=== PATIENT | female | born 1955 | race Caucasian/White ===

== ENCOUNTER 2023-02-13 09:15 | Outpatient (OUT) | payer MEDICARE, MEDICAID, SELFPAY ==
[2023-02-13 09:40] LABS: Basophils Percent Auto 0.5 % (0.2-2.0); Eosinophils Absolute Auto 0.1 10^3/uL (0.0-0.7); Eosinophils Percent Auto 1.3 % (0.9-7.0); Hematocrit 40.1 % (36.0-48.0); Immature Granulocytes Abs Auto 0.03 10^3/uL (0.00-0.03); Immature Granulocytes Pct Auto 0.4 % (0.0-0.5); Lymphocytes Absolute Auto 2.5 10^3/uL (1.2-3.8); Lymphocytes Percent Auto 29.2 % (20.5-60.0); Mean Corpuscular HGB Conc 32.4 g/dL (29.9-35.2); Mean Corpuscular Hemoglobin 31.4 pg (26.7-34.0); Mean Corpuscular Volume 96.9 fL (81.0-99.0); Mean Platelet Volume 9.2 fL (9.5-13.5); Monocytes Absolute Auto 0.6 10^3/uL (0.3-0.8); Monocytes Percent Auto 7.5 % (1.7-12.0); Neutrophils Absolute Auto 5.2 10^3/uL (1.4-6.5); Neutrophils Percent Auto 61.1 % (43.0-75.0); Platelet Count 142 10^3/uL (150-450); Red Blood Count 4.14 10^6/uL (4.20-5.40); Red Cell Distribution Width 15.3 % (11.0-15.0); White Blood Count 8.4 10^3/uL (4.0-11.0)
[2023-02-13 13:14] LABS: Alanine Aminotransferase 28 U/L (14-59); Albumin Globulin Ratio 1.1; Albumin Level 3.4 g/dL (3.4-5.0); Alkaline Phosphatase 72 U/L (46-116); Anion Gap 10.7; Aspartate Amino Transferase 18 U/L (15-37); BUN Creatinine Ratio 23.3; Bilirubin Direct 0.1 mg/dL (0.0-0.2); Bilirubin Total 0.6 mg/dL (0.2-1.0); Carbon Dioxide 29.5 mmol/L (21.0-32.0); Chloride 109 mmol/L (98-107); Cholesterol 152 mg/dL (<=200); Estimated GFR (African America >60 (>=60); Estimated GFR (Non-African Ame >60 (>=60); Globulin 3.2 g/dL; Glucose 73 mg/dL (74-106); HDL Cholesterol 77 mg/dL (40-60); Potassium 4.2 mmol/L (3.5-5.1); Sodium 145 mmol/L (136-145); Thyroid Stimulating Hormone 1.229 uIU/mL (0.358-3.740); Total Protein 6.6 g/dL (6.4-8.2); Triglycerides 61 mg/dL (<=150); VLDL CHOLESTEROL 12.2 mg/dL
== END 2023-02-13 09:16 | disposition home or self-care (01) ==
LOC: LAB 09:18
PROVIDERS: PCP Family Medicine; Visit Provider Family Medicine
DX: Z79.899 Other long term (current) drug therapy (principal); E55.9 Vitamin D deficiency, unspecified; E78.5 Hyperlipidemia, unspecified; E66.01 Morbid (severe) obesity due to excess calories; Z98.84 Bariatric surgery status
CPT/HCPCS: 36415; 80048; 80061; 80076; 82306; 82607; 84443; 85025

== ENCOUNTER 2023-05-21 09:48 | Outpatient (OUT) | payer MEDICARE, MEDICAID, SELFPAY ==
--- NOTE | 2023-05-21 09:57 | XR_ITS ---
The [address] [address] Patient Name: CEFERINO PEREZ MRN: [id number] date: 1955 Sex: F Assigned Patient Location: [facility] Current Patient Location: [facility] Accession/Order Number: [id number] Exam Date: 05/21/2023 10:09 Report Date: 05/21/2023 12:26 At the request of: OLGA HILTON Procedure: XR knee LT 3V EXAM: XR knee LT 3V HISTORY: acute pain of left knee M25.562 Injury one month ago COMPARISON: None TECHNIQUE: 3 views of the left knee were obtained. FINDINGS: No definite acute fracture or dislocation. Minimal medial spurring. Focal area of sclerosis in the lateral femoral condyle compatible with bone island. No evidence of sizable suprapatellar joint effusion. Soft tissues are grossly within normal limits. XR/XR knee LT 3V IMPRESSION: Left knee study fails to demonstrate definite acute fracture or dislocation. Follow-up as needed. Electronically authenticated by: JENNIFER HOLLINS Date: 05/21/2023 12:26
== END 2023-05-21 09:49 | disposition home or self-care (01) ==
LOC: RAD 09:50
PROVIDERS: PCP Family Medicine; Visit Provider Family Medicine
DX: M25.562 Pain in left knee (principal)
CPT/HCPCS: 73562

== ENCOUNTER 2023-06-07 13:59 | Outpatient (OUT) | payer MEDICARE, MEDICAID, SELFPAY ==
--- OUTSIDE RECORDS SUMMARY | 2023-06-07 14:05 | XMS_ITS | CCD ---
Author Name Unknown Address [address] [place] [address] Organization [facility] Care Team Providers Care It Manager Name Role Phone PHYSICIAN, DEFAULT Unavailable Unavailable PHYSICIAN, DEFAULT Unavailable Unavailable NADERESantiago, OLGA Unavailable Unavailable NADERER, OLGA Unavailable Unavailable NADERER, OLGA Unavailable Unavailable NADERER, OLGA Unavailable Unavailable NADERER, OLGA Unavailable Unavailable PHYSICIAN, DEFAULT Unavailable Unavailable PHYSICIAN, DEFAULT Unavailable Unavailable NADERER, OLGA Unavailable Unavailable YOSHI MASON Referring Unavailable NADERER, OLGA SIMMONS Primary Care Unavailabl e OLGA HILTON Primary Care Physician [phone] DAVID, DR LUEVANO Admitting Unavailable AHMED, DR LUEVANO Attending Unavailable NADERER, DR OLGA Snell Primary Care Unavailable ZIEBER, DR BOB Henderson Consulting Unavailable AHMED, DR LUEVANO Consulting Unavailable NADERER, DR OLGA Snell Admitting Unavailable NADERER, DR OLGA Snell Attending Unavailable NADERER, DR OLGA Snell Primary Care Unavailable NADERER, DR OLGA Snell Consulting Unavailable AHMED, DR LUEVANO Admitting Unavailable AHMED, DR LUEVANO Attending Unavailable NADERER, DR OLGA Snell Primary Care Unavailable ZIEBER, DR BOB Henderson Consulting Unavailable AHMED, DR LUEVANO Consulting Unavailable Joseph, Julee A Admitting Unavailable Joseph, Julee A Attending Unavailable Joseph, Julee A Attending Unavailable Joseph, Julee A Attending Unavailable Joseph, Julee A Attending Unavailable Joseph, Julee A Attending Unavailable Haritha PAULINO Referring Unavailable SALAM, Haritha Attending Unavailable ANELAMHaritha Admitting Unavailable Jin Echeverria Referring Jin Brink Attending Jin Brink Admitting OLGA Durham Attending Unavailable DYLAN YOUNGER Attending Unavailable Allergies Allergy Classification Reported Allergen(s) Allergy Type Date of Onset Reaction(s) Facility (3 sources) Penicillins; Translations: [PENICILLINS] Drug allergy (disorder) 01-29-2011 [facility] (20 sources) guaiFENesin; Translations: [guaifenesin] Drug Allergy 08-08-2016 unknown [facility] (10 sources) Penicillin; Translations: [Penicillin -class of antibiotic- (product)] Drug Allergy [facility] (11 sources) Pseudoephedrine; Translations: [pseudoephedrine ] Drug Allergy 08-08-2016 [facility] (10 sources) Nystatin; Translations: [nystatin] Drug Allergy [facility] Medications Current Medications Medication Drug Class(es) Dates Sig (Normalized) Sig (Original) acetaminophen 325 mg / HYDROcodone bitartrate 5 mg oral tablet (12 sources) Opioid Agonist Start: 05-14-2022 acetaminophen-hydr ocodone 325 mg-5 mg oral tablet Refill(s) 0, Pain Start Date: 05/14/22 Status: Ordered Start: 01-16-2017 take 1 tablet by pooja th twice daily [place] 5/325 Tab 1 tab(s), Oral, BID, Refill(s) 0, Pain Start Date: 01/16/17 Status: Ordered Start: 01-16-2017 take 1 tablet by pooja th twice daily [place] 5/325 Tab 1 tab(s), Oral, BID, Refill(s) 0, Pain Start Date: 01/16/17 Status: Ordered Albuterol (9 sources) beta2-Adrenergic Agonist Start: 02-13-2018 take 2 puff(s) by inhalation four times daily as needed for wheezing Proventil HFA = 2 puff(s), Inhalation, QID, PRN Shortness of breath or wheezing, Refills(s) 0, Shortness of breath or wheezing Start Date: 02/13/18 Status: Ordered aspirin 81 mg oral tablet (9 sources) Platelet Aggregation Inhibitor, Nonsteroidal Anti-inflammatory Drug Start: 02-18-2015 take 81 mg by mouth once daily aspirin 81 mg, Oral, Daily, Refills(s) 0, Prophylaxis Start Date: 02/18/15 Status: Ordered atorvastatin (5 sources) HMG-CoA Reductase Inhibitor Start: 05-14-2022 atorvastatin Refills(s) 0, High cholesterol Start Date: 05/14/22 Status: Ordered biotin 5 mg oral tablet (9 sources) Start: 11-19-2017 take 5 mg by mouth once daily biotin 5 mg, Oral, Daily, Refills(s) 0, Prophylaxis Start Date: 11/19/17 Status: Ordered busPIRone hydrochloride 7.5 mg oral tablet (5 sources) Start: 05-14-2022 busPIRone 7.5 mg oral tablet Refills(s) 0, Depression Start Date: 05/14/22 Status: Ordered calcium citrate 1500 mg / cholecalciferol 200 unt oral tablet (9 sources) Vitamin D Start: 11-19-2017 take 1 tablet by mouth twice daily calcium (as citrate)-vitami n D 315 mg-200 intl units oral tablet 1 tab(s), Oral, BID Prophylaxis, Refill(s) 0 Start Date: 11/19/17 Status: Ordered docusate sodium 200 mg oral capsule (9 sources) Start: 07-26-2017 take 200 mg by mouth once daily as needed for constipation Colace 200 mg, Oral, Daily, PRN as needed for constipation, Refills(s) 0, Constipation Start Date: 07/26/17 Status: Ordered Doxapram (9 sources) Respiratory Stimulant Start: 04-26-2020 take 1 mg intravenously once doxapram mg/kg, IV, Once, Refills(s) 0, Shortness of breath or wheezing Start Date: 04/26/20 Status: Ordered famotidine 20 mg oral tablet (11 sources) Histamine-2 Receptor Antagonist Start: 03-25-2023 End: 12-20-2023 take 1 tablet by mouth once daily at bedtime famotidine 20 mg Tab 20 mg = 1 tab(s), Oral, Once a day (at bedtime), X 90 day(s), # 90 tab(s), Refills(s) 2, Pharmacy: [facility] #[id number], 150, cm, 03/25/23 12:36:00 EDT, Height/Length Dosing, 90, kg, 03/25/23 12:36:00 EDT, Weight Dosing Start Date: 03/25/23 Stop Date: 12/20/23 Status: Ordered Start: 11-14-2021 End: 11-26-2022 famotidine 20 mg Tab Refills (s) 0, Control of stomach acid Start Date: 05/14/22 Status: Ordered meclizine hydrochloride 25 mg oral tablet (9 sources) Antiemetic Start: 11-27-2018 take 25 mg by mouth four times daily as needed for dizziness meclizine 25 mg, Oral, QID, PRN Dizziness, Refills(s) 0, Dizziness Start Date: 11/27/18 Status: Ordered midodrine hydrochloride 5 mg oral tablet (9 sources) alpha-Adrenergic Agonist Start: 11-19-2017 take 5 mg by mouth three times daily midodrine 5 mg, Oral, TID, low blood pressure, Refills(s) 0 Start Date: 11/19/17 Status: Ordered montelukast 10 mg oral tablet (9 sources) Leukotriene Receptor Antagonist Start: 11-18-2017 take 10 mg by mouth once daily in the evening Singulair 10 mg, Oral, qPM, Refills(s) 0, Allergy symptoms Start Date: 11/18/17 Status: Ordered omeprazole 40 mg delayed release oral capsule (8 sources) Proton Pump Inhibitor Start: 03-25-2023 End: 12-20-2023 take 1 capsule by mouth once daily omeprazole 40 mg Cap-DR 40 mg = 1 cap(s), Oral, Daily, X 90 day(s), # 90 cap(s), Refills(s) 2, [id number], 150, cm, 03/25/23 12:36:00 EDT, Height/Length Dosing, 90, kg, 03/25/23 12:36:00 EDT, Weight Dosing Start Date: 03/25/23 Stop Date: 12/20/23 Status: Ordered Start: 08-24-2022 End: 02-20-2023 take 1 capsule by mouth once daily omeprazole 40 mg Cap-DR 40 mg = 1 cap(s), Oral, Daily, X 90 day(s), # 90 cap(s), Refills(s) 1, Pharmacy: [facility] #[id number], 150, cm, 08/24/22 13:41:00 EDT, Height/Length Dosing, 93.6, kg, 08/24/22 13:41:00 EDT, Weight Dosing Start Date: 08/24/22 Stop Date: 02/20/23 Status: Ordered Start: 08-14-2021 End: 08-09-2022 take 1 capsule by mouth once daily omeprazole 40 mg Cap-DR 40 mg = 1 cap(s), Oral, Daily, X 90 day(s), # 90 cap(s), Refills(s) 3, Pharmacy: [facility] #[id number], 150, cm, 08/14/21 10:09:00 EDT, Height/Length Dosing, 90.8, kg, 08/14/21 10:09:00 EDT, Weight Dosing Start Date: 08/14/21 Stop Date: 08/09/22 Status: Ordered omeprazole 40 mg Cap-DR (1 source) Start: 08-14-2021 End: 08-09-2022 take 1 capsule by mouth once daily omeprazole 40 mg Cap-DR 40 mg = 1 cap(s), Oral, Daily, X 90 day(s), # 90 cap(s), Refills(s) 3, Pharmacy: [facility] #[id number], 150, cm, 08/14/21 10:09:00 EDT, Height/Length Dosing, 90.8, kg, 08/14/21 10:09:00 EDT, Weight Dosing Start Date: 08/14/21 Stop Date: 08/09/22 Status: Ordered polyethylene glycol 3350 91445 mg powder for oral solution (5 sources) Osmotic Laxative Start: 05-14-2022 End: 08-12-2022 take 17 g by mouth once daily as needed for constipation Miralax 3350 17 gram packet 17 gm, Oral, Daily, PRN constipation, X 90 day(s), # 90 EA, Refills(s) 0, Pharmacy: [facility] #[id number], 150, cm, 05/14/22 13:55:00 EST, Height/Length Dosing, 92, kg, 05/14/22 13:55:00 EST, Weight Dosing Start Date: 05/14/22 Stop Date: 08/12/22 Status: Ordered Start: 11-18-2017 MiraLax 17 gra m, Oral, Daily, Refill(s) 0, Constipation Start Date: 11/18/17 Status: Ordered polyethylene glycol 3350 240297 mg / potassium chloride 1480 mg / sodium bicarbonate 5720 mg / sodium chloride 10837 mg powder for oral solution (1 source) Osmotic Laxative Start: 03-25-2023 NuLYTEBECKY Caridad ry oral powder for reconstitution See Instructions, 1 EA, Refill(s) 0, Prior to colonoscopy., [facility] #[id number], 150, cm, 03/25/23 12:36:00 EDT, Height/Length Dosing, 90, kg, 03/25/23 12:36:00 EDT, Weight Dosing Start Date: 03/25/23 Status: Ordered Promethazine (9 sources) Phenothiazine Start: 11-27-2018 promethazine 2 5 mg, PRN as needed for nausea/vomiting, Refills(s) 0 Start Date: 11/27/18 Status: Ordered psyllium 525 mg oral capsule (2 sources) Start: 03-25-2023 End: 06-23-2023 Metamucil 525 mg oral capsule 1 capsule, Oral, Daily, with at least 8 ounces of water, X 90 day(s), # 90 cap(s), Refills(s) 0, Pharmacy: [facility] #[id number], 150, cm, 03/25/23 12:36:00 EDT, Height/Length Dosing, 90, kg, 03/25/23 12:36:00 EDT, Weight Dosing Start Date: 03/25/23 Stop Date: 06/23/23 Status: Ordered Start: 05-14-2022 End: 08-12-2022 take 1 capsule by mouth once daily Metamucil 525 mg oral capsule 1 capsule, Oral, Daily, X 90 day(s), # 90 cap(s), Refills(s) 0, Pharmacy: [facility] #[id number], 150, cm, 05/14/22 13:55:00 EST, Height/Length Dosing, 92, kg, 05/14/22 13:55:00 EST, Weight Dosing Start Date: 05/14/22 Stop Date: 08/12/22 Status: Ordered vitamin B12 (9 sources) Vitamin B12 Start: 02-13-2018 Vitamin B12 1, 000 microgram, Oral, Daily, Refills(s) 0, Prophylaxis Start Date: 02/13/18 Status: Ordered Vol-Plus (9 sources) Start: 02-28-2018 take 1 tablet by mouth once daily Vol-Plus 1 tab(s), Oral, Daily, Refill(s) 0, Prophylaxis Start Date: 02/28/18 Status: Ordered Zinc (9 sources) Start: 08-14-2021 take 1 mg by mouth once daily Zinc mg, Oral, Daily, Refills(s) 0, Prophylaxis Start Date: 08/14/21 Status: Ordered Completed/Discontinued Medications Medication Drug Class(es) Dates Sig (Normalized) Sig (Original) travoprost (9 sources) Prostaglandin Analog Start: 11-19-2017 Travatan Z 0.004% ophthalmic solution 1 drop(s), Eye-Right, qPM, Refill(s) 0, Dry eyes Start Date: 11/19/17 Status: Ordered Start: 11-19-2017 Travatan Z 0.0 04% ophthalmic solution 1 drop(s), Eye-Right, qPM, Refill(s) 0, Dry eyes Start Date: 11/19/17 Status: Ordered Problems Active Problems Problem Classification Problem Date Documented Da te Episodic/Chronic Abdominal hernia (18 sources) Hernia of abdominal cavity; Translations: [Hiatal hernia] 11-27-2018 Episodic Abdominal pain (4 sources) Right lower quadrant pain; Translations: [Right lower quadrant pain] Onset: 3 Episodic Conditions associated with dizziness or vertigo (11 sources) Vertigo; Translations: [Dizziness and giddiness] Onset: 2 11-26-2018 Episodic Coronary atherosclerosis and other heart disease (2 sources) Atherosclerotic heart disease of [place] coronary artery without angina pectoris; Translations: [Atherosclerotic heart disease of [place] coronary artery without angina pectoris] Onset: 3 Chronic Esophageal disorders (20 sources) Gastroesophageal reflux disease without esophagitis; Translations: [Gastro-esophageal reflux disease without esophagitis] Onset: 2 11-26-2018 Chronic Gastritis and duodenitis (9 sources) Acute gastritis 11-26-2018 Episodic Gastrointestinal hemorrhage (2 sources) Hemorrhage of rectum and anus; Translations: [Hemorrhage of anus and rectum] Onset: 3 Episodic Headache; including migraine (9 sources) Migraine 11-26-2018 Chronic Noninfectious gastroenteritis (9 sources) Colitis 11-26-2018 Episodic Nutritional deficiencies (1 source) Vitamin D deficiency, unspecified; Translations: [VITAMIN D DEFICIENCY UNSPECIFIED] Onset: 2 Chronic Osteoarthritis (9 sources) Arthritis 11-26-2018 Chronic Osteoporosis (4 sources) Age-related osteoporosis without current pathological fracture; Translations: [AGE-REL OSTEOPOR W/O CURR PATH FX] Onset: 2 Chronic Other and unspecified benign neoplasm (5 sources) Polyp of colon; Translations: [Polyp of colon] Onset: 3 Episodic Other and unspecified benign neoplasm (5 sources) History of polyp of colon; Translations: [Personal history of colonic polyps] Onset: 3 Episodic Other gastrointestinal disorders (9 sources) Irritable bowel syndrome 11-26-2018 Chronic Other gastrointestinal disorders (15 sources) Dysphagia; Translations: [Dysphagia, unspecified] Onset: 2 Episodic Other gastrointestinal disorders (11 sources) H/O: gastrointestinal disease; Translations: [Personal history of other diseases of the digestive system] Onset: 2 Episodic Other gastrointestinal disorders (1 source) Bariatric surgery status; Translations: [BARIATRIC SURGERY STATUS] Onset: 2 Episodic Other gastrointestinal disorders (1 source) Abnormal feces; Translations: [Other fecal abnormalities] Onset: 3 Episodic Other gastrointestinal disorders (1 source) Hard stool 03-25-2023 Episodic Other nutritional; endocrine; and metabolic disorders (9 sources) Obesity 11-26-2018 Chronic Other screening for suspected conditions (not mental disorders or infectious disease) (4 sources) Encounter for screening mammogram for malignant neoplasm of breast; Translations: [ENC SCR MAMMO MALIG NEOPLASM BREAST] Onset: 2 Episodic Residual codes; unclassified (6 sources) Family history of malignant neoplasm of digestive organ; Translations: [Family history of malignant neoplasm of digestive organs] Onset: 2 Episodic Residual codes; unclassified (8 sources) Family history of cancer of colon 11-14-2021 Episodic Residual codes; unclassified (1 source) Family history of malignant neoplasm of trachea, bronchus and lung; Translations: [FAM HX MALIG NEOPLSM TRACH BRON LNG] Onset: 2 Episodic Residual codes; unclassified (1 source) Family history of malignant neoplasm of digestive organs; Translations: [FAM HX JORDON NEOPLASM DIGESTIV ORGN] Onset: 2 Episodic Residual codes; unclassified (8 sources) Family history of polyp of colon; Translations: [Family history of colonic polyps] Onset: 3 05-14-2022 Episodic Syncope (4 sources) Syncope and collapse; Translations: [SYNCOPE AND COLLAPSE] Onset: 8 Episodic Unclassified (2 sources) Unknown / UNK(Unknown) Onset: 8 Past or Other Problems Problem Classification Problem Date Documented Da te Episodic/Chronic Other bone disease and musculoskeletal deformities (1 source) Other specified disorders of bone density and structure, unspecified site; Translations: [OTH D/O BONE DEN STRUCT UNS SITE] Onset: 01-26-2022 Episodic Unclassified (9 sources) Heart structure (body structure) 11-27-2018 Results Test Name Value Interpretation Reference Range Facility Office Visiton 05-22-2023 Follow-up visit [id number] Yang Perez cia 1955 F Date Provider Department Center 05/22/2023 [facility]DYLAN YOU[facility]ER [facility] Family History Problem Relation Age of Onset Hypertension Mother Diabetes Father Family Status - Relation Status Age at Mother Father Level of Service:02196 [place] OFFICE/OUTPATIENT ESTABLISHED LOW MDM 20 MIN [facility] Consent for Procedure/Surger yon 03-26-2023 Consent for Procedure/Surgery [id number] [facility] Ambulatory Visit Summaryon 1 Ambulatory Visit Summary CEFERINO PEREZ :1955 Visit Date:03/25/2023 Ambulatory Visit Instructions Your Diagnosis Hard stool BRBPR (bright red blood per rectum) Dysphagia History of esophageal spasm Acid reflux History of colon polyps Family history of colon cancer Family history of colonic polyps Your Care Team Attending Physician - Julee Ruiz CNP A Primary Care Physician - OLGA HILTON MD This Is Your Medications List famotidine (famotidine 20 mg Tab) omeprazole (omeprazole 40 mg Cap-DR) polyethylene glycol 3350 with electrolytes (NuLYTELY Floyd oral powder for reconstitution) psyllium (Metamucil 525 mg oral capsule) Contact prescribing physician if questions or concerns acetaminophen-hydrocodone ([place] 5/325 Tab) albuterol (Proventil HFA) aspirin atorvastatin biotin busPIRone (busPIRone 7.5 mg oral tablet) calcium-vitamin D (calcium (as citrate)-vitamin D 315 mg-200 intl units oral tablet) cyanocobalamin (Vitamin B12) docusate (Colace) doxapram famotidine (famotidine 20 mg Tab) meclizine midodrine montelukast (Singulair) multivitamin with minerals (Vol-Plus) promethazine travoprost ophthalmic (Travatan Z 0.004% ophthalmic solution) zinc sulfate (Zinc) Procedures Performed EGD - Esophagogastroduodenoscopy (02/15/2023), Colonoscopic polypectomy (07/26/2022), EGD - Esophagogastroduodenoscopy (07/26/2022), EGD - Esophagogastroduodenoscopy (12/16/2020), Bariatric surgery service, section, Cholecystectomy, Hernia repair, Hysterectomy. Discharge Vitals Temperature (Temporal Artery) 36.5 ?C Heart Rate (Peripheral) 68 Blood Pressure 120/82 Height 150 cm Height 59 in Weight 90 kg Weight 198 lb BMI 40 What to do next You Need to Schedule the Following Appointments Follow Up with Julee Ruiz CNP When: Within 1 month Where: Medications What How Much When Why Instructions New polyethylene glycol 3350 with electrolytes (NuLYTELY Floyd oral powder for reconstitution) See instructions Prior to colonoscopy. Pickup at [facility] #[id number] New psyllium (Metamucil 525 mg oral capsule) 1 capsule By Mouth Every day Hard stool Duration: 90 Days with at least 8 ounces of water Pickup at [facility] #[id number] Changed famotidine (famotidine 20 mg Tab) 1 Tablets By Mouth Once a day (at bedtime) Acid reflux Duration: 90 Days Pickup at [facility] #[id number] Changed omeprazole (omeprazole 40 mg Cap-DR) 1 Capsules By Mouth Every day Acid reflux Duration: 90 Days Pickup at [facility] #[id number] Unchanged acetaminophen-hydrocodone ([place] 5/ 325 Tab) 1 Tablets By Mouth 2 times a day Contact prescribing physician if questions or concerns Unchanged albuterol (Proventil HFA) 2 Puffs Inhalation 4 times a day as needed for Shortness of breath or wheezing Contact prescribing physician if questions or concerns Unchanged aspirin 81 Milligram By Mouth Every day Contact prescribing physician if questions or concerns Unchanged atorvastatin Contact prescribing physician if questions or concerns Unchanged biotin 5 Milligram By Mouth Every day Contact prescribing physician if questions or concerns Unchanged busPIRone (busPIRone 7.5 mg oral tablet) Contact prescribing physician if questions or concerns Unchanged calcium-vitamin D (calcium (as citrate)-vitamin D 315 mg-200 intl units oral tablet) 1 Tablets By Mouth 2 times a day as needed for Prophylaxis Contact prescribing physician if questions or concerns Unchanged cyanocobalamin (Vitamin B12) 1,000 Microgram By Mouth Every day Contact prescribing physician if questions or concerns Unchanged docusate (Colace) 200 Milligram By Mouth Every day as needed for as needed for constipation Contact prescribing physician if questions or concerns Unchanged doxapram Intravenous Once Contact prescribing physician if questions or concerns Unchanged famotidine (famotidine 20 mg Tab) Contact prescribing physician if questions or concerns Unchanged meclizine 25 Milligram By Mouth 4 times a day as needed for Dizziness Contact prescribing physician if questions or concerns Unchanged midodrine 5 Milligram By Mouth 3 times a day low blood pressure Contact prescribing physician if questions or concerns Unchanged montelukast (Singulair) 10 Milligram By Mouth Once a day (in the evening) Contact prescribing physician if questions or concerns Unchanged multivitamin with minerals (Vol-Plus) 1 Tablets By Mouth Every day Contact prescribing physician if questions or concerns Unchanged promethazine 25 Milligram As needed for as needed for nausea/vomiting Contact prescribing physician if questions or concerns Unchanged travoprost ophthalmic (Travatan Z 0.004% ophthalmic solution) 1 Drops Right eye Once a day (in the evening) Contact prescribing physician if questions or concerns Unchanged zinc sulfate (Zinc) By Mouth Every day Contact prescribing physician if questions or concerns Pharmacy Information [facility] #[id number]: [address] [place] (more content not included)... [facility] Gastroenterology Office/Clin ic Noteon 03-25-2023 Gastroenterology Office/Clinic Note Chief Complaint Hard stools. HPI Staff This is a 67 year old female who presents today for a follow up to EGD. Patient also needs refills on famotidine and omeprazole. History of Present Illness Patient is a 67-year-old female who presents for follow-up from EGD with dilation completed 02/15/[address] Echeverria. Presents with her daughter today. Patient was previously evaluated 01/21/2023 and has history of gastric bypass. Patient reported during visit with me that she was having bulge in right lower abdomen over the last 6 to 7 months that was evaluated by general surgery and reportedly did not have hernia. Patient reported having hemorrhoid that burst 11/2022 with hard consistency bowel movement and had bright red blood per rectum on toilet bowl and on toilet paper with wiping that had resolved. She reported having difficulty swallowing bread and meat over the last 3 months that was occurring when she ate those foods. She reported her acid reflux was well controlled with omeprazole 40 mg daily and Pepcid 20 mg at bedtime. Patient with family history of colon polyps and colon cancer?patient's mother and 2 brothers. Patient had previously reported having difficulty swallowing. Patient had previous x-ray of esophagus in 2018 that revealed mild esophageal spasm and gastroesophageal reflux. Modified barium swallow 03/22/2022 revealed barium transfer to oropharynx, some sinus residue and was ordered speech therapy referral for evaluation/management of dysphagia. Previous labs 05/2022 revealed unremarkable CMP with exception of elevated BUN and BUN/creatinine ratio?patient to follow-up with PCP regarding, normal magnesium, normal B12 level. Patient is taking omeprazole 40 mg daily and Pepcid 20 mg at bedtime. Patient reported during that her difficulty swallowing has resolved since EGD with dilation. Patient reported acid reflux was well controlled with omeprazole and Pepcid. EGD completed 07/26/2022 revealed Botox was injected to distal esophagus and dilation of esophagus was performed, normal gastric mucosa, normal duodenum. Colonoscopy completed 07/26/2022 revealed 25 mm ascending colon polyp removed that was hyperplastic, hemorrhoids?patient is due for repeat colonoscopy 1 year?07/2023. Patient was ordered EGD with dilation and possible Botox injection. Patient with history of esophageal spasm and was educated regarding Altoid mints. Patient is due for repeat colonoscopy 07/2023. Patient had previous labs 05/2022 that revealed slightly elevated BUN, normal creatinine, normal magnesium and B12 levels. Previous CT abdomen/pelvis at outside facility 09/2022 revealed no evidence of acute process. EGD with dilation 02/15/2023 revealed normal esophagus?dilated, Botox injected into LES above GE junction and 1 cm above, evidence of prior sleeve surgery in stomach, normal duodenum. During today's visit, patient reports she is doing well. Reports acid reflux is well-controlled with omeprazole 40mg daily and pepcid 20mg at bedtime. She reports dysphagia has improved since EGD with dilation. Is having 1 BM every other day that are formed. Stool is at times hard in consistency with BRBPR with reported hemorrhoids when pushing/straining to have a BM. Is taking miralax PRN for constipation. Reports rare loose stools. Denies esophageal spasms. Does not drink much water. Denies black/bloody stools, nausea/vomiting, fevers/chills, and denies having any other GI complaints. Review of Systems PHQ Score Initial Depression Screen Score: 0 ROS - Provider Constitutional: no fever, no chills. Skin: no Jaundice. ENMT: Improved dyspahgia. Respiratory: no shortness of breath. Cardiovascular: no chest pain. Gastrointestinal: no nausea, no vomiting, no diarrhea. See HPI for details regarding. Physical Exam Vitals & Measurements T: 36.5 ?C(Temporal Artery) HR: 68(Peripheral) BP: 120/82 HT: 59 in HT: 150 cm WT: 90 kg WT: 198 lb BMI: 40 General: Well developed, well nourished, in no acute distress Head: Normocephalic/atraumatic Lungs: Normal respiratory effort and clear to auscultation Cardio: Regular rate and rhythm, normal S1 and S2, no murmur, no rub Abdomen: Soft, non-distended, non-tender. Normoactive bowel sounds present in all 4 abdominal quadrants, bilaterally. Mental Status: Alert and oriented x3. Normal mood and affect Assessment/Plan 1. Hard stool (R19.5: Other fecal abnormalities) Has occasional hard stools with BRBPR with reported hemorrhoids. Colonoscopy completed 07/26/2022 revealed 25 mm ascending colon polyp removed that was hyperplastic, hemorrhoids?patient is due for repeat colonoscopy 1 year?07/2023. Educated regarding use of fiber supplementation daily- metamucil 1 capsule daily- separate 2 hours from other medications. Continue miralax PRN for hard stools. Educated to drink plenty of water daily. Ordered: psyllium, 1 capsule, Oral, Daily, with at least 8 ounces of water, X 90 day(s), # 90 cap(s), Refills(s) 0, Pharmacy: [facility] #[id number], (more content not included)... [facility] Comment on above: Result Comment: Elec tronically Signed By: Joseph SOTO, Julee Snell\.br\Date and Time Signed: 03/25/23 13:07 EDT Patient Educationon 03-25-20 Patient Education Gastroenterology Food Choices for Gastroesophageal Reflux Disease, Adult When you have gastroesophageal reflux disease (GERD), the foods you eat and your eating habits are very important. Choosing the right foods can help ease the discomfort of GERD. Consider working with a dietitian to help you make healthy food choices. What are tips for following this plan? Reading food labels ? Look for foods that are low in saturated fat. Foods that have less than 5% of daily value (DV) of fat and 0 g of trans fats may help with your symptoms. Cooking ? Cook foods using methods other than frying. This may include baking, steaming, grilling, or broiling. These are all methods that do not need a lot of fat for cooking. ? To add flavor, try to use herbs that are low in spice and acidity. Meal planning ? Choose healthy foods that are low in fat, such as fruits, vegetables, whole grains, low-fat dairy products, lean meats, fish, and poultry. ? Eat frequent, small meals instead of three large meals each day. Eat your meals slowly, in a relaxed setting. Avoid bending over or lying down until 2?3 hours after eating. ? Limit high-fat foods such as fatty meats or fried foods. ? Limit your intake of fatty foods, such as oils, butter, and shortening. ? Avoid the following as told by your health care provider: ? Foods that cause symptoms. These may be different for different people. Keep a food diary to keep track of foods that cause symptoms. ? Alcohol. ? Drinking large amounts of liquid with meals. ? Eating meals during the 2?3 hours before bed. Lifestyle ? Maintain a healthy weight. Ask your health care provider what weight is healthy for you. If you need to lose weight, work with your health care provider to do so safely. ? Exercise for at least 30 minutes on 5 or more days each week, or as told by your health care provider. ? Avoid wearing clothes that fit tightly around your waist and chest. ? Do not use any products that contain nicotine or tobacco. These products include cigarettes, chewing tobacco, and vaping devices, such as e-cigarettes. If you need help quitting, ask your health care provider. ? Sleep with the head of your bed raised. Use a wedge under the mattress or blocks under the bed frame to raise the head of the bed. ? Chew sugar-free gum after mealtimes. What foods should I eat? Eat a healthy, well-balanced diet of fruits, vegetables, whole grains, low-fat dairy products, lean meats, fish, and poultry. Each person is different. Foods that may trigger symptoms in one person may not trigger any symptoms in another person. Work with your health care provider to identify foods that are safe for you. The items listed above may not be a complete list of recommended foods and beverages. Contact a dietitian for more information. What foods should I avoid? Limiting some of these foods may help manage the symptoms of GERD. Everyone is different. Consult a dietitian or your health care provider to help you identify the exact foods to avoid, if any. Fruits Any fruits prepared with added fat. Any fruits that cause symptoms. For some people this may include citrus fruits, such as oranges, grapefruit, pineapple, and arabella. Vegetables Deep-fried vegetables. Jamaican fries. Any vegetables prepared with added fat. Any vegetables that cause symptoms. For some people, this may include tomatoes and tomato products, chili peppers, onions and garlic, and horseradish. Grains Pastries or quick breads with added fat. Meats and other proteins High-fat meats, such as fatty beef or pork, hot dogs, ribs, ham, sausage, salami, and olson. Fried meat or protein, including fried fish and fried chicken. Nuts and nut butters, in large amounts. Dairy Whole milk and chocolate milk. Sour cream. Cream. Ice cream. Cream cheese. Milkshakes. Fats and oils Butter. Margarine. Shortening. Ghee. Beverages Coffee and tea, with or without caffeine. Carbonated beverages. Sodas. Energy drinks. Fruit juice made with acidic fruits, such as orange or grapefruit. Tomato juice. Alcoholic drinks. Sweets and desserts Chocolate and cocoa. Donuts. Seasonings and condiments Pepper. Peppermint and spearmint. Added salt. Any condiments, herbs, or seasonings that cause symptoms. For some people, this may include vasquez, hot sauce, or vinegar-based salad dressings. The items listed above may not be a complete list of foods and beverages to avoid. Contact a dietitian for more information. Questions to ask your health care provider Diet and lifestyle changes are usually the first steps that are taken to manage symptoms of GERD. If diet and lifestyle changes do not improve your symptoms, talk with your health care provider about taking medicines. Where to find more information ? [employer]: aboutgerd.org Summary ? When you have gastroesophageal reflux di (more content not included)... [facility] IntraOperative Documentson 0 02-27-2023 IntraOperative Documents [id number]:127 [facility] Consenton 02-18-2023 Consent [id number]:127 [facility] Discharge Instructionson Discharge Instructions [id number]:127 [facility] Insurance Correspondenceon 0 02-18-2023 Insurance Correspondence [id number]:127 [facility] Main OR Intraoperative Recor don 02-18-2023 Main OR Intraoperative Record IntraOp Document Type FT Summary Primary Physician: Jin Echeverria MD Finalized Date/Time: 02/18/23 10:36:30 Pt. Name: CEFERINO PEREZ/Sex: 1955 Female Med Rec #: [id number] Physician: Jacki CORRALES, Jin Rivera Financial #: [id number] Pt. Type: O Room/Bed: Endo 08/01 Admit/Disch: 02/15/23 09:29:26 - 02/15/23 11:08:00 Institution: Case Times FT Entry 1 Patient Times In Room 02/15/23 10:10:00 Out Room 02/15/23 10:37:00 Procedure Times Start 02/15/23 10:22:00 Stop 02/15/23 10:32:00 Anesthesia Times Start 02/15/23 10:10:00 Stop 02/15/23 10:37:00 Last Modified By: Armen TIMMONS, Xiomara Hogue 02/15/23 10:37:03 General Comments: 02/18/23 Chart opened to review and send charges [facility]FA Case Attendance FT Entry 1 Entry 2 Entry 3 Case Attendee Brittanie Cadet Micala E Sarmini MD, Jin Rivera Role Performed Scrub - Primary Staff - Other Surgeon - Primary Time In 02/15/23 10:10:00 02/15/23 10:10:00 02/15/23 10:10:00 Time Out 02/15/23 10:37:00 02/15/23 10:37:00 02/15/23 10:37:00 Procedure EGD(.) EGD(.) EGD(.) Comments Last Modified By: Armen TIMMONS, Xiomara Ayers RN, Xiomara Ayers RN, Xiomara Hogue 02/15/23 10:37:05 02/15/23 10:37:05 02/15/23 10:37:05 Entry 4 Entry 5 Case Attendee Sotero Gonzalez DO, Armond Ayers RN, Xiomara Hogue Role Performed Anesthesiologist of Police Artist - Primary Record Time In 02/15/23 10:10:00 02/15/23 10:10:00 Time Out 02/15/23 10:37:00 02/15/23 10:37:00 Procedure EGD(.) EGD(.) Comments Last Modified By: Armen TIMMONS, Xiomara Ayers RN, Xiomara Hogue 02/15/23 10:37:05 02/15/23 10:37:05 Perioperative Protocols FT Pre-Care Text: Implements protective measures prior to operative or invasive procedure, confirms identity before the operative or invasive procedure, verifies operative procedure, surgical site, and laterality Entry 1 Procedure(s) EGD(.) Patient Identity Birthday, ID Band Verified (select at Check, Patient least 2): Participation Consents / H and P Anesthesia Consent, Operative Site N/A Verified HandP, Surgery/Procedure Marking Verified Consent Surgical Site Yes Laterality Verified n/a Verified Procedure Verified Yes Correct Patient Yes Position Verified Availability Equipment, Medication Prep Dry n/a Verified (If Applicable) PreOp Antibiotic No Time Out Brittanie Cdaet, Given Participants Deja Liu, Jacki CORRALES, Sotero Lopez Jr, DO, James A, Xiomara Ayers RN Time Out Complete 02/15/23 10:15:00 Outcomes Met? Yes Last Modified By: Xiomara Ayers RN 02/15/23 10:15:46 Post-Care Text: The patient is free from signs and symptoms of injury caused by extraneous objects Allergy Information FT Pre-Care Text: Verifies allergies Entry 1 Allergies Reviewed? Yes Allergies Reviewed Self/Patient With Outcomes Met? Yes Last Modified By: Xiomara Ayers RN 02/15/23 10:15:54 Post-Care Text: The patient received appropriate medication(s) safely administered during the perioperative period Surgical Procedures FT Entry 1 Procedure Description Procedure EGD Modifiers . Surgeon Description EGD with botox injection to the LES and dialate esophagus with a 60 Fr Serra. Primary Procedure Yes Primary Surgeon Jacki CORRALES, Jin Rivera Start 02/15/23 10:22:00 Stop 02/15/23 10:32:00 Anesthesia Type General Surgical Service Gastroenterology Wound Class 2 - Clean-Contaminated Last Modified By: Xiomara Ayers RN 02/15/23 10:32:52 General Case Data FT Pre-Care Text: Classifies surgical wound, implements aseptic technique, initiates traffic control Entry 1 Case Information OR ENDO 1 FT Case Level Level 2 Wound Class 2 - Clean-Contaminated Specialty Gastroenterology ASA Class 3 Preop Diagnosis Dysphagia Postop Same As Preop No Postop Diagnosis Dysphagia Outcomes Met? Yes Last Modified By: Xiomara Ayers RN 02/15/23 10:26:10 Post-Care Text: The patient is free from signs and symptoms of infection Skin Assessment (Pre Procedure) FT Pre-Care Text: Implements protective measures to prevent skin/ tissue injury due to thermal or mechanical sources Evaluates for signs and symptoms of physical injury to skin and tissue Entry 1 Skin Integrity Intact, [place], Warm, and Skin Abnormality No Dry Outcomes Met? Yes Last Modified By: Xiomara Ayers RN 02/15/23 10:17:28 Post-Care Text: The patient is free from signs and symptoms of injury caused by extraneous objects Patient Positioning FT Pre-Care Text: Identifies physical alterations that require additional precautions for procedure-specific positioning, verifies presence of prosthetics or corrective devices, positions the patient, evaluates the patient for signs and symptoms of injury as a result of positioning Entry 1 Procedure EGD(.) Body Position Lateral, right side up Feet Uncrossed? Yes Left Arm Position Resting at Side Righ (more content not included)... [facility] Postoperative Documentson Postoperative Documents [id number]:127 [facility] Progress Note-Physicianon Progress Note-Physician Patient: CEFERINO PEREZ Age: 67 years Sex: Female : 1955 Associated Diagnoses: None Author: Armond Bey Jr, DO Preoperative Information Anesthesia Preop Info: Time patient last ate or drank 02/15/2023 00:00:00. Anesthesia history: Patient history: None. Family history+: None. Informed consent: Signed by patient. Re-evaluation prior to induction: Initial evaluation reviewed: No significant change. Review of Systems Eye: Negative except as documented in history of present illness. Ear/Nose/Mouth/Throat: Negative except as documented in history of present illness. Respiratory: Negative except as documented in history of present illness. Cardiovascular: Negative except as documented in history of present illness. Musculoskeletal: Negative except as documented in history of present illness. Neurologic: Negative except as documented in history of present illness. Health Status Allergies: Allergic Reactions (Selected) Severity Not Documented GuaiFENesin- Unknown. Mucinex- Unknown. Nystatin- Aof. Penicillin- No reactions were documented. Sudafed- Itching. Problem list: All Problems Acute gastritis / SNOMED CT 46015849 / Confirmed Arthritis / SNOMED CT 5532306 / Confirmed Acute colitis / SNOMED CT 169833933 / Confirmed Dysphagia / SNOMED CT 95466835 / Confirmed Family history of colon cancer / SNOMED CT 212448987 / Confirmed Family history of colonic polyps / SNOMED CT 1170534139 / Confirmed Acid reflux / SNOMED CT 687355776 / Confirmed GERD without esophagitis / SNOMED CT 5172504385 / Confirmed History of esophageal spasm / SNOMED CT 324325887 / Confirmed Hiatal hernia / SNOMED CT 028546654 / Confirmed History of colon polyps / SNOMED CT 3654052839 / Confirmed IBS (irritable bowel syndrome) / SNOMED CT 01386856 / Confirmed Migraines / SNOMED CT 46220989 / Confirmed Obesity / SNOMED CT 9996051210 / Confirmed Colon polyp / SNOMED CT 785945054 / Confirmed RLQ abdominal pain / SNOMED CT 579674318 / Confirmed Vertigo / SNOMED CT 2807087569 / Confirmed Resolved: Heart / SNOMED CT 798090160 Resolved: Hernia / SNOMED CT 346585379 Histories Procedure history: Colonoscopic polypectomy (273709849) on 07/26/2022 at 67 Years. EGD - Esophagogastroduodenoscopy (2282455624) on 07/26/2022 at 67 Years. EGD - Esophagogastroduodenoscopy (3033644479) on 12/16/2020 at 65 Years. section (57506052). Hysterectomy (277824080). Cholecystectomy (18323206). Hernia repair (70669465). Bariatric surgery service ([id number]). Social History Social & Psychosocial Habits Alcohol 11/26/2018 Risk Assessment: Denies Alcohol Use Exercise Comment: walking - 11/26/2018 14:22 - Lisandra Saeed CMA Substance Abuse 11/26/2018 Risk Assessment: Denies Substance Abuse Tobacco 01/21/2023 Tobacco Use: Never (less than 100 in l Smokeless tobacco use: Never . Physical Examination Airway: Mallampati classification: II (soft palate, fauces, uvula visible). Respiratory: adequate air exchange. Cardiovascular: Regular rhythm. Plan [place] [employer]hesiologists (ASA) physical status classification: Class III. Anesthetic Preoperative Plan: Anesthesia General. [facility] Comment on above: Result Comment: Elec tronically Signed By: Armond Bey Jr, DO\.br\Date and Time Signed: 02/16/23 09:16 EDT Progress Note-Physician Patient: CEFERINO PEREZ Age: 67 years Sex: Female : 1955 Associated Diagnoses: None Author: Armond Bey Jr, DO Postoperative Information Postoperative disposition: Postoperative disposition: To PACU. Optimetrix number: Optimetrix number [id number]. Anesthetic utilized: General. Health Status Allergies: Allergic Reactions (Selected) Severity Not Documented GuaiFENesin- Unknown. Mucinex- Unknown. Nystatin- Aof. Penicillin- No reactions were documented. Sudafed- Itching. Physical Examination Vital Signs 02/15/2023 11:03 EDT Heart Rate Monitored 79 bpm Respiratory Rate Monitored 19 br/min Systolic Blood Pressure 108 mmHg Diastolic Blood Pressure 81 mmHg Mean Arterial Pressure, Cuff 90 mmHg SpO2 93 % 02/15/2023 10:50 EDT Heart Rate Monitored 80 bpm Respiratory Rate Monitored 18 br/min Systolic Blood Pressure 78 mmHg LOW Diastolic Blood Pressure 54 mmHg LOW Mean Arterial Pressure, Cuff 62 mmHg SpO2 98 % 02/15/2023 10:45 EDT Heart Rate Monitored 81 bpm Respiratory Rate Monitored 16 br/min Systolic Blood Pressure 89 mmHg LOW Diastolic Blood Pressure 43 mmHg LOW Mean Arterial Pressure, Cuff 58 mmHg SpO2 99 % 02/15/2023 10:40 EDT Heart Rate Monitored 77 bpm Respiratory Rate Monitored 16 br/min Systolic Blood Pressure 94 mmHg Diastolic Blood Pressure 49 mmHg LOW Mean Arterial Pressure, Cuff 64 mmHg SpO2 97 % 02/15/2023 10:38 EDT Temperature Temporal Artery 36.2 DegC LOW Heart Rate Monitored 82 bpm Respiratory Rate Monitored 17 br/min Systolic Blood Pressure 91 mmHg Diastolic Blood Pressure 50 mmHg LOW Mean Arterial Pressure, Cuff 64 mmHg SpO2 97 % Pain Assessment: Controlled. General: Awake, Alert, Appropriate. Respiratory: Adequate air exchange. Cardiovascular: Stable, Normal peripheral perfusion. Neurological: Normal sensory function, Normal motor function. Assessment Anesthetic outcome No anesthetic complications noted. Adequate pain relief. able to void without difficulty, able to ambulate with assist, tolerating PO intake, no N/V. Review / Management Condition: Stable. Plan Transfer/Discharge: Transfer/Discharge Discharge when meets criteria ( To home ). [facility] Comment on above: Result Comment: Elec tronically Signed By: Armond Bey Jr, DO\.sorin\Date and Time Signed: 02/16/23 09:16 EDT Consent for Treatmenton 02-01 Consent for Treatment [id number]:127 [facility] Discharge Instructionson Discharge Instructions CEFERINO PEREZ :1955 Visit Date:02/15/2023 Inpatient Discharge Instructions Your Care Team Admitting Physician - Jin Echeverria MD Referring Physician - Jin Echeverria MD Reason for Your Visit DYSPHAGIA Your Diagnosis Dysphagia This Is Your Medications List acetaminophen-hydrocodone ([place] 5/325 Tab) albuterol (Proventil HFA) aspirin atorvastatin biotin busPIRone (busPIRone 7.5 mg oral tablet) calcium-vitamin D (calcium (as citrate)-vitamin D 315 mg-200 intl units oral tablet) cyanocobalamin (Vitamin B12) docusate (Colace) doxapram famotidine (famotidine 20 mg Tab) meclizine midodrine montelukast (Singulair) multivitamin with minerals (Vol-Plus) omeprazole (omeprazole 40 mg Cap-DR) promethazine travoprost ophthalmic (Travatan Z 0.004% ophthalmic solution) zinc sulfate (Zinc) Procedure History EGD - Esophagogastroduodenoscopy (02/15/2023), Colonoscopic polypectomy (07/26/2022), EGD - Esophagogastroduodenoscopy (07/26/2022), EGD - Esophagogastroduodenoscopy (12/16/2020), Bariatric surgery service, section, Cholecystectomy, Hernia repair, Hysterectomy. What to do next Instructions From Your Doctor Event Name Event Result Discharge Activity Resume normal activities in 24 hours Discharge Restrictions No driving for 24 hrs Discharge Diet(s) Regular Call Your Doctor For Persistent or heavy bleeding Pharmacy Information Other: [facility] Discharge Instructions Discharge Instructions New Follow Up Appointments after Discharge Follow Up with Jacki CORRALES, [facility] When: Only if needed Comments: Call for any problems. Where: [facility], [address] [phone] [phone] Medications What How Much When Instructions Next Dose Changed acetaminophen-hydrocodone ([place] 5/ 325 Tab) 1 Tablets By Mouth 2 times a day Unchanged albuterol (Proventil HFA) 2 Puffs Inhalation 4 times a day as needed for Shortness of breath or wheezing Unchanged aspirin 81 Milligram By Mouth Every day Unchanged atorvastatin Unchanged biotin 5 Milligram By Mouth Every day Unchanged busPIRone (busPIRone 7.5 mg oral tablet) Unchanged calcium-vitamin D (calcium (as citrate)-vitamin D 315 mg-200 intl units oral tablet) 1 Tablets By Mouth 2 times a day as needed for Prophylaxis Unchanged cyanocobalamin (Vitamin B12) 1,000 Microgram By Mouth Every day Unchanged docusate (Colace) 200 Milligram By Mouth Every day as needed for as needed for constipation Unchanged doxapram Intravenous Once Unchanged famotidine (famotidine 20 mg Tab) Unchanged meclizine 25 Milligram By Mouth 4 times a day as needed for Dizziness Unchanged midodrine 5 Milligram By Mouth 3 times a day low blood pressure Unchanged montelukast (Singulair) 10 Milligram By Mouth Once a day (in the evening) Unchanged multivitamin with minerals (Vol-Plus) 1 Tablets By Mouth Every day Unchanged omeprazole (omeprazole 40 mg Cap-DR) 1 Capsules By Mouth Every day Duration: 90 Days Unchanged promethazine 25 Milligram As needed for as needed for nausea/vomiting Unchanged travoprost ophthalmic (Travatan Z 0.004% ophthalmic solution) 1 Drops Right eye Once a day (in the evening) Unchanged zinc sulfate (Zinc) By Mouth Every day Test Results No qualifying data available. Allergies Mucinex (unknown) Penicillin Sudafed (ITCHING) guaiFENesin (unknown) nystatin (AOF) Problems Ongoing - Any problem that you are currently receiving treatment for. Acid reflux Acute colitis Acute gastritis Arthritis Colon polyp Dysphagia Family history of colon cancer Family history of colonic polyps GERD without esophagitis Hiatal hernia History of colon polyps History of esophageal spasm IBS (irritable bowel syndrome) Migraines Obesity RLQ abdominal pain Vertigo Historical - Any problem that you are no longer receiving treatment for. Heart Hernia Education Materials Endoscopy Care After Procedure Please read the instructions outlined below and refer to this sheet in the next few weeks. These discharge instructions provide you with general information on caring for yourself after you leave the hospital. Your doctor may also give you specific instructions. While your treatment has been planned according to the most current medical practices available, unavoidable complications occasionally occur. If you have any problems or questions after discharge, please call your doctor. ACTIVITY ? You may resume your regular activity but move at a slower pace for the next 24 hours. ? Take frequent rest periods for the next 24 hours. ? Walking will help expel (get rid of) the air and reduce the bloated feeling in your abdomen. ? No driving for 24 hours (because of the anesthesia (medicine) used during the test). ? You may shower. ? Do not sign any important legal documents or (more content not included)... [facility] Comment on above: Result Comment: Elec tronically Signed By: Saige Peryr I\.br\Date and Time Signed: 02/15/23 10:46 EDT Endoscopic Procedure Report - Otheron 02-15-2023 Endoscopic Procedure Report - Other Patient: CEFERINO PEREZ Age: 67 years Sex: Female : 1955 Associated Diagnoses: None Author: Jin Echeverria MD Pre-Procedure Procedure Date 02/15/2023 10:33:00 . Procedure Type: Esophagogastroduodenoscopy with Dilation with Serra, Botox injection. Procedure provider Performed by Jin Echeverria MD. Current history and physical Documented on chart. Informed Consent After discussing the rationale, risks and benefits, and alternatives to this procedure, the patient provided signed consent for the procedure. Pre-procedure diagnosis: Dysphagia We had long discussion with the patient before procedure about the risk and benefits of recurrence of be Botox injections, she reported that it really helps much more than just dilation and it last for up to 6 months with that therefore she was agreeable for repeating procedure with repeat dilation and Botox injection. Medications Anticoagulant/antiplatelet None. ASA Classification: Class II. . Monitoring: See anesthesia record. . Anticoagulation use: Procedure The procedure was performed in the hospital. See anesthesia record for sedation given during procedure. The patient was positioned starting in the left lateral decubitus position and with safety measures. Endoscope type used was an adult-size, introduced orally, advanced to the 3rd portion of the duodenum. No difficulty was encountered during the procedure. Views were excellent. The patient tolerated the procedure well. Extent reached: Duodenum third portion Findings 1. Normal esophagus, empiric dilation with Serra 60 Fr was done. No dilation exam showed no mucosal disruption or wall defect. Afterwards 4 cc of Botox were injected starting at the LES 1 cm above the GE junction and then 1 cm above each longitudinally. 2. Evidence of previous sleeve surgery in the stomach. 3. Normal duodenum. Images Procedure images: Rec1_hd_video_2022__T09_ [id number].jpg Rec1_hd_video__T09_ 36_11_108.jpg Rec1_hd_video__T09_ 33_56_706.jpg Rec1_hd_video__T09_ 32_41_775.jpg Rec1_hd_video__T09_ 32_37_328.jpg Rec1_hd_video__T09_ 32_24_505.jpg Rec1_hd_video__T09_ 30_14_991.jpg Rec1_hd_video_2022__T09_ 29_24_860.jpg Rec1_hd_video__T09_ 29_06_770.jpg Rec1_hd_video_2022__T09_ 28_37_335.jpg Rec1_hd_video_2022_09_15T09_ 28_13_999.jpg . Post-Procedure Complications: none. Estimated blood loss: none. Specimens: None. Devices/ implants: none left in place. Impression and Plan 1. Normal esophagus, empiric dilation with Serra 60 Fr was done. No dilation exam showed no mucosal disruption or wall defect. Afterwards 4 cc of Botox were injected starting at the LES 1 cm above the GE junction and then 1 cm above each longitudinally. 2. Evidence of previous sleeve surgery in the stomach. 3. Normal duodenum. Recommendations: -Resume previous diet -Resume home medications -Return to clinic as needed [facility] Comment on above: Result Comment: Elec tronically Signed By: Jacki CORRALES, Jin Rivera\.br\Date and Time Signed: 02/15/23 10:36 EDT Other Comment: Yajaira morillo Attachment - attachment storage system not supported [id number] Can be viewed in source system Missing Attachment - attachment storage system not supported [id number] Can be viewed in source system Missing Attachment - attachment storage system not supported [id number] Can be viewed in source system Missing Attachment - attachment storage system not supported [id number] Can be viewed in source system Missing Attachment - attachment storage system not supported [id number] Can be viewed in source system Missing Attachment - attachment storage system not supported [id number] Can be viewed in source system Missing Attachment - attachment storage system not supported [id number] Can be viewed in source system Missing Attachment - attachment storage system not supported [id number] Can be viewed in source system Missing Attachment - attachment storage system not supported [id number] Can be viewed in source system Missing Attachment - attachment storage system not supported [id number] Can be viewed in source system Missing Attachment - attachment storage system not supported [id number] Can be viewed in source system Inpatient Patient Summaryon 02-15-2023 Inpatient Patient Summary [place] [id number] [facility] Clinical Discharge Instructions PERSON INFORMATION Name: CEFERINO PEREZ PHYSICIANS Admitting Physician: Jin Echeverria MD Attending Physician: Jin Echeverria MD PCP: OLGA HILTON MD Discharge Diagnosis: Dysphagia Comment: PATIENT EDUCATION INFORMATION Instructions: Medication Leaflets: Follow up: MEDICATION LIST Medications to Continue Taking That Have Changed Other Medications START: acetaminophen-hydrocodone ([place] 5/325 Tab) 1 Tablets By Mouth 2 times a day. Medications to Continue with No Changes Other Medications albuterol (Proventil HFA) 2 Puffs Inhalation 4 times a day as needed Shortness of breath or wheezing. aspirin 81 Milligram By Mouth every day. atorvastatin biotin 5 Milligram By Mouth every day. busPIRone (busPIRone 7.5 mg oral tablet) calcium-vitamin D (calcium (as citrate)-vitamin D 315 mg-200 intl units oral tablet) 1 Tablets By Mouth 2 times a day as needed Prophylaxis. cyanocobalamin (Vitamin B12) 1,000 Microgram By Mouth every day. docusate (Colace) 200 Milligram By Mouth every day as needed as needed for constipation. doxapram Intravenous Once. famotidine (famotidine 20 mg Tab) meclizine 25 Milligram By Mouth 4 times a day as needed Dizziness. midodrine 5 Milligram By Mouth 3 times a day. low blood pressure. montelukast (Singulair) 10 Milligram By Mouth once a day (in the evening). multivitamin with minerals (Vol-Plus) 1 Tablets By Mouth every day. omeprazole (omeprazole 40 mg Cap-DR) 1 Capsules By Mouth every day for 90 Days. Refills: 1. promethazine 25 Milligram as needed as needed for nausea/vomiting. travoprost ophthalmic (Travatan Z 0.004% ophthalmic solution) 1 Drops Right eye once a day (in the evening). zinc sulfate (Zinc) By Mouth every day. Comment: [facility] Main OR PACU I Recordon 02-01 Main OR PACU I Record PACU Phase I Document Type FT Summary Primary Physician: Jin Echeverria MD Finalized Date/Time: 02/15/23 11:17:20 Pt. Name: CEFERINO PEREZ/Sex: 1955 Female Med Rec #: [id number] Physician: Jin Echeverria MD Financial #: [id number] Pt. Type: O Room/Bed: Endo 08/01 Admit/Disch: 02/15/23 09:29:26 - Institution: Case Times PACU I FT Pre-Care Text: Identifies barriers to communication and implements measures to provide psychological support Develops individualized plan of care, and ensures continuity of care Maintains patient's dignity and privacy, and maintains patient confidentiality Identifies and reports philosophical, cultural, and spiritual beliefs and values Identifies individual values and wishes concerning care Implements aseptic technique, and administers prescribed antibiotic therapy and immunizing agents as ordered Evaluates postoperative tissue perfusion Implements thermoregulation measures, and monitors body temperature Evaluates postoperative respiratory status Evaluates postoperative cardiac status Evaluates postoperative neurological status Assesses pain control, collaborated in initiating patient-controlled analgesia and implements alternative methods of pain control Verifies allergies, administers prescribed medications and solutions, evaluates response to medications Entry 1 In PACU I 02/15/23 10:38:00 Discharge from PACU 02/15/23 11:08:00 I Outcomes Met? Yes Last Modified By: Saige Perry I 02/15/23 11:17:05 Post-Care Text: The patient demonstrates knowledge of the expected response to the operative or invasive procedure The patient's care is consistent with the individualized perioperative plan of care The patient's right to privacy is maintained The patient's value system, lifestyle, ethnicity, and culture are considered, respected, and incorporated into the perioperative plan of care The patient participates in decisions affecting his or her perioperative plan of care The patient is free from signs and symptoms of infection The patient has wound/tissue perfusion consistent with or improved from baseline levels established preoperatively The patient is at or returning to normothermia at the conclusion of the immediate postoperative period The patient's respiratory function is consistent with or improved from baseline levels established preoperatively The patient's cardiovascular status is consistent with or improved from baseline levels established preoperatively The patient's cardiovascular status is consistent with or improved from baseline levels established preoperatively The patient demonstrates and/or reports adequate pain control throughout the perioperative period The patient received appropriate medication(s), safely administered during the perioperative period Acuity Level PACU I FT Entry 1 Start Time 02/15/23 10:38:00 Stop Time 02/15/23 11:08:00 Acuity Level Acuity Level I Last Modified By: Saige Perry I 02/15/23 11:17:16 Finalized By: Saige Perry I Document Signatures Signed By: Saige Perry I 02/15/23 11:17 [facility] Main OR Preoperative Recordo n 02-15-2023 Main OR Preoperative Record Holding Area Document Type FT Summary Primary Physician: Jin Echeverria MD Finalized Date/Time: 02/15/23 09:39:39 Pt. Name: CEFERINO PEREZ Channing De La GarzaB./Sex: 1955 Female Med Rec #: [id number] Physician: Jin Echeverria MD Financial #: [id number] Pt. Type: O Room/Bed: Endo 08/01 Admit/Disch: 02/15/23 09:29:26 - Institution: Case Times Holding FT Pre-Care Text: Verifies consent for planned procedure, identifies individual values and wishes concerning care, includes family members in perioperative teaching Secures patient's records' belongings, and valuables, maintains patient's dignity and privacy, and maintains patient confidentiality Entry 1 In Holding 02/15/23 09:36:00 Outcomes Met? Yes Last Modified By: Marcio Mak RN 02/15/23 09:38:42 Post-Care Text: The patient participates in decisions affecting his or her perioperative plan of care The patient's right to privacy is maintained Surgery Checklist FT Entry 1 Patient Birthday, ID Band Procedure History and Physical, Identification: Check, Patient Verification: Surgical Consent, With Participation Patient NPO after Midnight: Yes Results Reviewed n/a Comments: Personal Items: Cataract Lens Implant, Personal Items glasses, bilateral Glasses Comment: cataract lens implants Limitations: none Complaints of Pain: No Pain Comment: pt denies pain at this Operative Site n/a time Marking: Marked By: n/a Location: n/a Availability Equipment Verified: Does Patient Smoke No Patient states Yes Comment - Adult Joel postop adult Supervision supervision available Case Cancelled in No Holding Area see comments below for reason Last Modified By: Marcio Mak RN 02/15/23 09:39:37 Finalized By: Marcio Mak RN Document Signatures Signed By: Marcio Mak RN 02/15/23 09:39 [facility] Monitor Recordon 02-15-2023 Monitor Record [id number]:127 [facility] Monitor Record [id number]:127 [facility] Outpatient Surgery Discharge Instructionon 02-15-2023 Outpatient Surgery Discharge Instruction [address] [address] Patient Discharge Instructions PERSON INFORMATION Name: CEFERINO PEREZ Date of : 1955 Current Date: 02/15/2023 10:37:46 PHYSICIANS Admitting Physician: Jin Echeverria MD Discharge Diagnosis: Dysphagia CEFERINO PEREZ has been given the following list of follow-up instructions, prescriptions, and patient education materials: PATIENT FOLLOW-UP INFORMATION Diet: Regular Discharge Activity: Resume normal activities in 24 hours Discharge Restrictions: No driving for 24 hrs Call Your Doctor For: Persistent or heavy bleeding IF UNABLE TO CONTACT YOUR PHYSICIAN AND YOU FEEL IT IS AN EMERGENCY, GO TO THE NEAREST EMERGENCY ROOM OR CALL 911 IANA PATRICIA A, have received the attached patient education materials/instructions and have verbalized understanding: May we do a follow up call? Yes No I was present when discharge instructions were given __ Patient Signature Date Clinican/Nurse Signature Date Follow up: Pharmacy Information: Other: [facility] You may receive a [facility] asking you to rate your care experience. Your feedback is important and will help us understand what we do well and how we can improve the quality of care we provide to you, your loved ones and our community. It?s an honor to serve you. Thank you for choosing [facility] HERE ARE THE MEDICATION CHANGES THAT OCCURRED DURING YOUR HOSPITAL STAY Medications to Continue Taking That Have Changed Other Medications START: acetaminophen-hydrocodone ([place] 5/325 Tab) 1 Tablets By Mouth 2 times a day. Medications to Continue with No Changes Other Medications albuterol (Proventil HFA) 2 Puffs Inhalation 4 times a day as needed Shortness of breath or wheezing. aspirin 81 Milligram By Mouth every day. atorvastatin biotin 5 Milligram By Mouth every day. busPIRone (busPIRone 7.5 mg oral tablet) calcium-vitamin D (calcium (as citrate)-vitamin D 315 mg-200 intl units oral tablet) 1 Tablets By Mouth 2 times a day as needed Prophylaxis. cyanocobalamin (Vitamin B12) 1,000 Microgram By Mouth every day. docusate (Colace) 200 Milligram By Mouth every day as needed as needed for constipation. doxapram Intravenous Once. famotidine (famotidine 20 mg Tab) meclizine 25 Milligram By Mouth 4 times a day as needed Dizziness. midodrine 5 Milligram By Mouth 3 times a day. low blood pressure. montelukast (Singulair) 10 Milligram By Mouth once a day (in the evening). multivitamin with minerals (Vol-Plus) 1 Tablets By Mouth every day. omeprazole (omeprazole 40 mg Cap-DR) 1 Capsules By Mouth every day for 90 Days. Refills: 1. promethazine 25 Milligram as needed as needed for nausea/vomiting. travoprost ophthalmic (Travatan Z 0.004% ophthalmic solution) 1 Drops Right eye once a day (in the evening). zinc sulfate (Zinc) By Mouth every day. PATIENT EDUCATION INFORMATION Instructions: Medication Leaflets: [facility] Gastroenterology Office/Clin ic Noteon 01-24-2023 Gastroenterology Office/Clinic Note Chief Complaint Follow-up HPI Staff This is a 67 year old female who presents today for a 6 month follow-up. Patient recently seen Dr Lugo, general surgery and was told that the bulge in abdomen was not a hernia. History of Present Illness Patient is a 67-year-old female who presents for follow-up. Patient was previously evaluated 08/2022 and has history of acid reflux. Patient also with history of gastric bypass. Patient with family history of colon polyps and colon cancer?patient's mother and 2 brothers. Patient had previously reported having difficulty swallowing. Patient had previous x-ray of esophagus in 2018 that revealed mild esophageal spasm and gastroesophageal reflux. Modified barium swallow 03/22/2022 revealed barium transfer to oropharynx, some sinus residue and was ordered speech therapy referral for evaluation/management of dysphagia. Previous labs 05/2022 revealed unremarkable CMP with exception of elevated BUN and BUN/creatinine ratio?patient to follow-up with PCP regarding, normal magnesium, normal B12 level. Patient is taking omeprazole 40 mg daily and Pepcid 20 mg at bedtime. Patient reported during that her difficulty swallowing has resolved since EGD with dilation. Patient reported acid reflux was well controlled with omeprazole and Pepcid. EGD completed 07/26/2022 revealed Botox was injected to distal esophagus and dilation of esophagus was performed, normal gastric mucosa, normal duodenum. Colonoscopy completed 07/26/2022 revealed 25 mm ascending colon polyp removed that was hyperplastic, hemorrhoids?patient is due for repeat colonoscopy 1 year?07/2023. During today's visit, patient reports she has bulge in right lower abdomen for the last 6-7 months. Explains RLQ bulge was evaluated by a general surgeon and was told she did not have a hernia. Reports she had previous CT or MRI with general surgeon in [place], [place]- no record to review during today's encounter. Has RLQ pain over the last 6-7 months that occurs when she has to have a BM at times. Is taking [place] that is prescribed by another provider. Is taking fiber supplementation 1 tablespoon as needed. Is having 1 formed BM daily. She reports having hemorrhoid that burst 11/2022 with hard consistency BM and had BRBPR in toilet and on toilet paper with wiping that has resolved. Has some difficulty swallowing bread and meat over the last 3 months, occurring when she eats these foods. Reports she feels she needs another EGD with dilation regarding difficulty swallowing. Explains EGD with dilation has helped her dysphagia in the past. She reports having occasional esophageal spasms. Reports acid reflux is well-controlled with omeprazole 40mg daily and pepcid 20mg at bedtime. Denies black/bloody stools, nausea/vomiting, fevers/chills, and denies having any other GI complaints. Review of Systems ROS - Provider Constitutional: no fever, no chills. Skin: no Jaundice. ENMT: Denies dysphagia and heartburn. Respiratory: no shortness of breath. Cardiovascular: no chest pain. Gastrointestinal: no nausea, no vomiting, no diarrhea, no GI bleeding. Physical Exam Vitals & Measurements T: 36 ?C(Temporal Artery) HR: 53(Peripheral) BP: 112/74 HT: 59 in HT: 150 cm WT: 90.3 kg WT: 198.66 lb BMI: 40.13 General: Well developed, well nourished, in no acute distress Head: Normocephalic/atraumatic Lungs: Normal respiratory effort and clear to auscultation Cardio: Regular rate and rhythm, normal S1 and S2, no murmur, no rub Abdomen: Soft, non-distended, non-tender. No palpable masses in all 4 abdominal quadrants, bilaterally. Normoactive bowel sounds present in all 4 abdominal quadrants, bilaterally. Mental Status: Alert and oriented x3. Normal mood and affect Assessment/Plan 1. RLQ abdominal pain (R10.31: Right lower quadrant pain) Reportedly has bulge in right lower abdomen for the last 6-7 months. Has RLQ pain over the last 6-7 months that occurs when she has to have a BM at times. Colonoscopy completed 07/26/2022 revealed 25 mm ascending colon polyp removed that was hyperplastic, hemorrhoids?patient is due for repeat colonoscopy 1 year?07/2023. Previous CT or MRI with general surgeon in [place], [place]- no record to review during today's encounter- will request record regarding. 2. Dysphagia (R13.10: Dysphagia, unspecified) Difficulty swallowing meats and breads. Previous x-ray of esophagus in 2018 that revealed mild esophageal spasm and gastroesophageal reflux. Modified barium swallow 03/22/2022 revealed barium transfer to oropharynx, some sinus residue and was ordered speech therapy referral for evaluation/management of dysphagia. Previous labs 05/2022 revealed unremarkable CMP with exception of elevated BUN and BUN/creatinine ratio?patient to follow-up with PCP regarding, normal magnesium, normal B12 level. EGD completed 07/26/2022 revealed Botox was injected to distal esophagus and dilation of esophagus was performed, normal gastric mucosa, normal duodenum. Ordered EGD with (more content not included)... [facility] Comment on above: Result Comment: Elec tronically Signed By: Julee Ruiz CNP\.br\Date and Time Signed: 01/24/23 12:49 EDT RAD - CT Reporton 01-24-2023 RAD - CT Report [id number]#[id number]:127 [facility] Consent for Procedure/Surger yon 01-22-2023 Consent for Procedure/Surgery [id number]#[id number]:127 [facility] Ambulatory Visit Summaryon 0 01-21-2023 Ambulatory Visit Summary ANA CEFERINO A :1955 Visit Date:01/21/2023 Ambulatory Visit Instructions Your Diagnosis RLQ abdominal pain Dysphagia History of esophageal spasm History of colon polyps Acid reflux Family history of colon cancer Family history of colonic polyps Your Care Team Attending Physician - Julee Ruiz CNP Primary Care Physician - OLGA HILTON MD This Is Your Medications List Contact prescribing physician if questions or concerns acetaminophen-hydrocodone ([place] 5/325 Tab) acetaminophen-hydrocodone (acetaminophen-hydrocodone 325 mg-5 mg oral tablet) albuterol (Proventil HFA) aspirin atorvastatin biotin busPIRone (busPIRone 7.5 mg oral tablet) calcium-vitamin D (calcium (as citrate)-vitamin D 315 mg-200 intl units oral tablet) cyanocobalamin (Vitamin B12) docusate (Colace) doxapram famotidine (famotidine 20 mg Tab) meclizine midodrine montelukast (Singulair) multivitamin with minerals (Vol-Plus) omeprazole (omeprazole 40 mg Cap-DR) promethazine travoprost ophthalmic (Travatan Z 0.004% ophthalmic solution) zinc sulfate (Zinc) Procedures Performed Colonoscopic polypectomy (07/26/2022), EGD - Esophagogastroduodenoscopy (07/26/2022), EGD - Esophagogastroduodenoscopy (12/16/2020), Bariatric surgery service, section, Cholecystectomy, Hernia repair, Hysterectomy. Discharge Vitals Temperature (Temporal Artery) 36 ?C Heart Rate (Peripheral) 53 Blood Pressure 112/74 Height 150 cm Height 59 in Weight 90.3 kg Weight 198.66 lb BMI 40.13 What to do next You Need to Schedule the Following Appointments Follow Up with Julee Ruiz CNP When: Within 1 to 2 weeks Comments: Following EGD. Where: Medications What How Much When Instructions Unchanged acetaminophen-hydrocodone (acetaminophen-hydrocodone 325 mg-5 mg oral tablet) Contact prescribing physician if questions or concerns Unchanged acetaminophen-hydrocodone ([place] 5/ 325 Tab) 1 Tablets By Mouth 2 times a day Contact prescribing physician if questions or concerns Unchanged albuterol (Proventil HFA) 2 Puffs Inhalation 4 times a day as needed for Shortness of breath or wheezing Contact prescribing physician if questions or concerns Unchanged aspirin 81 Milligram By Mouth Every day Contact prescribing physician if questions or concerns Unchanged atorvastatin Contact prescribing physician if questions or concerns Unchanged biotin 5 Milligram By Mouth Every day Contact prescribing physician if questions or concerns Unchanged busPIRone (busPIRone 7.5 mg oral tablet) Contact prescribing physician if questions or concerns Unchanged calcium-vitamin D (calcium (as citrate)-vitamin D 315 mg-200 intl units oral tablet) 1 Tablets By Mouth 2 times a day as needed for Prophylaxis Contact prescribing physician if questions or concerns Unchanged cyanocobalamin (Vitamin B12) 1,000 Microgram By Mouth Every day Contact prescribing physician if questions or concerns Unchanged docusate (Colace) 200 Milligram By Mouth Every day as needed for as needed for constipation Contact prescribing physician if questions or concerns Unchanged doxapram Intravenous Once Contact prescribing physician if questions or concerns Unchanged famotidine (famotidine 20 mg Tab) Contact prescribing physician if questions or concerns Unchanged meclizine 25 Milligram By Mouth 4 times a day as needed for Dizziness Contact prescribing physician if questions or concerns Unchanged midodrine 5 Milligram By Mouth 3 times a day low blood pressure Contact prescribing physician if questions or concerns Unchanged montelukast (Singulair) 10 Milligram By Mouth Once a day (in the evening) Contact prescribing physician if questions or concerns Unchanged multivitamin with minerals (Vol-Plus) 1 Tablets By Mouth Every day Contact prescribing physician if questions or concerns Unchanged omeprazole (omeprazole 40 mg Cap-DR) 1 Capsules By Mouth Every day Duration: 90 Days Contact prescribing physician if questions or concerns Unchanged promethazine 25 Milligram As needed for as needed for nausea/vomiting Contact prescribing physician if questions or concerns Unchanged travoprost ophthalmic (Travatan Z 0.004% ophthalmic solution) 1 Drops Right eye Once a day (in the evening) Contact prescribing physician if questions or concerns Unchanged zinc sulfate (Zinc) By Mouth Every day Contact prescribing physician if questions or concerns Allergies Mucinex (unknown) Penicillin Sudafed (ITCHING) guaiFENesin (unknown) nystatin (AOF) Problems Ongoing - Any problem that you are currently receiving treatment for. Acid reflux Acute colitis Acute gastritis Arthritis Colon polyp Dysphagia Family history of colon cancer Family history of colonic polyps GERD without esophagitis Hiatal hernia History of colon polyps History of esophageal spasm IBS (irritable bowel syndrome) Migraines Obesity (more content not included)... [facility] Patient Educationon 01-22-20 Patient Education Gastroenterology Food Choices for Gastroesophageal Reflux Disease, Adult When you have gastroesophageal reflux disease (GERD), the foods you eat and your eating habits are very important. Choosing the right foods can help ease the discomfort of GERD. Consider working with a dietitian to help you make healthy food choices. What are tips for following this plan? Reading food labels ? Look for foods that are low in saturated fat. Foods that have less than 5% of daily value (DV) of fat and 0 g of trans fats may help with your symptoms. Cooking ? Cook foods using methods other than frying. This may include baking, steaming, grilling, or broiling. These are all methods that do not need a lot of fat for cooking. ? To add flavor, try to use herbs that are low in spice and acidity. Meal planning ? Choose healthy foods that are low in fat, such as fruits, vegetables, whole grains, low-fat dairy products, lean meats, fish, and poultry. ? Eat frequent, small meals instead of three large meals each day. Eat your meals slowly, in a relaxed setting. Avoid bending over or lying down until 2?3 hours after eating. ? Limit high-fat foods such as fatty meats or fried foods. ? Limit your intake of fatty foods, such as oils, butter, and shortening. ? Avoid the following as told by your health care provider: ? Foods that cause symptoms. These may be different for different people. Keep a food diary to keep track of foods that cause symptoms. ? Alcohol. ? Drinking large amounts of liquid with meals. ? Eating meals during the 2?3 hours before bed. Lifestyle ? Maintain a healthy weight. Ask your health care provider what weight is healthy for you. If you need to lose weight, work with your health care provider to do so safely. ? Exercise for at least 30 minutes on 5 or more days each week, or as told by your health care provider. ? Avoid wearing clothes that fit tightly around your waist and chest. ? Do not use any products that contain nicotine or tobacco. These products include cigarettes, chewing tobacco, and vaping devices, such as e-cigarettes. If you need help quitting, ask your health care provider. ? Sleep with the head of your bed raised. Use a wedge under the mattress or blocks under the bed frame to raise the head of the bed. ? Chew sugar-free gum after mealtimes. What foods should I eat? Eat a healthy, well-balanced diet of fruits, vegetables, whole grains, low-fat dairy products, lean meats, fish, and poultry. Each person is different. Foods that may trigger symptoms in one person may not trigger any symptoms in another person. Work with your health care provider to identify foods that are safe for you. The items listed above may not be a complete list of recommended foods and beverages. Contact a dietitian for more information. What foods should I avoid? Limiting some of these foods may help manage the symptoms of GERD. Everyone is different. Consult a dietitian or your health care provider to help you identify the exact foods to avoid, if any. Fruits Any fruits prepared with added fat. Any fruits that cause symptoms. For some people this may include citrus fruits, such as oranges, grapefruit, pineapple, and arabella. Vegetables Deep-fried vegetables. Jamaican fries. Any vegetables prepared with added fat. Any vegetables that cause symptoms. For some people, this may include tomatoes and tomato products, chili peppers, onions and garlic, and horseradish. Grains Pastries or quick breads with added fat. Meats and other proteins High-fat meats, such as fatty beef or pork, hot dogs, ribs, ham, sausage, salami, and olson. Fried meat or protein, including fried fish and fried chicken. Nuts and nut butters, in large amounts. Dairy Whole milk and chocolate milk. Sour cream. Cream. Ice cream. Cream cheese. Milkshakes. Fats and oils Butter. Margarine. Shortening. Ghee. Beverages Coffee and tea, with or without caffeine. Carbonated beverages. Sodas. Energy drinks. Fruit juice made with acidic fruits, such as orange or grapefruit. Tomato juice. Alcoholic drinks. Sweets and desserts Chocolate and cocoa. Donuts. Seasonings and condiments Pepper. Peppermint and spearmint. Added salt. Any condiments, herbs, or seasonings that cause symptoms. For some people, this may include vasquez, hot sauce, or vinegar-based salad dressings. The items listed above may not be a complete list of foods and beverages to avoid. Contact a dietitian for more information. Questions to ask your health care provider Diet and lifestyle changes are usually the first steps that are taken to manage symptoms of GERD. If diet and lifestyle changes do not improve your symptoms, talk with your health care provider about taking medicines. Where to find more information ? [employer]: aboutgerd.org Summary ? When you have gastroesophageal reflux di (more content not included)... [facility] Reminderson 08-27-2022 Reminders - From: Julee Ruiz CNP To: Iesha Naqvi; Sent: 08/24/2022 13:56:00 EDT Show up: 08/24/2022 13:56:00 EDT Subject: Ambulatory Reminder Reminder/Recall Repeat colonoscopy 07/2023. 07/2023 dr paulino From: Iesha Naqvi To: RAMYA - Reminders/Recalls; Sent: 08/27/2022 12:40:12 EDT ! Show up: 06/03/2023 12:40:00 EST Due Date/Time: 2023 12:40:00 EST [facility] Gastroenterology Office/Clin ic Noteon 08-24-2022 Gastroenterology Office/Clinic Note Chief Complaint EGD and colonoscopy results. HPI Staff Patient is a 67 year old female here today to review results from EGD and colonoscopy. History of Present Illness Patient is a 67-year-old female who presents for follow-up from EGD/colonoscopy completed 07/26/2022. Presents with today. Patient was previously evaluated 05/2022 and has history of gastric bypass. Patient with family history of colon polyps and colon cancer?patient's mother and 2 brothers. Patient reported during visit with me that she was having difficulty swallowing solids, liquids, and pills over the last 2 months that was occurring daily. She also reported food getting stuck in her esophagus at times that was worse with meat and bread. Patient also with history of IBS and reported occasional hard stools and takes MiraLAX as needed. Previous x-ray of esophagus from 2018 showed mild esophageal spasm and gastroesophageal reflux. Modified barium swallow 03/22/2022 that revealed barium transfer to oropharynx, some sinus residue and was ordered speech therapy referral for further evaluation/management of dysphagia. Patient had previous labs 05/2022 that revealed unremarkable CMP with exception of elevated BUN and BUN/Creatinine ratio- to follow-up with PCP regarding, normal magnesium, normal B12 levels. Patient is currently taking omeprazole 40 mg daily and pepcid 20mg at bedtime. Patient was ordered EGD/colonoscopy. EGD completed 07/26/2022 revealed Botox was injected to distal esophagus and dilation of esophagus was performed, normal gastric mucosa, normal duodenum. Colonoscopy completed 07/26/2022 revealed 25 mm ascending colon polyp removed that was hyperplastic, hemorrhoids?patient is due for repeat colonoscopy 1 year?07/2023. During today's visit, patient reports her difficulty swallowing has resolved since EGD with dilation. She reports acid reflux is well-controlled with omeprazole 40mg daily and pepcid 20mg at bedtime. Is having improved stools, explaining she is having 1 formed BM daily that are soft in consistency. Is taking Cipro. and prednisone currently that is prescribed by her PCP for sinus infection- following with PCP regarding. Denies black/bloody stools, nausea/vomiting, and denies having any other GI complaints. Review of Systems PHQ Score Initial Depression Screen Score: 0 ROS - Provider Constitutional: no fever, no chills. Skin: no Jaundice. ENMT: Denies dysphagia and heartburn. Respiratory: no shortness of breath. Cardiovascular: no chest pain. Gastrointestinal: no nausea, no vomiting, no diarrhea, no GI bleeding. Physical Exam Vitals & Measurements T: 36.3 ?C(Temporal Artery) HR: 66(Peripheral) BP: 110/76 HT: 59 in HT: 150 cm WT: 93.6 kg WT: 205.92 lb BMI: 41.6 General: Well developed, well nourished, in no acute distress Head: Normocephalic/atraumatic Lungs: Normal respiratory effort and clear to auscultation Cardio: Regular rate and rhythm, normal S1 and S2, no murmur, no rub Abdomen: Soft, non-distended, non-tender. Normoactive bowel sounds present in all 4 abdominal quadrants, bilaterally. Mental Status: Alert and oriented x3. Normal mood and affect Assessment/Plan 1. Colon polyp (K63.5: Polyp of colon) Colonoscopy completed 07/26/2022 revealed 25 mm ascending colon polyp removed that was hyperplastic, hemorrhoids?patient is due for repeat colonoscopy 1 year?07/2023. Educated regarding fiber supplementation daily- instructed regarding use. 2. Family history of colon cancer (Z80.0: Family history of malignant neoplasm of digestive organs) Patient with family history of colon polyps and colon cancer?patient's mother and 2 brothers. Colonoscopy completed 07/26/2022 revealed 25 mm ascending colon polyp removed that was hyperplastic, hemorrhoids?patient is due for repeat colonoscopy 1 year?07/2023. Educated regarding fiber supplementation daily- instructed regarding use. 3. Family history of colonic polyps (Z83.71: Family history of colonic polyps) Patient with family history of colon polyps and colon cancer?patient's mother and 2 brothers. Colonoscopy completed 07/26/2022 revealed 25 mm ascending colon polyp removed that was hyperplastic, hemorrhoids?patient is due for repeat colonoscopy 1 year?07/2023. Educated regarding fiber supplementation daily- instructed regarding use. 4. Acid reflux (K21.9: Gastro-esophageal reflux disease without esophagitis) Controlled with omeprazole 40mg daily and pepcid 20mg at bedtime. Labs 05/2022 that revealed unremarkable CMP with exception of elevated BUN and BUN/Creatinine ratio- to follow-up with PCP regarding, normal magnesium, normal B12 levels. EGD completed 07/26/2022 revealed Botox was injected to distal esophagus and dilation of esophagus was performed, normal gastric mucosa, normal duodenum. Continue omeprazole 40mg daily and pepcid 20mg at bedtime. Denies further dysphagia following EGD with dilation. Ordered: famotidine, 20 mg = 1 tab(s), Oral, Once a day (at (more content not included)... [facility] Comment on above: Result Comment: Elec tronically Signed By: Joseph SOTO, Julee Snell\.br\Date and Time Signed: 08/24/22 14:09 EDT Patient Educationon 08-25-19 Patient Education Oncology Colon Polyps Polyps are tissue growths inside the body. Polyps can grow in many places, including the large intestine (colon). A polyp may be a round bump or a mushroom-shaped growth. You could have one polyp or several. Most colon polyps are noncancerous (benign). However, some colon polyps can become cancerous over time. Finding and removing the polyps early can help prevent this. What are the causes? The exact cause of colon polyps is not known. What increases the risk? You are more likely to develop this condition if you: ? Have a family history of colon cancer or colon polyps. ? Are older than 50 or older than 45 if you are . ? Have inflammatory bowel disease, such as ulcerative colitis or Crohn's disease. ? Have certain hereditary conditions, such as: ? Familial adenomatous polyposis. ? Juárez syndrome. ? Turcot syndrome. ? Peutz?Jeghers syndrome. ? Are overweight. ? Smoke cigarettes. ? Do not get enough exercise. ? Drink too much alcohol. ? Eat a diet that is high in fat and red meat and low in fiber. ? Had childhood cancer that was treated with abdominal radiation. What are the signs or symptoms? Most polyps do not cause symptoms. If you have symptoms, they may include: ? Blood coming from your rectum when having a bowel movement. ? Blood in your stool. The stool may look dark red or black. ? Abdominal pain. ? A change in bowel habits, such as constipation or diarrhea. How is this diagnosed? This condition is diagnosed with a colonoscopy. This is a procedure in which a lighted, flexible scope is inserted into the anus and then passed into the colon to examine the area. Polyps are sometimes found when a colonoscopy is done as part of routine cancer screening tests. How is this treated? Treatment for this condition involves removing any polyps that are found. Most polyps can be removed during a colonoscopy. Those polyps will then be tested for cancer. Additional treatment may be needed depending on the results of testing. Follow these instructions at home: Lifestyle ? Maintain a healthy weight, or lose weight if recommended by your health care provider. ? Exercise every day or as told by your health care provider. ? Do not use any products that contain nicotine or tobacco, such as cigarettes and e-cigarettes. If you need help quitting, ask your health care provider. ? If you drink alcohol, limit how much you have: ? 0?1 drink a day for women. ? 0?2 drinks a day for men. ? Be aware of how much alcohol is in your drink. In the [place] one drink equals one 12 oz bottle of beer (355 mL), one 5 oz glass of wine (148 mL), or one 1? oz shot of hard liquor (44 mL). Eating and drinking ? Eat foods that are high in fiber, such as fruits, vegetables, and whole grains. ? Eat foods that are high in calcium and vitamin D, such as milk, cheese, yogurt, eggs, liver, fish, and broccoli. ? Limit foods that are high in fat, such as fried foods and desserts. ? Limit the amount of red meat and processed meat you eat, such as hot dogs, sausage, olson, and lunch meats. General instructions ? Keep all follow-up visits as told by your health care provider. This is important. ? This includes having regularly scheduled colonoscopies. ? Talk to your health care provider about when you need a colonoscopy. Contact a health care provider if: ? You have new or worsening bleeding during a bowel movement. ? You have new or increased blood in your stool. ? You have a change in bowel habits. ? You lose weight for no known reason. Summary ? Polyps are tissue growths inside the body. Polyps can grow in many places, including the colon. ? Most colon polyps are noncancerous (benign), but some can become cancerous over time. ? This condition is diagnosed with a colonoscopy. ? Treatment for this condition involves removing any polyps that are found. Most polyps can be removed during a colonoscopy. This information is not intended to replace advice given to you by your health care provider. Make sure you discuss any questions you have with your health care provider. Document Released: 02/13/2005 Document Revised: 09/04/2018 Document Reviewed: 09/04/2018 [employer] Patient Education ? 2019 [employer]. [facility] Postoperative Documentson Postoperative Documents [id number]:127 [facility] Coding Summary.on 07-31-2022 Coding Summary. [id number] Gh0bWw+P GhlYWQ+VO1LNHHqW00xoKEomP6XO 4fOLW7MONLWIQRLWW0AZG5rdJP0P VmrO8SlvgWl XcrzaADfMP85JEz4QSK0yJqtWKcv aC0buLNaY9j5LiIuKJ99wX43BKqj MPDlJmZ0HvCzwkafvGBe U2bbQdUnsMSsAeu+PHRhYmxlIHdp UADdQMpcVJAkVxOkeDaiPT5jZg9k ZGVyLWNvbGxhcHNlOiBj d4hoOAGdULqiMW8rkYrcH2GyrGD8 DCHpw2y1Ge89mAX+SCFsJNM5tMqm GEjem303FvRtw0izGPO2 xOBgOZjcCMR8I71xb4V0JPAaDYMh CQV4qXI2oM1niVnqvdmqW3HjiPLe HdW7IBS9lKTzaH0coYjz llpowA6aIul+A45FHM9WDEWJXG9V Jst0V4PaNdzyxLV+QJ70CJNaNL38 jLTeoJIfk3zvlWx3VeJt LEKdQNR2lDgcKLbhq5CbSEDjW78b qXBgd3I6JRBvoCdzlPGbDtHhfZX4 hF9pUZkqtfpog3qctqtc Tjmxq5wqnx92wV43U04oWDujVDPr HMC0WKDcLRHxoWnouf2nlK3qFm6+ ELfan9hjp7dsmSx7JeLn PYZffxDphAkcNOP9b8CrJf82P2Ru kPoam3AoBss9gx34sMVjq1C1nPB5 HOkfTCFuyT0gINrhGzO0 WAQaCbDzbF98kMXrQZrzXx9ieYbg rIbdHN7yQYZqynsbGYFdhL6bWRHx oRHpaGhfBU7mUFNlaabk m685FvHdONS3NUYlhEWeL7WgdD2y FvFpBOGkSGUlH9VpsKSfVWmxS896 LLayLnX1HUPbftYpH9Gh UVVcaKwxBmA7x0A6Bc3Sb0Hbecfo MXC8CKbaNWLvLaJ3JrNrVmD7V5Cy Efm6ZIOkfGrmUR2bV5Ri VUCitrvlesisoJM7RRBrYRRppF57 gSCoCCsfTg4ju3L3d792RWWxOKHb iV76Ic0haBjzYKVflRIT rL4gzzaby2stcjsoXdVtNYPzWUv0 LRx0LCTqcByhZtDjCVE0SrS6FDV2 nXFndP5cqQaikwkclL7u Oyc+T29rjY6mUVN6QJX1pkfsZOFp exUsUO51QM21Y0GmCzqozFZrdUW+ VCFtxiXbfDimTY9hOtIo o7jhf0SpMUvoE1JeEERvUQapNhw7 QSCsQRU3iTV6lI9oXXAwBTfxk3D2 lKC0T1PndbPvto5jv8ev LQEuVAqyX72skWHro7O3DPMrvPG8 SVYxvGtrXjAlbX28Iih+PGNvbGdy l1HpKvycp1orv1lwjUh0 GpXqNOAeugIkeEzkAHT4p0GkLw36 D75iQUziUUJeCQScSTPzPEBzlGgg tw0liD7dCp6+PGNvbCB3 lFK3yA0tSGOdNjH9LDdqV674MzSh dIQoKqdgc3mty1dtuLd2YxNaQKNa noXjoQsaSXA8t2MgYw15 O10bIBolEGLiGLCnLTTvZCJgzLju gm1npK7rQt2+JP9cr9rqod24vY50 dHI+EEHyKAD9gAxfBJep TCLohE0jWYmaFbR9KYDmPtEeqN77 cBCbJHzvTw2sqHmwqGmaMH9bGVMg nznqu772RaFyz3ubIIEg pFQwZPetNVJ7C95ng0Z0QWGtVMRh DOR3aIX1bS1cfMzanfnklPVopMxn mpHgrHmzZUdrZVbxM215 IHRvcDsnPlBhdGllbnQgTmFtZTo8 W4MySat9KGJuzDkbHI3icDXvNJvk Kq5grMdlnMvxPP6jDFKs yzxza061GuKlw3zmKPNuiOUtXVwx DWI5H96bb5W8VIUkMVUqQJX2pPA5 gB5duLmkvnongSXeiHsm nxMwyGzwENqkPNxoG779HWDpfRvc FfEwdtMwMPXqbWZ9YQ48GM90kUUl c4Q5jGT7V6YlLWYpgasy vcgwxEY7NGRhCCUseE14Md5gxNmw Vt9tMCGbCLL3EYCahZGtO3IqhE8p KmWmZIBrIBVjJ4JswDKu ZEvrN991JIeyCbY7BFTovfExN8Ta TJMxgDflZqX2e8T1Ir3AY8H8BU45 OT11cBIhu7Q9qOL3T2Ct OLKildnuggkwhRL6JUApQERwhW82 Qy3zoBtlQp2sRTQxJOE3LRUhqNHn A0WnwW2eXlXlSXYsTXAu M3PphREgUGtwF384TTybXzY9UNCw deVoE2AgOWOxiQwrVqW8f6Q8Lb2K XJv6HZ43RF80sJEfx5U9 iOV3G8XjSJFrtrpowqfesSM3XELo PGUopG72Ju4hkVybFl6dWPVoOGI6 NTBgmYExM4NciD8cQeHu ATLmPPNcR0ZrdULhGHkoY064CJqw XrT8WUDcmoHfN5ZrEMNpjRbnXaD5 d5P1Rd0FEVBjIH44JJU4 jBB8ZR35ZR70J8ZzNrpraCJlnXY+ PHRhYmxlIHdpZHRoPScxMDAlJyBz fCisSO9rTe9jYUSyFHSg zWoroFAwUyRlm0vuRBVeNNnxHK8c cLaiO9IexVB3XBPtz7r5Fe19E29t Y4UbnEQ+APXxvLH8nMJ5 aI0kDsWyLyB9DQieO430WwVwhIVw Frgmr3hfs5qdrSe2GxC1WYAxnpLy cHbbRUM9u6LmSx12U46f SJrwOEPyMWMpRHKbIKLfyLifgg6n hB6uQv3+AWFopFQ2cTP9hF4wGxKn WmJ7VNguC619RnByrBHn Xetox3egi9zprDx7HbOrFGMgljOb tFngDPL4k0PtWn49H8WijPxli4Lf Qoa9sd31nHNof4S6xNB2 N3LpHRPgymhyiFQgfNkiRZ2aQGTm iwyzLJGwkB0uCBPeC2a7OvWfImH1 CKadL9EjcmO1ZOGfnDJv XCvbBQD0E65wz3H9EOHuUHSdLEI8 oRT3mQ0cfIyzgjsvdYYcyUhjipGu lBojLFegFDvgZ660ITSv qUldDEVdnM4iKLAjrCRcuQwyLD8t XMMynyvwKo2ID7GNEYQHSJWDDQRH NORJQV76GQ89fHOeb0Z5 tSL7O8AhCHPbtxilaalhhEO5YMZp DMZolF47sJZqTKirWb6en2R2u452 IHZpCWEbhW47Mk2laUrs DNButRBOuR4siupqy8fkgonhRkDo JRJuZJs2LCt8KJGdxAcbPlTgJRT0 OsL9IBI7wWVfmZ9eaXsl uxtnqH0hNzf+NCPzSBKaITm8ANzs dGQ+CRMbKJC0pHtbZDjlYWJkvO1l OISzT0g4ChNhYvT2OXdh W9YoPZQhkyeyCx80kQ8iOoOlCcV5 CWebH4PjruY4OREcpUExJRanOJG6 M16bk8C9OTXhNGMzWJZ4 lVC3nH5onRfgwntrzBXvgXjmecHy xMnqYTqoZPhoQ248OFTzxPjnVxJ5 VEyuEHZsXP93JB68sKJy f9W1lIK3U1OfDDSeqraoujvgbYS6 SZVbDMRbgU15xVUjDCbwTw9uy9D8 h854NRZgTSQcuG38Zt7b sIqgQNJlzGYAqX8gbhzzl3ufmwth BtFsECEmICi4TKu2TNPsxTueDpWt UYO9RgB9HEE5yNZpaM7k eQlqhiqizD6bLii+YtDsUDfwYW00 EJ10oGGaf9B4mXO9I2EzWFPkcbgx eebzvJD7OPKiXCGchD68 gZCfOUfrRa5ak6W0p259BNDfJSDm jR51Sb4nfNsyZQOyeOEExC1kuidl l6pdttgsVxYeMUZcZOc5 LTb0GQUggIncMmKcXWF2ZpJ3ZFE3 zSJdeH0ijGcbqfmaqV3xFom+T3V0 zBE1hKHhqBfqgNQ+PC90 ps84B9UbJqdmQpz4OFUbBSM5sEY9 zO6iJJVnHZdwj9Y5tBH8T1YlvuWu ou5uz0syXRVtWSkcH02e wAGoj8J7ZNRsoZO0IIUbhYirLqUd tD96Khp+KBOqsHiwl9IsHhngs8yf v8gbiGv9RgYoCLOzjtGf kMfvOFF2j7EhVe12J10iLQvjZCMc RFAkYPLsFIFnnRsdqu9ssD2sWt7+ DWOcdEM2eHD9hR0gFcLn ZoI3GTffK227NjHjxSBhQeiwy7br g2wkfEu5SwNjOSLcqsTdaMwtUAV0 c9JbOt27N5MloKyrt7Tk Lec5fi32bXOko5L9hIC4S7BsOTHd qvvtlGSavMurYH7jMXVedbvzBVFp fD6cUEJsH6s3YtLqMfL5 LXuzZ4GdsjH4DCDepOQyUULcfEUG mM0eoabjn2bxkdubLyTtMFIhIJz2 CAq9YKZlpOvqVsEaDEN9 HeB6SKT6cRZvcH2cvTpdlegxiK0n Oyc+ZMy7v3fnbSDtRL7rmSX5PO24 ES57uPNbw7C9tRR7U8Mv VKZgbzmjhjnwaVT5AXZuYMRxnD26 Al1puVgpNh1bUACwPRJ7ZISqoGRz W2UvwW3nMkNqWDZpXQXc L0WeyNCxWAydV398RMczVoY0LLBj fsCdL5RhQKHwwAomZgT7g5D9Sx9E KH73VC40UQ35lSWnd8E7 lCL5Q2GzRAZseywogiuceDR6AWLa LCRsmV92Gt0umJkrIt7lDSZpQOG3 GMQujCPgV2YlbG8wUeCc MSIeLJUoV7AaoSQsAEkqY256QWbf ZfA4OWAuqtTrU2DpUQLcxEvkQhQ6 s7I2Qj1AXl94JM99XB55 bJQdh9V8rQG1M2LoKAOdhopqcojf fDQ2RMUcNNIyyT67Nz1knGfeMe6p CRWkAOG0HJGfvDVqL8Bt qG8nXvXdNABlHRQvZ8FecELlZPhf V945TQrnHiD9QTZtqqKiE0MbIBTa qSflVjU9o0H3Mi9XIWmx cqt5Q9TyTvhjlLX+LW33CVPuWL13 tRIibXNwu8fqgBi8UsOqBNKtDZP3 hGoiTGalq2JbCHGcP62w bGFw (more content not included)... [facility] IntraOperative Documentson 0 07-30-2022 IntraOperative Documents [id number]:127 [facility] 07-27-2022 Consent [id number]#[id number]:127 [facility] Discharge Instructionson Discharge Instructions [id number]#[id number]:127 [facility] Main OR Intraoperative Recor don 07-27-2022 Main OR Intraoperative Record IntraOp Document Type FT Summary Primary Physician: Haritha PAULINO MD Finalized Date/Time: 07/27/22 07:57:35 Pt. Name: CEFERINO PEREZ Channing Villalobos/Sex: 1955 Female Med Rec #: [id number] Physician: Haritha PAULINO MD Financial #: [id number] Pt. Type: O Room/Bed: / Admit/Disch: 07/26/22 07:38:02 - 07/26/22 23:59:59 Institution: Case Times FT Entry 1 Patient Times In Room 07/26/22 09:49:00 Out Room 07/26/22 10:17:00 Procedure Times Start 07/26/22 09:54:00 Stop 07/26/22 10:16:00 Anesthesia Times Start 07/26/22 09:49:00 Stop 07/26/22 10:17:00 Time at [facility] 07/26/22 10:04:00 Last Modified By: Marcio Mak RN 07/26/22 10:22:09 General Comments: 0956 EGD completed MSRN 0959 Colonoscopy started MSRN 07/26/22 Chart opened to review and send charges [facility] Case Attendance FT Entry 1 Entry 2 Entry 3 Case Attendee Lacy XIE, Joshua Mak RN, Marcio Rico ART OBJECTS SALESPERSON, Shaina Singer Role Performed MARKETING PLANNING MANAGER Police Artist - Primary Staff - Other Time In 07/26/22 09:49:00 07/26/22 09:49:00 07/26/22 09:54:00 Time Out 07/26/22 10:17:00 07/26/22 10:17:00 07/26/22 10:17:00 Procedure EGD AND COLONOSCOPY(.) EGD AND COLONOSCOPY(.) EGD AND COLONOSCOPY(.) Comments Dr. Ingram supervising case Last Modified By: Obdulio RN, Marcio Mak RN, Marcio Mak RN, Marcio Hobson 07/26/22 10:21:55 07/26/22 10:21:55 07/26/22 10:21:55 Entry 4 Entry 5 Case Attendee Deja Liu MD, Hartiha Role Performed Scrub - Primary Surgeon - Primary Time In 07/26/22 09:49:00 07/26/22 09:49:00 Time Out 07/26/22 10:17:00 07/26/22 10:17:00 Procedure EGD AND COLONOSCOPY(.) EGD AND COLONOSCOPY(.) Comments Last Modified By: Marcio Mak RN, RN, Morgan E 07/26/22 10:21:55 07/26/22 10:21:55 Perioperative Protocols FT Pre-Care Text: Implements protective measures prior to operative or invasive procedure, confirms identity before the operative or invasive procedure, verifies operative procedure, surgical site, and laterality Entry 1 Procedure(s) EGD AND COLONOSCOPY(.) Patient Identity Birthday, ID Band Verified (select at Check, Patient least 2): Participation Consents / H and P Anesthesia Consent, Operative Site N/A Verified HandP, Surgery/Procedure Marking Verified Consent Surgical Site No Laterality Verified n/a Verified Procedure Verified Yes Correct Patient Yes Position Verified Availability Equipment, Medication Prep Dry n/a Verified (If Applicable) PreOp Antibiotic No Time Out Joshua House CRNA, Given Participants Marcio Mak RN, Sparks, Micala E, Haritha PAULINO MD Time Out Complete 07/26/22 09:52:00 Outcomes Met? Yes Last Modified By: Marcio Mak RN 07/26/22 09:55:50 Post-Care Text: The patient is free from signs and symptoms of injury caused by extraneous objects Allergy Information FT Pre-Care Text: Verifies allergies Entry 1 Allergies Reviewed? Yes Allergies Reviewed Self/Patient With Outcomes Met? Yes Last Modified By: Marcio Mak RN 07/26/22 09:55:56 Post-Care Text: The patient received appropriate medication(s) safely administered during the perioperative period Surgical Procedures FT Entry 1 Procedure Description Procedure EGD AND COLONOSCOPY Modifiers . Surgeon Description EGD with 100units of botox injected into the distal esophagus, dilation of esophagus using 60F serra dilator. Colonoscopy with ascending colon polypectomy using lifting (everlift) and hot snare removal with hemoclip x1 applied to polypectomy site Primary Procedure Yes Primary Surgeon Haritha PAULINO MD Start 07/26/22 09:54:00 Stop 07/26/22 10:16:00 Anesthesia Type General Surgical Service Gastroenterology Wound Class 2 - Clean-Contaminated Last Modified By: Marcio Mak RN 07/26/22 10:18:29 General Case Data FT Pre-Care Text: Classifies surgical wound, implements aseptic technique, initiates traffic control Entry 1 Case Information OR ENDO 1 FT Case Level Level 2 Wound Class 2 - Clean-Contaminated Specialty Gastroenterology ASA Class 3 Preop Diagnosis Dysphagia, Family Postop Same As Preop No history of colon cancer, Family history of colon polyps Postop Diagnosis Normal EGD. Outcomes Met? Yes Colonoscopy- Ascending colon polyp, Internal hemorrhoids Last Modified By: Marcio Mak RN 07/26/22 10:21:48 Post-Care Text: The patient is free from signs and symptoms of infection Skin Assessment (Pre Procedure) FT Pre-Care Text: Implements protective measures to prevent skin/ tissue injury due to thermal or mechanical sources Evaluates for signs and symptoms of physical injury to skin and tissue Entry 1 Skin Integrity Dry, Warm Skin Abnormality No Outcomes Met? Yes Last Modified By: Marcio Mak RN 07/26/22 10:01:38 Post-Care Text: The patient is free from signs and symptoms of injury caused by extraneous objects Patient Positioning FT Pre-Care (more content not included)... [facility] PACU Recordon 07-27-2022 PACU Record [id number]#[id number]:127 [facility] Consent for Treatmenton 07-05 Consent for Treatment [id number]#[id number]:127 [facility] Endoscopic Procedure Report - Otheron 07-26-2022 Endoscopic Procedure Report - Other Patient: CEFERINO PEREZ Age: 67 years Sex: Female : 1955 Associated Diagnoses: None Author: Haritha PAULINO MD Pre-Procedure Procedure Date 07/26/2022 10:16:00 . Procedure Type: Colonoscopy with removal of tumor(s), polyp(s), or other lesion(s) by cold snare technique. Procedure provider Performed by Haritha Paulino MD. Current history and physical Documented on chart. Colorectal neoplasm risk assessment Average risk. Informed Consent After discussing the rationale, risks and benefits, and alternatives to this procedure, the patient provided signed consent for the procedure. Pre-procedure diagnosis: Family history of colon cancer. Medications Anticoagulant/antiplatelet None. ASA Classification: Class III. . Procedure The procedure was performed in the hospital. Rectal exam was performed and was normal with no masses palpated. The patient was positioned in the left lateral decubitus position and a digital rectal exam was performed.. Endoscope type used was an adult-size. The endoscope was lubricated then introduced through the anus. The scope was advanced to the cecum verified by photographing the appendiceal orifice, verified by photographing the ileocecal valve, verified by transillumination, The time to the cecum was 5 minutes, The withdrawal time was 11 minutes. No difficulties encountered during the procedure. The bowel preparation quality was adequate (see polyps greater than or equal to 6 millimeters). The patient tolerated the procedure well. Findings 1. Flat polyp, 25 mm, in proximal ascending colon, removed completely with hot snare after submucosal lifting, 1 clip placed at the polypectomy site 2. Moderate nonbleeding internal hemorrhoids Images Procedure images: [email or web address]_video_[id number]__T10_ [id number].jpg [id number]_hd_video_2022__T10_ [id number].jpg [id number]_hd_video_2022__T10_ [id number].jpg Rec1_hd_video_2022__T10_ [id number].jpg . Post-Procedure Complications: none. Estimated blood loss: none. Specimens: sent to pathology. Devices/ implants: none left in place. Impression and Plan 1. Flat polyp, 25 mm, in proximal ascending colon, removed completely with hot snare after submucosal lifting, 1 clip placed at the polypectomy site 2. Moderate nonbleeding internal hemorrhoids Recommendations: Repeat colonoscopy:: In 2 years, Pending pathology results. Follow-up:: Clinic follow-up in 1-2 weeks. Diet:: Resume previous diet. Medication resumption:: Continue current medications. Return to activities:: After 24 hours. [facility] Comment on above: Result Comment: Elec tronically Signed By: GONZÁLEZ CORRALES, Haritha\.br\Date and Time Signed: 07/26/22 10:17 EST Other Comment: Yajaira morillo Attachment - attachment storage system not supported [id number] Can be viewed in source systemMissing Attachment - attachment storage system not supported [id number] Can be viewed in source systemMissing Attachment - attachment storage system not supported [id number] Can be viewed in source systemMissing Attachment - attachment storage system not supported [id number] Can be viewed in source system Endoscopic Procedure Report - Other Patient: CEFERINO PEREZ Age: 67 years Sex: Female : 1955 Associated Diagnoses: None Author: Haritha PAULINO MD Pre-Procedure Procedure Date 07/26/2022 09:57:00 . Procedure Type: Esophagogastroduodenoscopy. Procedure provider Performed by Haritha Paulino MD. Current history and physical Documented on chart. Informed Consent After discussing the rationale, risks and benefits, and alternatives to this procedure, the patient provided signed consent for the procedure. Pre-procedure diagnosis: Dysphagia/ odynophagia. Medications Anticoagulant/antiplatelet None. Antibiotic prophylaxis None. ASA Classification: Class II. . Monitoring: See anesthesia record. . Procedure The procedure was performed in the hospital. See anesthesia record for sedation given during procedure. The patient was positioned starting in the left lateral decubitus position and with safety measures. Endoscope type used was an adult-size, introduced orally, advanced to the 2nd portion of the duodenum. No difficulty was encountered during the procedure. Views were excellent. The patient tolerated the procedure well. Findings 1. Normal distal esophageal mucosa, Botox 25 units injected in each corner of the distal esophagus, then dilated using 60 [place] Serra dilator 2. Normal gastric mucosa 3. Normal duodenal mucosa Post-Procedure Complications: none. Estimated blood loss: none. Specimens: None. Devices/ implants: none left in place. Impression and Plan Normal distal esophageal mucosa, Botox 25 units injected in each corner of the distal esophagus, then dilated using 60 [place] Serra dilator Recommendations: Follow-up in GI clinic in 2 weeks [facility] Comment on above: Result Comment: Elec tronically Signed By: Haritha PAULINO MD\.br\Date and Time Signed: 07/26/22 09:57 EST Main OR PACU I Recordon 07-05 Main OR PACU I Record PACU Phase I Document Type FT Summary Primary Physician: Haritha PAULINO MD Finalized Date/Time: 07/26/22 11:43:54 Pt. Name: CEFERINO PEREZ Channing Nam./Sex: 1955 Female Med Rec #: [id number] Physician: Haritha PAULINO MD Financial #: [id number] Pt. Type: O Room/Bed: / Admit/Disch: 07/26/22 07:38:02 - Institution: Case Times PACU I FT Pre-Care Text: Identifies barriers to communication and implements measures to provide psychological support Develops individualized plan of care, and ensures continuity of care Maintains patient's dignity and privacy, and maintains patient confidentiality Identifies and reports philosophical, cultural, and spiritual beliefs and values Identifies individual values and wishes concerning care Implements aseptic technique, and administers prescribed antibiotic therapy and immunizing agents as ordered Evaluates postoperative tissue perfusion Implements thermoregulation measures, and monitors body temperature Evaluates postoperative respiratory status Evaluates postoperative cardiac status Evaluates postoperative neurological status Assesses pain control, collaborated in initiating patient-controlled analgesia and implements alternative methods of pain control Verifies allergies, administers prescribed medications and solutions, evaluates response to medications Entry 1 In PACU I 07/26/22 10:19:00 Discharge from PACU 07/26/22 10:49:00 I Outcomes Met? Yes Last Modified By: Ludy La RN 07/26/22 11:43:29 Post-Care Text: The patient demonstrates knowledge of the expected response to the operative or invasive procedure The patient's care is consistent with the individualized perioperative plan of care The patient's right to privacy is maintained The patient's value system, lifestyle, ethnicity, and culture are considered, respected, and incorporated into the perioperative plan of care The patient participates in decisions affecting his or her perioperative plan of care The patient is free from signs and symptoms of infection The patient has wound/tissue perfusion consistent with or improved from baseline levels established preoperatively The patient is at or returning to normothermia at the conclusion of the immediate postoperative period The patient's respiratory function is consistent with or improved from baseline levels established preoperatively The patient's cardiovascular status is consistent with or improved from baseline levels established preoperatively The patient's cardiovascular status is consistent with or improved from baseline levels established preoperatively The patient demonstrates and/or reports adequate pain control throughout the perioperative period The patient received appropriate medication(s), safely administered during the perioperative period Acuity Level PACU I FT Entry 1 Start Time 07/26/22 10:19:00 Stop Time 07/26/22 10:49:00 Acuity Level Acuity Level I Last Modified By: Ludy La RN 07/26/22 11:43:46 Finalized By: Ludy La RN Document Signatures Signed By: Ludy La RN 07/26/22 11:43 [facility] Main OR Preoperative Recordo n 07-26-2022 Main OR Preoperative Record Holding Area Document Type FT Summary Primary Physician: Haritha PAULINO MD Finalized Date/Time: 07/26/22 08:19:58 Pt. Name: ANACEFERINO./Sex: 1955 Female Med Rec #: [id number] Physician: Haritha PAULINO MD Financial #: [id number] Pt. Type: O Room/Bed: / Admit/Disch: 07/26/22 07:38:02 - Institution: Case Times Holding FT Pre-Care Text: Verifies consent for planned procedure, identifies individual values and wishes concerning care, includes family members in perioperative teaching Secures patient's records' belongings, and valuables, maintains patient's dignity and privacy, and maintains patient confidentiality Entry 1 In Holding 07/26/22 07:51:00 Outcomes Met? Yes Last Modified By: Yoana Cassidy RN 07/26/22 07:53:04 Post-Care Text: The patient participates in decisions affecting his or her perioperative plan of care The patient's right to privacy is maintained Surgery Checklist FT Entry 1 Patient Birthday, ID Band Procedure History and Physical, Identification: Check, Patient Verification: Surgical Consent, With Participation Patient NPO after Midnight: Yes Date/Time: 07/26/22 05:00:00 Personal Items: Cataract Lens Implant, Personal Items glasses, clothes, Glasses Comment: shoes, bilateral cataract lens implant Limitations: n/a Complaints of Pain: Yes Pain Comment: right side 3/10 pain Operative Site n/a Marking: Marked By: n/a Availability Equipment Verified: Does Patient Smoke No Patient states Yes Comment - Adult Joel- spouse postop adult Supervision supervision available Case Cancelled in No Holding Area see comments below for reason Last Modified By: Yoana Cassidy RN 07/26/22 07:54:38 General Comments: Patient finished colon prep at 0500, states stool is yellow liquid with some light gonzalez flakes of sediment/,RN Finalized By: Yoana Cassidy RN Document Signatures Signed By: Yoana Cassidy RN 07/26/22 08:04 Yoana Cassidy RN 07/26/22 08:19 [facility] Monitor Recordon 07-26-2022 Monitor Record [id number]#1.00CD:127 [facility] Monitor Record [id number]#1.00CD:127 [facility] Monitor Record [id number]#1.00CD:127 [facility] Monitor Record [id number]#1.00CD:127 [facility] Monitor Record [id number]#1.00CD:127 [facility] Progress Note-Physicianon Progress Note-Physician Patient: CEFERINO PEREZ Age: 67 years Sex: Female : 1955 Associated Diagnoses: None Author: Juan Jose CORRALES, Blayne Bolton Postoperative Information Postoperative disposition: Postoperative disposition: To PACU. Optimetrix number: Optimetrix number [id number]. Anesthetic utilized: General. Physical Examination Vital Signs 07/26/2022 10:25 EST Heart Rate Monitored 63 bpm Respiratory Rate Monitored 10 br/min Systolic Blood Pressure 121 mmHg Diastolic Blood Pressure 71 mmHg Mean Arterial Pressure, Cuff 88 mmHg SpO2 100 % 07/26/2022 10:20 EST Heart Rate Monitored 58 bpm LOW Respiratory Rate Monitored 24 br/min Systolic Blood Pressure 116 mmHg Diastolic Blood Pressure 71 mmHg Mean Arterial Pressure, Cuff 86 mmHg SpO2 100 % 07/26/2022 10:19 EST Temperature Temporal Artery 37.2 DegC Heart Rate Monitored 58 bpm LOW Respiratory Rate Monitored 24 br/min Systolic Blood Pressure 116 mmHg Diastolic Blood Pressure 71 mmHg Blood Pressure Location Left arm Mean Arterial Pressure, Cuff 86 mmHg SpO2 100 % Pain Assessment: Patient stated 0 to 10 scale 0. General: Awake, Alert, Appropriate. Respiratory: Adequate air exchange, Equal bilateral chest wall expansion. Cardiovascular: Stable. Neurological: At Baseline. Assessment Anesthetic outcome No anesthetic complications noted. Review / Management Condition: Stable. Plan Transfer/Discharge: Transfer/Discharge Discharge when meets criteria ( To home ). [facility] Comment on above: Result Comment: Elec tronically Signed By: Juan Jose CORRALES, Blayne Bolton\.br\Date and Time Signed: 07/26/22 10:39 EST Progress Note-Physician Patient: CEFERINO PEREZ Age: 67 years Sex: Female : 1955 Associated Diagnoses: None Author: Blayne Ingram MD Preoperative Information Anesthesia history: Patient history: No side effects with Anesthesia. Review of Systems Eye: Negative. Ear/Nose/Mouth/Throat: Negative. Respiratory: Negative. Cardiovascular: Negative. Gastrointestinal: Negative. Genitourinary: Negative. Hematology/Lymphatics: Negative. Endocrine: Negative. Musculoskeletal: Negative. Neurologic: Negative. Health Status Allergies: Allergies (5) Active Reaction guaiFENesin unknown Mucinex unknown nystatin AOF Penicillin None Documented Sudafed ITCHING Current medications: Home Medications (23) Active acetaminophen-hydrocodone 325 mg-5 mg oral tablet aspirin 81 mg, Oral, Daily atorvastatin biotin 5 mg, Oral, Daily busPIRone 7.5 mg oral tablet calcium (as citrate)-vitamin D 315 mg-200 intl units oral tablet 1 tab(s), PRN, Oral, BID Colace 200 mg, PRN, Oral, Daily doxapram , IV, Once famotidine 20 mg Tab famotidine 20 mg Tab 20 mg = 1 tab(s), Oral, Once a day (at bedtime) meclizine 25 mg, PRN, Oral, QID Metamucil 525 mg oral capsule 1 capsule, Oral, Daily midodrine 5 mg, Oral, TID Miralax 3350 17 gram packet 17 gm, PRN, Oral, Daily [place] 5/325 Tab 1 tab(s), Oral, BID omeprazole 40 mg Cap-DR 40 mg = 1 cap(s), Oral, Daily promethazine 25 mg, PRN Proventil HFA 2 puff(s), PRN, Inhalation, QID Singulair 10 mg, Oral, qPM Travatan Z 0.004% ophthalmic solution 1 drop(s), Eye-Right, qPM Vitamin B12 1,000 microgram, Oral, Daily Vol-Plus 1 tab(s), Oral, Daily Zinc , Oral, Daily , Medications (1) Active Scheduled: (0) Continuous: (1) Sodium Chloride 0.9% 1,000 mL 1,000 mL, IV, 20 mL/hr PRN: (0) Problem list: All Problems Acid reflux / SNOMED CT 025274447 / Confirmed Acute colitis / SNOMED CT 536379554 / Confirmed Acute gastritis / SNOMED CT 40491527 / Confirmed Arthritis / SNOMED CT 5861805 / Confirmed Dysphagia / SNOMED CT 46575003 / Confirmed Family history of colon cancer / SNOMED CT 723564282 / Confirmed Family history of colonic polyps / SNOMED CT 1957068149 / Confirmed GERD without esophagitis / SNOMED CT 9734427280 / Confirmed Hiatal hernia / SNOMED CT 545786323 / Confirmed History of esophageal spasm / SNOMED CT 517486808 / Confirmed IBS (irritable bowel syndrome) / SNOMED CT 20154804 / Confirmed Migraines / SNOMED CT 44138574 / Confirmed Obesity / SNOMED CT 7591156056 / Confirmed Vertigo / SNOMED CT 1290762347 / Confirmed, Active Problems (14) Acid reflux Acute colitis Acute gastritis Arthritis Dysphagia Family history of colon cancer Family history of colonic polyps GERD without esophagitis Hiatal hernia History of esophageal spasm IBS (irritable bowel syndrome) Migraines Obesity Vertigo Histories Social History Social & Psychosocial Habits Alcohol 11/26/2018 Risk Assessment: Denies Alcohol Use Exercise Comment: walking - 11/26/2018 14:22 - Lisandra Saeed CMA Substance Abuse 11/26/2018 Risk Assessment: Denies Substance Abuse Tobacco 05/14/2022 Tobacco Use: Never (less than 100 in l Smokeless tobacco use: Never . Physical Examination Measurements from flowsheet : Measurements 07/26/2022 7:54 EST Height/Length Measured 150 cm Height/Length Dosing 150.0 cm Weight Dosing 92.0 kg BSA Measured 1.96 m2 Body Mass Index Measured 40.89 kg/m2 Weight Measured 92 kg Airway: Mallampati classification: II (soft palate, fauces, uvula visible). Distance: Thyromental, Adequate, No upper teeth, some missing lower.. Respiratory: Lungs are clear to auscultation, Symmetrical chest wall expansion. Cardiovascular: Regular rhythm, Good pulses equal in all extremities. Gastrointestinal: Soft, Non-tender. Plan [place] [employer] (ASA) physical status classification: Class II. Anesthetic Preoperative Plan: Anesthesia General. [facility] Comment on above: Result Comment: Elec tronically Signed By: Juan Jose CORRALES, Blayne Jacobs.br\Date and Time Signed: 07/26/22 08:08 EST Pre-Certification Formon Pre-Certification Form [id number]#[id number]:127 [facility] Consent for Immunizationon 1 07-22-2021 Consent for Immunization [id number]#1.00CD:127 [facility] Coding Summary.on 05-17-2022 Coding Summary. CD:[id number] Gh0bWw+P GhlYWQ+DS9DJWSmO94gtLSkbJ2LL 8cPSC5VHKDWZAOKYT0VSK3tuHM5C LjzS9YbixYd TkhtnEGnEN99MJy0VMA4fPanYWwj pR1blFMfV6n5AhPlMM55wS28XPxp DEWiHxN4QjFkwmcdoPFo I1awElUbePSeKjo+PHRhYmxlIHdp BMFdWKhnVKUuHbYjeIelTG4xZg9m ZGVyLWNvbGxhcHNlOiBj w1shEGKkXIjiXH0cqEcdP5XyvDF8 MQHqu2k2Bw81yTV+JDUfNTQ8vMul XGfaj208OvJix3veMYG4 qRBaQCssAOS2E35kd8T1WOEzZCXx MIC8uCX2qL3cjPhaysxvN3UofPPg ErR4IBI3uKZgoG0guBov xzewaS0cJsb+E41TMF1LNCMBYV8T Qpx3R9LoUftxfWE+YB23YOMkOS50 lQJxhCUuz8asxQs3CdEm UKTgEZY7hXqhLAfyy3DxGEFcJ30z nFXgk7V6VABtnWtffRUtOnZxgRW2 bW1sKFvlupmkn5wukwnb Dkeod4brgd80xH26M23lDUsxKLIl USS0JNHnANRkjWwzsm4kbB0qSq5+ HTzfb3pmn2cgsJn8NuSj FVUgfiTaeYppLCA0n4NvVt41X3Qw oBinq7IpQkc6om68kCDds0I7jSB7 MPmiEVCaaA8pCOooMeX9 VVJnLsOgcC11zYYkNVviKa8zhKbz hGopMZ5vTJHiaukkIZEvuA0sYZHu wBOkjHizZB1nDVDgrgbd g552EqGiUTV4BDPzhRHsC2XwnI8w WzWsAQWfPYRfA1KnmJWpVLebI601 TKecMgX8LOIriaRnS5Wy UAWtkMzxGeZ7h4R4Rf8Ki4Rywmjo QPE7ULzvMLFjDvK2AqDuCzL7N9Lt Zgt5WTOkaSzuWH1oW3Mo AZZoziufhnfmfQA4TWHqKFVyqD91 wUQjBDmcFf8yd4L2y761ZIKbCTTb oL07Yi9bhBwvHRPkqNYB aB2pdrfly9vnpsjdUeMeJLYlYUw4 QJo3SHSyjTycIhIrSKJ6StJ9KVD1 wKWfdJ0enNragtntoN5w Oyc+G99mbP5jGSW1ZTQ9ypkrZNNi yrEwFJ12RL12L5CbJltxbBYvbXC+ NIJglvTheHejIK2nQgCt p7pyi5CwMZleS5AgKHWmTNwnLlp3 PCJeKLT6pJS4qL4aSKXdMXycg9P1 kKF6S6KxndMoxr2be0fd JMNnDKhuJ29vbGCgy3Q0NUZayLD6 CFCpeUfrKrGzrM61Jfl+PGNvbGdy b4EbZpxlm0goz1jxiFd3 GgWaBDSowlGsuQujNBW2m6XzZx74 G57oOXogXCVjMDSvPFZvSHIhsLzs zm6orC4tXd9+PGNvbCB3 fAX8sX4oYNGqBvI4AJezT139WxGf rVLaXtcrx3ykw6rnnLt2QzVtHCDo lsLzsRjkTLW2w6ZwKw97 S55mURnmHIMtWBZiPDTbMMXumWaa ql0mqT8eCe9+FO8gq2ldsg94rR18 dHI+NNWnOUL1nYrrISmr ESMbtO6xYPozFoU3KUXdBwGreR07 zJHxHCrsQn5gjCbjlPrmMQ4eKYBu sjrlx060OqBbe5otYXXc tATzHTfhELG9E82nx3V5RHQuLPVe QVT8wJW7eU5vvPkfqyyzxBIndWxu fjRneVcxMSzaNVfeB398 IHRvcDsnPlBhdGllbnQgTmFtZTo8 N4CqOtq3JLLuhFugID4ubJSwSUna Qf5dpEwknAswOC9mFAWp sergh534VhIgd7fcJSWsqHQlPEzu GVL7R04tt2O7VVYwTSUtRDP1rRP7 zI0qeZabuukppIDakGsm xlRpgYckNXnqFBsbF884ASWapIgg JmBvmnYaMFBkvMD9VI70BQ59wKOd a9K3yIU3Z5VuOFYlrxmk lejdoQS9GCCoQTMyrL88Br4djSng Nk6kMDLcUMS8WNQjiXXtJ5XrpG9n CdFuJFPzMIWrH3OetCWa RXxoW555VOeaZaB4NMVstlBhP8Rb LKSswIxuTsY0h3A1Aq9OV9Q0IQ85 MZ50vPYhi8P0hLW2G5Ib OCCperxkchmsqWY2EEHkKLWlxF64 Ji7tnXrgDc1yENOwRIJ6KRCjaBAm R7JvdJ7fNfRgMFRmFYVa V3IwcTKkVQlxX414ZVhvKzD3SCOb voRpV7RwUDThmGzcZmQ1b5K5Dx4V LLh5EZ20LK11bJXyo4Z7 dDN3S5ReXBVlzfzjcfhvlGV3PCJw BKEakV17Cn4kfHkvXi1uQTAoKIH0 KWXoeYAnZ6UccB2hKpCx MLAoJGYoX6HddSEyRGdbC970CBto CoZ7TTBwhwJtW1CgJDPbhYrmFiR4 n9K4Xm2TSKYyDM33LKJ0 mER0PM70GP97T6YwOzdvpHPxzXM+ PHRhYmxlIHdpZHRoPScxMDAlJyBz eZdtMD9zNh9bEJSmMXAx jPgqoUVmPqUes4bwDYUgJKezCY0g eExgI1ZcwJJ8ETCam0d4Ka54X48k I6BvlKS+MUNbbFN1uAY5 mI3xZoAnDmI9RUspA174QcVktZNf Xcyqc5pwa0pelDp4IjX3LNDbieEa zVlvKGR4l2WfYt01Q57t XSljHEBzRMEcKHDvXJJloVbaeb4j zZ1mDy4+WOZqoSJ9nIW8rS9iRgAn KaW2RTrbE516LmDewOAx Wbwuf4htk8gbzQk9QsVlKCJtwdXl pTekQUQ1e1WhLd68W8YabXiva2Dp Nlf5hn10fPDza2A1qMZ2 R5CqPQOhvailxYLkeZcuOZ1qOLAb mfinHRLhbM8gFOJcC6p8TxKuCtX6 WVlgX4TghaS8JSRbwXRn XBqzPKU9B48gt4W4EEMzNATbDQT0 gLQ8gI6ybWdwrxmtuHKdzYjdqxTe jAtbTLcjRUitZ358TJMm kMffYGKkzZ9pLHMolLYuqNkbGS8k QUHvhjtjKo6BI7NBZNKJDPCGRXNX CJGPHB46GW60nSRyy8O0 sGR3X7IxVGDhtderlgudcFP7GWMg GGBegU60xDKyAMocQa7ux1M0f729 OTCnWHAvyD16Wb0swUoq IBOhfYWYrB4hlxlts7wfitqzZbHl UFQaXGw2LEl2RPCgmCpmKtRuMVD7 XdV5DIT8rLDieP0axNog cmdjoB7xWih+QVLjTFZsMXs0KXff dGQ+FMWdFHQ1bOawSEtoFHHjuM1p WMCwS5s4ReVhJeI6HBui G2NdQLLlqfuoTz17sE6nYtZjEoL1 WAzdC8FlqhH4IJJhnTMeMNudNQG3 R34sr2I4PXRcNHUmROA4 mLL2hL6bbFotgarbmZGouWqfamKi kFkkXVuaIRjcJ382FNFzaHhbEbE5 XKbmCSAjTZ80DG69eVYl y9H2pPH4H2BdAHLswnctpscykPR0 FLFkQLEbvH91qGLxWSsxBs9ze7P1 f299VJGwLNPhmL40Wo1d dFdqIOQmoUKTsY9tatyip5orhnnj XfEuOCRtUBz3WEs6MXAunOuoBkKa ZDM9DnW1TWS3gFCiiP9q aVooczmtvS8tKmh+IqVcZZekBP11 QX25dHNjh0M2pNM5E3OpKSHwpzux plymdTW1UKDrBULjaT33 mDEtRYwhEj7qx2B5b320KWLuNLUf eF43Er9lfPcnSOXzbXAZmZ4eioel x2aiqokiCwRsWUAkFAj1 FPo3ZTKcaZizJyZoSSA3LoG0COY1 kDJxpD5lhFhvbmevvJ5zDhd+T3V0 nIW0aDJemErfwTT+PC90 cw47G8OaYslzVra1CFPdFYK0xBG4 zC3nVRVwHMjky8M5aOR4J6KbtbTj ed2ai4nqKXDkJSweF60m hXBhu2E5AUJajEB9DARdhArmBxIu hC00Fbv+GQHjbCrfg5DsPzhbg2bz s5oppMd4KnWuFFTxoiQg uIbdAAX4r2GdTl43N58sDPszJCJu ZTEmDTLfXSMssRrkdl6bzZ0uQt6+ RCFroNN8sRY9eT6eHzYv UiU6UGgnL765HkRylICbKdgot7al v9yrePs9CeTiWFIzobTrwAnjQIL3 m4MwJu02W2OstLqxs7Kc Tny5br38xQCbg3R6jEG7N4YzHIJp zozuwRSuaHomMQ7hQDIikkreJAHd tD3rCXBlQ1p6XtUxZbL9 JMtmF2IxrhL5YEFlaUVmASIspPZV bZ4phslcd3pvwlucAcYpXTHwNHm2 WKs8GFNbiUjzBfVcSIU7 HlT6VSW2vHSvsE5ywLdgwdzlsW1e Oyc+OTt6d8uayZBrRR4ibHH0HX07 HJ58pRCwa8L4yNH8L5Wo LJNrfrypjtohxAH8ALXoCJGxnA67 Oy3wxZnoJk6kIKGrTMF4LFLwvCBu K1FsfS1yEpVeAGQzGNBs Y4EfwXVjFPdsD193WBsdHbG2BLOt aiEqQ9BpHWFqeQdfDrL2m4N8Pn4E CH05AH70IO26tBBbm8G6 bGQ0H9DgJXJkjxkspqojgXP3EHYz HBLieM33Eg3dfTlkPh5wVIJqDCR4 JPMgpZTmE7QlgB0hEzRe JIYzBGEkV1OkvFKhKGsyW538UEww VuW7OJFfagKkR4CfCKFxvIssEiW2 k8W4Qu8GWk91MD34TL53 hNRjz5E1cWM8W9XyBIJkaatysome uRP8LRNxFKTsiD72Ks1dxTmkYa7l GGZlGQV0RDDxyIVrN8Ui uX1nPsVyFCCcJRRxM3PkvZKhDGhm O690SZlgNtE7XWTqirZpI6RhXLVk cTixLeA7g3D6Cp8WRDme bcd2P5CtGesjnKH+SI23KXXfYR87 oYCwrEUuz4czbGf6BlIlRQRoWBR8 kUfzUUdai0HoUAImV78j bGFw (more content not included)... [facility] BMPon 05-14-2022 Anion gap [Moles/Vol] 12 mmol/L Normal -16 [facility] Comment on above: Performed By: #### 1 [id number] ####[facility] [address] [place] [address] Calcium [Mass/Vol] 9.3 mg/dL Normal 8.9-11.1 [facility] Comment on above: Performed By: #### 1 [id number] ####[facility] [address] [place] [address] Chloride [Moles/Vol] 102 mmol/L Normal 101-111 [facility] Comment on above: Performed By: #### 1 [id number], [id number], [id number] ####[facility] [address] [place] [address] CO2 [Moles/Vol] 29 mmol/L Normal 21-31 [facility] Comment on above: Performed By: #### 1 [id number], [id number], [id number], [id number] ####[facility] [address] [place] [address] Creatinine [Mass/Vol] 0.5 mg/dL Normal 0.5-1.3 [facility] Comment on above: Performed By: #### 1 [id number], [id number], [id number], [id number] ####[facility] [address] [place] [address] Glucose [Mass/Vol] 96 mg/dL Normal 55-199 [facility] Comment on above: Result Comment: If t his glucose result represents a fasting glucose, interpretation should refer to the following reference range: 55-99 mg/dL Performed By: #### 1 [id number], [id number], [id number], [id number] ####[id number] [place] [address] Potassium [Moles/Vol] 3.8 mmol/L Normal 3.5-5.3 [facility] Comment on above: Performed By: #### 1 [id number], [id number], [id number], [id number] ####[facility] [address] [place] [address] Sodium [Moles/Vol] 139 mmol/L Normal 135-145 [facility] Comment on above: Performed By: #### 1 [id number], [id number], [id number], [id number] ####[facility] [address] [place] [address] Urea nitrogen [Mass/Vol] 23 mg/dL High 5-21 [facility] Comment on above: Performed By: #### 1 [id number], [id number], [id number], [id number] ####[facility] [address] [place] [address] Urea nitrogen/Creatinin e [Mass ratio] 46 No Units High 03-22 [facility] Comment on above: Performed By: #### 1 [id number], [id number], [id number], [id number] ####[facility] [address] [place] [address] Consent for Treatmenton 05-03 Consent for Treatment [id number]:[id number] [facility] Gastroenterology Office/Clin ic Noteon 05-14-2022 Gastroenterology Office/Clinic Note Chief Complaint Followup visit from 02/13/22. HPI Staff Patient is a 66 year old female here today to followup from 02/13/22 office visit and testing. History of Present Illness Patient is a 66-year-old female who presents for follow-up. Patient was previously evaluated 02/13/2022 and had previous EGD 10/18/2021 that revealed normal esophagus?injected with Botox in LES in each quadrant, normal gastric and duodenal mucosa. Patient with history of gastric bypass 7 years ago. Patient also with history of dysphagia that she reported over the last 5 years with solids, liquids, and pills. Patient reported improved acid reflux with omeprazole 40 mg daily. Patient with family history of colon cancer?patient's 2 brothers and maternal grandfather. Previous colonoscopy in 07/2017 revealed hemorrhoids and was recommended to have repeat in 07/2022. Previous x-ray of esophagus from 2018 showed mild esophageal spasm and gastroesophageal reflux. Patient previously reported improved dysphagia with solids and liquids following EGD with Botox 10/2021. Patient also previously reported improved esophageal spasms following EGD with Botox. Patient had previous modified barium swallow 03/22/2022 that revealed barium transfer to oropharynx, some sinus residue and was ordered speech therapy referral for further evaluation/management of dysphagia. Patient had previously reported acid reflux was controlled with omeprazole 40 mg daily and Pepcid 20 mg at bedtime. Family history of colon polyps: Patient's mother, 2 brothers. Personal history of colon cancer: Denies. Personal history of colon polyps: Denies. Takes aspirin daily. During today's visit, patient reports difficulty swallowing solids, liquids, and pills over the last 2 months, occurring daily. Food getting stuck in esophagus at times, worse with meat and bread. She reports previous EGD with dilation in the past helped her difficulty swallowing. Patient reports hx. bowel obstruction and 2 abdominal hernia repairs in 2014. Patient with hx. IBS and reports occasional hard stools that she takes miralax PRN. She also reports hx. hemorrhoids, denies rectal bleeding. She reports acid reflux is well-controlled with omeprazole 40mg daily and pepcid 20mg at bedtime. Denies black/bloody stools, denies having any other GI complaints. Review of Systems PHQ Score Initial Depression Screen Score: 0 ROS - Provider Constitutional: no fever, no chills. Skin: no Jaundice. ENMT: yes dysphagia- see HPI for details regarding. Respiratory: no shortness of breath. Cardiovascular: no chest pain. Gastrointestinal: no nausea, no vomiting, no diarrhea, no GI bleeding. Physical Exam Vitals & Measurements T: 36.7 ?C(Temporal Artery) HR: 65(Peripheral) BP: 112/68 HT: 59 in HT: 150 cm WT: 92 kg WT: 202.4 lb BMI: 40.89 General: Well developed, well nourished, in no acute distress Head: Normocephalic/atraumatic Lungs: Normal respiratory effort and clear to auscultation Cardio: Regular rate and rhythm, normal S1 and S2, no murmur, no rub Abdomen: Soft, non-distended, non-tender. Normoactive bowel sounds present in all 4 abdominal quadrants, bilaterally. Mental Status: Alert and oriented x3. Normal mood and affect Assessment/Plan 1. Family history of colon cancer (Z80.0: Family history of malignant neoplasm of digestive organs) Family history of colon cancer?patient's 2 brothers and maternal grandfather. Previous colonoscopy in 07/2017 revealed hemorrhoids and was recommended to have repeat in 07/2022. Ordered Colonoscopy. Takes aspirin daily. Ordered: Colonoscopy (Hospital Procedure) 2. Family history of colonic polyps (Z83.71: Family history of colonic polyps) Family history of colon polyps: Patient's mother, 2 brothers. Previous colonoscopy in 07/2017 revealed hemorrhoids and was recommended to have repeat in 07/2022. Ordered Colonoscopy. Takes aspirin daily. Ordered: Colonoscopy (Hospital Procedure) 3. Dysphagia (R13.10: Dysphagia, unspecified) Difficulty swallowing solids, liquids, and pills over the last 2 months, occurring daily. Food getting stuck in esophagus at times. Patient also with hx. esophageal spasm s/p botox injection-EGD 10/18/2021 that revealed normal esophagus?injected with Botox in LES in each quadrant, normal gastric and duodenal mucosa. Previous x-ray of esophagus from 2018 showed mild esophageal spasm and gastroesophageal reflux. Modified barium swallow 03/22/2022 that revealed barium transfer to oropharynx, some sinus residue and was ordered speech therapy referral for further evaluation/management of dysphagia. Ordered EGD with possible dilation. Educated to ensure she is chewing food thoroughly. Ordered: EGD Endoscopy (Hospital Procedure) 4. Acid reflux (K21.9: Gastro-esophageal reflux disease without esophagitis) Controlled with omeprazole 40 mg daily and Pepcid 20 mg at bedtime. EGD 10/18/2021 that revealed normal esophagus?injected with Botox in LES in each quadran (more content not included)... [facility] Comment on above: Result Comment: Elec tronically Signed By: Joseph SOTO, Julee Snell\.br\Date and Time Signed: 05/14/22 14:20 EST Magnesiumon 05-14-2022 Magnesium [Mass/Vol] 1.9 mg/dL Normal 1.3-2.4 [facility] Comment on above: Performed By: #### 1 [id number] ####[facility] [address] [place] [address] Patient Educationon 05-14-20 22 Patient Education Radiology Colonoscopy, Adult A colonoscopy is an exam to look at the entire large intestine. During the exam, a lubricated, flexible tube that has a camera on the end of it is inserted into the anus and then passed into the rectum, colon, and other parts of the large intestine. You may have a colonoscopy as a part of normal colorectal screening or if you have certain symptoms, such as: ? Lack of red blood cells (anemia). ? Diarrhea that does not go away. ? Abdominal pain. ? Blood in your stool (feces). A colonoscopy can help screen for and diagnose medical problems, including: ? Tumors. ? Polyps. ? Inflammation. ? Areas of bleeding. Tell a health care provider about: ? Any allergies you have. ? All medicines you are taking, including vitamins, herbs, eye drops, creams, and dqkg-sbm-dhmzkop medicines. ? Any problems you or family members have had with anesthetic medicines. ? Any blood disorders you have. ? Any surgeries you have had. ? Any medical conditions you have. ? Any problems you have had passing stool. What are the risks? Generally, this is a safe procedure. However, problems may occur, including: ? Bleeding. ? A tear in the intestine. ? A reaction to medicines given during the exam. ? Infection (rare). What happens before the procedure? Eating and drinking restrictions Follow instructions from your health care provider about eating and drinking, which may include: ? A few days before the procedure ? follow a low-fiber diet. Avoid nuts, seeds, dried fruit, raw fruits, and vegetables. ? 1?3 days before the procedure ? follow a clear liquid diet. Drink only clear liquids, such as clear broth or bouillon, black coffee or tea, clear juice, clear soft drinks or sports drinks, gelatin dessert, and popsicles. Avoid any liquids that contain red or purple dye. ? On the day of the procedure ? do not eat or drink anything starting 2 hours before the procedure, or within the time period that your health care provider recommends. Up to 2 hours before the procedure, you may continue to drink clear liquids, such as water or clear fruit juice. Bowel prep If you were prescribed an oral bowel prep to clean out your colon: ? Take it as told by your health care provider. Starting the day before your procedure, you will need to drink a large amount of medicated liquid. The liquid will cause you to have multiple loose stools until your stool is almost clear or light green. ? If your skin or anus gets irritated from diarrhea, you may use these to relieve the irritation: ? Medicated wipes, such as adult wet wipes with aloe and vitamin E. ? A skin-soothing product like petroleum jelly. ? If you vomit while drinking the bowel prep, take a break for up to 60 minutes and then begin the bowel prep again. If vomiting continues and you cannot take the bowel prep without vomiting, call your health care provider. ? To clean out your colon, you may also be given: ? Laxative medicines. ? Instructions about how to use an enema. General instructions ? Ask your health care provider about: ? Changing or stopping your regular medicines or supplements. This is especially important if you are taking iron supplements, diabetes medicines, or blood thinners. ? Taking medicines such as aspirin and ibuprofen. These medicines can thin your blood. Do not take these medicines before the procedure if your health care provider tells you not to. ? Plan to have someone take you home from the hospital or clinic. What happens during the procedure? ? An IV may be inserted into one of your veins. ? You will be given medicine to help you relax (sedative). ? To reduce your risk of infection: ? Your health care team will wash or sanitize their hands. ? Your anal area will be washed with soap. ? You will be asked to lie on your side with your knees bent. ? Your health care provider will lubricate a long, thin, flexible tube. The tube will have a camera and a light on the end. ? The tube will be inserted into your anus. ? The tube will be gently eased through your rectum and colon. ? Air will be delivered into your colon to keep it open. You may feel some pressure or cramping. ? The camera will be used to take images during the procedure. ? A small tissue sample may be removed to be examined under a microscope (biopsy). ? If small polyps are found, your health care provider may remove them and have them checked for cancer cells. ? When the exam is done, the tube will be removed. The procedure may vary among health care providers and hospitals. What happens after the procedure? ? Your blood pressure, heart rate, breathing rate, and blood oxygen level will be monitored until the medicines you were given have worn off. ? Do not drive for 24 hours after the exam. ? You may have a small amount of blood in your stool. ? You may pass gas and have mild abdominal cramping or bloating due to the air t (more content not included)... [facility] Vit B12on 05-14-2022 Cobalamin (Vitamin B12) [Mass/Vol] 904 pg/mL Normal 50-1500 [facility] Comment on above: Performed By: #### 1 [id number] ####[facility] [address] [place] [address] eGFRon 05-14-2022 GFR/1.73 sq M.predicted among blacks MDRD (S/P/Bld) [Vol rate/Area] mL/min/{1.73_m2} Normal >=59 [facility] Comment on above: Order Comment: Order added by Discern Expert. Result Comment: eGFR is race adjusted. AA=. Performed By: #### 1 [id number] ####[facility] [address] [place] [address] GFR/1.73 sq M.predicted among non-blacks MDRD (S/P/Bld) [Vol rate/Area] mL/min/{1.73_m2} Normal >=59 [facility] Comment on above: Order Comment: Order added by Discern Expert. Result Comment: [employer] naveed kidney disease could be indicated at eGFR's of less than 60 mL/min/1.73m2. Kidney failure is indicated at less than 15 mL/min/1.73m2. Performed By: #### 1 [id number] ####[facility] [address] [place] [address] MG MAMM SCREEN 3D YOLA CADon 04-27-2022 MG MAMM SCREEN 3D YOLA CAD Patient: CEFERINO PEREZ Exam Date: 04/27/2022 : 1955 Gender:F Ordering : DR BASSEM HERNANDEZ Admission #: [id number] Family : Order #: [id number] CLICK HERE TO VIEW EXAM RADIOLOGY REPORT PROCEDURE: MAMMOGRAM SCREENING 3D BILATERAL CAD COMPARISON: MG MAMM SCREEN 3D YOLA CAD, 04/17/2021. MG MAMM SCREEN YOLA W CAD, 04/12/2020. INDICATIONS: Screening mammography Calculator Name NCI Breast Cancer Risk Assessment Tool 5 Year Breast Cancer Risk 2.20% Lifetime Breast Cancer Risk 8.90% Personal Breast Cancer No Personal Ovarian Cancer No Treatments None Family Cancers Mother with lung cancer at age 76; Grandfather-maternal with stomach cancer at age 87. LOCATION: [facility] BREAST COMPOSITION: Scattered areas fibroglandular density. FINDINGS: DIAGNOSTIC CATEGORY 2--BENIGN FINDING: RIGHT BREAST: No significant suspicious finding. Scattered benign-appearing calcifications are present. No significant change has occurred. LEFT BREAST: No significant suspicious finding. No significant change has occurred. RECOMMENDATIONS: ROUTINE MAMMOGRAM AND CLINICAL EVALUATION IN 12 MONTHS. PLEASE NOTE: A NORMAL MAMMOGRAM DOES NOT EXCLUDE THE POSSIBILITY OF BREAST CANCER. A CLINICALLY SUSPICIOUS PALPABLE LUMP SHOULD BE BIOPSIED. Dictated by: Bob Cross M.D. on 05/01/2022 at 12:04 Approved by: Bob Cross M.D. on 05/01/2022 at 12:06 Normal [facility] Coding Summary.on 03-28-2022 Coding Summary. CD:[id number] Gh0bWw+P GhlYWQ+UA9AGGSvO06edVRqnD9PD 3hGBD0IJYWZAUONKC5WVJ8ibYD0Q CptH0LpdpLq IkufpPJzEX50UNg3VOR4lShrMFgz sL0grYCtP4l3XoOwRD75hR80WWur OBJpOvE1ZxGitgooyYFc A5jrZuThrGKvGbr+PHRhYmxlIHdp XHRkHExiZUOoHyDyiBlbYL4cRr8z ZGVyLWNvbGxhcHNlOiBj b0hgQKUlDBxfWY8piYfgB6HcdFD5 IFEzi1i7Tk87wMQ+MWMsZEF3cRmt DSqix887EjOwo1keHZV0 qJVjWOpzIKQ9C74ha5H1RDFlTVGe GKZ4zRH2tY4idFfriuqwP6QemJDx JcO4MKW1aWBguH9zhVxg spfstK3xQsk+C87JYD6YGXEXGO9I Yxa6E7ReIfnnyIL+DS92KJNaLU29 xFAcbQNii0uupZv0OoPn EDTpBIM3wBtfEIfth9JzDMRyF11w oIZqm3X3NABsmQenuSMkZzLzuAS5 lH5nMCxekaepb6fzhzcu Fkmge2dnqk61iN19E91uKMmcYMEp PRU0MABgVWJlfBiczs7llK3qEi3+ LZvuz6bbb3doyEn6ZpTh KJFbewXuwVvoDYG3d2AuHl67W3Zo lMlwq8BqWfc7qm16mIPpt7M2aQF4 KBaxMETwzY9jBDzsUzL4 IZMcXzIdqL49gLMtMMmxNl1axYep lGmbKU9ePCCzsgdjDQTitK7oRBTb eVDhqNbfCE8cXRFuznvs w708PgScKVS8JUJmsYDjC1JckN1d UuYoSHIoFBEgA6SutJAwAKowO008 ABkdEcW2MQDpyxMqE4Hx XFIcgEacZqF4k7X0As3Cl7Dzngoi PPE0KEdaWIHrDyN1SgDjQnQ8I2Uk Rab6PUFgpRibZF1wB0Vv CIGxnkvqzwvdsCU2TRFyWRFjsF77 jZYiJPwfFn2cr1D0y897DWRrCLJl jB99Ts2ujWrpGKFmfVUA uR7fawmpv9wixmxhGmGqAKFwOFd2 ULk1RHDapSlkRjJiEDD8NeA8PRT5 dCVyxF6afKvgxypsjF0n Oyc+P21nuP5eLEF9KMC5lkpuCFAu ieSfVN79QW41V8LnNfyabJEiyIU+ RTSzbfPhxQvlOV3dSgHy f7cty8IyGFlnP5JoNLYcACtiKhj4 HDTaASD1lCE4dL9kNAAoPOsnx8A5 jPM9H3HxtfDlfq0wy9tp XYBqMUmjU34loAVfn2K4CYHbmCE9 XBPzyDtfAeJgkO23Nqe+PGNvbGdy n5QwSjxjg5jcl9ozwXm9 BvGgVXFumfPawYgrFLJ4b2LgBn25 X00fQDkyFPWmRJEdTASrXPIfoRjx wz3eoO7yMw5+PGNvbCB3 bYB5tP8hBJOwYaQ2ZAtjQ163EoXi hCFyFggnv0kys8cabFd0AdQgINYk dxJzoBezWAH2i5XcFk39 F40nGTmtYFMwANCpXESeYESsiVre aw0wgG9kBi4+VP6fo3ggoa60zG89 dHI+AOAlQUJ2dZhjHIpp VTUydK3qDBdwGxA3RRUlUmEtwG78 pTGcAIzmUe7veEqavIjaCJ3sIDNi aabzi129PfCsg9orWHYi rFAgUIwbQZQ4H65wh2Y8TTSoHXCw KRB3kKU9sX4efHhxiqkugNIbaWee keTngBlyTFiuVEnwK585 IHRvcDsnPlBhdGllbnQgTmFtZTo8 L5JhTcj8CHErqUtoGV0fnZBxJFlg Wf7jjBmmlJscCM3fMKOv cwdsj813XgFdc8bqSLUhaZTmSVra XMB4O31wy3N0LWUuYLSyGPH8zFI2 qS2urLyydzbyiZNtsGll rxMerCnyEQxgWKycC593BSMrlTiy WqUkafWzXZOzsIJ8JP17DV81vAVb a1X4rDX5G5ZmUDKqkvwd sywpoAU8QSEtNHGxsI67Mb0auLyl Ja0aRCYcEAY8TFJdtWOoM7GqyV5r TaPgFKDzNJTcQ5EceRYw DSgtK920DCniHhM9PUAiqeKaD2Vi DJSkpDzeAmJ0k5T3Ag3KJ4P7AK87 QF92xLVey5L9qWC4S1Wf OUOaijzlabrkhSQ4HCMvSDQygY68 Wm8wsFzlUq3pYRLkSWV8EORtvSIj S8HgxN1wMlUoAXTnMJQb H3JiiCZoULypP449FPflPyY7KKEy yjPdI8HbODRysGmxTsS1e8G0Bz4T JRc5EZ94WB46nGEni3Q0 nON7M9DzWRVulllmujdsqCL2BOSw MFYtnN46Wv6cqNmrZs1wKHHeOVH1 JWDrbVZdY8YauR4qNpHq NRCtLRJhK9RbgYByXTbtH890HVtp TaW6WRRsvaHzF4RkZCAccNbqEhD6 z1L2Ry9PVEGdZH24NRX1 vVM3PX21QV64B5TbAgwsuQBjuGN+ PHRhYmxlIHdpZHRoPScxMDAlJyBz zHccLN8oPh2lPERpFJJe sFyqtFBtPgArk4avNKMcFBvsMW8g rDtcK4GntBZ8ENCnv4g3Tc35R46n L7IwjAS+QLSvkKX8lSI8 qI4iVbLyNrE9WIpyD192OmWptZZd Pevdq5bce7vjcKt5OgB7PHMmclNg bJiyGRY9s7HlUc02X28j GBfeQFWvRNYwIMCtHURsvZxxrr7h mM3fCp7+AIQisZV7gYD4dA0aPgMy HhA1UBcdH981RjRcvBBi Txzde0yzm4svaJv3TpAfTSMeagGn oXodRAM4f7YoHx07D9NlyCywa4Wa Jjb2mz99bNWsf0D5eQE8 B6CyWAUwfqklcCAaoGlmLD9sQFSu lmzdMRQneL5hREYpS7x3FjUrXqS8 TMyfN1DpmgH5YWBhrGMi FLlcFVS6M72cd7T7ACZsAMIwTNM4 oWN0gJ7vvOoiggmoyLMdeAwcgnWi wVqwOGfiHWsvT438UMZl hQfjQERnbR1sOHSgbIVklLwmBQ1g IDWfjxzjUj0CU8EHZEPEDVRCOOOR DIAEDA61EI60mKTzm1A2 eGQ1U8GuRAGadsmjlivquUG2PENi ELJjyW93zLVqGWadIm9pm2O6w305 XMIiWETlbL01Nw9hdQsm AQNmuQQRaR6leexvx1drvwuxKkGc EZQjVWo5PPh4SNPbdQfwVhCwECF3 DqF0CVD7ySGcvS8bdMgs fyawiS5eDop+NNKmBWPfAAn5YEjw dGQ+TVMrYUC7tPjaRKhgINTszJ0l WOCfI9a6IfUkOvT2WOtw S7CvBVAtnehyJa93kO4aLmUzYhD1 USguE7NmkrY9AOIdfYRiKGrnCIN3 K00sc2Z2CFGhJYYgFDO2 aZN4pX4srAskgcvykGQntMvqotPh uUctWGeoWSlxP293BTYhwWogToZ5 DTkwIWHrUH67GH61oQMr f1X6bUU1L9FkXVUnitkixwzbmQW6 TRFcAXMytD12rLUjXWcjYt6ij4L1 q033WQNiQSCosJ85Le2v nDgcATFopJHGlG5esfjht4axfzdy BpXhASBrXYi7FMr1KZIvlIgxFmMs DSC0GxJ7XZG1eOEsbD7t nOaoqdgyxK8pGlt+HhAxYNceJX16 MM06sZGql7T8gBH7D4WrGZDpcypf iwwhxRM6LUCuKBEyuR27 jBZtOYglOb0uq2I6m841EYEuEGOh nN92Rl4hmDpjEIHwrHFKeT8plfla m1qkgvleTqVgKJLwNIl3 RCj7CRBjuYtwSjUjCSG6XzV6BMZ4 nYPzrO0qlCpsyyeneY1oDhq+T3V0 sYA4sIVnwSdcoIR+PC90 wn92I7VtPipgJso7EEQuVUG0gXS2 oC2jJPFqEBvwh6X0wFV3O4EwriBq cu2xe2emNMBmONqhV90a dLEhy3E6BNNpvGL8IDSdkAhbSoWz kP28Ttd+LWMymCwtq1OmFmigl2tl o0hphAo6JgNeEQJdjaRp xPimOLU8y7YqAz60Z63vUOapCQRb INOwMDAgSNEajYzxyi2rjT9lBm4+ JNRzuCO2aEO8iP6gFgKz UoS5NWeeH235PkKmxNApGyamv5ug i5szqOu0LaDgMSEmkmCmqYnjUMW4 m8BsBm88K8DonPqnd8Hq Cms7zl45vFDll4X0rVP0P8RzPFLe upriqJKgrArwRH6bOLXmqfarWDVz sG3lOPRrL7b6MaHtUwW7 QOizS9FqgsR1YCIdzLOzHQZnePNE vE8fpovbz2boembkSgNhTOFxZJv8 BNi5TYDitXbfHmJvWCX5 LlY0JSH5rAOxhY4mgDjjfjcnzC3w Oyc+WKd2d1zwcQQwUJ3kmWM7DS77 DP20gUHef4E3ePB3R9Bq EYYigqlnbieabBQ0AISvFCAisK70 Du1ryUypTs6aCZSaDIQ8EQJvaLAr C7VmnG1fJwJqXCPtBYVq S7ExoAVhUNrvG189IMwdGrJ5HANb oaVkW5QmSZRcuVhpOmJ6d4D8Js8B UR01RR66PC85vKNqx7Q3 bOG5C8NuHRGnpiedvukhdWH9UIGg JDEutH62Jm9phCnpEv9kLMKgWNI1 RCQyfFDkL3NwcF9pMgSd BZSsSLUlH0MguCYkMUohM535BNya IrP6FGZjwdYfU2UfKQWsuFelYcM0 n5L9Kl7TEb70XD79GS90 tVCzt4N2nPE5O0CyRLUprxfqhiut fEW6PRDpQGAgdI17Kb7haEbuZy1r UTJmXPU1HLVxxPFnX8Hl iU5gTqMcWXMoZGBeY7ApaSLtGRhg A460AXqrHqV1DGGnznMwG7FyVOXp sCrfOmG5u9I1Bc8LCTjk rbk8A9TzLccklZA+YT38KYItJP16 nUTmzDWry8hwwNr7CdViHWChTKY2 lBoaPEhpd2GpWOCtR05w bGFw (more content not included)... [facility] CBC AUTO DIFFon 02-19-2022 BASO # 0.0 103/ul Normal 0.0-0.1 [facility] Comment on above: Performed By: #### L IVER, TSH, BMP, LIPID #### [facility] [address] [place] [address] Dr. Lisa Marcano Basophils/100 WBC (Bld) 0.5 % Normal 0.2-2.0 [facility] Comment on above: Performed By: #### L IVER, TSH, BMP, LIPID #### [facility] [address] [address] [address] Lisa Marcano EO # 0.1 103/ul Normal 0.0-0.7 [facility] Comment on above: Performed By: #### L IVER, TSH, BMP, LIPID #### [facility] [address] [address] [address] Lisa Marcano Eosinophils/100 WBC (Bld) 1.5 % Normal 0.9-7.0 [facility] Comment on above: Performed By: #### L IVER, TSH, BMP, LIPID #### [facility] [address] [address] [address] Lisa Marcano Erythrocyte distribution width (RBC) [Ratio] 13.3 % Normal 11.0-15.0 [facility] Comment on above: Performed By: #### L IVER, TSH, BMP, LIPID #### [facility] [address] [address] [address] Lisa Marcano Hematocrit (Bld) [Volume fraction] 40.2 % Normal 36.0-48.0 [facility] Comment on above: Performed By: #### L IVER, TSH, BMP, LIPID #### [facility] [address] [address] [address] Lisa Marcano Hemoglobin (Bld) [Mass/Vol] 12.8 g/dL Normal 12.0-16.0 [facility] Comment on above: Performed By: #### L IVER, TSH, BMP, LIPID #### [facility] [address] [address] [address] Lisa Marcano IG # 0.03 10e3/ul Normal 0.00-0.03 [facility] Comment on above: Performed By: #### L IVER, TSH, BMP, LIPID #### [facility] [address] [address] [address] Lisa Marcano IG % 0.4 % Normal 0.0-0.5 [facility] Comment on above: Performed By: #### L IVER, TSH, BMP, LIPID #### [facility] [address] [address] [address] Lisa Marcano LYMPH # 3.9 103/ul Critically high 1.2-3.8 [facility] Comment on above: Performed By: #### L IVER, TSH, BMP, LIPID #### [facility] [address] [address] [address] Lisa Marcano Lymphocytes/100 WBC (Bld) 48.9 % Normal 20.5-60.0 [facility] Comment on above: Performed By: #### L IVER, TSH, BMP, LIPID #### [facility] [address] [address] [address] Lisa Marcano MANUAL DIFF REQ NO Normal [facility] Comment on above: Performed By: #### L IVER, TSH, BMP, LIPID #### [facility] [address] [place] [address] Dr. Lisa Marcano MCH (RBC) [Entitic mass] 31.2 pg Normal 26.7-34.0 [facility] Comment on above: Performed By: #### L IVER, TSH, BMP, LIPID #### [facility] [address] [place] [address] Dr. Lisa Marcano MCHC (RBC) [Mass/Vol] 31.8 g/dL Normal 29.9-35.2 [facility] Comment on above: Performed By: #### L IVER, TSH, BMP, LIPID #### [facility] [address] [place] [address] Dr. Lisa Marcano MCV (RBC) [Entitic vol] 98.0 fL Normal 81.0-99.0 [facility] Comment on above: Performed By: #### L IVER, TSH, BMP, LIPID #### [facility] [address] [place] [address] Dr. Lisa Marcano MONO # 0.7 103/ul Normal 0.3-0.8 [facility] Comment on above: Performed By: #### L IVER, TSH, BMP, LIPID #### [facility] [address] [place] [address] Dr. Lisa Marcano Monocytes/100 WBC (Bld) 8.6 % Normal 1.7-12.0 [facility] Comment on above: Performed By: #### L IVER, TSH, BMP, LIPID #### [facility] [address] [place] [address] Dr. Lisa Marcano NEUT # 3.2 103/ul Normal 1.4-6.5 [facility] Comment on above: Performed By: #### L IVER, TSH, BMP, LIPID #### [facility] [address] [place] [address] Dr. Lisa Marcano Neutrophils/100 WBC (Bld) 40.1 % Critically low 43.0-75.0 [facility] Comment on above: Performed By: #### L IVER, TSH, BMP, LIPID #### [facility] [address] [place] [address] Dr. Lisa Marcano Platelet mean volume (Bld) [Entitic vol] 9.5 fL Normal 9.5-13.5 [facility] Comment on above: Performed By: #### L IVER, TSH, BMP, LIPID #### [facility] [address] [address] [address] Lisa Marcano PLT 194 103/ul Normal 150-450 [facility] Comment on above: Performed By: #### L IVER, TSH, BMP, LIPID #### [facility] [address] [place] [address] Dr. Lisa Marcano RBC 4.10 106/ul Critically low 4.20-5.40 [facility] Comment on above: Performed By: #### L IVER, TSH, BMP, LIPID #### [facility] [address] [place] [address] Dr. Lisa Marcano WBC 7.9 103/ul Normal 4.0-11.0 [facility] Comment on above: Performed By: #### L IVER, TSH, BMP, LIPID #### [facility] [address] [place] [address] Dr. Lisa Marcano FERRITINon 02-19-2022 Ferritin [Mass/Vol] 74.0 ng/mL Normal 8.0-252.0 [facility] Comment on above: Performed By: #### F ERR, IRON, VITB12, VITAD #### [facility] [address] [place] [address] Dr. Lisa Marcano GLYCOHEMOGLOBIN A1Con 2021 ADA RECOMMENDATION SEE BELOW Normal [facility] Comment on above: Result Comment: ADA RECOMMENDED LIMIT 4.0 - 6.0 ADA THERAPEUTIC TARGET < 7.0 ACTION SUGGESTED > 7.0 Performed By: #### L IVER, TSH, BMP, LIPID #### [facility] [address] [place] [address] Dr. Lisa Marcano Glucose [Mass/Vol] 111 mg/dL Normal [facility] Comment on above: Performed By: #### L IVER, TSH, BMP, LIPID #### [facility] [address] [address] [address] Lisa Marcano HbA1c (Bld) [Mass fraction] 5.5 % Normal 4.5-6.2 [facility] Comment on above: Performed By: #### L IVER, TSH, BMP, LIPID #### [facility] [address] [address] [address] iLsa Marcano IRONon 02-19-2022 Iron [Mass/Vol] 91.0 ug/dL Normal 50.0-170.0 [facility] Comment on above: Performed By: #### F ERR, IRON, VITB12, VITAD #### [facility] [address] [address] [address] Lisa Marcano LIPID PROFILEon 02-19-2022 CHOL-HDL RATIO NORM SEE BELOW Normal [facility] Comment on above: Result Comment: 3.3 - 4.4 LOW RISK 4.4 - 7.1 AVERAGE RISK 7.1 - 11.0 MODERATE RISK >11.0 HIGH RISK Performed By: #### L IVER, TSH, BMP, LIPID #### [facility] [address] [address] [address] Lisa Marcano Cholesterol [Mass/Vol] 140 mg/dL Normal <=200 [facility] Comment on above: Performed By: #### L IVER, TSH, BMP, LIPID #### [facility] [address] [address] [address] Lisa Marcano Cholesterol in HDL [Mass/Vol] 74 mg/dL Critically high 40-60 [facility] Comment on above: Performed By: #### L IVER, TSH, BMP, LIPID #### [facility] [address] [address] [address] Lisa Marcano Cholesterol in LDL [Mass/Vol] 45.8 mg/dL Normal [facility] Comment on above: Performed By: #### L IVER, TSH, BMP, LIPID #### [facility] [address] [address] [address] Lisa Marcano Cholesterol.total/ Cholesterol in HDL [Mass ratio] 1.9 {ratio} Normal [facility] Comment on above: Performed By: #### L IVER, TSH, BMP, LIPID #### [facility] [address] [address] [address] Lisa Marcano HDL NORMAL > or = 60 mg/dl - LO W CARDIOVASCULAR RISK <40 mg/dl - HIGH CARDIOVASCULAR RISK Normal [facility] Comment on above: Performed By: #### L IVER, TSH, BMP, LIPID #### [facility] [address] [address] [address] Lisa Marcano LDL CALC NORMAL SEE BELOW Normal [facility] Comment on above: Result Comment: <100 mg/dl OPTIMAL 100 - 129 mg/dl NEAR OR ABOVE OPTIMAL 130 - 159 mg/dl BORDERLINE HIGH 160 - 189 mg/dl HIGH >190 mg/dl VERY HIGH Performed By: #### L IVER, TSH, BMP, LIPID #### [facility] [address] [address] [address] Lisa Marcano Triglyceride [Mass/Vol] 101 mg/dL Normal <=150 [facility] Comment on above: Performed By: #### L IVER, TSH, BMP, LIPID #### [facility] [address] [address] [address] Lisa Marcano VLDL CALC 20.2 mg/dL Normal [facility] Comment on above: Performed By: #### L IVER, TSH, BMP, LIPID #### [facility] [address] [address] [address] Lisa Marcano LIVER PROFILEon 02-19-2022 Albumin [Mass/Vol] 3.7 g/dL Normal 3.4-5.0 [facility] Comment on above: Performed By: #### L IVER, TSH, BMP, LIPID #### [facility] [address] [place] [address] Dr. Lisa Marcano Albumin/Globulin [Mass ratio] 1.2 {ratio} Normal [facility] Comment on above: Performed By: #### L IVER, TSH, BMP, LIPID #### [facility] [address] [address] [address] Lisa Marcano ALP [Catalytic activity/Vol] 75 U/L Normal 46-116 [facility] Comment on above: Performed By: #### L IVER, TSH, BMP, LIPID #### [facility] [address] [address] [address] Lisa Marcano ALT [Catalytic activity/Vol] 24 U/L Normal 14-59 [facility] Comment on above: Performed By: #### L IVER, TSH, BMP, LIPID #### [facility] [address] [address] [address] Lisa Marcano AST [Catalytic activity/Vol] 17 U/L Normal 15-37 [facility] Comment on above: Performed By: #### L IVER, TSH, BMP, LIPID #### [facility] [address] [place] [address] Dr. Lisa Marcano BILI, CONJUGATED 0.1 mg/dL Normal 0.0-0.2 [facility] Comment on above: Performed By: #### L IVER, TSH, BMP, LIPID #### [facility] [address] [place] [address] Dr. Lisa Marcano Bilirubin [Mass/Vol] 0.5 mg/dL Normal 0.2-1.0 [facility] Comment on above: Performed By: #### L IVER, TSH, BMP, LIPID #### [facility] [address] [place] [address] Dr. Lisa Marcano Globulin (S) [Mass/Vol] 3.1 g/dL Normal [facility] Comment on above: Performed By: #### L IVER, TSH, BMP, LIPID #### [facility] [address] [place] [address] Dr. Lisa Marcano Protein [Mass/Vol] 6.8 g/dL Normal 6.4-8.2 [facility] Comment on above: Performed By: #### L IVER, TSH, BMP, LIPID #### [facility] [address] [place] [address] Dr. Lisa Marcano PROF CHEM 8 (BAS METB)on Anion gap [Moles/Vol] 9.0 mmol/L Normal [facility] Comment on above: Performed By: #### L IVER, TSH, BMP, LIPID #### [facility] [address] [address] [address] Lisa Marcano Calcium [Mass/Vol] 8.9 mg/dL Normal 8.5-10.1 [facility] Comment on above: Performed By: #### L IVER, TSH, BMP, LIPID #### [facility] [address] [place] [address] Dr. Lisa Marcano Chloride [Moles/Vol] 109 mmol/L Critically high 98-107 [facility] Comment on above: Performed By: #### L IVER, TSH, BMP, LIPID #### [facility] [address] [place] [address] Dr. Lisa Marcano CO2 [Moles/Vol] 29.1 mmol/L Normal 21.0-32.0 [facility] Comment on above: Performed By: #### L IVER, TSH, BMP, LIPID #### [facility] [address] [place] [address] Dr. Lisa Marcano Creatinine [Mass/Vol] 0.70 mg/dL Normal 0.55-1.02 [facility] Comment on above: Performed By: #### L IVER, TSH, BMP, LIPID #### [facility] [address] [place] [address] Dr. Lisa Marcano EGFR-AF WALLISIAN >60 Normal >=60 [facility] Comment on above: Performed By: #### L IVER, TSH, BMP, LIPID #### [facility] [address] [place] [address] Dr. Lisa Marcano EGFR-NON AF WALLISIAN >60 Normal >=60 [facility] Comment on above: Performed By: #### L IVER, TSH, BMP, LIPID #### [facility] [address] [place] [address] Dr. Lisa Marcano Glucose [Mass/Vol] 114 mg/dL Critically high 74-106 [facility] Comment on above: Performed By: #### L IVER, TSH, BMP, LIPID #### [facility] [address] [place] [address] Dr. Lisa Marcano Potassium [Moles/Vol] 4.1 mmol/L Normal 3.5-5.1 [facility] Comment on above: Performed By: #### L IVER, TSH, BMP, LIPID #### [facility] [address] [place] [address] Dr. Lisa Marcano Sodium [Moles/Vol] 143 mmol/L Normal 136-145 [facility] Comment on above: Performed By: #### L IVER, TSH, BMP, LIPID #### [facility] [address] [place] [address] Dr. Lisa Marcano Urea nitrogen [Mass/Vol] 24.0 mg/dL Critically high 7.0-18.0 [facility] Comment on above: Performed By: #### L IVER, TSH, BMP, LIPID #### [facility] [address] [place] [address] Dr. Lisa Marcano Urea nitrogen/Creatinin e [Mass ratio] 34.3 mg/mg Normal [facility] Comment on above: Performed By: #### L IVER, TSH, BMP, LIPID #### [facility] [address] [place] [address] Dr. Lisa Marcano TSHon 02-19-2022 TSH 1.706 uIU/mL Normal 0.358-3.740 [facility] Comment on above: Performed By: #### L IVER, TSH, BMP, LIPID #### [facility] [address] [place] [address] Dr. Lisa Marcano VITAMIN B12on 02-19-2022 Cobalamin (Vitamin B12) [Mass/Vol] 1064.0 pg/mL Critically high 193.0-986.0 [facility] Comment on above: Performed By: #### F ERR, IRON, VITB12, VITAD #### [facility] [address] [place] [address] Dr. Lisa Marcano VITAMIN D 25 OHon 02-19-2022 VIT D 25-OH 43.9 ng/mL Normal [facility] Comment on above: Performed By: #### F ERR, IRON, VITB12, VITAD #### [facility] [address] [address] [address] Lisa Marcano VIT D RANGES SEE BELOW Normal [facility] Comment on above: Result Comment: <20 ng/mL Vit D deficient 20 - <30 ng/mL Vit D insufficient 30 - 100 ng/mL Vit D sufficient >100 ng/mL Potential Toxicity Performed By: #### F ERR, IRON, VITB12, VITAD #### [facility] [address] [place] [address] Dr. Lisa Marcano XR DEXA BONE DENSITYon 01-25 XR DEXA BONE DENSITY EXAMINATION: XR DEXA BONE DENSITY, 01/25/2022 9:43 AM EDT HISTORY: Senile osteoporosis COMPARISON: DEXA bone densitometry 02/20/2019 TECHNIQUE: Dual-energy X-ray absorptiometry (DEXA) bone density study performed for the axial skeleton. FINDINGS: SPINE ANALYSIS: Average bone mineral density is 1.255 g/cm2. T-score (standard deviation relative to young adult mean): 0.6 . +4.0% change since prior study. HIP ANALYSIS: Lowest bone mineral density is within the right femoral neck, 0.764 g/cm2. T-score (standard deviation relative to young adult mean): -2.0 . +4.9% change since prior study. IMPRESSION: [employer] Classification: Osteopenia - Moderate Fracture Risk Electronically authenticated by: BOB CROSS Date: 2022-01-25 16:[address] [facility] Telephone ([facility]) CEFERINO PEREZ ([id number]) 1955 F Date Time Provider Department 04/04/21 CIRILO TEJADAPHOTOGRAPHER'S ASSISTANT) [facility] During your visit today, we recorded the following information about you: Cirilo Tejada LPN 04/04/2021 3:40 PM Signed ----- Message from Olya Wang [facility] sent at 04/03/2021 11:41 AM EDT ----- Regarding: Pt requesting a nurse call Contact: Vitamin questions. Allergies As of Date: 04/04/2021 Noted Allergy Reaction MUCINEX (GUAIFENESIN) 08/08/2016 9 - Itching PENICILLINS 02/12/2014 4 - Hives SEASONAL ALLERGIES 02/12/2014 14 - Other: See Comments Comments: Itchy eyes, watery nose SUDAFED (PSEUDOEPHEDRINE) 08/08/2016 9 - Itching Date Reviewed: 01/22/2020 Reviewed by: Cherie Cruz) Aki - Fully Assessed Reason for Visit: Returning Patient's Call [[id number]] Prescriptions as of 04/04/2021 - VITAMIN PLUS LOW IRON 27 mg iron- 1 mg TAKE 1 TABLET BY MOUTH DAILY - busPIRone (BUSPAR) 7.5 mg tablet Take 7.5 mg by mouth twice daily. - biotin 5,000 mcg ODT q 24 HR. - albuterol HFA (VENTOLIN HFA) 90 mcg/actuation inhaler Ventolin HFA 90 mcg/actuation aerosol inhaler - mupirocin (BACTROBAN) 2 % ointment mupirocin 2 % topical ointment - cyclobenzaprine (FLEXERIL) 10 mg tablet cyclobenzaprine 10 mg tablet Take 1 tablet as needed by oral route for 20 days. - meclizine (ANTIVERT) 25 mg tab TAKE 1 TABLET FOUR TIMES DAILY NEEDED - travoprost (TRAVATAN Z) 0.004 % ophthalmic drops Instill 1 (ONE) DROP IN BOTH EYES DAILY IN THE EVENING - metFORMIN ER (GLUCOPHAGE XR) 500 mg 24 hr tablet Take 1 tablet by mouth daily with dinner. - Food Supplement, Lactose-Free (HIGH-PROTEIN NUTRITIONAL SHAKE) liqd Ensure high protein one shake per day as a meal or snack substitute - cyanocobalamin (VITAMIN B-12) 1,000 mcg tab Please dispense sublingual - cholecalciferol (VITAMIN D3) 2,000 unit tablet Take 1 tablet by mouth once daily. - omeprazole (PRILOSEC) 20 mg capsule Take 1 capsule by mouth once daily. - 0.9 % SODIUM CHLORIDE (NACL) 0.9% solution Please run 2L bolus over 2 hours - acetaminophen (TYLENOL) 650 mg/20.3 mL soln Take 20.3 mL by mouth every 4 hours as needed. - oxyCODONE-acetaminophen 5 mg-325 mg/5 mL (ROXICET) 5-325 mg/5 mL solution Take 10 mL by mouth every 4 hours as needed for Pain. TAKE 5 - 10 ML BY MOUTH EVERY 4 HOURS NEEDED FOR PAIN. - aspirin, enteric coated (ECOTRIN LOW STRENGTH) 81 mg EC tablet Take 81 mg by mouth once daily. - loratadine (CLARITIN) 10 mg tablet Take 10 mg by mouth once daily. - LORazepam (ATIVAN) 0.5 mg tab Take by mouth three times daily as needed. Indications: ANXIETY - LOPERAMIDE HCL/SIMETHICONE (IMODIUM ADVANCED ORAL) Take 1 tablet by mouth once daily as needed. - venlafaxine XR (EFFEXOR XR) 150 mg 24 hr capsule Take 75 mg by mouth twice daily. - fluticasone (FLONASE) 50 mcg/actuation nasal spray Use 1 Tolar in each nostril once daily. - promethazine (PHENERGAN) 25 mg tablet Take 25 mg by mouth every 6 hours as needed. Indications: nausea/vomiting - pramipexole (MIRAPEX) 1 mg tablet Take 1 mg by mouth at bedtime as needed. - montelukast (SINGULAIR) 10 mg tablet Take 10 mg by mouth daily at bedtime. - tiotropium (SPIRIVA) 18 mcg cap Inhale 18 mcg as instructed once daily. - fluticasone-salmeterol (ADVAIR DISKUS) 500-50 mcg/dose dsdv Inhale 1 Puff as instructed twice daily. - hyoscyamine sulfate 0.125 mg TbDL Take 0.125 mg by mouth twice daily as needed. - temazepam (RESTORIL) 15 mg cap Take by mouth at bedtime as needed. Problem List As Of Date 04/04/2021 Noted Resolved COPD (chronic obstructive pulmonary disease) (H*03/09/2014 Lymphedema [I89.0] 03/09/2014 Asthma [J45.909] 03/09/2014 JOSE on CPAP [G47.33, Z99.89] 03/09/2014 GERD (gastroesophageal reflux disease) [K21.9] 03/09/2014 Hyperlipidemia [E78.5] 03/09/2014 Anxiety [F41.9] 03/09/2014 Back pain [M54.9] 03/09/2014 Hip pain [M25.559] 03/09/2014 Obesity [E66.9] 02/17/2015 Postoperative malabsorption [K91.2] 01/10/2017 S/P bariatric surgery [Z98.84] 01/10/2017 S/P laparoscopic sleeve gastrectomy [Z98.84] 01/10/2017 Encounter Status:Closed by CIRILO TEJADA LPN on 04/04/21 Normal [facility] Vital Signs Date Time Vital Sign Value Performing Clinician Facility 03-25-2023 12:32-0400 Blood Pressure Location Julee Maysz [facility] 03-25-2023 12:32-0400 Body temperature 97.7 [degF] Julee Liaometz [facility] 03-25-2023 12:32-0400 Diastolic blood pressure 82 mm[Hg] Julee Maysz [facility] 03-25-2023 12:32-0400 Heart rate 68 /min Julee Maysz [facility] 03-25-2023 12:32-0400 Systolic blood pressure 120 mm[Hg] Julee Joseph [facility] 02-15-2023 11:03-0400 Diastolic blood pressure 81 mm[Hg] Abdi Sarmini [facility] 02-15-2023 11:03-0400 Heart rate 79 /min Abdi Sarmini [facility] 02-15-2023 11:03-0400 Mean blood pressure 90 mm[Hg] Abdi Sarmini [facility] 02-15-2023 11:03-0400 Respiratory rate 19 /min Abdi Sarmini [facility] 02-15-2023 11:03-0400 SaO2% (BldA) [Mass fraction] 93 % Abdi Sarmini [facility] 02-15-2023 11:03-0400 Systolic blood pressure 108 mm[Hg] Abdi Sarmini [facility] 02-15-2023 10:50-0400 Diastolic blood pressure 54 mm[Hg] Abdi Sarmini [facility] 02-15-2023 10:50-0400 Heart rate 80 /min Abdi Sarmini [facility] 02-15-2023 10:50-0400 Mean blood pressure 62 mm[Hg] Abdi Sarmini [facility] 02-15-2023 10:50-0400 Respiratory rate 18 /min Abdi Sarmini [facility] 02-15-2023 10:50-0400 SaO2% (BldA) [Mass fraction] 98 % Abdi Sarmini [facility] 02-15-2023 10:50-0400 Systolic blood pressure 78 mm[Hg] Abdi Sarmini [facility] 02-15-2023 10:45-0400 Diastolic blood pressure 43 mm[Hg] Abdi Sarmini [facility] 02-15-2023 10:45-0400 Heart rate 81 /min Abdi Sarmini [facility] 02-15-2023 10:45-0400 Mean blood pressure 58 mm[Hg] Abdi Sarmini [facility] 02-15-2023 10:45-0400 Respiratory rate 16 /min Abdi Sarmini [facility] 02-15-2023 10:45-0400 SaO2% (BldA) [Mass fraction] 99 % Abdi Sarmini [facility] 02-15-2023 10:45-0400 Systolic blood pressure 89 mm[Hg] Abdi Sarmini [facility] 02-15-2023 10:38-0400 Body temperature 97.16 [degF] Abdi Sarmini [facility] 02-15-2023 10:30-0400 Respiratory rate 20 /min Abdi Sarmini [facility] 02-15-2023 10:25-0400 Respiratory rate 20 /min Abdi Sarmini [facility] 02-15-2023 10:15-0400 Respiratory rate 20 /min Abdi Sarmini [facility] 02-15-2023 09:42-0400 Blood Pressure Location Abdi Sarmini [facility] 02-15-2023 09:42-0400 Body temperature 96.8 [degF] Abdi Sarmini [facility] 01-21-2023 09:43-0400 Blood Pressure Location Julee Joseph [facility] 01-21-2023 09:43-0400 Body temperature 96.8 [degF] Julee Ruiz [facility] 01-21-2023 09:43-0400 Diastolic blood pressure 74 mm[Hg] Julee Joseph [facility] 01-21-2023 09:43-0400 Heart rate 53 /min Julee Joseph [facility] 01-21-2023 09:43-0400 Systolic blood pressure 112 mm[Hg] Julee Joseph [facility] 08-24-2022 13:36-0400 Blood Pressure Location Julee Joseph [facility] 08-24-2022 13:36-0400 Body temperature 97.34 [degF] Juleemaribel LiaoJoseph [facility] 08-24-2022 13:36-0400 Diastolic blood pressure 76 mm[Hg] Juleemaribel LiaoJoseph [facility] 08-24-2022 13:36-0400 Heart rate 66 /min Juleemaribel LiaoJoseph [facility] 08-24-2022 13:36-0400 Systolic blood pressure 110 mm[Hg] Julee Joseph [facility] 07-26-2022 10:40-0500 Diastolic blood pressure 75 mm[Hg] Mg SALAM [facility] 07-26-2022 10:40-0500 Heart rate 62 /min Mg SALAM [facility] 07-26-2022 10:40-0500 Mean blood pressure 82 mm[Hg] Mg SALAM [facility] 07-26-2022 10:40-0500 Respiratory rate 12 /min Mg SALAM [facility] 07-26-2022 10:40-0500 SaO2% (BldA) [Mass fraction] 97 % Mg SALAM [facility] 07-26-2022 10:40-0500 Systolic blood pressure 95 mm[Hg] Mg SALAM [facility] 07-26-2022 10:30-0500 Diastolic blood pressure 56 mm[Hg] Mg SALAM [facility] 07-26-2022 10:30-0500 Heart rate 76 /min Mg SALAM [facility] 07-26-2022 10:30-0500 Respiratory rate 10 /min Mg SALAM [facility] 07-26-2022 10:30-0500 SaO2% (BldA) [Mass fraction] 100 % Mg SALAM [facility] 07-26-2022 10:30-0500 Systolic blood pressure 97 mm[Hg] Mg SALAM [facility] 07-26-2022 10:25-0500 Diastolic blood pressure 71 mm[Hg] Mg SALAM [facility] 07-26-2022 10:25-0500 Heart rate 63 /min Mg SALAM [facility] 07-26-2022 10:25-0500 Mean blood pressure 88 mm[Hg] Mg SALAM [facility] 07-26-2022 10:25-0500 Respiratory rate 10 /min Mg SALAM [facility] 07-26-2022 10:25-0500 SaO2% (BldA) [Mass fraction] 100 % Mg SALAM [facility] 02-23-2023 10:25-0500 Systolic blood pressure 121 mm[Hg] Mg SALAM [facility] 07-26-2022 10:20-0500 Mean blood pressure 86 mm[Hg] Mg SALAM [facility] 07-26-2022 10:19-0500 Blood Pressure Location Mg SALAM [facility] 07-26-2022 10:19-0500 Body temperature 98.96 [degF] Mg SALAM [facility] 07-26-2022 08:18-0500 Blood Pressure Location Mg SALAM [facility] 07-26-2022 08:18-0500 Body temperature 98.6 [degF] Mg SALAM [facility] 02-13-2022 12:31-0400 Blood Pressure Location Juleemaribel LiaoJoseph [facility] 02-13-2022 12:31-0400 Body temperature 97.16 [degF] Julee Joseph [facility] 02-13-2022 12:31-0400 Diastolic blood pressure 73 mm[Hg] Julee Joseph [facility] 02-13-2022 12:31-0400 Heart rate 48 /min Julee Joseph [facility] 02-13-2022 12:31-0400 Systolic blood pressure 108 mm[Hg] Julee Joseph [facility] 11-14-2021 13:48-0400 Diastolic blood pressure 78 mm[Hg] Julee Joseph [facility] 11-14-2021 13:48-0400 Mean blood pressure 93 mm[Hg] Julee Ruiz [facility] 11-14-2021 13:48-0400 Systolic blood pressure 124 mm[Hg] Julee Ruiz [facility] 11-14-2021 13:44-0400 Blood Pressure Location Juleemaribel Ruiz [facility] 11-14-2021 13:44-0400 Body temperature 97.16 [degF] Julee Ruiz [facility] 11-14-2021 13:44-0400 Diastolic blood pressure 90 mm[Hg] Julee Ruiz [facility] 11-14-2021 13:44-0400 Heart rate 61 /min Julee Ruiz [facility] 11-14-2021 13:44-0400 SaO2% (BldA) [Mass fraction] 100 % Julee Ruiz [facility] 11-14-2021 13:44-0400 Systolic blood pressure 130 mm[Hg] Juleemaribel LiaoJoseph [facility] 10-18-2021 15:08-0400 Diastolic blood pressure 73 mm[Hg] Mg SALAM [facility] 10-18-2021 15:08-0400 Heart rate 60 /min Mg SALAM [facility] 10-18-2021 15:08-0400 Respiratory rate 22 /min Mg SALAM [facility] 10-18-2021 15:08-0400 SaO2% (BldA) [Mass fraction] 100 % Mg SALAM [facility] 10-18-2021 15:08-0400 Systolic blood pressure 103 mm[Hg] Mg SALAM [facility] 10-18-2021 14:55-0400 Diastolic blood pressure 62 mm[Hg] Mg SALAM [facility] 10-18-2021 14:55-0400 Heart rate 60 /min Mg SALAM [facility] 10-18-2021 14:55-0400 Respiratory rate 19 /min Mg SALAM [facility] 10-18-2021 14:55-0400 SaO2% (BldA) [Mass fraction] 100 % Mg SALAM [facility] 10-18-2021 14:55-0400 Systolic blood pressure 103 mm[Hg] Mg SALAM [facility] 10-18-2021 14:50-0400 Diastolic blood pressure 62 mm[Hg] Mg SALAM [facility] 10-18-2021 14:50-0400 Heart rate 74 /min Mg SALAM [facility] 10-18-2021 14:50-0400 Respiratory rate 17 /min Mg SALAM [facility] 10-18-2021 14:50-0400 SaO2% (BldA) [Mass fraction] 100 % Mg SALAM [facility] 10-18-2021 14:50-0400 Systolic blood pressure 103 mm[Hg] Mg SALAM [facility] 10-18-2021 14:43-0400 Body temperature 98.24 [degF] Mg SALAM [facility] 10-18-2021 14:40-0400 Respiratory rate 17 /min Mg SALAM [facility] 10-18-2021 14:35-0400 Respiratory rate 19 /min Mg SALAM [facility] 10-18-2021 14:30-0400 Respiratory rate 1 /min Mg SALAM [facility] 10-18-2021 13:53-0400 Blood Pressure Location Mg SALAM [facility] 10-18-2021 13:53-0400 Body temperature 97.34 [degF] Mg SALAM [facility] Encounters Encounter Date Encounter Type Care Provider Facility Start: 05-22-2023 End: 05-22-2023 ambulatory [facility] Start: 05-15-2023 End: 05-15-2023 ambulatory OLGA HILTON Not Available Start: 03-25-2023 End: 03-26-2023 ambulatory Julee Ruiz Facility:[facility] Start: 03-25-2023 End: 03-25-2023 Patient encounter procedure Julee Ruiz [facility] Start: 02-15-2023 End: 02-15-2023 ambulatory Abdi Talal Sarmini Facility:[facility] Start: 02-15-2023 End: 02-15-2023 Patient encounter procedure Abdi Talal Sarmini [facility] Start: 01-21-2023 End: 01-22-2023 ambulatory Julee Ruiz [facility] Start: 01-21-2023 End: 01-21-2023 Patient encounter procedure Julee Ruiz [facility] Start: 08-24-2022 End: 08-25-2022 ambulatory Julee Ruiz [facility] Start: 08-24-2022 End: 08-24-2022 Patient encounter procedure Julee Ruiz [facility] Start: 07-26-2022 End: 07-27-2022 ambulatory [facility] Facility:[facility] Start: 07-26-2022 End: 07-26-2022 Patient encounter procedure [facility] Start: 05-14-2022 End: 05-15-2022 ambulatory Julee Ruiz Facility:[facility] Start: 05-14-2022 End: 05-15-2022 ambulatory Julee Ruiz [facility] Start: 04-27-2022 End: 04-28-[address] BASSEM HERNANDEZ Facility:[facility] Start: 03-22-2022 End: 03-22-2022 Patient encounter procedure Julee Ruiz [facility] Start: 02-21-2022 Encounter for genera l adult medical examination without abnormal findings DR OLGA HILTON [facility] Start: 02-19-2022 End: 02-20-[address] OLGA HILTON Facility:[facility] Start: 02-19-2022 End: 02-20-2022 Encounter for general adult medical examination without abnormal findings DR OLGA HILTON Facility:[facility] Start: 02-13-2022 End: 02-13-2022 Patient encounter procedure Julee Channing Ruiz [facility] Start: 01-25-2022 End: 01-26-[address] BASSEM HERNANDEZ Facility: Start: 11-14-2021 End: 11-14-2021 Patient encounter procedure Julee Ruiz [facility] Start: 10-18-2021 End: 10-18-2021 [facility] Start: 12-29-2018 End: 01-01-2019 Patient encounter procedure YOSHI SHUKLAS [facility] Start: 11-21-2017 End: 11-22-2017 Ambulatory DEFAULT PHYSICIAN Facility:[facility] Start: 10-08-2017 End: 10-09-2017 Ambulatory OLGA HILTON Facility:[facility] Start: 03-13-2017 End: 03-14-2017 Ambulatory DEFAULT PHYSICIAN Facility:[facility] Procedures Date Procedure Procedure Detail Performing Clinician Start: 02-15-2023 Esophagogastroduodenoscopy Jin chaidez Start: 07-26-2022 Colonoscopic polypectomy Mg SALAM Start: 07-26-2022 Esophagogastroduodenoscopy Mg SALAM Start: 12-16-2020 Esophagogastroduodenoscopy Mg SALAM Start: 12-29-2018 Dup-scan xtr veins complete bilateral study YOSHI ISABELLA Bariatric surgery se rvice (qualifier value) Mg SALAM section Mg SALAM Hernia repair Mg SALAM Hysterectomy Mg SALAM Immunizations Immunization Date Immunization Notes Care Provider Fa cility 10-11-2023 influenza virus vaccine, unspecified formulation Julee Ruiz [facility] 03-10-2022 influenza virus vaccine, unspecified formulation Mg SALAM [facility] 03-10-2022 SARS-CoV-2 (COVID-19 ) [id number] Mg SALAM [facility] 03-30-2021 SARS-CoV-2 (COVID-19 ) Ad26 vaccine, recombinant Mg SALAM [facility] Comment on above: Result Comment: 2021: [id number] 02-15-2021 influenza virus vaccine, unspecified formulation Mg SALAM [facility] 02-01-2021 influenza virus vaccine, unspecified formulation Mg SALAM [facility] 08-10-2020 SARS-CoV-2 (COVID-19 ) Ad26 vaccine, recombinant Mg SALAM [facility] Comment on above: Result Comment: 2021: [id number] 02-11-2018 influenza virus vaccine, unspecified formulation Mg SALAM [facility] 02-19-2015 influenza virus vaccine, unspecified formulation Mg SALAM [facility] NEGATED: Highlighted row has not occurred!02-13-2022 influenza virus vaccine, unspecified formulation Julee Ruiz [facility] Payers Date Payer Category Payer Private Health Insurance [id number] 1957 Unknown [id number] 1955 Unknown [id number] 2.16.8 [id number] 1955 Unknown [id number] 2.16.84 [id number] 1957 Unknown [id number] 2.16.84 [id number] 1957 Unknown [id number] 2.16.84 [id number] 1957 Unknown [id number] 2.16.8 [id number] 1957 Unknown [id number] 2.16.8 [id number] 1957 Unknown [id number] 2.16.8 [id number] 1957 Unknown [id number] 2.16.8 [id number] 1957 Unknown [id number] 2.16.8 [id number] 1957 Unknown [id number] 2.16.8 [id number] 1957 Unknown [id number] 2.16.8 [id number] 1957 Unknown [id number] Unknown Social History Date Type Detail Facility Start: 08-14-2021 End: 03-25-2023 Tobacco smoking status Never smoked tobacco (finding) [facility] Tobacco smoking status Never [facility] Sex Assigned At Female [facility] Medical Equipment Procedure Code Equipment Code Equipment Origin al Text Equipment Identifier Dates Unknown Unknown 07/26/22 Non Biological Unknown FDA Start: 07-26-2022 FDA Start: 07-26-2022 Unknown Unknown 07/26/22 Non Biological Unknown FDA Start: 07-26-2022 FDA Start: 07-26-2022 Unknown Unknown 07/26/22 Non Biological Unknown FDA Start: 07-26-2022 FDA Start: 07-26-2022 Unknown Unknown 07/26/22 Non Biological Unknown FDA Start: 07-26-2022 FDA Start: 07-26-2022 Unknown Unknown 07/26/22 Non Biological Unknown FDA Start: 07-26-2022 FDA Start: 07-26-2022 Functional Status Date Assessment Result Facility 03-25-2023 Functional Status N/A [facility] 02-15-2023 Functional Status N/A [facility] 01-21-2023 Functional Status N/A [facility] 08-24-2022 Functional Status N/A [facility] 07-26-2022 Functional Status N/A [facility] 02-13-2022 N/A [facility] 11-14-2021 Functional Status N/A [facility] Clinical Notes 05-23-2021 to 05-22-2023 Note Date & Type Note Facility 05-22-2023 Note [facility] Subjective Ceferino Perez is a 67 y.o. year old female patient being seen for 1 year follow up diastolic heart failure and hyperlipidemia. She had routine labs in Feb 2023. Was diagnosed with vertigo about 2 weeks ago while in the ED at [facility]. Says she does get intermittent chest squeezing , lasting sometimes minutes at a time. Patient Active Problem List Diagnosis Chest pain Allergic rhinitis Anxiety Asthma Bilateral impacted cerumen BPPV (benign paroxysmal positional vertigo) COPD (chronic obstructive pulmonary disease) (CMS/HCC) Coronary atherosclerosis Diaphragmatic hernia Diastolic heart failure (CMS/HCC) Difficulty urinating Disc displacement, thoracic Disorder of sacrum Dizziness External hemorrhoids GERD (gastroesophageal reflux disease) Hematuria, gross Hemorrhage of rectum and anus Hyperlipidemia Irritable bowel syndrome Renal cyst Lumbar spondylosis Lumbosacral spondylosis without myelopathy Obesity JOSE on CPAP Other chronic sinusitis Postoperative malabsorption S/P bariatric surgery S/P laparoscopic sleeve gastrectomy Thoracic spondylosis without myelopathy Tinnitus of both ears Trochanteric bursitis of both hips Urethra or bladder neck atresia or stenosis Lymphedema Acute colitis Acute gastritis Acute pain of left knee Arthritis BRBPR (bright red blood per rectum) Chronic hypotension Chronic venous insufficiency Colon polyp Constipation Dyslipidemia Dysphagia Family history of colon cancer Family history of colonic polyps BR[place]N (generalized anxiety disorder) Hard stool History of colon polyps Lumbar spondylolysis Migraines Personal history of urinary calculi Primary insomnia PVD (peripheral vascular disease) (CMS/HCC) RLQ abdominal pain RLS (restless legs syndrome) Vitamin D deficiency Family History Problem Relation Name Age of Onset Hypertension Mother Diabetes Father Social History Tobacco Use Smoking status: Never Smokeless tobacco: Never HPI Ceferino is seen in for follow up on mild CAD, orthostatic hypotension and autonomic dysfunction CAD and diastolic heart failure. She has obesity and is now post bariatric surgery. She has been doing well after the bariatric surgery except she had bowel obstruction surgery in October of 2015. She has lost 100 pounds. She no longer needs to use the CPAP machine. She also has COPD. This has been stable. Cardiac catheterization showed mild CAD in 2010 and her stress test was negative for ischemia in end of 2011. Her stress test 04/20/2014 showed no evidence of ischemia. Her LVEF is 62%. Stress test 03/13/2017 normal (done to investigate the chest symptoms below). She has low blood pressure and takes midodrine. She has an element of orthostatic hypotension and autonomic dysfunction. Current medications include aspirin 81 mg daily, atorvastatin 40 mg daily, midodrine 10 mg twice daily. She has been doing well. She has no chest significant chest pain and no shortness of breath. No lower extremity edema. She has been trying to keep active. Recently she has been complaining of intermittent dizziness. She was evaluated on 05/07/2023 in the emergency room because of that as well as other symptoms such as sweating and chest discomfort. She was discharged from the emergency room. Review of Systems Cardiovascular: Positive for chest pain (intermittent squeezing ), leg swelling and palpitations. Respiratory: Positive for wheezing. Neurological: Positive for light-headedness and vertigo. All other systems reviewed and are negative. Objective Visit Vitals BP 118/76 (BP Location: Left arm, Patient Position: Sitting) Pulse 77 Ht 1.499 m (4' 11 ) Wt 90.3 kg (199 lb) SpO2 98% BMI 40.19 kg/m??? Smoking Status Never BSA 1.94 m??? Physical Exam Constitutional: Appearance: She is well-developed. She is obese. She is not ill-appearing. HENT: Head: Normocephalic and atraumatic. Nose: Nose normal. Eyes: General: No scleral icterus. Pupils: Pupils are equal, round, and reactive to light. Neck: Thyroid: No thyromegaly. Vascular: No JVD. Cardiovascular: Rate and Rhythm: Normal rate and regular rhythm. Pulses: Radial pulses are 2+ on the right side and 2+ on the left side. Heart sounds: Normal heart sounds. No murmur heard. No friction rub. No gallop. Pulmonary: Effort: Pulmonary effort is normal. No respiratory distress. Breath sounds: Normal breath sounds. No wheezing or rales. Chest: Chest wall: No tenderness. Abdominal: General: Bowel sounds are normal. There is no distension. Palpations: Abdomen is soft. Tenderness: There is no abdominal tenderness. Musculoskeletal: General: No swelling. Cervical back: Neck supple. Skin: General: Skin is warm and dry. Neurological: General: No focal deficit present. Mental Status: She is alert and oriented to pe (more content not included)... [facility] 03-25-2023 Hospital Discharge instructions Patient Education 03/25/2023 12:26:01 Food Choices for Gastroesophageal Reflux Disease, Adult Food Choices for Gastroesophageal Reflux Disease, Adult When you have gastroesophageal reflux disease (GERD), the foods you eat and your eating habits are very important. Choosing the right foods can help ease the discomfort of GERD. Consider working with a dietitian to help you make healthy food choices. What are tips for following this plan? Reading food labels Look for foods that are low in saturated fat. Foods that have less than 5% of daily value (DV) of fat and 0 g of trans fats may help with your symptoms. Cooking Cook foods using methods other than frying. This may include baking, steaming, grilling, or broiling. These are all methods that do not need a lot of fat for cooking. To add flavor, try to use herbs that are low in spice and acidity. Meal planning Choose healthy foods that are low in fat, such as fruits, vegetables, whole grains, low-fat dairy products, lean meats, fish, and poultry. Eat frequent, small meals instead of three large meals each day. Eat your meals slowly, in a relaxed setting. Avoid bending over or lying down until 2 3 hours after eating. Limit high-fat foods such as fatty meats or fried foods. Limit your intake of fatty foods, such as oils, butter, and shortening. Avoid the following as told by your health care provider: ?Foods that cause symptoms. These may be different for different people. Keep a food diary to keep track of foods that cause symptoms. ?Alcohol. ?Drinking large amounts of liquid with meals. ?Eating meals during the 2 3 hours before bed. Lifestyle Maintain a healthy weight. Ask your health care provider what weight is healthy for you. If you need to lose weight, work with your health care provider to do so safely. Exercise for at least 30 minutes on 5 or more days each week, or as told by your health care provider. Avoid wearing clothes that fit tightly around your waist and chest. Do not use any products that contain nicotine or tobacco. These products include cigarettes, chewing tobacco, and vaping devices, such as e-cigarettes. If you need help quitting, ask your health care provider. Sleep with the head of your bed raised. Use a wedge under the mattress or blocks under the bed frame to raise the head of the bed. Chew sugar-free gum after mealtimes. What foods should I eat? Eat a healthy, well-balanced diet of fruits, vegetables, whole grains, low-fat dairy products, lean meats, fish, and poultry. Each person is different. Foods that may trigger symptoms in one person may not trigger any symptoms in another person. Work with your health care provider to identify foods that are safe for you. The items listed above may not be a complete list of recommended foods and beverages. Contact a dietitian for more information. What foods should I avoid? Limiting some of these foods may help manage the symptoms of GERD. Everyone is different. Consult a dietitian or your health care provider to help you identify the exact foods to avoid, if any. Fruits Any fruits prepared with added fat. Any fruits that cause symptoms. For some people this may include citrus fruits, such as oranges, grapefruit, pineapple, and arabella. Vegetables Deep-fried vegetables. Jamaican fries. Any vegetables prepared with added fat. Any vegetables that cause symptoms. For some people, this may include tomatoes and tomato products, chili peppers, onions and garlic, and horseradish. Grains Pastries or quick breads with added fat. Meats and other proteins High-fat meats, such as fatty beef or pork, hot dogs, ribs, ham, sausage, salami, and olson. Fried meat or protein, including fried fish and fried chicken. Nuts and nut butters, in large amounts. Dairy Whole milk and chocolate milk. Sour cream. Cream. Ice cream. Cream cheese. Milkshakes. Fats and oils Butter. Margarine. Shortening. Ghee. Beverages Coffee and tea, with or without caffeine. Carbonated beverages. Sodas. Energy drinks. Fruit juice made with acidic fruits, such as orange or grapefruit. Tomato juice. Alcoholic drinks. Sweets and desserts Chocolate and cocoa. Donuts. Seasonings and condiments Pepper. Peppermint and spearmint. Added salt. Any condiments, herbs, or seasonings that cause symptoms. For some people, this may include vasquez, hot sauce, or vinegar-based salad dressings. The items listed above may not be a complete list of foods and beverages to avoid. Contact a dietitian for more information. Questions to ask your health care provider Diet and lifestyle changes are usually the first steps that are taken to manage symptoms of GERD. If diet and lifestyle changes do not improve your symptoms, talk with your health care provider about taking medicines. Where to find more information [employer]: aboutgerd.org Summary When you have gastroesophageal reflux disease (GERD), food and lifestyle choices may be very helpful in easing the discomfort of GERD. Eat frequent, small meals instead of three large meals each day. Eat your meals slowly, in a relaxed setting. Avoid bending over or lying down until 2 3 hours after eating. Limit high-fat foods such as fatty meats or fried foods. This information is not intended to replace advice given to you by your health care provider. Make sure you discuss any questions you have with your health care provider. Document Revised: 11/28/2020 Document Reviewed: 11/28/2020 [employer] Patient Education 2022 [employer]. Follow Up Care 02/25/2023 14:16:08 With:Julee Ruiz CNP Address: When:1 month [facility] 02-18-2023 Note [id number] [facility] 02-15-2023 Note Endoscopy Care After Procedure Please read the instructions outlined below and refer to this sheet in the next few weeks. These discharge instructions provide you with general information on caring for yourself after you leave the hospital. Your doctor may also give you specific instructions. While your treatment has been planned according to the most current medical practices available, unavoidable complications occasionally occur. If you have any problems or questions after discharge, please call your doctor. ACTIVITY ? You may resume your regular activity but move at a slower pace for the next 24 hours. ? Take frequent rest periods for the next 24 hours. ? Walking will help expel (get rid of) the air and reduce the bloated feeling in your abdomen. ? No driving for 24 hours (because of the anesthesia (medicine) used during the test). ? You may shower. ? Do not sign any important legal documents or operate any machinery for 24 hours (because of the anesthesia used during the test). NUTRITION ? Drink plenty of fluids. ? You may resume your normal diet. ? Begin with a light meal and progress to your normal diet. ? Avoid alcoholic beverages for 24 hours or as instructed by your caregiver. MEDICATIONS ? You may resume your normal medications unless your caregiver tells you otherwise. WHAT YOU CAN EXPECT TODAY ? You may experience abdominal discomfort such as a feeling of fullness or ?gas? pains. FOLLOW-UP ? Your doctor will discuss the results of your test with you. seek immediate medical attention if any of the following occur: ? Excessive nausea (feeling sick to your stomach) and/or vomiting. ? Severe abdominal pain and distention (swelling). ? Trouble swallowing. ? Temperature over 100 F (37.8? C). ? Rectal bleeding or vomiting of blood. Document Released: 01/01/2005 Document Re-Released: 11/11/2006 ExitCare? Patient Information ?2009 [employer]. Gastroenterology Esophageal Dilatation Esophageal dilatation, also called esophageal dilation, is a procedure to widen or open a blocked or narrowed part of the esophagus. The esophagus is the part of the body that moves food and liquid from the mouth to the stomach. You may need this procedure if: ? You have a buildup of scar tissue in your esophagus that makes it difficult, painful, or impossible to swallow. This can be caused by gastroesophageal reflux disease (GERD). ? You have cancer of the esophagus. ? There is a problem with how food moves through your esophagus. In some cases, you may need this procedure repeated at a later time to dilate the esophagus gradually. Tell a health care provider about: ? Any allergies you have. ? All medicines you are taking, including vitamins, herbs, eye drops, creams, and mune-gur-rhjzucw medicines. ? Any problems you or family members have had with anesthetic medicines. ? Any blood disorders you have. ? Any surgeries you have had. ? Any medical conditions you have. ? Any antibiotic medicines you are required to take before dental procedures. ? Whether you are or may be . What are the risks? Generally, this is a safe procedure. However, problems may occur, including: ? Bleeding due to a tear in the lining of the esophagus. ? A hole, or perforation, in the esophagus. What happens before the procedure? ? Ask your health care provider about: ? Changing or stopping your regular medicines. This is especially important if you are taking diabetes medicines or blood thinners. ? Taking medicines such as aspirin and ibuprofen. These medicines can thin your blood. Do not take these medicines unless your health care provider tells you to take them. ? Taking blob-acx-lcyvyfr medicines, vitamins, herbs, and supplements. ? Follow instructions from your health care provider about eating or drinking restrictions. ? Plan to have a responsible adult take you home from the hospital or clinic. ? Plan to have a responsible adult care for you for the time you are told after you leave the hospital or clinic. This is important. What happens during the procedure? ? You may be given a medicine to help you relax (sedative). ? A numbing medicine may be sprayed into the back of your throat, or you may gargle the medicine. ? Your health care provider may perform the dilatation using various surgical instruments, such as: ? Simple dilators. This instrument is carefully placed in the esophagus to stretch it. ? Guided wire bougies. This involves using an endoscope to insert a wire into the esophagus. A dilator is passed over this wire to enlarge the esophagus. Then the wire is removed. ? Balloon dilators. An endoscope with a small balloon is inserted into the esophagus. The balloon is inflated to stretch the esophagus and open it up. The procedure may vary among health care providers and hospitals. What can I expect after the procedure? ? Your blood pressure, heart rate, b (more content not included)... [facility] 02-15-2023 Hospital Discharge instructions Patient Education 02/15/2023 10:45:43 Endoscopy, Care After Procedure [facility] Endoscopy Care After Procedure Please read the instructions outlined below and refer to this sheet in the next few weeks. These discharge instructions provide you with general information on caring for yourself after you leave the hospital. Your doctor may also give you specific instructions. While your treatment has been planned according to the most current medical practices available, unavoidable complications occasionally occur. If you have any problems or questions after discharge, please call your doctor. ACTIVITY You may resume your regular activity but move at a slower pace for the next 24 hours. Take frequent rest periods for the next 24 hours. Walking will help expel (get rid of) the air and reduce the bloated feeling in your abdomen. No driving for 24 hours (because of the anesthesia (medicine) used during the test). You may shower. Do not sign any important legal documents or operate any machinery for 24 hours (because of the anesthesia used during the test). NUTRITION Drink plenty of fluids. You may resume your normal diet. Begin with a light meal and progress to your normal diet. Avoid alcoholic beverages for 24 hours or as instructed by your caregiver. MEDICATIONS You may resume your normal medications unless your caregiver tells you otherwise. WHAT YOU CAN EXPECT TODAY You may experience abdominal discomfort such as a feeling of fullness or gas pains. FOLLOW-UP Your doctor will discuss the results of your test with you. SEEK IMMEDIATE MEDICAL ATTENTION IF ANY OF THE FOLLOWING OCCUR: Excessive nausea (feeling sick to your stomach) and/or vomiting. Severe abdominal pain and distention (swelling). Trouble swallowing. Temperature over 100 F (37.8 C). Rectal bleeding or vomiting of blood. Document Released: 01/01/2005 Document Re-Released: 11/11/2006 ExitCare Patient Information 2010 [employer]. 02/15/2023 10:45:42 Esophageal Dilatation Esophageal Dilatation Esophageal dilatation, also called esophageal dilation, is a procedure to widen or open a blocked or narrowed part of the esophagus. The esophagus is the part of the body that moves food and liquid from the mouth to the stomach. You may need this procedure if: You have a buildup of scar tissue in your esophagus that makes it difficult, painful, or impossible to swallow. This can be caused by gastroesophageal reflux disease (GERD). You have cancer of the esophagus. There is a problem with how food moves through your esophagus. In some cases, you may need this procedure repeated at a later time to dilate the esophagus gradually. Tell a health care provider about: Any allergies you have. All medicines you are taking, including vitamins, herbs, eye drops, creams, and xbkh-xgr-cmnmfgu medicines. Any problems you or family members have had with anesthetic medicines. Any blood disorders you have. Any surgeries you have had. Any medical conditions you have. Any antibiotic medicines you are required to take before dental procedures. Whether you are or may be . What are the risks? Generally, this is a safe procedure. However, problems may occur, including: Bleeding due to a tear in the lining of the esophagus. A hole, or perforation, in the esophagus. What happens before the procedure? Ask your health care provider about: ?Changing or stopping your regular medicines. This is especially important if you are taking diabetes medicines or blood thinners. ?Taking medicines such as aspirin and ibuprofen. These medicines can thin your blood. Do not take these medicines unless your health care provider tells you to take them. ?Taking axmm-jjl-mpekplv medicines, vitamins, herbs, and supplements. Follow instructions from your health care provider about eating or drinking restrictions. Plan to have a responsible adult take you home from the hospital or clinic. Plan to have a responsible adult care for you for the time you are told after you leave the hospital or clinic. This is important. What happens during the procedure? You may be given a medicine to help you relax (sedative). A numbing medicine may be sprayed into the back of your throat, or you may gargle the medicine. Your health care provider may perform the dilatation using various surgical instruments, such as: ?Simple dilators. This instrument is carefully placed in the esophagus to stretch it. ?Guided wire bougies. This involves using an endoscope to insert a wire into the esophagus. A dilator is passed over this wire to enlarge the esophagus. Then the wire is removed. ?Balloon dilators. An endoscope with a small balloon is inserted into the esophagus. The balloon is inflated to stretch the esophagus and open it up. The procedure may vary among health care providers and hospitals. What can I expect after the procedure? Your blood pressure, heart rate, breathing rate, and blood oxygen level will be monitored until you leave the hospital or clinic. Your throat may feel slightly sore and numb. This will get better over time. You will not be allowed to eat or drink until your throat is no longer numb. When you are able to drink, urinate, and sit on the edge of the bed without nausea or dizziness, you may be able to return home. Follow these instructions at home: Take kqku-fgx-cwcytkl and prescription medicines only as told by your health care provider. If you were given a sedative during the procedure, it can affect you for several hours. Do not drive or operate machinery until your health care provider says that it is safe. Plan to have a responsible adult care for you for the time you are told. This is important. Follow instructions from your health care provider about any eating or drinking restrictions. Do not use any products that contain nicotine or tobacco, such as cigarettes, e-cigarettes, and chewing tobacco. If you need help quitting, ask your health care provider. Keep all follow-up visits. This is important. Contact a health care provider if: You have a fever. You have pain that is not relieved by medicine. Get help right away if: You have chest pain. You have trouble breathing. You have trouble swallowing. You vomit blood. You have black, tarry, or bloody stools. These symptoms may represent a serious problem that is an emergency. Do not wait to see if the symptoms will go away. Get medical help right away. Call your local emergency services (911 in the [place] Do not drive yourself to the hospital. Summary Esophageal dilatation, also called esophageal dilation, is a procedure to widen or open a blocked or narrowed part of the esophagus. Plan to have a responsible adult take you home from the hospital or clinic. For this procedure, a numbing medicine may be sprayed into the back of your throat, or you may gargle the medicine. Do not drive or operate machinery until your health care provider says that it is safe. This information is not intended to replace advice given to you by your health care provider. Make sure you discuss any questions you have with your health care provider. Document Revised: 10/05/2020 Document Reviewed: 10/05/2020 [employer] Patient Education 2022 [employer]. Follow Up Care 01/21/2023 10:23:37 With:Jacki CORRALES, CONCEPCION Lopez, [facility] Address: [address], [address] [facility] [address] [place] [address]- [phone] When: only if needed Comments:Call for any problems. [facility] 01-21-2023 Hospital Discharge instructions Patient Education 01/21/2023 09:12:10 Food Choices for Gastroesophageal Reflux Disease, Adult Food Choices for Gastroesophageal Reflux Disease, Adult When you have gastroesophageal reflux disease (GERD), the foods you eat and your eating habits are very important. Choosing the right foods can help ease the discomfort of GERD. Consider working with a dietitian to help you make healthy food choices. What are tips for following this plan? Reading food labels Look for foods that are low in saturated fat. Foods that have less than 5% of daily value (DV) of fat and 0 g of trans fats may help with your symptoms. Cooking Cook foods using methods other than frying. This may include baking, steaming, grilling, or broiling. These are all methods that do not need a lot of fat for cooking. To add flavor, try to use herbs that are low in spice and acidity. Meal planning Choose healthy foods that are low in fat, such as fruits, vegetables, whole grains, low-fat dairy products, lean meats, fish, and poultry. Eat frequent, small meals instead of three large meals each day. Eat your meals slowly, in a relaxed setting. Avoid bending over or lying down until 2 3 hours after eating. Limit high-fat foods such as fatty meats or fried foods. Limit your intake of fatty foods, such as oils, butter, and shortening. Avoid the following as told by your health care provider: ?Foods that cause symptoms. These may be different for different people. Keep a food diary to keep track of foods that cause symptoms. ?Alcohol. ?Drinking large amounts of liquid with meals. ?Eating meals during the 2 3 hours before bed. Lifestyle Maintain a healthy weight. Ask your health care provider what weight is healthy for you. If you need to lose weight, work with your health care provider to do so safely. Exercise for at least 30 minutes on 5 or more days each week, or as told by your health care provider. Avoid wearing clothes that fit tightly around your waist and chest. Do not use any products that contain nicotine or tobacco. These products include cigarettes, chewing tobacco, and vaping devices, such as e-cigarettes. If you need help quitting, ask your health care provider. Sleep with the head of your bed raised. Use a wedge under the mattress or blocks under the bed frame to raise the head of the bed. Chew sugar-free gum after mealtimes. What foods should I eat? Eat a healthy, well-balanced diet of fruits, vegetables, whole grains, low-fat dairy products, lean meats, fish, and poultry. Each person is different. Foods that may trigger symptoms in one person may not trigger any symptoms in another person. Work with your health care provider to identify foods that are safe for you. The items listed above may not be a complete list of recommended foods and beverages. Contact a dietitian for more information. What foods should I avoid? Limiting some of these foods may help manage the symptoms of GERD. Everyone is different. Consult a dietitian or your health care provider to help you identify the exact foods to avoid, if any. Fruits Any fruits prepared with added fat. Any fruits that cause symptoms. For some people this may include citrus fruits, such as oranges, grapefruit, pineapple, and arabella. Vegetables Deep-fried vegetables. Jamaican fries. Any vegetables prepared with added fat. Any vegetables that cause symptoms. For some people, this may include tomatoes and tomato products, chili peppers, onions and garlic, and horseradish. Grains Pastries or quick breads with added fat. Meats and other proteins High-fat meats, such as fatty beef or pork, hot dogs, ribs, ham, sausage, salami, and olson. Fried meat or protein, including fried fish and fried chicken. Nuts and nut butters, in large amounts. Dairy Whole milk and chocolate milk. Sour cream. Cream. Ice cream. Cream cheese. Milkshakes. Fats and oils Butter. Margarine. Shortening. Ghee. Beverages Coffee and tea, with or without caffeine. Carbonated beverages. Sodas. Energy drinks. Fruit juice made with acidic fruits, such as orange or grapefruit. Tomato juice. Alcoholic drinks. Sweets and desserts Chocolate and cocoa. Donuts. Seasonings and condiments Pepper. Peppermint and spearmint. Added salt. Any condiments, herbs, or seasonings that cause symptoms. For some people, this may include vasquez, hot sauce, or vinegar-based salad dressings. The items listed above may not be a complete list of foods and beverages to avoid. Contact a dietitian for more information. Questions to ask your health care provider Diet and lifestyle changes are usually the first steps that are taken to manage symptoms of GERD. If diet and lifestyle changes do not improve your symptoms, talk with your health care provider about taking medicines. Where to find more information [employer]: aboutgerd.org Summary When you have gastroesophageal reflux disease (GERD), food and lifestyle choices may be very helpful in easing the discomfort of GERD. Eat frequent, small meals instead of three large meals each day. Eat your meals slowly, in a relaxed setting. Avoid bending over or lying down until 2 3 hours after eating. Limit high-fat foods such as fatty meats or fried foods. This information is not intended to replace advice given to you by your health care provider. Make sure you discuss any questions you have with your health care provider. Document Revised: 11/28/2020 Document Reviewed: 11/28/2020 [employer] Patient Education 2022 [employer]. Follow Up Care 08/24/2022 14:16:34 With:Julee Ruiz CNP Address: When:1 to 2 weeks Comments:Following EGD. [facility] 08-24-2022 Hospital Discharge instructions Patient Education 08/24/2022 14:09:01 Colon Polyps Colon Polyps Polyps are tissue growths inside the body. Polyps can grow in many places, including the large intestine (colon). A polyp may be a round bump or a mushroom-shaped growth. You could have one polyp or several. Most colon polyps are noncancerous (benign). However, some colon polyps can become cancerous over time. Finding and removing the polyps early can help prevent this. What are the causes? The exact cause of colon polyps is not known. What increases the risk? You are more likely to develop this condition if you: Have a family history of colon cancer or colon polyps. Are older than 50 or older than 45 if you are . Have inflammatory bowel disease, such as ulcerative colitis or Crohn's disease. Have certain hereditary conditions, such as: ?Familial adenomatous polyposis. ?Juárez syndrome. ?Turcot syndrome. ?Peutz Jeghers syndrome. Are overweight. Smoke cigarettes. Do not get enough exercise. Drink too much alcohol. Eat a diet that is high in fat and red meat and low in fiber. Had childhood cancer that was treated with abdominal radiation. What are the signs or symptoms? Most polyps do not cause symptoms. If you have symptoms, they may include: Blood coming from your rectum when having a bowel movement. Blood in your stool. The stool may look dark red or black. Abdominal pain. A change in bowel habits, such as constipation or diarrhea. How is this diagnosed? This condition is diagnosed with a colonoscopy. This is a procedure in which a lighted, flexible scope is inserted into the anus and then passed into the colon to examine the area. Polyps are sometimes found when a colonoscopy is done as part of routine cancer screening tests. How is this treated? Treatment for this condition involves removing any polyps that are found. Most polyps can be removed during a colonoscopy. Those polyps will then be tested for cancer. Additional treatment may be needed depending on the results of testing. Follow these instructions at home: Lifestyle Maintain a healthy weight, or lose weight if recommended by your health care provider. Exercise every day or as told by your health care provider. Do not use any products that contain nicotine or tobacco, such as cigarettes and e-cigarettes. If you need help quitting, ask your health care provider. If you drink alcohol, limit how much you have: ?0 1 drink a day for women. ? 0 2 drinks a day for men. Be aware of how much alcohol is in your drink. In the [place] one drink equals one 12 oz bottle of beer (355 mL), one 5 oz glass of wine (148 mL), or one 1 oz shot of hard liquor (44 mL). Eating and drinking Eat foods that are high in fiber, such as fruits, vegetables, and whole grains. Eat foods that are high in calcium and vitamin D, such as milk, cheese, yogurt, eggs, liver, fish, and broccoli. Limit foods that are high in fat, such as fried foods and desserts. Limit the amount of red meat and processed meat you eat, such as hot dogs, sausage, olson, and lunch meats. General instructions Keep all follow-up visits as told by your health care provider. This is important. ?This includes having regularly scheduled colonoscopies. ?Talk to your health care provider about when you need a colonoscopy. Contact a health care provider if: You have new or worsening bleeding during a bowel movement. You have new or increased blood in your stool. You have a change in bowel habits. You lose weight for no known reason. Summary Polyps are tissue growths inside the body. Polyps can grow in many places, including the colon. Most colon polyps are noncancerous (benign), but some can become cancerous over time. This condition is diagnosed with a colonoscopy. Treatment for this condition involves removing any polyps that are found. Most polyps can be removed during a colonoscopy. This information is not intended to replace advice given to you by your health care provider. Make sure you discuss any questions you have with your health care provider. Document Released: 02/13/2005 Document Revised: 09/04/2018 Document Reviewed: 09/04/2018 [employer] Patient Education [employer] Follow Up Care 08/02/2022 15:09:59 With:Julee Ruiz CNP Address: When:6 months [facility] 07-27-2022 Note [id number]:[id number] [facility] 07-26-2022 Evaluation + Plan note Extrac dora from: Title:CSB post op Author:Blayne Ingram MD Date:07/26/22 Plan Transfer/Discharge: Transfer/Discharge Discharge when meets criteria ( To home ). Extracted from: Title:CSB GA Author:Blayne Ingram MD Date:07/26/[address] [place] [employer]esthesi[employer] (ASA) physical status classification: Class II. Anesthetic Preoperative Plan: Anesthesia General. [facility]02-23-2023 Hospital Discharge instructions Patient Education 07/26/2022 10:33:46 Colonoscopy, Care After Surgery Salam (CUSTOM) Colonoscopy Care After Surgery Please read the instructions outlined below and refer to this sheet in the next few weeks. These discharge instructions provide you with general information on caring for yourself after you leave [facility]. Your doctor may also give you specific instructions. While your treatment has been planned according to the most current medical practices available, unavoidable complications occasionally occur. If you have any problems or questions after discharge, please call your doctor. ACTIVITY You may resume your regular activity, but move at a slower pace for the next 24 hours. Take frequent rest periods for the next 24 hours. Walking will help get rid of the air and reduce the bloated feeling in your abdomen (belly). No driving for 24 hours (because of the anesthesia (medicine) used during the test). You may shower. Do not sign any important legal documents or operate any machinery for 24 hours (because of the anesthesia used during the test). NUTRITION Drink plenty of fluids. You may resume your normal diet as instructed by your doctor. Begin with a light meal and progress to your normal diet. Heavy or fried foods are harder to digestand may make you feel nauseated (sick to your stomach). Avoid alcoholic beverages for 24 hours or as instructed. MEDICATIONS You may resume your normal medications unless your doctor tells you otherwise. WHAT YOU CAN EXPECT TODAY Some feelings of bloating in the abdomen. Passage of more gas than usual. Spotting of blood in your stool or on the toilet paper. FOLLOW-UP Your doctor will discuss the results of your test with you. SEEK IMMEDIATE MEDICAL ATTENTION IF: There is more than a spotting of blood in your stool. There is abdominal distention (your abdomen is swollen). There is vomiting. You have a temperature over 101.5 F. There is abdominal pain or discomfort that is severe or gets worse throughout the day. Follow Up Care 05/14/2022 14:45:14 With:Haritha PAULINO Address: [address] [place] [address] Business (1) When: Unknown Comments:Office will call date and time of follow-up appt. [facility]09-13-2022 Hospital Discharge instructions Patient Education 02/13/2022 12:44:57 Gastroesophageal Reflux Disease, Adult Gastroesophageal Reflux Disease, Adult Gastroesophageal reflux (FATMATA) happens when acid from the stomach flows up into the tube that connects the mouth and the stomach (esophagus). Normally, food travels down the esophagus and stays in thestomach to be digested. However, when a person has FATMATA, food and stomach acid sometimes move back up into the esophagus. If this becomes a more serious problem, the person may be diagnosed with a disease called gastroesophageal reflux disease (GERD). GERD occurs when the reflux: Happens often. Causes frequent or severe symptoms. Causes problems such as damage to the esophagus. When stomach acid comes in contact with the esophagus, the acid may cause soreness (inflammation) in the esophagus. Over time, GERD may create small holes (ulcers) in the lining of the esophagus. What are the causes? This condition is caused by a problem with the muscle between the esophagus and the stomach (lower esophageal sphincter, or LES). Normally, the LES muscle closes after food passes through the esophagus to the stomach. When the LES is weakened or abnormal, it does not close properly, and that allowsfood and stomach acid to go back up into the esophagus. The LES can be weakened by certain dietary substances, medicines, and medical conditions, including: Tobacco use. . Having a hiatal hernia. Alcohol use. Certain foods and beverages, such as coffee, chocolate, onions, and peppermint. What increases the risk? You are more likely to develop this condition if you: Have an increased body weight. Have a connective tissue disorder. Use NSAID medicines. What are the signs or symptoms? Symptoms of this condition include: Heartburn. Difficult or painful swallowing. The feeling of having a lump in the throat. A bitter taste in the mouth. Bad breath. Having a large amount of saliva. Having an upset or bloated stomach. Belching. Chest pain. Different conditions can cause chest pain. Make sure you see your health care provider if you experience chest pain. Shortness of breath or wheezing. Ongoing (chronic) cough or a night-time cough. Wearing away of tooth enamel. Weight loss. How is this diagnosed? Your health care provider will take a medical history and perform a physical exam. To determine if you have mild or severe GERD, your health care provider may also monitor how you respond to treatment. You may also have tests, including: A test to examine your stomach and esophagus with a small camera (endoscopy). A test that measures the acidity level in your esophagus. A test that measures how much pressure is on your esophagus. A barium swallow or modified barium swallow test to show the shape, size, and functioning of your esophagus. How is this treated? The goal of treatment is to help relieve your symptoms and to prevent complications. Treatment for this condition may vary depending on how severe your symptoms are. Your health care provider may recommend: Changes to your diet. Medicine. Surgery. Follow these instructions at home: Eating and drinking Follow a diet as recommended by your health care provider. This may involve avoiding foods and drinks such as: ?Coffee and tea (with or without caffeine). ?Drinks that contain alcohol. ?Energy drinks and sports drinks. ?Carbonated drinks or sodas. ?Chocolate and cocoa. ?Peppermint and mint flavorings. ?Garlic and onions. ?Horseradish. ?Spicy and acidic foods, including peppers, chili powder, vasquez powder, vinegar, hot sauces, and barbecue sauce. ?[place] fruit juices and citrus fruits, such as oranges, arabella, and limes. ?Tomato-based foods, such as red sauce, chili, salsa, and pizza with red sauce. ?Fried and fatty foods, such as donuts, congolese fries, potato chips, and high-fat dressings. ?High-fat meats, such as hot dogs and fatty cuts of red and white meats, such as rib eye steak, sausage, ham, and olson. ?High-fat dairy items, such as whole milk, butter, and cream cheese. Eat small, frequent meals instead of large meals. Avoid drinking large amounts of liquid with your meals. Avoid eating meals during the 2 3 hours before bedtime. Avoid lying down right after you eat. Do not exercise right after you eat. Lifestyle Do not use any products that contain nicotine or tobacco, such as cigarettes, e- cigarettes, and chewing tobacco. If you need help quitting, ask your health care provider. Try to reduce your stress by using methods such as yoga or meditation. If you need help reducing stress, ask your health care provider. If you are overweight, reduce your weight to an amount that is healthy for you. Ask your health care provider for guidance about a safe weight loss goal. General instructions Pay attention to any changes in your symptoms. Take vvjn-knq-ajkhxtw and prescription medicines only as told by your health care provider. Do not take aspirin, ibuprofen, or other NSAIDs unless your health care provider told you to do so. Wear loose-fitting clothing. Do not wear anything tight around your waist that causes pressure on your abdomen. Raise (elevate) the head of your bed about 6 inches (15 cm). Avoid bending over if this makes your symptoms worse. Keep all follow-up visits as told by your health care provider. This is important. Contact a health care provider if: You have: ?New symptoms. ?Unexplained weight loss. ?Difficulty swallowing or it hurts to swallow. ?Wheezing or a persistent cough. ?A hoarse voice. Your symptoms do not improve with treatment. Get help right away if you: Have pain in your arms, neck, jaw, teeth, or back. Feel sweaty, dizzy, or light-headed. Have chest pain or shortness of breath. Vomit and your vomit looks like blood or coffee grounds. Faint. Have stool that is bloody or black. Cannot swallow, drink, or eat. Summary Gastroesophageal reflux happens when acid from the stomach flows up into the esophagus. GERD is a disease in which the reflux happens often, causes frequent or severe symptoms, or causes problems such as damage to the esophagus. Treatment for this condition may vary depending on how severe your symptoms are. Your health care provider may recommend diet and lifestyle changes, medicine, or surgery. Contact a health care provider if you have new or worsening symptoms. Take tsxu-wzn-jangavf and prescription medicines only as told by your health care provider. Do not take aspirin, ibuprofen, or other NSAIDs unless your health care provider told you to do so. Keep all follow-up visits as told by your health care provider. This is important. This information is not intended to replace advice given to you by your health care provider. Make sure you discuss any questions you have with your health care provider. Document Released: 02/27/2006 Document Revised: 11/26/2018 Document Reviewed: 11/26/2018 [employer] Patient Education 2019 [employer]. Follow Up Care 11/14/2021 14:21:01 With:Julee Ruiz CNP Address: When:3 months [facility] 06-14-2022 Hospital Discharge instructions Patient Education 11/14/2021 13:58:15 Dysphagia Dysphagia Dysphagia is trouble swallowing. This condition occurs when solids and liquids stick in a person's throat on the way down to the stomach, or when food takes longer to get to the stomach than usual. You may have problems swallowing food, liquids, or both. You may also have pain while trying to swallow. It may take you more time and effort to swallow something. What are the causes? This condition may be caused by: Muscle problems. They may make it difficult for you to move food and liquids through the esophagus,which is the tube that connects your mouth to your stomach. Blockages. You may have ulcers, scar tissue, or inflammation that blocks the normal passage of foodand liquids. Causes of these problems include: ?Acid reflux from your stomach into your esophagus (gastroesophageal reflux). ?Infections. ?Radiation treatment for cancer. ?Medicines taken without enough fluids to wash them down into your stomach. Stroke. This can affect the nerves and make it difficult to swallow. Nerve problems. These prevent signals from being sent to the muscles of your esophagus to squeeze (contract) and move what you swallow down to your stomach. Globus pharyngeus. This is a common problem that involves a feeling like something is stuck in yourthroat or a sense of trouble with swallowing, even though nothing is wrong with the swallowing passages. Certain conditions, such as cerebral palsy or Parkinson's disease. What are the signs or symptoms? Common symptoms of this condition include: A feeling that solids or liquids are stuck in your throat on the way down to the stomach. Pain while swallowing. Coughing or gagging while trying to swallow. Other symptoms include: Food moving back from your stomach to your mouth (regurgitation). Noises coming from your throat. Chest discomfort with swallowing. A feeling of fullness when swallowing. Drooling, especially when the throat is blocked. Heartburn. How is this diagnosed? This condition may be diagnosed by: Barium X-ray. In this test, you will swallow a white liquid that sticks to the inside of your esophagus. X-ray images are then taken. Endoscopy. In this test, a flexible telescope is inserted down your throat to look at your esophagus and your stomach. CT scans and an MRI. How is this treated? Treatment for dysphagia depends on the cause of this condition, such as: If the dysphagia is caused by acid reflux or infection, medicines may be used. They may include antibiotics and heartburn medicines. If the dysphagia is caused by problems with the muscles, swallowing therapy may be used to help youstrengthen your swallowing muscles. You may have to do specific exercises to strengthen the musclesor stretch them. If the dysphagia is caused by a blockage or mass, procedures to remove the blockage may be done. You may need surgery and a feeding tube. You may need to make diet changes. Ask your health care provider for specific instructions. Follow these instructions at home: Medicines Take [id number]-wgdhvui and prescription medicines only as told by your health care provider. If you were prescribed an antibiotic medicine, take it as told by your health care provider. Do notstop taking the antibiotic even if you start to feel better. Eating and drinking Follow any diet changes as told by your health care provider. Work with a diet and deaf/hard of hearing specialist (dietitian) to create an eating plan that will help you get the nutrients you need in order to stay healthy. Eat soft foods that are easier to swallow. Cut your food into small pieces and eat slowly. Take small bites. Eat and drink only when you are sitting upright. Do not drink alcohol or caffeine. If you need help quitting, ask your health care provider. General instructions Check your weight every day to make sure you are not losing weight. Do not use any products that contain nicotine or tobacco, such as cigarettes, e- cigarettes, and chewing tobacco. If you need help quitting, ask your health care provider. Keep all follow-up visits as told by your health care provider. This is important. Contact a health care provider if you: Lose weight because you cannot swallow. Cough when you drink liquids. Cough up partially digested food. Get help right away if you: Cannot swallow your saliva. Have shortness of breath, a fever, or both. Have a hoarse voice and also have trouble swallowing. Summary Dysphagia is trouble swallowing. This condition occurs when solids and liquids stick in a person's throat on the way down to the stomach. You may cough or gag while trying to swallow. Dysphagia has many possible causes. Treatment for dysphagia depends on the cause of the condition. Keep all follow-up visits as told by your health care provider. This is important. This information is not intended to replace advice given to you by your health care provider. Make sure you discuss any questions you have with your health care provider. Document Released: 05/17/2001 Document Revised: 10/14/2019 Document Reviewed: 10/14/2019 [employer] Patient Education 2019 [employer]. Follow Up Care 10/25/2021 13:30:14 With:Julee Ruiz CNP Address: When:3 months [facility] [id number] Hospital Discharge instructions Patient Education 10/18/2021 14:47:43 Endoscopy, Care After Procedure [facility] (CUSTOM) Endoscopy Care After Procedure Please read the instructions outlined below and refer to this sheet in the next few weeks. These discharge instructions provide you with general information on caring for yourself after you leave thespital. Your doctor may also give you specific instructions. While your treatment has been planned according to the most current medical practices available, unavoidable complications occasionally occur. If you have any problems or questions after discharge, please call your doctor. ACTIVITY You may resume your regular activity but move at a slower pace for the next 24 hours. Take frequent rest periods for the next 24 hours. Walking will help expel (get rid of) the air and reduce the bloated feeling in your abdomen. No driving for 24 hours (because of the anesthesia (medicine) used during the test). You may shower. Do not sign any important legal documents or operate any machinery for 24 hours (because of the anesthesia used during the test). NUTRITION Drink plenty of fluids. You may resume your normal diet. Begin with a light meal and progress to your normal diet. Avoid alcoholic beverages for 24 hours or as instructed by your caregiver. MEDICATIONS You may resume your normal medications unless your caregiver tells you otherwise. WHAT YOU CAN EXPECT TODAY You may experience abdominal discomfort such as a feeling of fullness or gas pains. FOLLOW-UP Your doctor will discuss the results of your test with you. SEEK IMMEDIATE MEDICAL ATTENTION IF ANY OF THE FOLLOWING OCCUR: Excessive nausea (feeling sick to your stomach) and/or vomiting. Severe abdominal pain and distention (swelling). Trouble swallowing. Temperature over 100 F (37.8 C). Rectal bleeding or vomiting of blood. Document Released: 01/01/2005 Document Re-Released: 11/11/2006 [employer] Patient Information 2009 [employer]. Follow Up Care 08/14/2021 11:01:25 With:Haritha PAULINO Address: [address] [place] [address] Business (1) When:1 to 2 weeks Comments:Call for any problems. [facility]05-18-2022 Evaluation + Plan noteExtracted from: Title:ANES POSTOP MAC/GEN NOTE Author:Wes Cullen JR Date:10/18/21 Plan Transfer/ Discharge: Patient can be discharged from PACU when criteria met. Condition good. Extracted from: Title:ANES PREOP ENDO NOTE Author:Mykel Remy JR, DO Date:10/18/[address] [place] [employer]esthesi[employer] (ASA) physical status classification: Class III. Anesthetic Preoperative Plan Anesthesia: Monitored anesthesia care and general anesthesia if required.. Anesthetic plan, risks, benefits, and alternatives discussed with the patient and/or family. Pt. and/or family present and agree to proceed as planned.. Discussed the importance of abstaining from tobacco products, and offered counseling if desired.. [facility]12-21-2021 NoteHISTORY: Lower abdominal pain, possible hernia PROCEDURE: [employer]. Without intravenous or oral contrast administration, axial helical images through the abdomen and pelvis were performed, 5 mm slice thickness. FINDINGS: Thickening of the umbilical incisional site. No significant fluid collection, rectus sheath hematoma or bowel herniation. Several millimeter fascial defect is suggested at the supraumbilical region without significant adipose tissue or bowel herniation. No underlying bowel inflammation. Moderate to large volume of colon stool. No significant diverticular formation, inflammation or obstruction. RIGHT KIDNEY AND COLLECTING SYSTEM: Normal cortical volume. Grade 3/4 hydroureteronephrosis secondary to a 3 mm pelvic brim stone. Normal distal ureter. Inferior pole 3.0 cm benign cyst. LEFT KIDNEY AND COLLECTING SYSTEM: Normal cortical volume. Peripheral subcentimeter cortical calcification, lower pole (nonaggressive appearance). Moderate cystic changes of the renal pelvis with no underlying calcification. Findings likely represent peripelvic cyst formation and/or nonobstructing UPJ stenosis. Anterior mid pole exophytic 1.5 cm simple cyst. Normal ureter. No inflammation or obstruction. No bladder stone, air collection or focal wall thickening. No pelvic lymphadenopathy. Hysterectomy. LUNG BASES: Subtle peripheral interstitial markings. No parenchymal consolidation, pleural or pericardial effusion. Gastric wall surgical material, limited distention. No neighboring inflammation. Unremarkable liver, spleen, adrenal glands and pancreas. IMPRESSION: 1. 3 mm right ureteral pelvic brim stone, Grade 3/4 hydroureteronephrosis. 2. Large volume of colon stool, no inflammation or obstruction. 3. Thickening of the abdominal wall incision, no significant bowel herniation or underlying bowel inflammation. 4. Basilar findings, morphology and location of which is suggestive of post inflammatory sequela (status post COVID). Report reported and signed by Kolton Downing on 05/23/2021 [id number] SpecialistEvaluation + Plan note Future Appointments Appointment Date:02/13/2022 12:20:00 PM Scheduled Provider:Julee Ruiz CNP Location:[facility] Appointment Type:[facility] Follow Up [facility] Evaluation + Plan note Future Appointments Appointment Date:05/14/2022 01:40:00 PM Scheduled Provider:Julee Ruiz CNP Location:[facility] Appointment Type:[facility] Follow Up Future Scheduled Tests Radiology* XR Adult Swallowing Function w/ Video: Evaluate Pt, Develop a Plan of Care & Implement Plan 02/13/22 [facility] Evaluation + Plan note Future Appointments Appointment Date:05/14/2022 01:40:00 PM Scheduled Provider:Julee Ruiz CNP Location:[facility] App[facility]ment Type:[facility] Future Appointments Appointment Date:01/21/2023 09:20:00 AM Scheduled Provider:Julee Ruiz CNP Location:[facility] Appointment Type:[facility] Follow Up [facility] Evaluation + Plan note Future Appointments Appointment Date:02/15/2023 10:55:00 AM Scheduled Provider: Location:[facility] Appointment Type:Surgery [facility] Evaluation + Plan note Future Appointments Appointment Date:06/21/2023 10:30:00 AM Scheduled Provider: Location:[facility] Appointment Type:Surgery [facility] Hospital course Narrative No data available for this section [facility] No data available for this section [facility] No data available for this section [facility] Summary Purpose Family History No Family History Records FoundNo Family History Records FoundNo Family History Records FoundNo Family History Records FoundNo Family History Records Found No data available for this section No Family History Records FoundNo Family History Records FoundNo Family History Records Found Advance Directives No Advanced Directives Records FoundNo Advanced Directives Records FoundNo Advanced Directives Records FoundNo Advanced Directives Records FoundNo Advanced Directives Records FoundNo Advanced Directives Records FoundNo Advanced Directives Records FoundNo Advanced Directives Records Found Additional Source Comments INFORMATION SOURCE (unrecogn ized section and content) DATE CREATED AUTHOR 11/22/2017 [facility] DATE CREATED AUTHOR AUTHOR'S ORGANIZ ATION 01/01/2019 [facility] DATE CREATED AUTHOR AUTHOR'S ORGANIZ ATION 05/24/2021 [facility] dical Specialist DATE CREATED AUTHOR AUTHOR'S ORGANIZ ATION 07/19/2021 [facility] DATE CREATED AUTHOR AUTHOR'S ORGANIZ ATION 05/03/2022 [facility] DATE CREATED AUTHOR AUTHOR'S ORGANIZ ATION 03/27/2023 [facility] DATE CREATED AUTHOR AUTHOR'S ORGANIZ ATION 05/17/2023 [facility] dical Specialists EPIC DATE CREATED AUTHOR AUTHOR'S ORGANIZ ATION 05/23/2023 [facility] Care Team (unrecognized sect ion and content) Personnel Name: OLGA HILTON MD Address: [address] Personnel Name: OLGA HILTON MD Address: [address] Personnel Name: OLGA HILTON MD Address: Address: [address] [place] [address] Personnel Name: OLGA HILTON MD Address: Address: [address] [place] [address] Personnel Name: OLGA HILTON MD Address: Address: [address] [place] [address] Personnel Name: OLGA HILTON MD Address: Address: [facility] [address] Personnel Name: OLGA HILTON MD Address: Address: [facility] [address] Personnel Name: OLGA HILTON MD Address: Address: [address] [place], [place] [address]HERSON Brady [address] FOR RECORDS PERTAINING TO PATIENTS WHO ARE OR HAVE BEEN ENROLLED IN A CHEMICAL DEPENDENCY/SUBSTANCEABUSE PROGRAM, SOME INFORMATION MAY BE OMITTED. This clinical summary was aggregated from multiple sources. Caution should be exercised in using it in the provision of clinical care. This summary normalizes information from multiple sources, and as a consequence, information in this document may materially change the coding, format and clinical context of patient data. In addition, data may be omitted in some cases. CLINICAL DECISIONS SHOULD BE BASED ON THE PRIMARY CLINICAL RECORDS. [facility] provides no warranty or guarantee of the accuracy or completeness of information in this document.
--- NOTE | 2023-06-07 14:36 | CA_ITS ---
Patient Name: CEFERINO PEREZ MR#: [id number] : 1955 Exam Date: 06/07/2023 Ordering Doctor: DR DYLAN YOUNGER M.D. ECHOCARDIOGRAM REPORT PROCEDURE: CA ECHO DOPPLER COMPLETE INDICATIONS: Coronary artery disease, dizziness COMPARISON: None. DESCRIPTION: COMPLETE ECHOCARDIOGRAM Real-time transthoracic echocardiography with 2D, M-mode, spectral and color flow Doppler performed. QUALITY: Technical quality was good. 59 , 195#, BSA 1.82 m2 LEFT VENTRICLE: Normal chamber size. Normal left ventricular wall thickness. LV EF: Global left ventricular systolic function is hyperdynamic; visually estimated ejection fraction is 65 to 70%. No obvious wall motion abnormalities. DIASTOLIC: Normal diastolic function. ATRIAL SEPTUM: Visually appears intact. LEFT ATRIUM: Normal chamber size. RIGHT ATRIUM: Normal chamber size. RIGHT VENTRICLE: Normal chamber size. Normal right ventricular systolic function. TRICUSPID VALVE: Normal mobility and thickness. No stenosis with trivial regurgitation. No evidence of pulmonary hypertension. RVSP 26 mmHg MITRAL VALVE: Normal mobility and thickness. No evidence of mitral valve stenosis. There is no mitral annular calcification. Mild mitral regurgitation. AORTIC VALVE: Normal trileaflet appearance. No visible sclerosis. Normal leaflet mobility. No evidence of aortic valve stenosis. No aortic regurgitation. AORTIC ROOT: Normal diameter and appearance. PULMONIC VALVE: Normal thickness and mobility. No stenosis. Trivial regurgitation. PERICARDIUM: No evidence of pericardial effusion. IVC: Collapses with inspirations. IVC is normal in size. CONCLUSION: 1. Global left ventricular systolic function is hyperdynamic; visually estimated ejection fraction is 65 to 70% 2. The right ventricle is normal in size and systolic function 3. The left atrium is normal in size 4. Mild mitral regurgitation Adult Echocardiography Procedure Report Left Ventricle LVEDD (3.7 - 5.6 cm): 4.39 cm LVESD (2.2 - 4.0 cm): 2.45 cm LVIVS thickness (0.6 - 1.2 cm): 1.04 cm LVPW thickness (0.5 - 1.0 cm): 0.72 cm e': 0.15 m/s E - e': 4.75 LVOT Max Gradient: 1.99 mm[Hg] LVOT Area (cm2): 0.71 m/s Peak Velocity (LVOT): 0.71 m/s Mean Velocity (LVOT): 0.47 m/s LVOT Diameter 1.89 cm Left Atrium LA Volume Index (2D A2C): 36.44 ml/m2 Left Atrium Systolic Dimension: 3.69 cm Mitral Valve MV E to A Ratio: 1.68, 1.65 Mitral Valve A-Wave Peak Velocity: 0.43 m/s Mitral Valve E-Wave Peak Velocity: 0.71 m/s Right Ventricle Aorta AO Root Diam: 3.24 cm Ascending Ao Diam: 2.90 cm Aortic Valve AoV Area (Peak Lukasz): 2.40 cm2, 2.40 cm2 AoV Area (VTI): 2.47 cm2, 2.47 cm2 Peak Velocity(Antegrade Flow): 0.82 m/s Peak Gradient(Antegrade Flow): 2.71 mm[Hg] Mean Velocity(Antegrade Flow): 0.56 m/s Mean Gradient(Antegrade Flow): 1.40 mm[Hg] Velocity Time Integral: 19.14 cm Tricuspid Valve Peak Velocity (Regurgitant Flow): 2.40 m/s Pulmonic Valve Peak Velocity: 0.74 m/s Peak Gradient: 2.23 mm[Hg], 2.12 mm[Hg] Right Atrium Right Atrium Systolic Pressure: 41.47 ml, 41.47 ml Dictated by: Félix Guillaume M.D. on 06/11/2023 at 11:29 Approved by: Félix Guillaume M.D. on 06/11/2023 at 11:31
--- NOTE | 2023-06-07 14:39 | US_ITS ---
[place] [id number] Patient Name: CEFERINO PEREZ MRN: [id number] date: 1955 Sex: F Assigned Patient Location: CARD Current Patient Location: CARD Accession/Order Number: [id number] Exam Date: 06/07/2023 14:55 Report Date: 06/10/2023 06:03 At the request of: DYLAN YOUNGER Procedure: US carotid duplex BI EXAMINATION: US carotid duplex BI HISTORY: Dizziness R42 COMPARISON: No relevant comparison available. TECHNIQUE: Duplex Doppler ultrasound analysis of carotid and vertebral arteries. . Bilateral carotid arterial duplex examination was performed using B-mode, color flow and spectral analysis. Carotid stenosis is reported according to validated velocity parameters, similar to NASCET criteria. FINDINGS: RIGHT CAROTID ARTERY: Mild plaque without significant stenosis. RIGHT VERTEBRAL: Antegrade flow. Subclavian: PSV: 227.5 cm/s EDV: 0.0 cm/s CCA: Prox: PSV: 116.0 cm/s EDV: 26.8 cm/s Mid: PSV: 85.3 cm/s EDV: 26.8 cm/s Distal: PSV: 75.3 cm/s EDV: 26.8 cm/s BULB: PSV: 85.0 cm/s EDV: 23.6 cm/s ICA: Prox: PSV: 80.1 cm/s EDV: 34.9 cm/s Mid: PSV: 84.9 cm/s EDV: 38.1 cm/s Distal: PSV: 70.4 cm/s EDV: 26.8 cm/s ECA: PSV: 80.5 cm/s EDV: 12.8 cm/s VERTEBRAL: PSV: 70.9 cm/s EDV: 20.8 cm/s ICA/CCA ratio: PSV: 0.7 EDV: 0.9 LEFT CAROTID ARTERY: Mild plaque without significant stenosis. LEFT VERTEBRAL: Antegrade flow. Subclavian: PSV: 141.5 cm/s EDV: 0.0 cm/s CCA: Prox: PSV: 109.0 cm/s EDV: 23.0 cm/s Mid: PSV: 92.7 cm/s EDV: 27.6 cm/s Distal: PSV: 84.6 cm/s EDV: 27.4 cm/s BULB: PSV: 60.3 cm/s EDV: 20.8 cm/s ICA: Prox: PSV: 60.3 cm/s EDV: 23.0 cm/s Mid: PSV: 75.8 cm/s EDV: 25.7 cm/s Distal: PSV: 67.7 cm/s EDV: 30.5 cm/s ECA: PSV: 83.8 cm/s EDV: 12.8 cm/s VERTEBRAL: PSV: 47.2 cm/s EDV: 15.3 cm/s ICA/CCA ratio: PSV: 0.7 EDV: 1.1 US/US carotid duplex BI IMPRESSION: 1. 0-49% flow stenosis within the right left carotid arteries. Minimal atherosclerotic disease. 2. Prominent right internal jugular vein (2.1 cm in diameter) compared to left internal jugular vein (1.5 cm); likely incidental. Electronically authenticated by: BOB CAMERON Date: 06/10/2023 06:03
== END 2023-06-07 14:00 | disposition home or self-care (01) ==
LOC: CARD 13:59
PROVIDERS: PCP Family Medicine; Visit Provider Internal Medicine Interventional Cardiology
DX: I25.10 Atherosclerotic heart disease of native coronary artery without angina pectoris (principal); R42 Dizziness and giddiness
CPT/HCPCS: 93306; 93880

== ENCOUNTER 2023-09-17 08:23 | Outpatient (OUT) | payer MEDICARE, MEDICAID, SELFPAY ==
--- NOTE | 2023-09-17 | PCN_ITS ---
CARDIAC STRESS TEST Requesting Physician: Gaetano Freitas M.D. Procedure Date: 09/17/2023 REASON FOR EVALUATION: Patient underwent a Lexiscan study for evaluation of chest pain. At baseline, the patient was noted to have an ectopic atrial rhythm with foci suggestive of a left sided origin, but the P-wave was negative in lead 1 and possibly in AVF. The P-wave was negative in 1 and AVF, suggestive of left sided origin and positive in AVR. Otherwise, the QRS was narrow with no baseline evidence of ischemia. At baseline, the heart rate was 63 with a blood pressure of 138/70 mm/Hg. With infusion of the adenosine, the heart rate achieved a maximum heart rate of 87 with a blood pressure noted of 154/86 mm/Hg. With infusion of the drug, no evidence of AV block was noted. No evidence of ischemia seen on EKG. IMPRESSION: 1. No EKG evidence of AV block or ischemia seen with adenosine infusion. 2. At baseline, patient noted to have ectopic atrial foci originating from likely the left atrial appendage. 3. No symptoms noted during the study. 4. No arrhythmias noted during the study. 5. Nuclear portion of the study to be dictated by Radiology. [facility]
--- NOTE | 2023-09-17 08:05 | NM_ITS ---
Patient Name: CEFERINO PEREZ MR#: [id number] : 1955 Exam Date: 09/17/2023 Ordering Doctor: DR DYLAN YOUNGER M.D. RADIOLOGY REPORT PROCEDURE: NM NIDIA PERF SPECT REST STR COMPARISON: None. INDICATIONS: CHEST PAIN TECHNIQUE: Exam Description: Stress/Rest one day protocol gated SPECT Rest Imagin.2 mCi Tc-99m Cardiolite IV on 09/17/2023 Stress Imaging 30.1 mCi Tc-99m Cardiolite IV on 09/17/2023 Exercise Protocol: 0.4 mg Lexiscan given IV Heart Rate (bpm): Rest: 63 Max: 87 PMHR: 56 Blood Pressure: Rest: 138/78 Max: 154/86 Symptoms: Rest and peak stress ECG findings were normal and the exercise portion of the study was normal per attending physician Dr. Olmos . For more details please see separate cardiac stress test report. FINDINGS: QUALITY OF STUDY: Excellent. PERFUSION DEFECT: None. LOCATION: N/A SIZE: N/A. SEVERITY: N/A. TYPE: N/A. WALL MOTION: LV SIZE: Normal. 66 mL. TID / TCD: None; 0.8 LVEF: Normal. Calculated EF 74%. SUMMARY: Myocardial perfusion imaging study is NORMAL. CONCLUSION: 1. Normal myocardial perfusion scan 2. Normal exercise test Dictated by: Lázaro Bolanos MD on 09/18/2023 at 12:09 Approved by: Lázaro Bolanos MD on 09/18/2023 at 12:14
--- OUTSIDE RECORDS SUMMARY | 2023-09-17 08:41 | XMS_ITS | CCD ---
Author Organization [facility] Care Team Providers Care Food And Beverage Lead Name Role Phone PHYSICIAN, DEFAULT Unavailable Unavailable PHYSICIAN, DEFAULT Unavailable Unavailable NADERESantiago, SERGE Unavailable Unavailable NADERER, SERGE Unavailable Unavailable NADERER, SERGE Unavailable Unavailable NADERER, SERGE Unavailable Unavailable NADERER, SERGE Unavailable Unavailable PHYSICIAN, DEFAULT Unavailable Unavailable PHYSICIAN, DEFAULT Unavailable Unavailable NADERESantiago, SERGE Unavailable Unavailable YOSHI MASON Referring Unavailable NADERER, SERGE SIMMONS Primary Care Unavailabl e SERGE HILTON Primary Care Physician DAVID, DR LUEVANO Admitting Unavailable AHMED, DR LUEVANO Attending Unavailable NADERER, DR SERGE Snell Primary Care Unavailable ZIEBER, DR BOB Henderson Consulting Unavailable AHMED, DR LUEVANO Consulting Unavailable NADERER, DR SERGE Snell Admitting Unavailable NADERER, DR SERGE Snell Attending Unavailable NADERESantiago, DR SERGE Snell Primary Care Unavailable NADERESantiago, DR SERGE Snell Consulting Unavailable AHMED, DR LUEVANO Admitting Unavailable AHMED, DR LUEVANO Attending Unavailable NADERER, DR SERGE Snell Primary Care Unavailable ZIEBER, DR BOB Henderson Consulting Unavailable AHMED, DR LUEVANO Consulting Unavailable Julee Ruiz Attending Unavailable Joseph, Julee Snell Attending Unavailable Julee Ruiz Attending Unavailable Jin Echeverria Attending Unavaila ble Sarmini, Jin Rivera Referring Unavaila quirino Sartip, Jin Rivera Admitting Unavaila quirino SALAMHaritha Admitting Unavailable SALAM, Haritha Attending Unavailable Haritha PAULINO Referring Unavailable Serge Hilton MD Primary Care Provider LIDA, SERGE Attending Unavailable NADERER, SERGE Attending Unavailable NADERER, SERGE Attending Unavailable MOUKARBEL, DYLAN Attending Unavailable MOUKARBEL, DYLAN Attending Unavailable KEENEVIC Attending Unavailable JASBIR, VIC Hobson Referring Unavailable NADERESantiago, SERGE Primary Care Unavailable VIC KEENE Admitting Unavailable JASBIR, VIC Hobson Attending Unavailable NADERER, SERGE Referring Unavailable NADERER, SERGE Primary Care Unavailable NADERER, SERGE Primary Care Unavailable NEVERAUSKALb, RACHEL Butler Attending Unavailab le JOSE FRAZIER Attending Unavailable NADERER, SERGE Primary Care Unavailable NEVERAUSKAS, RACHEL Butler Attending Unavailab le NEVERAUSKAS, RACHEL Butler Referring Unavailab le NADERER, SERGE Primary Care Unavailable NEVERAUSKAS, RACHEL Butler Attending Unavailab le NEVERAUSKAS, RACHEL Butler Referring Unavailab le NADERER, SERGE Primary Care Unavailable RUTH PALMA Referring Unavailable NADERER, SERGE Primary Care Unavailable RUTH PALMA Attending Unavailable NADERESantiago, SERGE Referring Unavailable NADERER, SERGE Primary Care Unavailable NADERER, SERGE Referring Unavailable NADERER, SERGE Primary Care Unavailable RUTH PALMA Attending Unavailable NADERER, SERGE Referring Unavailable NADERER, SERGE Primary Care Unavailable NIRUTH STOKES Referring Unavailable NADERER, SERGE Primary Care Unavailable Allergies Allergy Classification Reported Allergen(s) Allergy Type Date of Onset Reaction(s) Facility (4 sources) Penicillins; Translations: [PENICILLINS] Drug allergy (disorder) 1 [facility] Repository (20 sources) guaiFENesin; Translations: [guaifenesin] Drug Allergy 7 [facility] (18 sources) Penicillin; Translations: [Penicillin -class of antibiotic- (product)] Drug Allergy 1 [facility] (19 sources) Pseudoephedrine; Translations: [pseudoephedrine ] Drug Allergy 7 [facility] (11 sources) Nystatin; Translations: [nystatin] Drug Allergy [facility] (7 sources) Latex; Translations: [LATEX] Propensity to adverse reactions to drug 3 Rash [facility] (6 sources) Penicillins Propensity to adverse reactions to drug 6 Hives [facility] Medications Current Medications Medication Drug Class(es) Dates Sig (Normalized) Sig (Original) acetaminophen 325 mg oral tablet (6 sources) take 2 tablets by mouth every six hours as needed for pain acetaminophen (TYLENOL) 325 mg tablet Take 2 tablets (650 mg total) by mouth every 6 (six) hours as needed for pain. 0 Active acetaminophen 325 mg / HYDROcodone bitartrate 5 mg oral tablet (20 sources) Opioid Agonist Start: 08-16-2023 take 0.5-1 tablets by mouth three times daily as needed for pain HYDROcodone-acetami nophen (NORCO) 5-325 mg per tablet Indications: Lumbosacral spondylosis without myelopathy Take 1/2 to 1 tablet by mouth three times per day as needed for pain. 70 tablet 0 08/16/2023 Active Start: 06-17-2023 End: 08-08-2023 take 0.5-1 tablets by mouth three times daily as needed for pain HYDROcodone-acetaminophen (NORCO) 5-325 mg per tablet Indications: Lumbosacral spondylosis without myelopathy Take 1/2 to 1 tablet by mouth three times per day as needed for pain. 70 tablet 0 07/17/2023 08/08/2023 Discontinued (Reorder) Start: 06-17-2023 take 0.5-1 tablets b y mouth three times daily as needed for pain HYDROcodone-acetaminophen (NORCO) 5-325 mg per tablet Indications: Lumbosacral spondylosis without myelopathy Take 1/2 to 1 tablet by mouth three times per day as needed for pain. 70 tablet 0 06/17/2023 Active Start: 05-18-2023 End: 06-11-2023 take 0.5-1 tablets by mouth three times daily as needed for pain HYDROcodone-acetaminophen (NORCO) 5-325 mg per tablet Indications: Lumbosacral spondylosis without myelopathy Take 1/2 to 1 tablet by mouth three times per day as needed for pain. Fill date 05/18/23 70 tablet 0 05/18/2023 06/11/2023 Discontinued (Reorder) Start: 05-14-2022 acetaminophen- hydrocodone 325 mg-5 mg oral tablet Refill(s) 0, Pain Start Date: 05/14/22 Status: Ordered Start: 01-16-2017 take 1 tablet by pooja th twice daily [place] 5/325 Tab 1 tab(s), Oral, BID, Refill(s) 0, Pain Start Date: 01/16/17 Status: Ordered Start: 01-16-2017 take 1 tablet by pooja th twice daily [place] 5/325 Tab 1 tab(s), Oral, BID, Refill(s) 0, Pain Start Date: 01/16/17 Status: Ordered Albuterol (16 sources) beta2-Adrenergic Agonist Start: 02-13-2018 take 2 puff(s) by inhalation four times daily as needed for wheezing Proventil HFA = 2 puff(s), Inhalation, QID, PRN Shortness of breath or wheezing, Refills(s) 0, Shortness of breath or wheezing Start Date: 02/13/18 Status: Ordered take 2 puff(s) by in halation every six hours as needed for wheezing albuterol (PROVENTIL HFA;VENTOLIN HFA) 9 0 mcg/actuation inhaler Inhale 2 puffs every 6 (six) hours as needed for wheezing. 0 Active apixaban 5 mg oral tablet (1 source) Factor Xa Inhibitor Start: 08-02-2023 End: 09-01-2023 take 1 tablet by mouth in the morning, then take 1 tablet by mouth at bedtime apixaban (ELIQUIS) 5 mg tablet Take 1 tablet (5 mg total) by mouth in the morning and 1 tablet (5 mg total) before bedtime. Do all this for 30 days. 60 tablet 0 08/02/2023 09/01/2023 Active aspirin 81 mg oral tablet (16 sources) Platelet Aggregation Inhibitor, Nonsteroidal Anti-inflammatory Drug Start: 02-18-2015 take 81 mg by mouth once daily aspirin 81 mg, Oral, Daily, Refills(s) 0, Prophylaxis Start Date: 02/18/15 Status: Ordered take 1 tablet by mouth in the mo rning aspirin 81 mg tablet Take 1 tablet (81 mg total) by mouth in the morning. 0 Active atorvastatin (12 sources) HMG-CoA Reductase Inhibitor Start: 05-14-2022 atorvastatin Refills (s) 0, High cholesterol Start Date: 05/14/22 Status: Ordered Start: 07-25-2020 take 1 tablet by pooja th once daily atorvastatin (LIPITOR) 40 mg tablet Take 1 tablet (40 mg total) by mouth nightly. 0 07/25/2020 Active biotin 5 mg oral tablet (16 sources) Start: 11-19-2017 take 5 mg by mouth once daily biotin 5 mg, Oral, Daily, Refills(s) 0, Prophylaxis Start Date: 11/19/17 Status: Ordered biotin 5,000 mcg tablet,disintegrating Dissolve 1 tablet on tongue daily. 0 Active busPIRone hydrochloride 7.5 mg oral tablet (12 sources) Start: 05-14-2022 busPIRone 7.5 mg oral tablet Refills(s) 0, Depression Start Date: 05/14/22 Status: Ordered Start: 07-19-2016 take 1 tablet by pooja th in the morning, then take 1 tablet by mouth at bedtime busPIRone (BUSPAR) 15 mg tablet Take 1 tablet (15 mg total) by mouth in the morning and 1 tablet (15 mg total) before bedtime. 3 07/19/2016 Active calcium carbonate 1250 mg / cholecalciferol 200 unt oral tablet (6 sources) Vitamin D take 1 tablet by mouth once in the morning calcium carbonate-vitamin D3 (OSCAL 500 + D) 500 mg(1,250mg) -200 units per tablet Take 1 tablet by mouth in the morning and 1 tablet in the evening. Take with meals. 0 Active calcium citrate 1500 mg / cholecalciferol 200 unt oral tablet (10 sources) Vitamin D Start: take 1 tablet by mouth twice daily calcium (as citrate)-vitamin D 315 mg-200 intl units oral tablet 1 tab(s), Oral, BID Prophylaxis, Refill(s) 0 Start Date: 11/19/17 Status: Ordered cholecalciferol 0.05 mg oral tablet (6 sources) Vitamin D Start: 019 take 1 tablet by mouth in the morning VITAMIN D3 2,000 unit tablet Take 1 tablet (2,000 Units total) by mouth in the morning. 5 03/14/2019 Active cyclobenzaprine hydrochloride 10 mg oral tablet (1 source) Muscle Relaxant Start: 024 take 1 tablet by mouth three times daily as needed for muscle spasms cyclobenzaprine (FLEXERIL) 10 mg tablet Take 1 tablet (10 mg total) by mouth 3 (three) times a day as needed for muscle spasms. 0 2023 Active docusate sodium 200 mg oral capsule (16 sources) Start: 018 take 200 mg by mouth once daily as needed for constipation Colace 200 mg, Oral, Daily, PRN as needed for constipation, Refills(s) 0, Constipation Start Date: 07/26/17 Status: Ordered Start: 08-07-2016 take 1 capsule by [facility] in the morning, then take 1 capsule by mouth at bedtime DOC-Q-LACE 100 mg capsule Take 1 capsule (100 mg total) by mouth in the morning and 1 capsule (100 mg total) before bedtime. 5 08/07/2016 Active Doxapram (10 sources) Respiratory Stimulant Start: 04-26-2020 take 1 mg intravenously once doxapram mg/kg, IV, Once, Refills(s) 0, Shortness of breath or wheezing Start Date: 04/26/20 Status: Ordered famotidine 20 mg oral tablet (19 sources) Histamine-2 Receptor Antagonist Start: 11-14-2021 End: 12-20-2023 take 1 tablet by mouth once daily at bedtime famotidine 20 mg Tab 20 mg = 1 tab(s), Oral, Once a day (at bedtime), X 90 day(s), # 90 tab(s), Refills(s) 2, Pharmacy: [facility][id number], 150, cm, 03/25/23 12:36:00 EDT, Height/Length Dosing, 90, kg, 03/25/23 12:36:00 EDT, Weight Dosing Start Date: 03/25/23 Stop Date: 12/20/23 Status: Ordered fluticasone propionate 0.05 mg/actuat metered dose nasal spray (6 sources) Corticosteroid take 1 spray(s) nasal route in the morning fluticasone (FLONASE) 50 mcg/actuation nasal spray Administer 1 spray into each nostril in the morning. 0 Active latanoprost 0.05 mg/ml ophthalmic solution (6 sources) Prostaglandin Analog Start: 11-13-2021 take 1 drop(s) into the eye(s) once daily in the evening latanoprost (XALATAN) 0.005 % ophthalmic solution instill 1 (ONE) DROP IN BOTH EYES EVERY EVENING 0 11/13/2021 Active loratadine 10 mg oral tablet (6 sources) Start: 12-04-2017 take 1 tablet by mouth in the morning loratadine (CLARITIN) 10 mg tablet Take 1 tablet (10 mg total) by mouth in the morning. 5 12/04/2017 Active meclizine hydrochloride 25 mg oral tablet (16 sources) Antiemetic Start: 07-07-2018 take 25 mg by mouth four times daily as needed for dizziness meclizine 25 mg, Oral, QID, PRN Dizziness, Refills(s) 0, Dizziness Start Date: 11/27/18 Status: Ordered 24 hr metoprolol succinate 25 mg extended release oral tablet (1 source) beta-Adrenergic Anushka Start: 08-02-2023 End: 09-01-2023 take 2 tablets by mouth every twenty-four hours in the morning metoprolol succinate XL (TOPROL XL) 25 mg 24 hr tablet Take 2 tablets (50 mg total) by mouth in the morning for 30 days. 60 tablet 0 08/02/2023 09/01/2023 Active midodrine hydrochloride 10 mg oral tablet (16 sources) alpha-Adrenergic Agonist Start: 12-06-2017 take 1 tablet by mouth three times daily midodrine (PROAMATINE) 10 mg tablet Take 1 tablet (10 mg total) by mouth 3 (three) times a day. 3 12/06/2017 Active Start: 11-19-2017 take 5 mg by mouth t hree times daily midodrine 5 mg, Oral, TID, low blood pressure, Refills(s) 0 Start Date: 11/19/17 Status: Ordered montelukast 10 mg oral tablet (16 sources) Leukotriene Receptor Antagonist Start: 11-18-2017 take 10 mg by mouth once daily in the evening Singulair 10 mg, Oral, qPM, Refills(s) 0, Allergy symptoms Start Date: 11/18/17 Status: Ordered omeprazole 40 mg delayed release oral capsule (15 sources) Proton Pump Inhibitor Start: 12-04-2017 End: 12-20-2023 take 1 capsule by mouth once daily omeprazole 40 mg Cap-DR 40 mg = 1 cap(s), Oral, Daily, X 90 day(s), # 90 cap(s), Refills(s) 2, Pharmacy: [facility] #[id number], 150, cm, 03/25/23 12:36:00 EDT, Height/Length Dosing, 90, kg, 03/25/23 12:36:00 EDT, Weight Dosing Start Date: 03/25/23 Stop Date: 12/20/23 Status: Ordered omeprazole 40 mg Cap-DR (1 source) Start: 08-14-2021 End: 08-09-2022 take 1 capsule by mouth once daily omeprazole 40 mg Cap-DR 40 mg = 1 cap(s), Oral, Daily, X 90 day(s), # 90 cap(s), Refills(s) 3, Pharmacy: [facility] #[id number], 150, cm, 08/14/21 10:09:00 EDT, Height/Length Dosing, 90.8, kg, 08/14/21 10:09:00 EDT, Weight Dosing Start Date: 08/14/21 Stop Date: 08/09/22 Status: Ordered polyethylene glycol 3350 09756 mg powder for oral solution (11 sources) Osmotic Laxative Start: 05-14-2022 End: 08-12-2022 take 17 g by mouth once daily as needed for constipation Miralax 3350 17 gram packet 17 gm, Oral, Daily, PRN constipation, X 90 day(s), # 90 EA, Refills(s) 0, Pharmacy: [facility] #[id number], 150, cm, 05/14/22 13:55:00 EST, Height/Length Dosing, 92, kg, 05/14/22 13:55:00 EST, Weight Dosing Start Date: 05/14/22 Stop Date: 08/12/22 Status: Ordered Start: 11-18-2017 MiraLax 17 gra m, Oral, Daily, Refill(s) 0, Constipation Start Date: 11/18/17 Status: Ordered polyethylene glycol 3350 [id number] mg / potassium chloride 1480 mg / sodium bicarbonate 5720 mg / sodium chloride 20758 mg powder for oral solution (2 sources) Osmotic Laxative Start: 03-25-2023 NuLYTELY Floyd oral powder for reconstitution See Instructions, 1 EA, Refill(s) 0, Prior to colonoscopy., [facility] #[id number], 150, cm, 03/25/23 12:36:00 EDT, Height/Length Dosing, 90, kg, 03/25/23 12:36:00 EDT, Weight Dosing Start Date: 03/25/23 Status: Ordered pramipexole dihydrochloride 0.125 mg oral tablet (6 sources) Nonergot Dopamine Agonist take 1 tablet by mouth in the morning pramipexole (MIRAPEX) 0.125 mg tablet Take 1 tablet (0.125 mg total) by mouth in the morning. 0 Active VITAMIN 27 mg iron- 0.8 mg tablet (5 sources) Start: 11-21-2021 take 1 tablet by mouth in the morning VITAMIN 27 mg iron- 0.8 mg tablet Take 1 tablet by mouth in the morning. 0 11/21/2021 Active VITAMIN PLUS LOW IRON 27 mg iron- 1 mg tablet (6 sources) Start: 01-28-2021 take 1 tablet by mouth in the morning VITAMIN PLUS LOW IRON 27 mg iron- 1 mg tablet Take 1 tablet by mouth in the morning. 0 01/28/2021 Active Promethazine (16 sources) Phenothiazine Start: 11-27-2018 promethazine 25 mg, PRN as needed for nausea/vomiting, Refills(s) 0 Start Date: 11/27/18 Status: Ordered take 1 tablet by pooja th every six hours as needed for nausea and vomiting promethazine (PHENERGAN) 25 mg tablet Ta ke 1 tablet (25 mg total) by mouth every 6 (six) hours as needed for nausea or vomiting. 0 Active psyllium 525 mg oral capsule (2 sources) Start: 03-25-2023 End: 06-23-2023 Metamucil 525 mg oral capsul e 1 capsule, Oral, Daily, with at least 8 ounces of water, X 90 day(s), # 90 cap(s), Refills(s) 0, Pharmacy: [facility] #[id number], 150, cm, 03/25/23 12:36:00 EDT, Height/Length Dosing, 90, kg, 03/25/23 12:36:00 EDT, Weight Dosing Start Date: 03/25/23 Stop Date: 06/23/23 Status: Ordered Start: 05-14-2022 End: 08-12-2022 take 1 capsule by mouth once daily Metamucil 525 mg oral capsule 1 capsule, Oral, Daily, X 90 day(s), # 90 cap(s), Refills(s) 0, Pharmacy: [facility] #[id number], 150, cm, 05/14/22 13:55:00 EST, Height/Length Dosing, 92, kg, 05/14/22 13:55:00 EST, Weight Dosing Start Date: 05/14/22 Stop Date: 08/12/22 Status: Ordered travoprost 0.04 mg/ml ophthalmic solution (16 sources) Prostaglandin Analog Start: 01-08-2018 TRAVATAN Z 0.004 % drops Start: 11-19-2017 Travatan Z 0.0 04% ophthalmic solution 1 drop(s), Eye-Right, qPM, Refill(s) 0, Dry eyes Start Date: 11/19/17 Status: Ordered Start: 11-19-2017 Travatan Z 0.0 04% ophthalmic solution 1 drop(s), Eye-Right, qPM, Refill(s) 0, Dry eyes Start Date: 11/19/17 Status: Ordered venlafaxine 37.5 mg oral tablet (6 sources) Serotonin and Norepinephrine Reuptake Inhibitor Start: 03-19-2023 take 1 tablet by mouth in the morning, then take 1 tablet by mouth at mealtime venlafaxine (EFFEXOR) 37.5 mg tablet Take 1 tablet (37.5 mg total) by mouth in the morning and 1 tablet (37.5 mg total) in the evening. Take with meals. 0 03/19/2023 Active vitamin B12 (16 sources) Vitamin B12 Start: 02-13-2018 Vitamin B12 1,000 microgram, Oral, Daily, Refills(s) 0, Prophylaxis Start Date: 02/13/18 Status: Ordered Start: 09-15-2016 take 1 tablet under the tongue once daily cyanocobalamin (VITAMIN B12) 1,000 mcg tablet, sublingual DISSOLVE one tablet UNDER THE TONGUE EVERY DAY 11 09/15/2016 Active Vol-Plus (10 sources) Start: 02-28-2018 take 1 tablet by mouth once daily Vol-Plus 1 tab(s), Oral, Daily, Refill(s) 0, Prophylaxis Start Date: 02/28/18 Status: Ordered VOL-PLUS 27-1 mg tablet (5 sources) Start: 09-27-2016 VOL-PLUS 27-1 mg tablet Zinc (10 sources) Start: 08-14-2021 take 1 mg by mouth once daily Zinc mg, Oral, Daily, Refills(s) 0, Prophylaxis Start Date: 08/14/21 Status: Ordered zinc gluconate 50 mg oral tablet (6 sources) take 1 tablet by mouth in the morning zinc gluconate 50 mg tablet Take 1 tablet (50 mg total) by mouth in the morning. 0 Active Problems Active Problems Problem Classification Problem Date Documented Da te Episodic/Chronic Abdominal hernia (20 sources) Hernia of abdominal cavity; Translations: [Hiatal hernia] 11-27-2018 Episodic Abdominal pain (5 sources) Right lower quadrant pain; Translations: [Right lower quadrant pain] Onset: 3 Episodic Cardiac dysrhythmias (3 sources) Paroxysmal atrial fibrillation; Translations: [Unspecified atrial fibrillation] Onset: 4 Chronic Cardiac dysrhythmias (2 sources) Palpitations; Translations: [Palpitations] Onset: 4 Episodic Conditions associated with dizziness or vertigo (20 sources) Vertigo; Translations: [Benign paroxysmal positional vertigo] Onset: 8 11-26-2018 Episodic Coronary atherosclerosis and other heart disease (2 sources) Atherosclerotic heart disease of [place] coronary artery without angina pectoris; Translations: [Atherosclerotic heart disease of sam[place] coronary artery without angina pectoris] Onset: 4 Chronic Esophageal disorders (20 sources) Gastroesophageal reflux disease without esophagitis; Translations: [Gastro-esophageal reflux disease without esophagitis] Onset: 2 11-26-2018 Chronic Gastritis and duodenitis (10 sources) Acute gastritis 11-26-2018 Episodic Gastrointestinal hemorrhage (3 sources) Hemorrhage of rectum and anus; Translations: [Hemorrhage of anus and rectum] Onset: 3 Episodic Genitourinary congenital anomalies (6 sources) 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; 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] Onset: 6 07-09-2018 Chronic Headache; including migraine (10 sources) Migraine 11-26-2018 Chronic Heart valve disorders (1 source) Irregular heart beat Onset: 4 Episodic Noninfectious gastroenteritis (10 sources) Colitis 11-26-2018 Episodic Nonspecific chest pain (2 sources) Other chest pain; Translations: [Other chest pain] Onset: 2 Episodic Nutritional deficiencies (1 source) Vitamin D deficiency, unspecified; Translations: [VITAMIN D DEFICIENCY UNSPECIFIED] Onset: 2 Chronic Osteoarthritis (10 sources) Arthritis 11-26-2018 Chronic Osteoporosis (4 sources) Age-related osteoporosis without current pathological fracture; Translations: [AGE-REL OSTEOPOR W/O CURR PATH FX] Onset: 2 Chronic Other aftercare (1 source) [facility] consultant (current) use of opiate analgesic; Translations: [group home (current) use of opiate analgesic] Onset: 4 Episodic Other and unspecified benign neoplasm (6 sources) Polyp of colon; Translations: [Polyp of colon] Onset: 3 Episodic Other and unspecified benign neoplasm (6 sources) History of polyp of colon; Translations: [Personal history of colonic polyps] Onset: 3 Episodic Other gastrointestinal disorders (10 sources) Irritable bowel syndrome 11-26-2018 Chronic Other gastrointestinal disorders (16 sources) Dysphagia; Translations: [Dysphagia, unspecified] Onset: 2 Episodic Other gastrointestinal disorders (12 sources) H/O: gastrointestinal disease; Translations: [Personal history of other diseases of the digestive system] Onset: 2 Episodic Other gastrointestinal disorders (1 source) Bariatric surgery status; Translations: [BARIATRIC SURGERY STATUS] Onset: 2 Episodic Other gastrointestinal disorders (1 source) Abnormal feces; Translations: [Other fecal abnormalities] Onset: 3 Episodic Other gastrointestinal disorders (2 sources) Hard stool 03-25-2023 Episodic Other nervous system disorders (1 source) Other chronic pain; Translations: [Other chronic pain] Onset: 4 Chronic Other non-traumatic joint disorders (2 sources) Pain in left shoulder; Translations: [Pain in joint, shoulder region] Onset: 4 07-16-2023 Episodic Other non-traumatic joint disorders (1 source) Shoulder pain Onset: 4 Episodic Other nutritional; endocrine; and metabolic disorders (10 sources) Obesity 11-26-2018 Chronic Other nutritional; endocrine; and metabolic disorders (6 sources) Morbid obesity; Translations: [Morbid (severe) obesity due to excess calories] Onset: 3 09-03-2022 Chronic Other screening for suspected conditions (not mental disorders or infectious disease) (4 sources) Encounter for screening mammogram for malignant neoplasm of breast; Translations: [ENC SCR MAMMO MALIG NEOPLASM BREAST] Onset: 2 Episodic Other upper respiratory infections (6 sources) Chronic sinusitis; Translations: [Other chronic sinusitis] Onset: 8 03-26-2018 Chronic Residual codes; unclassified (6 sources) Family history of malignant neoplasm of digestive organ; Translations: [Family history of malignant neoplasm of digestive organs] Onset: 2 Episodic Residual codes; unclassified (9 sources) Family history of cancer of colon 11-14-2021 Episodic Residual codes; unclassified (1 source) Family history of malignant neoplasm of trachea, bronchus and lung; Translations: [FAM HX MALIG NEOPLSM TRACH BRON LNG] Onset: 2 Episodic Residual codes; unclassified (1 source) Family history of malignant neoplasm of digestive organs; Translations: [FAM HX MALIG NEOPLASM DIGESTIV ORGN] Onset: 2 Episodic Residual codes; unclassified (9 sources) Family history of polyp of colon; Translations: [Family history of colonic polyps] Onset: 3 05-14-2022 Episodic Spondylosis; intervertebral disc disorders; other back problems (20 sources) Lumbosacral spondylosis without myelopathy; Translations: [Spondylosis without myelopathy or radiculopathy, lumbosacral region] Onset: 7 06-11-2023 Chronic Spondylosis; intervertebral disc disorders; other back problems (10 sources) Disorder of sacrum; Translations: [Sacrococcygeal disorders, not elsewhere classified] Onset: 7 04-11-2023 Episodic Syncope (4 sources) Syncope and collapse; Translations: [SYNCOPE AND COLLAPSE] Onset: 8 Episodic Unclassified (2 sources) Unknown / UNK(Unknown) Onset: 8 Past or Other Problems Problem Classification Problem Date Documented Da te Episodic/Chronic Calculus of urinary tract (6 sources) Kidney stone; Translations: [Calculus of kidney] Onset: 09-05-2015 02-15-2020 Episodic Genitourinary symptoms and ill-defined conditions (12 sources) Black hematuria; Translations: [Gross hematuria] Onset: 05-12-2016 08-20-2022 Episodic Other bone disease and musculoskeletal deformities (1 source) Other specified disorders of bone density and structure, unspecified site; Translations: [OTH D/O BONE DEN STRUCT UNS SITE] Onset: 01-26-2022 Episodic Other connective tissue disease (6 sources) Bilateral trochanteric bursitis; Translations: [Trochanteric bursitis, right hip] Onset: 12-13-2016 12-13-2016 Episodic Other diseases of kidney and ureters (6 sources) Cyst of kidney; Translations: [Cyst of kidney, acquired] Onset: 05-12-2016 02-15-2020 Episodic Other ear and sense organ disorders (6 sources) Bilateral tinnitus; Translations: [Tinnitus, bilateral] Onset: 07-24-2017 07-24-2017 Episodic Other ear and sense organ disorders (6 sources) Impacted cerumen of bilateral ears; Translations: [Impacted cerumen, bilateral] Onset: 07-24-2017 07-24-2017 Episodic Other non-traumatic joint disorders (6 sources) Pain in right hip joint; Translations: [Pain in right hip] Onset: 09-20-2016 09-20-2016 Episodic Other non-traumatic joint disorders (12 sources) Hip pain; Translations: [Pain in left hip] Onset: 09-20-2016 09-20-2016 Episodic Unclassified (10 sources) Heart structure (body structure) 11-27-2018 Results Test Name Value Interpretation Reference Range Facility 36on 08-28-2023 36 Regarding serious re port on event monitor: MD Desitni Kovacs MA She is having episodes of atrial fibrillation with rapid ventricular response. Please have her increase metoprolol succinate to 75 mg once daily. [facility] is her next stop. Patient informed. I see she called yesterday and spoke with Radha. She told Radha her HR was around 50. I told Thais to continue to monitor her HR and let us know if it drops below 50. She verbalized understanding and new RX was sent into [facility] Telephoneon 08-27-2023 Telephone [id number] Yang Perez cia 1955 F Date Provider Department Center 08/27/2023 Adebayo-RADHA LI CARD [facility] Family History Problem Relation Age of Onset Hypertension Mother Diabetes Father Family Status - Relation Status Age at Mother Father Normal [facility] Office Visiton 08-19-2023 Follow-up visit [id number] Yang Perez cia 1955 F Date Provider Department Center 08/19/2023 DYLAN PEREZ OXA[facility] Family History Problem Relation Age of Onset Hypertension Mother Diabetes Father Family Status - Relation Status Age at Mother Father Level of Service:08480 ND OFFICE/OUTPATIENT ESTABLISHED MOD MDM 30 MIN Normal [facility] CBC AND AUTO DIFFon 08-02-19 24 ABSOLUTE BASOPHIL 0.0 X10E9/L Normal 0.0-0.2 [facility] Comment on above: Performed By: #### C BCA, 02642-8, PINR, 62564-8, 58864-3, 07135-0, 70342-7, CMP, 72042-1, THYR #### [facility] ([id number]) [address] [place] [address] 11784 ABSOLUTE NEUTROPHIL 4.6 X10E9/L Normal 1.5-6.6 [facility] Comment on above: Performed By: #### C BCA, 20536-1, PINR, 24642-4, 91586-2, 02349-6, 59997-0, CMP, 86499-3, THYR #### [facility] ([id number]) [address] [place] [address] 60460 Basophils/100 WBC (Bld) 0.4 % Normal [facility] Comment on above: Performed By: #### C BCA, 67854-2, PINR, 86071-4, 88250-8, 09806-8, 66753-1, CMP, 62104-1, THYR #### [facility] ([id number]) [address] [place] [address] 85887 Eosinophils (Bld) [#/Vol] 0.2 10*3/uL Normal 0.0-0.4 [facility] Comment on above: Performed By: #### C BCA, 33399-6, PINR, 29473-0, 34820-1, 92181-5, 25554-4, CMP, 89088-9, THYR #### [facility] ([id number]) [address] [place] [address] 58728 Eosinophils/100 WBC (Bld) 2.0 % Normal [facility] Comment on above: Performed By: #### C BCA, 70395-7, PINR, 84614-5, 33870-9, 50941-2, 00705-7, CMP, 94011-9, THYR #### [facility] ([id number]) [address] [place] [address] 70037 Erythrocyte distribution width (RBC) [Ratio] 14.2 % Normal 11.5-15.0 [facility] Comment on above: Performed By: #### C BCA, 50865-3, PINR, 91477-8, 84380-9, 47874-0, 23884-7, CMP, 39406-9, THYR #### [facility] ([id number]) [address] [place] [address] 32638 Hematocrit (Bld) [Volume fraction] 39.2 % Normal 35-47 [facility] Comment on above: Performed By: #### C BCA, 33050-9, PINR, 12084-9, 53862-3, 20255-1, 62778-8, CMP, 91162-5, THYR #### [facility] ([id number]) [address] [place] [address] 88178 Hemoglobin (Bld) [Mass/Vol] 13.2 g/dL Normal 11.7-15.5 [facility] Comment on above: Performed By: #### C BCA, 04852-7, PINR, 75438-3, 27811-5, 58234-3, 40116-8, CMP, 06601-5, THYR #### [facility] ([id number]) [address] [place] [address] Lymphocytes (Bld) [#/Vol] 2.7 10*3/uL Normal 1.0-3.5 [facility] Comment on above: Performed By: #### C BCA, 99684-2, PINR, 98163-8, 21255-8, 29182-1, 95218-2, CMP, 43646-7, THYR #### [facility] ([id number]) [address] [place] [address] 17506 Lymphocytes/100 WBC (Bld) 32.8 % Normal [facility] Comment on above: Performed By: #### C BCA, 15015-1, PINR, 20859-9, 27167-4, 17932-0, 87323-1, CMP, 69865-4, THYR #### [facility] ([id number]) [address] [place] [address] 39405 MCH (RBC) [Entitic mass] 31.6 pg Normal 27-34 [facility] Comment on above: Performed By: #### C BCA, 11074-1, PINR, 48656-6, 09077-3, 75536-9, 51046-8, CMP, 60671-1, THYR #### [facility] ([id number]) [address] [place] [address] 07485 MCHC (RBC) [Mass/Vol] 33.5 g/dL Normal 32-36 [facility] Comment on above: Performed By: #### C BCA, 91084-3, PINR, 70716-1, 15584-7, 26960-8, 57560-7, CMP, 19635-1, THYR #### [facility] ([id number]) [address] [place] [address] 82437 MCV (RBC) [Entitic vol] 94 fL Normal 80-100 [facility] Comment on above: Performed By: #### C BCA, 09766-8, PINR, 31843-6, 09750-3, 08218-9, 84600-1, CMP, 12841-1, THYR #### [facility] ([id number]) [address] [place] [address] 64401 Monocytes (Bld) [#/Vol] 0.7 10*3/uL Normal 0-0.9 [facility] Comment on above: Performed By: #### C BCA, 67438-6, PINR, 70736-3, 59898-7, 02791-9, 99477-4, CMP, 42769-1, THYR #### [facility] ([id number]) [address] [place] [address] 15717 Monocytes/100 WBC (Bld) 9.0 % Normal [facility] Comment on above: Performed By: #### C BCA, 12106-6, PINR, 77189-0, 40840-9, 74484-4, 41366-4, CMP, 33213-7, THYR #### [facility] ([id number]) [address] [place] [address] 62381 Neutrophils/100 WBC (Bld) 55.8 % Normal [facility] Comment on above: Performed By: #### C BCA, 41633-2, PINR, 21155-5, 20458-1, 45013-4, 89187-4, CMP, 23958-1, THYR #### [facility] ([id number]) [address] [place] [address] 33877 Platelet mean volume (Bld) [Entitic vol] 7.1 fL Normal 7-12 [facility] Comment on above: Performed By: #### C BCA, 80151-7, PINR, 15402-0, 38773-8, 24074-0, 89946-8, CMP, 06810-5, THYR #### [facility] ([id number]) [address] [place] [address] 72215 Platelets (Bld) [#/Vol] 188 10*3/uL Normal 150-450 [facility] Comment on above: Performed By: #### C BCA, 60828-8, PINR, 94929-5, 81547-0, 66944-9, 46733-3, CMP, 50625-8, THYR #### [facility] ([id number]) [address] [place] [address] 33732 RBC COUNT 4.16 X10E12/L Normal 3.80-5.20 [facility] Comment on above: Performed By: #### C BCA, 35589-1, PINR, 38011-9, 86089-7, 43828-9, 29786-7, CMP, 19457-4, THYR #### [facility] ([id number]) [address] [place] [address] 33225 WBC (Bld) [#/Vol] 8.2 10*3/uL Normal 4.0-11.0 [facility] Comment on above: Performed By: #### C BCA, 03316-7, PINR, 23157-8, 52957-1, 21061-8, 15867-3, CMP, 04956-9, THYR #### [facility] ([id number]) [address] [place] [address] 81254 COMPREHENSIVE METABOLIC PANE Blair 08-02-2023 Albumin [Mass/Vol] 3.7 g/dL Normal 3.2-5.3 [facility] Comment on above: Performed By: #### C BCA, 20800-7, PINR, 75468-5, 01001-5, 05797-1, 66934-6, CMP, 29559-7, THYR #### [facility] ([id number]) [address] [place] [address] 66323 ALP [Catalytic activity/Vol] 81 U/L Normal 39-130 [facility] Comment on above: Performed By: #### C BCA, 59650-5, PINR, 52502-4, 14288-7, 05128-6, 42696-9, CMP, 28165-4, THYR #### [facility] ([id number]) [address] [place] [address] 97406 ALT [Catalytic activity/Vol] 16 U/L Normal 0-31 [facility] Comment on above: Performed By: #### C BCA, 58400-8, PINR, 06184-6, 78896-8, 83120-2, 73191-0, CMP, 39597-5, THYR #### [facility] ([id number]) [address] [place] [address] 27908 Anion gap [Moles/Vol] 2 mmol/L Low 5-15 [facility] Comment on above: Performed By: #### C BCA, 05060-6, PINR, 33995-1, 16743-9, 29119-2, 16928-1, CMP, 21986-8, THYR #### [facility] ([id number]) [address] [place] [address] 25742 AST [Catalytic activity/Vol] 20 U/L Normal 0-41 [facility] Comment on above: Performed By: #### C BCA, 70113-2, PINR, 51344-2, 95782-7, 86943-9, 91138-6, CMP, 12314-6, THYR #### [facility] ([id number]) [address] [place] [address] 20036 Bilirubin [Mass/Vol] 0.9 mg/dL Normal 0.3-1.2 [facility] Comment on above: Performed By: #### C BCA, 77644-3, PINR, 76380-1, 81610-7, 99811-4, 45490-9, CMP, 56001-7, THYR #### [facility] ([id number]) [address] [place] [address] 52744 Calcium [Mass/Vol] 8.3 mg/dL Low 8.5-10.5 [facility] Comment on above: Performed By: #### C BCA, 29709-7, PINR, 90489-4, 31286-1, 89653-7, 66907-3, CMP, 63970-2, THYR #### [facility] ([id number]) [address] [place] [address] 24917 Chloride [Moles/Vol] 105 mmol/L Normal 98-109 [facility] Comment on above: Performed By: #### C BCA, 66441-8, PINR, 43432-7, 34099-3, 46398-5, 51262-2, CMP, 22063-8, THYR #### [facility] ([id number]) [address] [place] [address] 56891 CO2 [Moles/Vol] 28 mmol/L Normal 22-32 [facility] Comment on above: Performed By: #### C BCA, 37639-0, PINR, 70155-7, 95206-3, 44638-2, 17458-6, CMP, 62582-1, THYR #### [facility] ([id number]) [address] [place] [address] [place] [address] Creatinine [Mass/Vol] 0.72 mg/dL Normal 0.40-1.00 [facility] Comment on above: Result Comment: METH OD TRACEABLE TO IDMS STANDARD Performed By: #### C BCA, 50569-6, PINR, 06812-2, 43960-5, 13146-9, 35963-7, CMP, 96306-1, THYR #### [facility] ([id number]) [address] [place] [address] 90678 eGFR (CKD-EPI) NON-RACE DEPENDENT >90 Normal >59 [facility] Comment on above: Result Comment: Reported eGFR is based on the CKD-EPI 2020 equation that does not use a race coefficient. Performed By: #### C BCA, 74353-4, PINR, 12146-4, 21682-5, 01214-1, 78256-0, CMP, 49419-6, THYR #### [facility] ([id number]) [address] [place] [address] 63540 Glucose [Mass/Vol] 93 mg/dL Normal 65-99 [facility] Comment on above: Performed By: #### C BCA, 18865-5, PINR, 95537-9, 65315-9, 55273-0, 11572-2, CMP, 32078-1, THYR #### [facility] ([id number]) [address] [place] [address] 94305 Potassium [Moles/Vol] 4.1 mmol/L Normal 3.5-5.0 [facility] Comment on above: Performed By: #### C BCA, 85927-5, PINR, 52494-6, 18960-4, 14370-0, 86105-9, CMP, 35756-2, THYR #### [facility] ([id number]) [address] [place] [address] 30965 Protein [Mass/Vol] 6.6 g/dL Normal 6.0-8.0 [facility] Comment on above: Performed By: #### C BCA, 66243-0, PINR, 45583-8, 66891-5, 38583-9, 11670-6, CMP, 05872-9, THYR #### [facility] ([id number]) [address] [place] [address] [place] [address] Sodium [Moles/Vol] 135 mmol/L Normal 134-146 [facility] Comment on above: Performed By: #### C BCA, 35835-8, PINR, 01495-5, 91616-2, 18885-4, 20509-7, CMP, 14089-2, THYR #### [facility] ([id number]) [address] [place] [address] [place] [address] Urea nitrogen [Mass/Vol] 20 mg/dL Normal 5-27 [facility] Comment on above: Performed By: #### C BCA, 96261-2, PINR, 68976-3, 63794-8, 53211-8, 18125-1, CMP, 10052-7, THYR #### [facility] ([id number]) [address] [place] [address], [place] [address] CT CTA CHESTon 08-02-[address] CTA CHEST CTA CHEST COMPARISON: None. HISTORY: Tachycardia, arrhythmia. TECHNIQUE: 100 mL of Omnipaque 350 nonionic contrast injected intravenously without reported complication. Thin section axial images of the thorax obtained with multiplanar reformatted 3-D MIP images of the thorax generated under concurrent physician supervision and reviewed. Automatic exposure control (AEC) was utilized. FINDINGS: There is no evidence for a thoracic aortic dissection. There is no thoracic aortic aneurysm. There are no filling defects identified to suggest acute pulmonary emboli. There is no evidence for focal consolidation. There is no pleural or pericardial effusion. There is no pneumothorax. IMPRESSION: Negative CTA of the chest. All CT scans at this facility use dose modulation, iterative reconstruction, and/or weight based dosing when appropriate to reduce radiation dose to as low as reasonably achievable. Finalized by Gracie Gates DO on 08/02/2023 11:58 AM Normal [facility] Fibrin D-dimer DDU (PPP) [Ma ss/Vol]on 08-02-2023 D DIMER 1098 ng/mL DDU High <255 [facility] Comment on above: Result Comment: Results >=255ng/mL DDU: Results may be indicative of the presence of VTE. The use of the Wells score and further diagnostic tests should be considered. Elevated D-Dimer levels can also be associated with DIC, neoplasm, , trauma and liver disease. Elevated levels of rheumatoid factor may lead to an overestimation of the D-Dimer level. Performed By: #### C BCA, 89460-6, PINR, 06888-4, 40294-8, 20490-3, 20581-4, CMP, 49906-1, THYR #### [facility] ([id number]) [address] [place] [address] 45565 Lactate (P quique) [Moles/Vol]o n 08-02-2023 LACTATE W/REFLEX 1.1 mmol/L Normal 0.4-2.0 [facility] Comment on above: Result Comment: Result did not trigger repeat Lactate, re-order if needed. Performed By: #### C BCA, 54864-9, PINR, 29693-3, 73899-2, 18554-9, 14646-0, CMP, 35800-9, THYR #### [facility] ([id number]) [address] [place] [address] 33665 MAGNESIUMon 08-02-2023 Magnesium [Mass/Vol] 2.1 mg/dL Normal 1.8-2.6 [facility] Comment on above: Performed By: #### C BCA, 90180-8, PINR, 44525-2, 37919-6, 70710-5, 58926-0, CMP, , THYR #### [facility] ([id number]) [address] [place] [address] 78313 Natriuretic peptide B [Mass/ Vol]on 08-02-2023 Natriuretic peptide B (Bld) [Mass/Vol] 252 pg/mL High <100.0 [facility] Comment on above: Performed By: #### C BCA, 06646-4, PINR, 20801-0, 89842-8, 60368-1, 27782-0, CMP, 97834-1, THYR #### [facility] ([id number]) [address] [place] [address] 32090 PROTIME AND INRon 08-02-2023 INR Coag (PPP) [Relative time] 1.0 {INR} Normal 0.8-1.1 [facility] Comment on above: Performed By: #### C BCA, 39842-5, PINR, 23029-7, 59132-3, 84168-3, 24948-3, CMP, 64990-3, THYR #### [facility] ([id number]) [address] [facility], [place] [address] PT Coag (PPP) [Time] 11.3 s Normal 9.8-13.2 [facility] Comment on above: Result Comment: NEW REFERENCE RANGE Performed By: #### C BCA, 46326-9, PINR, 49691-3, 33388-6, 23296-4, 54942-9, CMP, 74299-1, THYR #### [facility] ([id number]) [address] [facility], [place] [address] SARS/FLU A+B/RSV by NAAT/Mol ecularon 08-02-2023 SARS/FLU A+B/RSV by NAAT/Molecular FLU A PCR Negative (qualifier value) FLU B PCR Negative (qualifier value) RSV by PCR Negative (qualifier value) SARS CoV 2 Not detected (qualifier value) NOTE The Xpert Xpress SARS-CoV-2/Flu/RSV Plus test is a rapid, multiplexed real-time RT-PCR test intended for the simultaneous qualitative detection and differentiation of SARS-CoV-2, influenza A, influenza B and respiratory syncytial virus (RSV) viral RNA from individuals suspected of respiratory viral infection consistent with COVID-19 by their healthcare provider. This test has not been validated in asymptomatic patients. The Xpert Xpress SARS-CoV-2 test is intended for use by qualified and trained operators who are performing tests using either [employer] DX or [employer] systems and is limited to laboratories that meet the CLIA requirements to perform high and moderate complexity tests. The Xpert Xpress SARS-CoV-2/Flu/RSV Plus is only for use under the Food and Drug Administration's Emergency Use Authorization. Results are for the simultaneous detection and differentiation of SARS-CoV-2, influenza A, influenza B and RSV nucleic acids in clinical specimens. SARS-CoV-2, influenza A, influenza B and RSV RNA identified by this test are generally detectable in upper respiratory samples during the acute phase of infection. Positive results are indicative of the presence of the identified virus, but do not rule out bacterial infection or co-infection with other pathogens not detected by this test. Clinical correlation with patient history and other diagnostic information is necessary to determine patient infection status. The agent detected may not be the definite cause of disease. Negative results do not preclude SARS-CoV-2, influenza A, influenza B and RSV infection and should not be used as the sole basis for treatment or other patient management decisions. Negative results must be combined with clinical observations, patient history and epidemiological information. An Invalid result may occur with specimen-associated inhibition unable to be resolved with specimen repeat. Fact Sheet for Healthcare Providers: https://www.fda.gov/media/2161/download Fact Sheet for Patients: https://www.fda.gov/media/2165/download Normal [facility] Comment on above: Performed By: #### C BCA, 54797-0, PINR, 68112-7, 37287-4, 32848-6, 81352-7, CMP, 95344-7, THYR #### [facility] ([id number]) [address] [place] [address] 75332 THYROID PROFILEon 08-02-2023 Free T4 [Mass/Vol] 1.01 ng/dL Normal 0.61-1.60 [facility] Comment on above: Performed By: #### C BCA, 09592-1, PINR, 91815-2, 82760-7, 87352-1, 05372-3, CMP, 29945-4, THYR #### [facility] ([id number]) [address] [place] [address] 75704 TSH 2.24 uIU/mL Normal 0.49-4.67 [facility] Comment on above: Performed By: #### C BCA, 78858-6, PINR, 50271-2, 56406-3, 86508-2, 58497-1, CMP, 07010-3, THYR #### [facility] ([id number]) [address] [place] [address] 68679 TROPONIN Ion 08-02-2023 Troponin I.cardiac [Mass/Vol] 0.02 ng/mL Normal 0.00-0.04 [facility] Comment on above: Performed By: #### C BCA, 68517-6, PINR, 64740-1, 55589-1, 74084-4, 97815-8, CMP, 78940-8, THYR #### [facility] ([id number]) [address] [place] [address] [place] [address] URN MACROSCOPIC NURon 2023 BILIRUBIN CRYSTAL Negative Normal NEG [facility] Comment on above: Performed By: #### C BCA, 03919-4, PINR, 34225-8, 18868-0, 20398-4, 83501-1, CMP, 90824-1, THYR #### [facility] ([id number]) [address] [place] [address] [place] [address] BLOOD/HGB CRYSTAL Small Abnormal NEG [facility] Comment on above: Performed By: #### C BCA, 05454-6, PINR, 70328-1, 94613-3, 05602-6, 98906-4, CMP, 71776-7, THYR #### [facility] ([id number]) [address] [place] [address], [place] [address] GLUCOSE CRYSTAL Negative Normal [facility] Comment on above: Performed By: #### C BCA, 54536-1, PINR, 30441-2, 97637-5, 76616-9, 78627-1, CMP, 98732-9, THYR #### [facility] ([id number]) [address] [place] [address], [place] [address] KETONES CRYSTAL Negative Normal NEG [facility] Comment on above: Performed By: #### C BCA, 31563-5, PINR, 55938-5, 89111-0, 10789-4, 81074-9, CMP, 02065-5, THYR #### [facility] ([id number]) [address] [place] [address], [place] [address] LEUKOCYTE ESTERASE CRYSTAL Trace Abnormal NEG [facility] Comment on above: Performed By: #### C BCA, 60127-0, PINR, 71134-2, 80966-1, 42563-4, 39593-5, CMP, 50900-7, THYR #### [facility] ([id number]) [address] [place] [address] 55156 NITRITE CRYSTAL Negative Normal NEG [facility] Comment on above: Performed By: #### C BCA, 68326-2, PINR, 16608-3, 40195-8, 81987-8, 95505-5, CMP, 56596-9, THYR #### [facility] ([id number]) [address] [place] [address] 75185 PH CRYSTAL 7.5 Normal 5.0-8.5 [facility] Comment on above: Performed By: #### C BCA, 84691-3, PINR, 76266-3, 84015-1, 22069-3, 30943-8, CMP, 41600-8, THYR #### [facility] ([id number]) [address] [place] [address] [place] [address] PROTEIN CRYSTAL Negative Normal NEG [facility] Comment on above: Performed By: #### C BCA, 47473-6, PINR, 56814-6, 05661-0, 19927-5, 58161-2, CMP, 79403-0, THYR #### [facility] ([id number]) [address] [place] [address] 81887 SPECIFIC GRAVITY CRYSTAL 1.015 Normal 1.003-1.035 [facility] Comment on above: Performed By: #### C BCA, 07767-6, PINR, 16787-3, 02561-8, 30885-8, 63817-1, CMP, 03883-4, THYR #### [facility] ([id number]) [address] [place] [address] 08433 UROBILINOGEN CRYSTAL 0.2 eu/dL Normal <1.1 [facility] Comment on above: Performed By: #### C BCA, 96444-4, PINR, 74498-3, 90011-9, 51731-1, 73062-7, CMP, 07220-6, THYR #### [facility] ([id number]) [address] [place] [address] XR CHEST 2 VWSon 08-02-2023 XR CHEST 2 VWS XR CHEST 2 VWS HISTORY AND/OR TECH NOTES a fib Palpitations Irregular heartbeat PROCEDURE Two-view chest COMPARISON 2016 FINDINGS Mild leftward rotation Confluent density medial right base similar to before, possibly related to body configuration, epicardial fat, or other developmental variant Mild tortuosity of the descending aorta probably exaggerated by positioning The heart size grossly normal for technique Mediastinum does not look impressive. No significant edema No focal consolidation seen No significant effusion No visible pneumothorax If patient has continued chest symptoms and/or more detailed chest imaging workup needed, consider CT IMPRESSION: No acute pneumonia or CHF Normal heart size Finalized by Car Ocasio MD on 08/02/2023 10:38 AM Normal [facility] aPTT Coag (PPP) [Time]on aPTT Coag (Bld) [Time] 30 s Normal 26-37 [facility] Comment on above: Result Comment: NEW REFERENCE RANGE Performed By: #### C MARTINA, 34573-1, PINR, 62882-9, 14956-7, 95848-3, 16684-6, CMP, 50940-1, THYR #### [facility] ([id number]) [address] [place] [id number] XR SHOULDER LT MIN 2 VWSon 0 07-05-2023 XR SHOULDER LT MIN 2 VWS XR SHOULDER LT MIN 2 VWS History: Pain Exam/Technique: AP Grashey and scapular Y views of the left shoulder were obtained. Comparison: None Findings: There is no evidence for an acute osseous abnormalities. No significant degenerative changes are seen. No dislocation is demonstrated. IMPRESSION: Normal left shoulder. Finalized by Lázaro Joseph MD on 07/05/2023 10:46 AM Normal [facility] Reminderson 06-07-2023 Reminders - From: Julee Ruiz CNP To: Iesha Naqvi; Sent: 08/24/2022 13:56:00 EDT Show up: 08/24/2022 13:56:00 EDT Subject: Ambulatory Reminder Reminder/Recall Repeat colonoscopy 07/2023. 07/2023 dr paulino From: Iesha Naqvi To: [facility] - Reminders/Recalls; Sent: 08/27/2022 12:40:12 EDT ! Show up: 06/03/2023 12:40:00 EST Due Date/Time: 2023 12:40:00 EST Patient is scheduled for Saturday Normal [facility] Office Visiton 05-22-2023 Follow-up visit [id number] Yang Perez cia 1955 F Date Provider Department Center 05/22/2023 DYLAN PEREZ [facility] Family History Problem Relation Age of Onset Hypertension Mother Diabetes Father Family Status - Relation Status Age at Mother Father Level of Service:[address] [place] OFFICE/OUTPATIENT ESTABLISHED LOW MDM 20 MIN Normal [facility] Consent for Procedure/Surger yon 03-26-2023 Consent for Procedure/Surgery [id number]#[id number] Normal [facility] Ambulatory Visit Summaryon 1 Ambulatory Visit Summary CEFERINO PEREZ :1955 Visit Date:03/25/2023 Ambulatory Visit Instructions Your Diagnosis Hard stool BRBPR (bright red blood per rectum) Dysphagia History of esophageal spasm Acid reflux History of colon polyps Family history of colon cancer Family history of colonic polyps Your Care Team Attending Physician - Julee Ruiz CNP Primary Care Physician - SERGE HILTON MD This Is Your Medications List famotidine (famotidine 20 mg Tab) omeprazole (omeprazole 40 mg Cap-DR) polyethylene glycol 3350 with electrolytes (NuLYTELY Floyd oral powder for reconstitution) psyllium (Metamucil 525 mg oral capsule) Contact prescribing physician if questions or concerns acetaminophen-hydrocodone ([place] 5/325 Tab) albuterol (Proventil HFA) aspirin atorvastatin [...] See instructions Prior to colonoscopy. Pickup at [facility] #[id number] New psyllium (Metamucil 525 mg oral capsule) 1 capsule By Mouth Every day Hard stool Duration: 90 Days with at least 8 ounces of water Pickup at [facility] #[id number] Changed famotidine (famotidine 20 mg Tab) 1 Tablets By Mouth Once a day (at bedtime) Acid reflux Duration: 90 Days Pickup at [facility] #[id number] Changed omeprazole (omeprazole 40 mg Cap-DR) 1 Capsules By Mouth Every day Acid reflux Duration: 90 Days Pickup at [facility] #[id number] Unchanged acetaminophen-hydrocodone ([place] 5/ 325 Tab) 1 Tablets By Mouth [...] physician if questions or concerns Pharmacy Information [facility] #[id number]: [address] [place] (more content not included)... Normal [facility] Gastroenterology Office/Clin ic Noteon 03-25-2023 Gastroenterology Office/Clinic [...] day(s), # 90 cap(s), Refills(s) 0, Pharmacy: [facility] #[id number], (more content not included)... Normal [facility] Comment on above: Result Comment: Elec [...] grapefruit, pineapple, and arabella. Vegetables Deep-fried vegetables. Austrian fries. Any vegetables prepared with added fat. [...] gastroesophageal reflux di (more content not included)... [facility] IntraOperative Documentson 0 02-27-2023 IntraOperative Documents [id number]#1.00CD:127 [facility] 02-18-2023 Consent [id number]#1.00CD:127 [facility] Discharge Instructionson Discharge Instructions [id number]#1.00CD:127 [facility] Insurance Correspondenceon 0 02-18-2023 Insurance Correspondence [id number]#1.00CD:127 [facility] Main OR Intraoperative Recor don 02-18-2023 Main OR Intraoperative Record IntraOp Document Type FT Summary Primary Physician: Jin Echeverria MD Finalized Date/Time: 02/18/23 10:36:30 Pt. Name: CEFERINO PEREZ /Sex: 1955 Female Med Rec #: [id number] Physician: Jacki CORRALES, Jin Rivera Financial #: [id number] Pt. Type: O Room/Bed: Endo 08/01 Admit/Disch: 02/15/23 09:29:26 - 02/15/23 11:08:00 Institution: Case Times FT Entry 1 Patient Times In Room 02/15/23 10:10:00 Out Room 02/15/23 10:37:00 Procedure Times Start 02/15/23 10:22:00 Stop 02/15/23 10:32:00 Anesthesia Times Start 02/15/23 10:10:00 Stop 02/15/23 10:37:00 Last Modified By: Xiomara Ayers RN 02/15/23 10:37:03 General Comments: 02/18/23 Chart opened [...] RN, Xiomara Hogue Role Performed Anesthesiologist of Interior [employer]semblies Installer - Primary Record Time In 02/15/23 10:10:00 02/15/23 10:10:00 Time Out 02/15/23 10:37:00 02/15/23 10:37:00 Procedure EGD(.) EGD(.) Comments Last Modified By: Xiomara Ayers RN, RN, Kristin N 02/15/23 10:37:05 02/15/23 10:37:05 Perioperative Protocols FT [...] Applicable) PreOp Antibiotic No Time Out Brittanie Cadet, Given Participants Deja Liu, Jacki CORRALES, Sotero [...] Fr Serra. Primary Procedure Yes Primary Surgeon Jin Echeverria MD Start 02/15/23 10:22:00 Stop 02/15/23 10:32:00 Anesthesia [...] and tissue Entry 1 Skin Integrity Intact, [place], Warm, and Skin Abnormality No Dry Outcomes [...] Side Righ (more content not included)... Normal [facility] Postoperative Documentson Postoperative Documents [id number]#1.00CD:127 Normal [facility] Progress Note-Physicianon Progress Note-Physician Patient: CEFERINO [...] All Problems Acute gastritis / SNOMED CT 89825147 / Confirmed Arthritis / SNOMED CT 6505879 / Confirmed Acute colitis / SNOMED CT 896347836 / Confirmed Dysphagia / SNOMED CT 32560924 / Confirmed Family history of colon cancer / SNOMED CT 150658079 / Confirmed Family history of colonic polyps / SNOMED CT 1212162889 / Confirmed Acid reflux / SNOMED CT 309133939 / Confirmed GERD without esophagitis / SNOMED CT 1277358152 / Confirmed History of esophageal spasm / SNOMED CT 980123776 / Confirmed Hiatal hernia / SNOMED CT 674729413 / Confirmed History of colon polyps / SNOMED CT 6797150110 / Confirmed IBS (irritable bowel syndrome) / SNOMED CT 14527355 / Confirmed Migraines / SNOMED CT 35872190 / Confirmed Obesity / SNOMED CT 8076222545 / Confirmed Colon polyp / SNOMED CT 046970185 / Confirmed RLQ abdominal pain / SNOMED CT 934973492 / Confirmed Vertigo / SNOMED CT 2190920608 / Confirmed Resolved: Heart / SNOMED CT 466037764 Resolved: Hernia / SNOMED CT 389774255 Histories Procedure history: Colonoscopic polypectomy (310318571) on 07/26/2022 at 67 Years. EGD - Esophagogastroduodenoscopy (9240243669) on 07/26/2022 at 67 Years. EGD - Esophagogastroduodenoscopy (5408348815) on 12/16/2020 at 65 Years. section (30085529). Hysterectomy (819942342). Cholecystectomy (64417658). Hernia repair (57580475). Bariatric surgery service ([id number]). Social History Social & Psychosocial Habits Alcohol [...] adequate air exchange. Cardiovascular: Regular rhythm. Plan [place] [employer]hesi[employer] (ASA) physical status classification: Class III. Anesthetic Preoperative Plan: Anesthesia General. Normal [facility] Comment on above: Result Comment: Elec tronically Signed By: Armond Bey Jr, DO\.br\Date and Time Signed: 02/16/23 09:16 EDT Progress Note-Physician Patient: CEFERINO PEREZ Age: 67 years Sex: Female : 1955 Associated Diagnoses: None Author: Armond Bey Jr, DO Postoperative Information Postoperative disposition: Postoperative disposition: To PACU. Optimetrix number: Optimetrix number [phone]. Anesthetic utilized: General. Health Status Allergies: Allergic [...] when meets criteria ( To home ). [facility] Comment on above: Result Comment: Elec tronically Signed By: Armond Bey Jr, DO\Date and Time Signed: 02/16/23 09:16 EDT Consent for Treatmenton 02-01 Consent for Treatment [id number]#1.00CD:127 [facility] Discharge Instructionson Discharge Instructions CEFERINO PEREZ :1955 Visit Date:02/15/2023 Inpatient Discharge Instructions Your Care Team Admitting Physician - Jin Echeverria MD Referring Physician - Jin Echeverria MD Reason for Your Visit DYSPHAGIA Your Diagnosis Dysphagia This Is Your Medications List acetaminophen-hydrocodone ([place] 5/325 Tab) albuterol (Proventil HFA) aspirin atorvastatin biotin busPIRone (busPIRone 7.5 mg oral tablet) calcium-vitamin D (calcium (as citrate)-vitamin D 315 mg-200 intl units oral tablet) cyanocobalamin (Vitamin B12) docusate (Colace) doxapram famotidine (famotidine 20 mg Tab) meclizine midodrine montelukast (Singulair) multivitamin with minerals (Vol-Plus) omeprazole (omeprazole 40 mg Leonid-) promethazine travoprost ophthalmic (Travatan Z 0.004% ophthalmic [...] Follow Up with Jacki CORRALES, CONCEPCION Lopez [facility] When: Only if needed Comments: Call for any problems. Where: [address] [place] [address], [address] [address] [phone] Medications What How Much When Instructions Next Dose Changed acetaminophen-hydrocodone ([place] 5/ 325 Tab) 1 Tablets By Mouth [...] documents or (more content not included)... Normal [facility] Comment on above: Result Comment: Elec tronically Signed By: Saige Perry I\.br\Date and Time Signed: 02/15/23 10:46 EDT Endoscopic Procedure Report - Otheron 02-15-2023 Endoscopic Procedure Report - Other Patient: CEFERINO PERZE Age: 67 years Sex: Female : 1955 [...] stomach. 3. Normal duodenum. Images Procedure images: Rec1_hd_video_2022__15T09_ 37_24_014.jpg Rec1_hd_video_T09_ 36_11_108.jpg Rec1_hd_video__T09_ 33_56_706.jpg Rec1_hd_video__T09_ 32_41_775.jpg Rec1_hd_video__T09_ 32_37_328.jpg Rec1_hd_video__15T09_ 32_24_505.jpg Rec1_hd_video__T09_ 30_14_991.jpg Rec1_hd_video__T09_ 29_24_860.jpg Rec1_hd_video_2022__15T09_ 29_06_770.jpg Rec1_hd_video_2022__T09_ 28_37_335.jpg Rec1_hd_video_2022__T09_ 28_13_999.jpg . Post-Procedure Complications: none. Estimated blood [...] medications -Return to clinic as needed Normal [facility] Comment on above: Result Comment: Elec tronically Signed By: Jacki CORRALES, Jin Rivera\.br\Date and Time Signed: 02/15/23 10:36 EDT Other Comment: Yajaira morillo Attachment - attachment storage system not supported [id number] Can be [facility] Attachment - attachment storage system not supported [id number] Can be viewed in [facility] Attachment - attachment storage system not supported [id number] Can be viewed in source systemMissPureEnergy Solutions Attachment - attachment storage system not supported [id number] Can be viewed in source systemMiss[employer]ureEnergy Solutions Attachment - attachment storage system not supported [id number] Can be viewed in source systemMissPureEnergy Solutions Attachment - attachment storage system not supported [id number] Can be viewed in source systemMissPureEnergy Solutions Attachment - attachment storage system not supported [id number] Can be viewed in source systemMissing Attachment - attachment storage system not supported 1143678 Can be viewed in [facility] Attachment - attachment storage system not supported 8488202 Can be viewed in [facility] Attachment - attachment storage system not supported [id number] Can be viewed in source systemMissing Attachment - attachment storage system not supported 2512108 Can be viewed in source system Inpatient Patient Summaryon 02-15-2023 Inpatient Patient Summary [address] [address] [facility] Clinical Discharge Instructions PERSON INFORMATION Name: CEFERINO PEREZ [facility]#:[id number] PHYSICIANS Admitting Physician: Jin Echeverria MD Attending Physician: Jin Echeverria MD PCP: SERGE HILTON MD Diagnosis: Dysphagia Comment: PATIENT EDUCATION INFORMATION Instructions: Medication Leaflets: Follow up: MEDICATION LIST Medications to Continue Taking That Have Changed Other Medications START: acetaminophen-hydrocodone ([place] 5/325 Tab) 1 Tablets By Mouth 2 [...] (Zinc) By Mouth every day. Comment: Laura [facility] Main OR PACU I Recordon 02-01 Main OR PACU I Record PACU Phase I Document Type FT Summary Primary Physician: Jin Echeverria MD Finalized Date/Time: 02/15/23 11:17:20 Pt. Name: CEFERINO PEREZ Channing Villalobos/Sex: 1955 Female Med Rec #: [id number] Physician: Jin Echeverria MD Financial #: [id number] Pt. Type: O Room/Bed: Endo 08/01 Admit/Disch: [...] By: Saige Perry I 02/15/23 11:17 Normal [facility] Main OR Preoperative Recordo n 02-15-2023 Main OR Preoperative Record Holding Area Document Type FT Summary Primary Physician: Jin Echeverria MD Finalized Date/Time: 02/15/23 09:39:39 Pt. Name: ANACEFERINO D.O.B./Sex: 1955 Female Med Rec #: [id number] Physician: Jin Echeverria MD Financial #: [id number] Pt. Type: O Room/Bed: [facility] 08/01 Admit/Disch: 02/15/23 09:29:26 - Institution: Case [...] By: Marcio Mak RN 02/15/23 09:39 Normal [facility] Monitor Recordon 02-15-2023 Monitor Record [id number]#1.00CD:127 Normal [facility] Monitor Record [id number]#1.00CD:127 Normal [facility] Outpatient Surgery Discharge Instructionon 02-15-2023 Outpatient Surgery Discharge Instruction [place] [id number] Patient Discharge Instructions PERSON INFORMATION Name: CEFERINO [...] THE NEAREST EMERGENCY ROOM OR CALL 911 I CEFERINO PEREZ Channing, have received the attached patient education materials/instructions and have verbalized understanding: May we do a follow up call? Yes No I was present when discharge instructions were given __ Patient Signature Date Clinican/Nurse Signature Date Follow up: Pharmacy Information: Other: [facility] You may receive a survey from [employer] asking you to rate your care experience. Your feedback is important and will help us understand what we do well and how we can improve the quality of care we provide to you, your loved ones and our community. It?s an honor to serve you. Thank you for choosing [facility] HERE ARE THE MEDICATION CHANGES THAT OCCURRED DURING YOUR HOSPITAL STAY Medications to Continue Taking That Have Changed Other Medications START: acetaminophen-hydrocodone ([place] 5/325 Tab) 1 Tablets By Mouth 2 [...] PATIENT EDUCATION INFORMATION Instructions: Medication Leaflets: Laura [facility] Gastroenterology Office/Clin ic Noteon 01-24-2023 Gastroenterology Office/Clinic [...] CT or MRI with general surgeon in [place], [place]- no record to review during today's encounter. Has RLQ pain over the last 6-7 months that occurs when she has to have a BM at times. Is taking [place] that is prescribed by another provider. Is [...] CT or MRI with general surgeon in [place], [place]- no record to review during today's [...] EGD with (more content not included)... Normal [facility] Comment on above: Result Comment: Elec tronically Signed By: Julee Ruiz CNP\.br\Date and Time Signed: 01/24/23 12:49 EDT RAD - CT Reporton 01-24-2023 RAD - CT Report [id number]#1.00CD:127 Normal [facility] Consent for Procedure/Surger yon 01-22-2023 Consent for Procedure/Surgery [id number]#1.00CD:127 Normal [facility] Ambulatory Visit Summaryon 0 01-21-2023 Ambulatory Visit Summary CEFERINO PEREZ :1955 Visit Date:01/21/2023 Ambulatory Visit Instructions Your Diagnosis RLQ abdominal pain Dysphagia History of esophageal spasm History of colon polyps Acid reflux Family history of colon cancer Family history of colonic polyps Your Care Team Attending Physician - Julee Ruiz CNP Primary Care Physician - SERGE HILTON MD This Is Your Medications List Contact prescribing physician if questions or concerns acetaminophen-hydrocodone ([place] 5/325 Tab) acetaminophen-hydrocodone (acetaminophen-hydrocodone 325 mg-5 mg [...] physician if questions or concerns Unchanged acetaminophen-hydrocodone ([place] 5/ 325 Tab) 1 Tablets By Mouth [...] Migraines Obesity (more content not included)... Normal [facility] Patient Educationon 01-22-20 Patient Education Gastroenterology [...] grapefruit, pineapple, and arabella. Vegetables Deep-fried vegetables. Austrian fries. Any vegetables prepared with added fat. [...] reflux di (more content not included)... Normal [facility] Gastroenterology Office/Clin ic Noteon 08-24-2022 Gastroenterology Office/Clinic [...] day (at (more content not included)... Normal [facility] Comment on above: Result Comment: Elec tronically Signed By: Julee Ruiz CNP\.sorin\Date and Time Signed: 08/24/22 14:09 EDT Patient [...] 02/13/2005 Document Revised: 09/04/2018 Document Reviewed: 09/04/2018 Elsevier Patient Education ? 2019 [email or web address] [facility] Postoperative Documentson Postoperative Documents [id number]#[id number]:127 [facility] Coding Summary.on 07-31-2022 Coding Summary. CD:[id number]:[id number] Gh0bWw+P GhlYWQ+FN6LDGExC63deANjnM3ID 8gEBN8KKOQDFAXXNM7QKG7klOG1R ImgU8VehpWd LptzaTOjSD05VOx7PCW7oBoeBYui vM8asVKoT8e1PsOmWD99oY30BMyc EANoSuX5VxBgnjkxrICh I5plOlSjxFJxYea+PHRhYmxlIHdp BAGiANmwTQDbCqMdbJtcPL6qSv6q ZGVyLWNvbGxhcHNlOiBj x7exTTQrZGjfLR6exQsvA6FtyPY2 KMNob3m2Yr66jDV+BFTfHHZ8uMnj JUwjp415YeMbi6toCSD1 sCIdNXujBHC1I79zv9N0QQOfSLSy ODU9xCB7aQ5quKvxaozyV5OcfCCe WhH5KHV7pRMebO2heGvk prouiE6kYuc+U62JMP7QETYYNJ9E Nuu1Z2BcPkfokRA+LA27KNRrDT61 sPEbiDJys5uuzLm8NkBr ZEPaVSN9kNjrHKcqd9KjFIVyC90i mOYcs5V2MIRatVqliXIgYyUijUS1 pG0zKAsauqqwy4mhmcca Cwrzg5bodd65iQ99M97wOQfaDZKt JHZ6HSQcESPjlMhsrs6bmU6kHz0+ RFjbd3ops2fxeHv5DrCj SAZxydEocJnxAYF3e4DwKj56H3Sf nGazh4IaCli5cu09tIVjd1R2hUT7 XDezEMVivL1fRJnaEtL6 SMVgEzKyqE11zMBoQPdiFz5yoXix tXpyDJ4rGEFwwhiwDSMgyD9bWMJr vWXdeYweQN5aTMLtjomh w552YrLpUSO1FHAzoPNnK3AvpB6h SuLvCSVoJOKaH4AqoCTsNOjlO426 IRvqTgV2INHtysCbJ3Ma KTAmyFwmUcN7p2E8At6Ym9Wujjmv OQK1CJbeERYaLmK0NuWxOoX8Z6Nw Cnb6BKYefAyfUK3wS7Ah QFTtnlrpqsjepXS2GUYuCBXtgI93 sMRtWZfaUy4zv0G6k032CARvKSGq hU95Az4ibAesUJSaoHXS lH6vvxjgk6refxipCoIyHUWoMPm1 DHt3GZLfmTboRcNwLQB0PxS0MIE6 vJWacG1fyDppebresR0l Oyc+V26tnL5pQIH5XKP6ivgrTKRi acDiSU29GD81U7NmUrdkgHEozOD+ YGTjigJwlBagJY9mVwWf g3rzo7BfFYiyG7GzJAFjXEyaMxz8 AKHbKBK6kUP6uB3yEQYvGUmas7E2 aTP0Y9TzjjXxyh2wm4jo FOGsJWhvT26xvWYty6J3AEYjyZH2 XAGwtCbsVhRxnW97Cow+PGNvbGdy l1WjTttta0sgt2ramGu8 CoGgKRRugwSysYdbHGU8c4CuTk74 Y42wJVimMCJrRVKmHLGyOQZbpLwa ua7ldJ3vAl1+PGNvbCB3 mMD1qZ5gPYIgSjA1DNzrN767GgNj aKHqYwexv2gsu2aakDu3ExImGFDl nxGrtXmhUQO3q0YhQt46 I06tCQdxTZLiNAFwMFGlMQQszLau sm2oeZ3qFa9+JB2sn9lpzi75wF37 dHI+NWZlPMW7eKvoHXwz RHDmoT3uGCirTzH6VJCgNjXqgB14 tDQzSUcnWr1owGbisYbjZB5lIKNn aqrtk168KwCdi3urYDJk hSMkPUzmFIB5P23tm2S2XFAgQICp UIB4kPD5oV3vqWnrbhufiVWbuFbv ipAncPahVZaoYYxrZ739 IHRvcDsnPlBhdGllbnQgTmFtZTo8 D8ReTtt3SRJjsCucWB1diBXvHAah Wv9tuQsumMkeIP1kZTQj rbozr562SzRgg2nbWHRncUDpPOiu TIQ6U65yr1Z2GCKfHQRbLRI1nVN5 jJ8twUeykpaalIQnxKyb jvSmbUhtEChlCUokR028PPYhwWqf QmFvhaTpHUOtyAQ0RK58RI10hXMu s9F0mCZ4F0IcBFLngcau uzjmlGE0RVJaTWQdgR78Tg9vwPti Wp1rSMLgQUO2XIRyjHMiV9YevD0v NkXzLBLuKMLtQ1MkpXKz YIoiI337CVhiNcV8OREcjzDcH6Gd BONbxGfdElQ7c4E9Og3UF2C1CD80 FF89bQIon2V3eUV2X8Xd YRVysljmfzcboOQ6IIGqZLMgpR91 It3gdNarFy0aOTZnTXC6LNLduCUe W3VsfT8eUoKwYZIbQULz D6MbgEIuDAgsS328XOykGvL8LDVo gnZpI3OtHNKycJcpHvL3i2M3Rf6P MFb8OB78DJ29qMZtr5Z0 xWY3A8McZQVhidxxrkzjcJJ4NRKk QBDrvA97Iv3tgHfdOy4tLZLbZVG0 WQPlgYCsQ1FucF9uNsBd NTDwQBIyX8SieHXfTNevU407EBgt ViZ6ZZUrgsEnW2LxZCOaePxfHuL4 c9J7Ze9PBYSoBV97QDP6 dPP5YV94DW60X2MqWzcslYFzbKL+ PHRhYmxlIHdpZHRoPScxMDAlJyBz eQvjLM8bAh3yBIIfDBZi bNlscXAdTvPfm1irUMCcSEabEY3i zCdtR0IgfZG3DPAhv3o7Qt89D34z S0AldDX+FGKrnKT2hGQ0 eK1nVcFgHeS4MWmaX925PbCgwZAq Vgtxr3abf9onvVf8XzT3WHCoakQl sBonJWR4m5IzUr50U88l UIpyFZKhUWKiTUHiRVPcbUfvml6z jJ0oRs5+JMQlhJS2fIA4bR7mCkRx LwD7QXbcT433OyUkhQXb Zdzoc0ocd5hahNa8DcBeFZPfiuJf gQxjMHA0t9XpOs27O0XcqGqiu5Gu Mpq2ff39xMJyf6U8zVL7 E9IwUQFbechbgWQcgCopWV4tYCXa xupjBNEnyT2uZVTqO9q7HlVdMrL3 TWklY7JydyN4OEAtjOTa QQlmSST6R65jb7U0HUHgOFYpYFR2 bHJ3eD5miKwlgtwrkWItiUjrhjIi bWalZKlfQYzoA524YSDn vDyaBJSfkM1oAQYcfUAuiGdfYK7s ZQLcqyntLy4BG8XOXTRYMLEBNNXS RGGFVE11PE32kNSab2M2 iVB7Q7EnYRMmgjprircksTP5YEPr RZNsvQ69iQCfOXarGb4bg6Z1c680 WNAxQIWekQ39Vu2nxHzs SKUmbJWBcA7jgqfdz2hvjlspDjVk VBKmWHv6IBx6JEZntApiIyEjRII1 CcW8AQA7aUYrjX8zgJeg uhsegR5rTkt+XNDgSGVcGBn0GJes dGQ+EKDlSOB5rNvfNZwtUHPdfR6e SDJhQ5n6AtLdIwT6EXxg Y3SeDMKhfmxtXt38zG0lEsNyItO8 AFwtQ9EtylJ1KMXjkJJaYWppBCP9 N90vp0I4ITTzJFZlSJS5 bCM8yY0ifBxctymrqVKtlPlswnFi mJvkTNyvZSvzO395UJTinGzrAaK0 LMzfPWSyGF23TJ05vHDw w1J3bKA2C7GmDUEjjtubimtoaGY4 FXMzJAVkwG99wQNgDFprKe8lu9V6 j330PYYbEJVdnF62Db4s rRzbUPGcyDDTkN8seidlx7eqkfrw AlOiLNHrVNv9KQi4TLVllYzoUgIs RYP3ThM2SHR2tYNfaU9m cIuworywjV2mZym+XwCnJJbjDA44 NW89yKMsd4M5kCN3Z4JuBAUhotrz oyfrfFK3DQVnKXQwxR49 hOCrZHvdRg9sy5E2l724OAGgZBGn tM21Zk4nrLwoOHFwxKXDqX9rdvqg b1pvukduWbTnMGLfKQj1 BEd0SOCmuSbwSmLxPSZ1TzC3XOA2 mKXgoW6azVvoofiplI6oPyr+T3V0 sXS5aJEbjWzdtGK+PC90 ez42I2VzYuvvCzs6ALLiXQB5dHS3 aR3vNVFeCRcbw1O5vEU7X8RqspVd yi4zk0jhONEyKBzjQ38g mVToh6C7OQUotFQ1AVRsrUbzIlPd zL84Ywg+CONijAbxt0SsLdugy5fz g7vlcNw3LkNmFYAvwrNb oAmbQMJ6r4VmDg73V91tLYroCYMp LNEsLIViPKQlwVpfwm6dcI6bTu4+ EERkoCZ2yKF1zU4vCzJv NnO5YEsjU545AmOulFXbNztri5sv y9ooqDs0OsTnWQDquiYlmWjdPVI1 v2PsBj97I3ScqMxht8Ty Ojm5sp70wNZpa3I8cTX5N1JsDDVe oipjuYGvpQdzJL4aOSNmdhoyVJVp jK2dWAXpP5d0BbIqNmS5 KWdzG3RftpB1JJYupLImLHAeiBQI mF1ylejim4ndbjnwCuLwKUVvYGs2 AAa4JPMffAmrTpHdYZU2 YpX5AKY0eCOjpM1qgElzvtlztO0x Oyc+UTq0o3uynWXsWZ6iaER6BL32 YI90rRZih1J5oPQ3I2Ie DERgjicidjdhyYU2HUYbFWJgnS10 Ig4wpWoqAv1aLAHhELL3WKLbrBLr M0EfnX2vFgOpSIDsNUSk B4FoyNYgKOxeT395QUzvCwY9XSXw dzQzX9LnASDobEqyFjM0y6T8Bg5I OM95WE53VZ87eDNxd6T5 uFJ1D9VnTFGwiittjgmbtNR5KQXt PMYwxC14Xp1bcWmxTc0wXKVeYDQ8 IZXqeOUnD0NbcM5dWeJe QWXpLTBuM7HphOLbPCayK736NLjx LtE4MIKociHpO1OcRQRszGlaCuA3 x8L0Iz3RYr51DZ51IR00 nZXjb2C7xGA3L1CfBIZkpecwtsqo vOD9CZShVGDsdC71Gm8aoNwsLw8r ACNnWFC9ZSDjyUBuZ0Pv kO8cByRtEQXfPHNpX4WydUCvYJko W574LHfcMrE2XIKdxqHaE4DaMSGf nIakUoB7j1J7Pd7OBGnh oya7H0ZuHnptuQY+CI00LYYqWM26 aVHxsIWpo6aywRb7CrUzYVKuRKH4 kMatDFtqa5HxEAOoO71j bGFw (more content not included)... Normal [facility] IntraOperative Documentson 0 07-30-2022 IntraOperative Documents [id number]#1.00CD:127 [facility] 07-27-2022 Consent [id number]#1.00CD:127 [facility] Discharge Instructionson Discharge Instructions [id number]#1.00CD:127 [facility] Main OR Intraoperative Recor don 07-27-2022 Main OR Intraoperative Record IntraOp Document Type FT Summary Primary Physician: Haritha PAULINO MD Finalized Date/Time: 07/27/22 07:57:35 Pt. Name: CEFERINO PEREZ/Sex: 1955 Female Med Rec #: [id number] Physician: Haritha PAULINO MD Financial #: [id number] Pt. Type: O Room/Bed: / Admit/Disch: 07/26/22 [...] Entry 2 Entry 3 Case Attendee Lacy SLIVER LAP TENDER, Joshua aMk RN, Marcio Rico APPLICATION TESTER, Shaina Singer Role Performed SLIVER LAP TENDER Interior Assemblies Installer - Primary Staff - Other Time In 07/26/22 09:49:00 07/26/22 09:49:00 07/26/22 09:54:00 Time Out 07/26/22 10:17:00 07/26/22 10:17:00 07/26/22 10:17:00 Procedure EGD AND COLONOSCOPY(.) EGD AND COLONOSCOPY(.) EGD AND COLONOSCOPY(.) Comments Dr. Ingram supervising case Last Modified By: Obdulio RN, Marcio Mak RN, Mracio Mak RN, Marcio Hobson 07/26/22 10:21:55 07/26/22 10:21:55 07/26/22 10:21:55 Entry 4 Entry 5 Case Attendee Deja Liu MD, Mg Role Performed Scrub - Primary Surgeon - Primary Time In 07/26/22 09:49:00 07/26/22 09:49:00 Time Out 07/26/22 10:17:00 07/26/22 10:17:00 Procedure EGD AND COLONOSCOPY(.) EGD AND COLONOSCOPY(.) Comments Last Modified By: Obdulio RN, Marcio Mak RN, Marcio Hobson 07/26/22 10:21:55 07/26/22 10:21:55 Perioperative Protocols FT [...] 09:52:00 Outcomes Met? Yes Last Modified By: Marico Mak RN 07/26/22 09:55:50 Post-Care Text: The [...] polypectomy site Primary Procedure Yes Primary Surgeon GONZÁLEZ CORRALES, Haritha Start 07/26/22 09:54:00 Stop 07/26/22 10:16:00 Anesthesia [...] FT Pre-Care (more content not included)... Normal [facility] PACU Recordon 07-27-2022 PACU Record [id number]#1.00CD:127 Normal [facility] Consent for Treatmenton 07-05 Consent for Treatment [id number]#1.00CD:127 Normal [facility] Endoscopic Procedure Report - Otheron 07-26-2022 [...] Moderate nonbleeding internal hemorrhoids Images Procedure images: Rec_hd_video_2022__T10_ 09_08_720.jpg Rec1_hd_video_2022__T10_ _46_707.jpg Rec1_hd_video_2022__T10_ 05_46_132.jpg Rec1_hd_video_2022__T10_ _40_923.jpg . Post-Procedure Complications: none. Estimated blood loss: [...] Return to activities:: After 24 hours. Normal [facility] Comment on above: Result Comment: Elec tronically Signed By: Haritha PAULINO MD\.br\Date and Time Signed: 07/26/22 10:17 EST Other Comment: Yajaira morillo Attachment - attachment storage system not supported [id number] Can be viewed in source systemMissing Attachment - attachment storage system not supported [id number] Can be viewed in source systemMissing Attachment - attachment storage system not supported [id number] Can be viewed in source systemMissing Attachment - attachment storage system not supported [id number] Can be viewed in source system Endoscopic [...] the distal esophagus, then dilated using 60 Austrian Serra dilator 2. Normal gastric mucosa 3. Normal duodenal mucosa Post-Procedure Complications: none. Estimated blood loss: none. Specimens: None. Devices/ implants: none left in place. Impression and Plan Normal distal esophageal mucosa, Botox 25 units injected in each corner of the distal esophagus, then dilated using 60 Austrian Serra dilator Recommendations: Follow-up in GI clinic in 2 weeks [facility] Comment on above: Result Comment: Elec tronically Signed By: Haritha PAULINO MD\.br\Date and Time Signed: 07/26/22 09:57 EST Main OR PACU I Recordon 07-05 Main OR PACU I Record PACU Phase I Document Type FT Summary Primary Physician: Haritha PAULINO MD Finalized Date/Time: 07/26/22 11:43:54 Pt. Name: CEFERINO PEREZ/Sex: 1955 Female Med Rec #: [id number] Physician: Haritha PAULINO MD Financial #: [id number] Pt. Type: O Room/Bed: / Admit/Disch: 07/26/22 [...] By: Ludy La RN 07/26/22 11:43 Normal [facility] Main OR Preoperative Recordo n 07-26-2022 Main OR Preoperative Record Holding Area Document Type FT Summary Primary Physician: Haritha PAULINO MD Finalized Date/Time: 07/26/22 08:19:58 Pt. Name: CEFERINO PEREZ Channing De La GarzaB./Sex: 1955 Female Med Rec #: [id number] Physician: Haritha PAULINO MD Financial #: [id number] Pt. Type: O Room/Bed: / Admit/Disch: 07/26/22 [...] 08:04 Yoana Cassidy RN 07/26/22 08:19 Normal [facility] Monitor Recordon 07-26-2022 Monitor Record [id number]#1.00CD:127 [facility] Monitor Record [id number]#1.00CD:127 [facility] Monitor Record [id number]#1.00CD:127 [facility] Monitor Record [id number]#1.00CD:127 [facility] Monitor Record [id number]#1.00CD:127 [facility] Progress Note-Physicianon Progress Note-Physician Patient: CEFERINO PEREZ Age: 67 years Sex: Female : 1955 Associated Diagnoses: None Author: Blayne Ingram MD Postoperative Information Postoperative disposition: Postoperative disposition: To PACU. Optimetrix number: Optimetrix number [id number]. Anesthetic utilized: General. Physical Examination Vital Signs [...] when meets criteria ( To home ). [facility] Comment on above: Result Comment: Elec tronically Signed By: Blayne Ingram MD\.br\Date and Time Signed: 07/26/22 10:39 EST Progress [...] gram packet 17 gm, PRN, Oral, Daily [place] 5/325 Tab 1 tab(s), Oral, BID omeprazole [...] All Problems Acid reflux / SNOMED CT 884330334 / Confirmed Acute colitis / SNOMED CT 780916133 / Confirmed Acute gastritis / SNOMED CT 44421404 / Confirmed Arthritis / SNOMED CT 4307375 / Confirmed Dysphagia / SNOMED CT 57468390 / Confirmed Family history of colon cancer / SNOMED CT 710607959 / Confirmed Family history of colonic polyps / SNOMED CT 1815209980 / Confirmed GERD without esophagitis / SNOMED CT 1220600327 / Confirmed Hiatal hernia / SNOMED CT 498048048 / Confirmed History of esophageal spasm / SNOMED CT 366667077 / Confirmed IBS (irritable bowel syndrome) / SNOMED CT 76125627 / Confirmed Migraines / SNOMED CT 49948098 / Confirmed Obesity / SNOMED CT 9542064060 / Confirmed Vertigo / SNOMED CT 7555209628 / Confirmed, Active Problems (14) Acid reflux [...] in all extremities. Gastrointestinal: Soft, Non-tender. Plan [place] [employer]hesi[employer] (ASA) physical status classification: Class II. Anesthetic Preoperative Plan: Anesthesia General. [facility] Comment on above: Result Comment: Elec tronically Signed By: Juan Jose CORRALES, Balyne Jacobs.sorin\Date and Time Signed: 07/26/22 08:08 EST MG MAMM SCREEN 3D VALENTINA CADon 04-27-2022 MG MAMM SCREEN 3D [place] CAD Patient: CEFERINO PEREZ Exam Date: 04/27/2022 : 1955 Gender:F Ordering : DR BASSEM HERNANDEZ Admission #: [id number] Family : Order #: [id number] CLICK HERE TO VIEW EXAM RADIOLOGY REPORT PROCEDURE: MAMMOGRAM SCREENING 3D BILATERAL CAD COMPARISON: MG MAMM SCREEN 3D VALENTINA CAD, 04/17/2021. MG MAMM SCREEN VALENTINA W CAD, 04/12/2020. INDICATIONS: Screening mammography Calculator Name NCI Breast Cancer Risk Assessment Tool 5 Year Breast Cancer Risk 2.20% Lifetime Breast Cancer Risk 8.90% Personal Breast Cancer No Personal Ovarian Cancer No Treatments None Family Cancers Mother with lung cancer at age 76; Grandfather-maternal with stomach cancer at age 87. LOCATION: [facility] BREAST COMPOSITION: Scattered areas fibroglandular density. [...] LUMP SHOULD BE BIOPSIED. Dictated by: Bob Cameron M.D. on 05/01/2022 at 12:04 Approved by: Bob Cameron M.D. on 05/01/2022 at 12:06 Normal [facility] CBC AUTO DIFFon 02-19-2022 BASO # 0.0 103/ul Normal 0.0-0.1 [facility] Comment on above: Performed By: #### L IVER, TSH, BMP, LIPID #### [facility] [address] [place], [place] [address] Dr. Lisa Marcano Basophils/100 WBC (Bld) 0.5 % Normal 0.2-2.0 [facility] Comment on above: Performed By: #### L IVER, TSH, BMP, LIPID #### [facility] [address] [place] [address] Dr. Lisa Marcano EO # 0.1 103/ul Normal 0.0-0.7 [facility] Comment on above: Performed By: #### L IVER, TSH, BMP, LIPID #### [facility] [address] [place] [address] Dr. Lisa Marcano Eosinophils/100 WBC (Bld) 1.5 % Normal 0.9-7.0 [facility] Comment on above: Performed By: #### L IVER, TSH, BMP, LIPID #### [facility] [address] [place] [address] Dr. Lisa Marcano Erythrocyte distribution width (RBC) [Ratio] 13.3 % Normal 11.0-15.0 [facility] Comment on above: Performed By: #### L IVER, TSH, BMP, LIPID #### [facility] [address] [place] [address] Dr. Lisa Marcano Hematocrit (Bld) [Volume fraction] 40.2 % Normal 36.0-48.0 [facility] Comment on above: Performed By: #### L IVER, TSH, BMP, LIPID #### [facility] [address] [place] [address] Dr. Lisa Marcano Hemoglobin (Bld) [Mass/Vol] 12.8 g/dL Normal 12.0-16.0 [facility] Comment on above: Performed By: #### L IVER, TSH, BMP, LIPID #### [facility] [address] [place] [address] Dr. Lisa Marcano IG # 0.03 10e3/ul Normal 0.00-0.03 [facility] Comment on above: Performed By: #### L IVER, TSH, BMP, LIPID #### [facility] [address] [place] [address] Dr. Lisa Marcano IG % 0.4 % Normal 0.0-0.5 [facility] Comment on above: Performed By: #### L IVER, TSH, BMP, LIPID #### [facility] [address] [place] [address] Dr. Lisa Marcano LYMPH # 3.9 103/ul Critically high 1.2-3.8 [facility] Comment on above: Performed By: #### L IVER, TSH, BMP, LIPID #### [facility] [address] [place] [address] Dr. Lisa Marcano Lymphocytes/100 WBC (Bld) 48.9 % Normal 20.5-60.0 [facility] Comment on above: Performed By: #### L IVER, TSH, BMP, LIPID #### [facility] [address] [place] [address] Dr. Lisa Marcano MANUAL DIFF REQ NO Normal [facility] Comment on above: Performed By: #### L IVER, TSH, BMP, LIPID #### [facility] [address] [place] [address] Dr. Lisa Marcano MCH (RBC) [Entitic mass] 31.2 pg Normal 26.7-34.0 [facility] Comment on above: Performed By: #### L IVER, TSH, BMP, LIPID #### [facility] [address] [place] [address] Dr. Lisa Marcano MCHC (RBC) [Mass/Vol] 31.8 g/dL Normal 29.9-35.2 [facility] Comment on above: Performed By: #### L IVER, TSH, BMP, LIPID #### [facility] [address] [place] [address] Dr. Lisa Marcano MCV (RBC) [Entitic vol] 98.0 fL Normal 81.0-99.0 [facility] Comment on above: Performed By: #### L IVER, TSH, BMP, LIPID #### [facility] [address] [place] [address] Dr. Lisa Marcano MONO # 0.7 103/ul Normal 0.3-0.8 [facility] Comment on above: Performed By: #### L IVER, TSH, BMP, LIPID #### [facility] [address] [place] [address] Dr. Lisa Marcano Monocytes/100 WBC (Bld) 8.6 % Normal 1.7-12.0 [facility] Comment on above: Performed By: #### L IVER, TSH, BMP, LIPID #### [facility] [address] [place] [address] [address] Lisa Marcano NEUT # 3.2 103/ul Normal 1.4-6.5 [facility] Comment on above: Performed By: #### L IVER, TSH, BMP, LIPID #### [facility] [address] [place] [address] [address] Lisa Marcano Neutrophils/100 WBC (Bld) 40.1 % Critically low 43.0-75.0 [facility] Comment on above: Performed By: #### L IVER, TSH, BMP, LIPID #### [facility] [address] [place] [address] Dr. Lisa Marcano Platelet mean volume (Bld) [Entitic vol] 9.5 fL Normal 9.5-13.5 [facility] Comment on above: Performed By: #### L IVER, TSH, BMP, LIPID #### [facility] [address] [place] [address] Dr. Lisa Marcano PLT 194 103/ul Normal 150-450 [facility] Comment on above: Performed By: #### L IVER, TSH, BMP, LIPID #### [facility] [address] [place] [address] Dr. Lisa Marcano RBC 4.10 106/ul Critically low 4.20-5.40 [facility] Comment on above: Performed By: #### L IVER, TSH, BMP, LIPID #### [facility] [address] [place] [address] Dr. Lisa Marcnao WBC 7.9 103/ul Normal 4.0-11.0 [facility] Comment on above: Performed By: #### L IVER, TSH, BMP, LIPID #### [facility] [address] [place] [address] Dr. Lisa Marcano FERRITINon 02-19-2022 Ferritin [Mass/Vol] 74.0 ng/mL Normal 8.0-252.0 [facility] Comment on above: Performed By: #### F ERR, IRON, VITB12, VITAD #### [facility] [address] [place] [address] [address] Lisa Marcano GLYCOHEMOGLOBIN A1Con 2021 ADA RECOMMENDATION SEE BELOW Normal [facility] Comment on above: Result Comment: ADA RECOMMENDED LIMIT 4.0 - 6.0 ADA THERAPEUTIC TARGET < 7.0 ACTION SUGGESTED > 7.0 Performed By: #### L IVER, TSH, BMP, LIPID #### [facility] [address] [place] [address] [address] Lisa Marcano Glucose [Mass/Vol] 111 mg/dL Normal [facility] Comment on above: Performed By: #### L IVER, TSH, BMP, LIPID #### [facility] [address] [place] [address] Dr. Lisa Marcano HbA1c (Bld) [Mass fraction] 5.5 % Normal 4.5-6.2 [facility] Comment on above: Performed By: #### L IVER, TSH, BMP, LIPID #### [facility] [address] [place] [address] Dr. Lisa Marcano IRONon 02-19-2022 Iron [Mass/Vol] 91.0 ug/dL Normal 50.0-170.0 [facility] Comment on above: Performed By: #### F ERR, IRON, VITB12, VITAD #### [facility] [address] [place] [address] Dr. Lisa Marcano LIPID PROFILEon 02-19-2022 CHOL-HDL RATIO NORM SEE BELOW Normal [facility] Comment on above: Result Comment: 3.3 - 4.4 LOW RISK 4.4 - 7.1 AVERAGE RISK 7.1 - 11.0 MODERATE RISK >11.0 HIGH RISK Performed By: #### L IVER, TSH, BMP, LIPID #### [facility] [address] [place] [address] Dr. Lisa Marcano Cholesterol [Mass/Vol] 140 mg/dL Normal <=200 [facility] Comment on above: Performed By: #### L IVER, TSH, BMP, LIPID #### [facility] [address] [place] [address] Dr. Lisa Marcano Cholesterol in HDL [Mass/Vol] 74 mg/dL Critically high 40-60 [facility] Comment on above: Performed By: #### L IVER, TSH, BMP, LIPID #### [facility] [address] [place] [address] [address] Lisa Marcano Cholesterol in LDL [Mass/Vol] 45.8 mg/dL Normal [facility] Comment on above: Performed By: #### L IVER, TSH, BMP, LIPID #### [facility] [address] [place] [address] [address] Lisa Marcano Cholesterol.total/ Cholesterol in HDL [Mass ratio] 1.9 {ratio} Normal [facility] Comment on above: Performed By: #### L IVER, TSH, BMP, LIPID #### [facility] [address] [place] [address] [address] Lisa Marcano HDL NORMAL > or = 60 mg/dl - LO W CARDIOVASCULAR RISK <40 mg/dl - HIGH CARDIOVASCULAR RISK Normal [facility] Comment on above: Performed By: #### L IVER, TSH, BMP, LIPID #### [facility] [address] [place] [address] [address] Lisa Marcano LDL CALC NORMAL SEE BELOW Normal [facility] Comment on above: Result Comment: <100 mg/dl OPTIMAL 100 - 129 mg/dl NEAR OR ABOVE OPTIMAL 130 - 159 mg/dl BORDERLINE HIGH 160 - 189 mg/dl HIGH >190 mg/dl VERY HIGH Performed By: #### L IVER, TSH, BMP, LIPID #### [facility] [address] [place] [address] [address] Lisa Marcano Triglyceride [Mass/Vol] 101 mg/dL Normal <=150 [facility] Comment on above: Performed By: #### L IVER, TSH, BMP, LIPID #### [facility] [address] [place] [address] [address] Lisa Marcano VLDL CALC 20.2 mg/dL Normal [facility] Comment on above: Performed By: #### L IVER, TSH, BMP, LIPID #### [facility] [address] [place] [address] [address] Lisa Marcano LIVER PROFILEon 02-19-2022 Albumin [Mass/Vol] 3.7 g/dL Normal 3.4-5.0 [facility] Comment on above: Performed By: #### L IVER, TSH, BMP, LIPID #### [facility] [address] [place] [address] Dr. Lisa Marcano Albumin/Globulin [Mass ratio] 1.2 {ratio} Normal [facility] Comment on above: Performed By: #### L IVER, TSH, BMP, LIPID #### [facility] [address] [place] [address] Dr. Lisa Marcano ALP [Catalytic activity/Vol] 75 U/L Normal 46-116 [facility] Comment on above: Performed By: #### L IVER, TSH, BMP, LIPID #### [facility] [address] [place] [address] Dr. Lisa Marcano ALT [Catalytic activity/Vol] 24 U/L Normal 14-59 [facility] Comment on above: Performed By: #### L IVER, TSH, BMP, LIPID #### [facility] [address] [place] [address] Dr. Lisa Marcano AST [Catalytic activity/Vol] 17 U/L Normal 15-37 [facility] Comment on above: Performed By: #### L IVER, TSH, BMP, LIPID #### [facility] [address] [place] [address] Dr. Lisa Marcano BILI, CONJUGATED 0.1 mg/dL Normal 0.0-0.2 [facility] Comment on above: Performed By: #### L IVER, TSH, BMP, LIPID #### [facility] [address] [place] [address] Dr. Lisa Marcano Bilirubin [Mass/Vol] 0.5 mg/dL Normal 0.2-1.0 [facility] Comment on above: Performed By: #### L IVER, TSH, BMP, LIPID #### [facility] [address] [place] [address] Dr. Lisa Marcano Globulin (S) [Mass/Vol] 3.1 g/dL Normal [facility] Comment on above: Performed By: #### L IVER, TSH, BMP, LIPID #### [facility] [address] [place] [address] [address] Lisa Marcano Protein [Mass/Vol] 6.8 g/dL Normal 6.4-8.2 [facility] Comment on above: Performed By: #### L IVER, TSH, BMP, LIPID #### [facility] [address] [place] [address] [address] Lisa Marcano PROF CHEM 8 (BAS METB)on Anion gap [Moles/Vol] 9.0 mmol/L Normal [facility] Comment on above: Performed By: #### L IVER, TSH, BMP, LIPID #### [facility] [address] [place] [address] [address] Lisa Marcano Calcium [Mass/Vol] 8.9 mg/dL Normal 8.5-10.1 [facility] Comment on above: Performed By: #### L IVER, TSH, BMP, LIPID #### [facility] [address] [place] [address] Dr. Lisa Marcano Chloride [Moles/Vol] 109 mmol/L Critically high 98-107 [facility] Comment on above: Performed By: #### L IVER, TSH, BMP, LIPID #### [facility] [address] [place] [address] Dr. Lisa Marcano CO2 [Moles/Vol] 29.1 mmol/L Normal 21.0-32.0 [facility] Comment on above: Performed By: #### L IVER, TSH, BMP, LIPID #### [facility] [address] [place] [address] [address] Lisa Marcano Creatinine [Mass/Vol] 0.70 mg/dL Normal 0.55-1.02 [facility] Comment on above: Performed By: #### L IVER, TSH, BMP, LIPID #### [facility] [address] [place] [address] Dr. Lisa Marcano EGFR-AF [place] >60 Normal >=60 [facility] Comment on above: Performed By: #### L IVER, TSH, BMP, LIPID #### [facility] [address] [place] [address] [address] Lisa Marcano EGFR-NON AF [place] >60 Normal >=60 [facility] Comment on above: Performed By: #### L IVER, TSH, BMP, LIPID #### [facility] [address] [place] [address] [address] Lisa Marcano Glucose [Mass/Vol] 114 mg/dL Critically high 74-106 [facility] Comment on above: Performed By: #### L IVER, TSH, BMP, LIPID #### [facility] [address] [place] [address] [address] Lisa Marcano Potassium [Moles/Vol] 4.1 mmol/L Normal 3.5-5.1 [facility] Comment on above: Performed By: #### L IVER, TSH, BMP, LIPID #### [facility] [address] [place] [address] Dr. Lisa Marcano Sodium [Moles/Vol] 143 mmol/L Normal 136-145 [facility] Comment on above: Performed By: #### L IVER, TSH, BMP, LIPID #### [facility] [address] [place] [address] [address] Lisa Marcano Urea nitrogen [Mass/Vol] 24.0 mg/dL Critically high 7.0-18.0 [facility] Comment on above: Performed By: #### L IVER, TSH, BMP, LIPID #### [facility] [address] [place] [address] Dr. Lisa Marcano Urea nitrogen/Creatinin e [Mass ratio] 34.3 mg/mg Normal [facility] Comment on above: Performed By: #### L IVER, TSH, BMP, LIPID #### [facility] [address] [place] [address] Dr. iLsa Marcano TSHon 02-19-2022 TSH 1.706 uIU/mL Normal 0.358-3.740 [facility] Comment on above: Performed By: #### L IVER, TSH, BMP, LIPID #### [facility] [address] [place] [address] Dr. Lisa Marcano VITAMIN B12on 02-19-2022 Cobalamin (Vitamin B12) [Mass/Vol] 1064.0 pg/mL Critically high 193.0-986.0 [facility] Comment on above: Performed By: #### F ERR, IRON, VITB12, VITAD #### [facility] [address] [place] [address] [address] Lisa Marcano VITAMIN D 25 OHon 02-19-2022 VIT D 25-OH 43.9 ng/mL Normal [facility] Comment on above: Performed By: #### F ERR, IRON, VITB12, VITAD #### [facility] [address] [place] [address] [address] Lisa Marcano VIT D RANGES SEE BELOW Normal [facility] Comment on above: Result Comment: <20 ng/mL Vit D deficient 20 - <30 ng/mL Vit D insufficient 30 - 100 ng/mL Vit D sufficient >100 ng/mL Potential Toxicity Performed By: #### F ERR, IRON, VITB12, VITAD #### [facility] [address] [place] [address] [address] Lisa Marcano XR DEXA BONE DENSITYon [...] Moderate Fracture Risk Electronically authenticated by: BOB CAMERON Date: 2022-01-25 16:49 Normal [facility] CNPMarci 04-04-2021 CNPN Telephone ([facility]) CEFERINO PEREZ ([id number]) 1955 F Date Time Provider Department 04/04/21 CIRILO BEDOYA (ELIGIBILITY WORKER) TENZIN During your visit today, we recorded the following information about you: Cirilo Bedoya LPN 04/04/2021 3:40 PM Signed ----- [facility] sent at 04/03/2021 11:41 AM EDT ----- Regarding: Pt requesting a nurse call Contact: Vitamin questions. Allergies As of Date: 04/04/2021 Noted Allergy Reaction MUCINEX (GUAIFENESIN) 08/08/2016 9 - Itching PENICILLINS 02/12/2014 4 - Hives SEASONAL ALLERGIES 02/12/2014 14 - Other: See Comments Comments: Itchy eyes, watery nose SUDAFED (PSEUDOEPHEDRINE) 08/08/2016 9 - Itching Date Reviewed: 01/22/2020 Reviewed by: Cherie (Elijah) Aki - Fully Assessed Reason for Visit: [...] (FLONASE) 50 mcg/actuation nasal spray Use 1 [place] in each nostril once daily. - promethazine [...] gastrectomy [Z98.84] 01/10/2017 Encounter Status:Closed by CIRILO BEDOYA LPN on 04/04/21 Normal [facility] Vital Signs Date Time Vital Sign Value Performing Clinician Facility 07-16-2023 07:52-0500 Diastolic blood pressure 86 mm[Hg] [facility] 07-16-2023 07:52-0500 Heart rate 84 /min Ruth VILLA Work Phone: [facility] [place] [facility] 07-16-2023 07:52-0500 Respiratory rate 20 /min Ruth VILLA Work Phone: [facility] 07-16-2023 07:52-0500 Systolic blood pressure 131 mm[Hg] Ruth VILLA Work Phone: [facility] [place] [facility] 03-25-2023 12:32-0400 Blood Pressure Location Julee Ruiz [facility] 03-25-2023 12:32-0400 Body temperature 97.7 [degF] Julee Ruiz [facility] 03-25-2023 12:32-0400 Diastolic blood pressure 82 mm[Hg] Julee Liaometz [facility] 03-25-2023 12:32-0400 Heart rate 68 /min Julee Ruiz [facility] 03-25-2023 12:32-0400 Systolic blood pressure 120 mm[Hg] Julee Ruiz [facility] 02-15-2023 11:03-0400 Diastolic blood pressure 81 mm[Hg] Abdi Sarmini [facility] 02-15-2023 11:03-0400 Heart rate 79 /min Abdi Sarmini [facility] 02-15-2023 11:03-0400 Mean blood pressure 90 mm[Hg] Abdi Sarmini [facility] 02-15-2023 11:03-0400 Respiratory rate 19 /min Abdi Sarmini [facility] 02-15-2023 11:03-0400 SaO2% (BldA) [Mass fraction] 93 % Abdi Sarmini [facility] 02-15-2023 11:03-0400 Systolic blood pressure 108 mm[Hg] Abdi Sarmini [facility] 02-15-2023 10:50-0400 Diastolic blood pressure 54 mm[Hg] Abdi Sarmini [facility] 02-15-2023 10:50-0400 Heart rate 80 /min Abdi Sarmini [facility] 02-15-2023 10:50-0400 Mean blood pressure 62 mm[Hg] Abdi Sarmini [facility] 02-15-2023 10:50-0400 Respiratory rate 18 /min Abdi Sarmini [facility] 02-15-2023 10:50-0400 SaO2% (BldA) [Mass fraction] 98 % Abdi Sarmini [facility] 02-15-2023 10:50-0400 Systolic blood pressure 78 mm[Hg] Abdi Sarmini [facility] 02-15-2023 10:45-0400 Diastolic blood pressure 43 mm[Hg] Abdi Sarmini [facility] 02-15-2023 10:45-0400 Heart rate 81 /min Abdi Sarmini [facility] 02-15-2023 10:45-0400 Mean blood pressure 58 mm[Hg] Abdi Sarmini [facility] 02-15-2023 10:45-0400 Respiratory rate 16 /min Abdi Sarmini [facility] 02-15-2023 10:45-0400 SaO2% (BldA) [Mass fraction] 99 % Abdi Sarmini [facility] 02-15-2023 10:45-0400 Systolic blood pressure 89 mm[Hg] Abdi Sarmini [facility] 02-15-2023 10:38-0400 Body temperature 97.16 [degF] Abdi Sarmini [facility] 02-15-2023 10:30-0400 Respiratory rate 20 /min Abdi Sarmini [facility] 02-15-2023 10:25-0400 Respiratory rate 20 /min Abdi Sarmini [facility] 02-15-2023 10:15-0400 Respiratory rate 20 /min Abdi Sarmini [facility] 02-15-2023 09:42-0400 Blood Pressure Location Abdi Sarmini [facility] 02-15-2023 09:42-0400 Body temperature 96.8 [degF] Abdi Sarmini [facility] 01-21-2023 09:43-0400 Blood Pressure Location Julee [facility] 01-21-2023 09:43-0400 Body temperature 96.8 [degF] Julee [facility] 01-21-2023 09:43-0400 Diastolic blood pressure 74 mm[Hg] Julee [facility] 01-21-2023 09:43-0400 Heart rate 53 /min Julee [facility] 01-21-2023 09:43-0400 Systolic blood pressure 112 mm[Hg] Julee [facility] 08-24-2022 13:36-0400 Blood Pressure Location Julee [facility] 08-24-2022 13:36-0400 Body temperature 97.34 [degF] Julee [facility] 08-24-2022 13:36-0400 Diastolic blood pressure 76 mm[Hg] Julee Liaometz [facility] 08-24-2022 13:36-0400 Heart rate 66 /min Juleemaribel LiaoJoseph [facility] 08-24-2022 13:36-0400 Systolic blood pressure 110 mm[Hg] [facility]aribel L[facility] 07-26-2022 10:40-0500 Diastolic blood pressure 75 mm[Hg] Mg SALAM [facility] 07-26-2022 10:40-0500 Heart rate 62 /min Mg SALAM [facility] 07-26-2022 10:40-0500 Mean blood pressure 82 mm[Hg] Mg SALAM [facility] 07-26-2022 10:40-0500 Respiratory rate 12 /min Mg SALAM [facility] 07-26-2022 10:40-0500 SaO2% (BldA) [Mass fraction] 97 % Mg SALAM [facility] 07-26-2022 10:40-0500 Systolic blood pressure 95 mm[Hg] Mg SALAM [facility] 07-26-2022 10:30-0500 Diastolic blood pressure 56 mm[Hg] Mg SALAM [facility] 07-26-2022 10:30-0500 Heart rate 76 /min Mg SALAM [facility] 07-26-2022 10:30-0500 Respiratory rate 10 /min Mg SALAM [facility] 07-26-2022 10:30-0500 SaO2% (BldA) [Mass fraction] 100 % Mg SALAM [facility] 07-26-2022 10:30-0500 Systolic blood pressure 97 mm[Hg] Mg SALAM [facility] 07-26-2022 10:25-0500 Diastolic blood pressure 71 mm[Hg] Mg SALAM [facility] 07-26-2022 10:25-0500 Heart rate 63 /min Mg SALAM [facility] 07-26-2022 10:25-0500 Mean blood pressure 88 mm[Hg] Mg SALAM [facility] 07-26-2022 10:25-0500 Respiratory rate 10 /min Mg SALAM [facility] 07-26-2022 10:25-0500 SaO2% (BldA) [Mass fraction] 100 % Mg SALAM [facility] 07-26-2022 10:25-0500 Systolic blood pressure 121 mm[Hg] Mg SALAM [facility] 07-26-2022 10:20-0500 Mean blood pressure 86 mm[Hg] Mg SALAM [facility] 07-26-2022 10:19-0500 Blood Pressure Location Mg SALAM [facility] 07-26-2022 10:19-0500 Body temperature 98.96 [degF] Mg SALAM [facility] 07-26-2022 08:18-0500 Blood Pressure Location Mg SALAM [facility] 07-26-2022 08:18-0500 Body temperature 98.6 [degF] Haritha PAULINO [facility] 02-13-2022 12:31-0400 Blood Pressure Location [facility]aribel L[facility] 02-13-2022 12:31-0400 Body temperature 97.16 [degF] Julee Joseph [facility] 02-13-2022 12:31-0400 Diastolic blood pressure 73 mm[Hg] Julee [facility] 02-13-2022 12:31-0400 Heart rate 48 /min Julee Liaometz [facility] 02-13-2022 12:31-0400 Systolic blood pressure 108 mm[Hg] Julee [facility] 11-14-2021 13:48-0400 Diastolic blood pressure 78 mm[Hg] Julee Joseph [facility] 11-14-2021 13:48-0400 Mean blood pressure 93 mm[Hg] Julee Joseph [facility] 11-14-2021 13:48-0400 Systolic blood pressure 124 mm[Hg] Julee Joseph [facility] 11-14-2021 13:44-0400 Blood Pressure Location Juleemaribel LiaoJoseph [facility] 11-14-2021 13:44-0400 Body temperature 97.16 [degF] Julee Joseph [facility] 11-14-2021 13:44-0400 Diastolic blood pressure 90 mm[Hg] Julee Joseph [facility] 11-14-2021 13:44-0400 Heart rate 61 /min Juleemaribel LiaoJoseph [facility] 11-14-2021 13:44-0400 SaO2% (BldA) [Mass fraction] 100 % Julee Joseph [facility] 11-14-2021 13:44-0400 Systolic blood pressure 130 mm[Hg] Julee Joseph [facility] 10-18-2021 15:08-0400 Diastolic blood pressure 73 mm[Hg] Mg SALAM [facility] 10-18-2021 15:08-0400 Heart rate 60 /min Mg SALAM [facility] 10-18-2021 15:08-0400 Respiratory rate 22 /min Mg SALAM [facility] 10-18-2021 15:08-0400 SaO2% (BldA) [Mass fraction] 100 % Mg SALAM [facility] 10-18-2021 15:08-0400 Systolic blood pressure 103 mm[Hg] Mg SALAM [facility] 10-18-2021 14:55-0400 Diastolic blood pressure 62 mm[Hg] Mg SALAM [facility] 10-18-2021 14:55-0400 Heart rate 60 /min Mg SALAM [facility] 10-18-2021 14:55-0400 Respiratory rate 19 /min Mg SALAM [facility] 10-18-2021 14:55-0400 SaO2% (BldA) [Mass fraction] 100 % Mg SALAM [facility] 10-18-2021 14:55-0400 Systolic blood pressure 103 mm[Hg] Mg SALAM [facility] 10-18-2021 14:50-0400 Diastolic blood pressure 62 mm[Hg] Mg SALAM [facility] 10-18-2021 14:50-0400 Heart rate 74 /min Mg SALAM [facility] 10-18-2021 14:50-0400 Respiratory rate 17 /min Mg SALAM [facility] 10-18-2021 14:50-0400 SaO2% (BldA) [Mass fraction] 100 % Mg SALAM [facility] 10-18-2021 14:50-0400 Systolic blood pressure 103 mm[Hg] Mg SALAM [facility] 10-18-2021 14:43-0400 Body temperature 98.24 [degF] Mg SALAM [facility] 10-18-2021 14:40-0400 Respiratory rate 17 /min Mg SALAM [facility] 10-18-2021 14:35-0400 Respiratory rate 19 /min Mg SALAM [facility] 10-18-2021 14:30-0400 Respiratory rate 1 /min Mg SALAM [facility] 10-18-2021 13:53-0400 Blood Pressure Location Haritha PAULINO [facility] 10-18-2021 13:53-0400 Body temperature 97.34 [degF] Haritha PAULINO [facility] Encounters Encounter Date Encounter Type Care Provider Facility Start: 09-10-2023 End: 09-10-2023 ambulatory RUTH S DIVYA [facility] Start: 08-19-2023 End: 08-19-2023 ambulatory [facility] Start: 08-14-2023 End: 08-14-2023 ambulatory SERGE HILTON Not Available Start: 08-08-2023 Refill Aarti Bergeron RN [facility] Comment on above: Lumbosacral spondylo sis without myelopathy Start: 08-05-2023 End: 09-02-2023 ambulatory RUTH S [facility] Start: 08-03-2023 End: 08-03-2023 ambulatory JOSE FRAZIER [facility] Start: 08-02-2023 End: 08-03-2023 [facility] Start: 08-02-2023 End: 08-03-2023 Emergency department patient visit RACHEL Carrie [facility] Start: 08-02-2023 End: 08-02-2023 ambulatory VIC KEENE [facility] Start: 07-18-2023 End: 08-02-2023 ambulatory [facility] Start: 07-16-2023 End: 07-16-2023 ambulatory [facility] Start: 07-16-2023 End: 07-16-2023 Office outpatient visit 25 minutes Ruth VILLA Work Phone: [facility] Comment on above: Disorder of sacrum ( Primary Dx); Lumbosacral spondylosis without myelopathy; Acute pain of left shoulder Start: 07-12-2023 Refill Tressa Tolliver RN [facility] Comment on above: Lumbosacral spondylo sis without myelopathy Start: 07-08-2023 Telephone encounter Vic Keene MD Work Phone: [facility] Start: 07-05-2023 End: 07-06-2023 ambulatory SERGE MCKENNAR [facility] Start: 2023 End: 2023 ambulatory SERGE AVELARERER Not Available Start: 06-17-2023 Orders Only Ruth VILLA Work Phone: [facility] Start: 06-11-2023 Refill Radha Jacob RN [facility] Comment on above: Lumbosacral spondylo sis without myelopathy Start: 05-22-2023 End: 05-22-2023 ambulatory [facility] Start: 05-15-2023 End: 05-15-2023 ambulatory SERGE HILTON Not Available Start: 03-25-2023 End: 03-26-2023 ambulatory Julee Ruiz Facility:[facility] Start: 03-25-2023 End: 08-30-2023 Pre-admission assessment Abdi Talal Sarmini [facility] Start: 03-25-2023 End: 03-25-2023 Patient encounter procedure Julee Ruiz [facility] Start: 02-15-2023 End: 02-15-2023 ambulatory Abdi Talal Sarmini Facility:[facility] Start: 02-15-2023 End: 02-15-2023 Patient encounter procedure Abdi Talal Sarmini [facility] Start: 01-21-2023 End: 01-22-2023 [facility] Start: 01-21-2023 End: 01-21-2023 Patient encounter procedure Julee Snell Joseph [facility] Start: 08-24-2022 End: 08-25-2022 ambulatory Julee Channing [facility] Start: 08-24-2022 End: 08-24-2022 Patient encounter procedure Julee Snell Joseph [facility] Start: 07-26-2022 End: 07-27-2022 ambulatory Haritha PAULINO Facility:[facility] Start: 07-26-2022 End: 07-26-2022 Patient encounter procedure [facility] GONZÁLEZ [facility] Start: 04-27-2022 End: 04-28-[address] BASSEM HERNANDEZ Facility:[facility] Start: 03-22-2022 End: 03-22-2022 Patient encounter procedure Juleemaribel Liaometz [facility] Start: 02-21-2022 Encounter for genera l adult medical examination without abnormal findings DR SERGE HILTON [facility] Start: 02-19-2022 End: 02-20-[address] SERGE HILTON Facility:[facility] Start: 02-19-2022 End: 02-20-2022 Encounter for general adult medical examination without abnormal findings DR SERGE HILTON Facility:[facility] Start: 02-13-2022 End: 02-13-2022 Patient encounter procedure Julee Ruiz [facility] Start: 01-25-2022 End: 01-26-[address] BASSEM HERNANDEZ Facility:[facility] Start: 11-14-2021 End: 11-14-2021 Patient encounter procedure Julee Ruiz [facility] Start: 10-18-2021 End: 10-18-2021 Patient encounter procedure Haritha PAULINO [facility] Start: 12-29-2018 End: 01-01-2019 Patient encounter procedure YOSHI BURNS [facility] Start: 11-21-2017 End: 11-22-2017 Ambulatory DEFAULT PHYSICIAN Facility:[facility] Start: 10-08-2017 End: 10-09-2017 Ambulatory SERGE NADERER Facility:[facility] Start: 03-13-2017 End: 03-14-2017 Ambulatory DEFAULT PHYSICIAN Facility:[facility] Procedures Date Procedure Procedure Detail Performing Clinician Start: 02-15-2023 Esophagogastroduodenoscopy Jin chaidez Start: 07-26-2022 Colonoscopic polypectomy Mg SALAM Start: 07-26-2022 Esophagogastroduodenoscopy Mg SALAM Start: 12-16-2020 Esophagogastroduodenoscopy Mg SALAM Start: 12-29-2018 Dup-scan xtr veins complete bilateral study YOSHI BURNS Bariatric surgery se rvice (qualifier value) Mg SALAM section Mg SALAM Hernia repair Mg SALAM Hysterectomy Mg SALAM Plan of Treatment Date Care Activity Detail Author Start: 08-01-2024 Tobacco Screening Tobacco Screening [facility] Start: 07-16-2024 Tobacco Screening Tobacco Screening [facility] Start: 05-07-2024 Tobacco Screening Tobacco Screening [facility] Start: 04-11-2024 Adult BMI Screening Adult BMI Screen ing [facility] Start: 08-13-2023 End: 08-13-2023 Patient encounter procedure 08/13/2023 1:45 PM EDT Office Visit [facility] [address] [place] [address] Ruth Palma PA [address] [place] [address] [facility] Start: 08-02-2023 End: 08-02-2023 Admission to same day surgery center 08/02/2023 9:23 AM EST - 08/02/2023 9:30 AM EST Surgery [facility] [address] [place] [id number] Vic Keene MD [address], [place] [id number] INJECTION BLOCK SACROILIAC JOINT [42791 (CPT )] [facility] Comment on above: INJECTION BLOCK SACR OILIAC JOINT [91370 (CPT )] Start: 08-02-2023 End: 08-02-2023 Inject si joint arthrgrphy&/anes/steroid w/geetha INJECTION BLOCK SACROILIAC JOINT Disorder of sacrum 08/02/2023 9:23 AM EST [facility] Start: 08-02-2023 Subsequent hospital visit by physician 08/02/2023 9:23 AM EST Hospital Encounter [facility] [address] [place] [id number] Vic Keene MD [address], [place] [id number] [facility] Start: 2022 Fall Risk Screening Fall Risk Screen ing [facility] Start: 2007 Administration of varicella zoster vaccine Zoster (Shingles) Vaccine (1 of 2) [facility] Start: 1976 DTaP,Tdap and Td Vac cines (1 - Tdap) DTaP,Tdap and Td Vaccines (1 - Tdap) [facility] Start: 1975 Adult BMI Follow Up Plan Adult BMI Follow Up Plan [facility] Start: 1969 Depression Screening Depression Scre ening [facility] Start: 1955 Medicare Annual Well ness Visit Medicare Annual Wellness Visit [facility] Immunizations Immunization Date Immunization Notes Care Provider Fa benson 03-13-2023 influenza virus vaccine, unspecified formulation Julee Liaometz [facility] 03-10-2022 influenza virus vaccine, unspecified formulation Mg SALAM [facility] 03-10-2022 SARS-CoV-2 (COVID-19 ) [id number] Mg SALAM [facility] 03-30-2021 SARS-CoV-2 (COVID-19 ) Ad26 vaccine, recombinant Mg SALAM [facility] Comment on above: Result Comment: 2021: [id number] 02-15-2021 influenza virus vaccine, unspecified formulation Mg SALAM [facility] 02-01-2021 influenza virus vaccine, unspecified formulation Mg SALAM [facility] 08-10-2020 SARS-CoV-2 (COVID-19 ) Ad26 vaccine, recombinant Mg SALAM [facility] Comment on above: Result Comment: 2021: [id number] 02-11-2018 influenza virus vaccine, unspecified formulation Mg SALAM [facility] 02-19-2015 influenza virus vaccine, unspecified formulation Mg SALAM [facility] NEGATED: Highlighted row has not occurred!02-13-2022 influenza virus vaccine, unspecified formulation Julee Ruiz [facility] Payers Date Payer Category Payer Medicare [id number] 2022 Medicare [id number] 2022 Private Health Insurance [id number] 2015 Medicaid [id number] 1959 Unknown [id number] 1957 Unknown [id number] 2.16.8 40.1.119837.3.579.2.173 1957 Unknown [id number] 2.16.84 0.1.820004.3.579.2.593 1957 Unknown [id number] 2.16.84 0.1.599405.3.579.2.593 1957 Unknown [id number] 2.16.84 0.1.395627.3.579.2.593 1957 Unknown [id number] 2.16.8 40.1.678468.3.579.2.727 1957 Unknown [id number] 2.16.8 40.1.187559.3.579.2.727 1957 Unknown [id number] 2.16.8 40.1.448601.3.579.2.727 1957 Unknown [id number] 2.16.8 40.1.363715.3.579.2.727 1957 Unknown [id number] 2.16.8 40.1.817327.3.579.2.727 1957 Unknown [id number] 2.16.84 0.1.760734.3.579.2.1259 1957 Unknown [id number] 2.16.84 0.1.626630.3.579.2.1259 1957 Unknown [id number] 2.16.840 .1.969461.3.579.2.1259 1957 Unknown [id number] 2.16.8 40.1.845902.3.579.2.1286 1957 Unknown [id number] 2.16.8 40.1.386909.3.579.2.128 1957 Unknown [id number] 2.16.8 40.1.431070.3.579.2.128 1957 Unknown [id number] 2.16.8 40.1.513730.3.579.2.1285 1957 Unknown [id number] 2.16.8 40.1.896277.3.579.2.1285 1957 Unknown [id number] 2.16.8 40.1.525312.3.579.2.1286 1957 Unknown [id number] 2.16.8 40.1.075035.3.579.2.1286 1957 Unknown [id number] 2.16.8 40.1.603670.3.579.2.1285 1957 Unknown [id number] 2.16.8 40.1.421596.3.579.2.1285 1957 Unknown [id number] 2.16.8 40.1.860359.3.579.2.128 1957 Unknown [id number] 2.16.8 40.1.730239.3.579.2.128 1957 Unknown [id number] 2.16.8 40.1.802564.3.579.2.1286 Unknown Social History Date Type Detail Facility Start: 08-14-2021 End: 03-25-2023 Tobacco smoking status Never smoked tobacco (finding) [facility] Tobacco smoking status Never [facility] Start: 06-17-2020 End: 05-07-2023 Sex Assigned At Female [facility] Start: 05-31-2022 Tobacco use and exposure Smokeless tobacco non-user [facility] Start: 05-07-2023 End: 08-02-2023 Alcohol intake Current non-drinker of alcohol (finding) [facility] Start: 06-17-2020 End: 05-07-2023 History of Social function [facility] Start: 1955 Sex Assigned At Not on file [facility] [place] [facility] Procedure Code Equipment Code Equipment [...] Assessment Result Facility 03-25-2023 Functional Status N/A [facility] 02-15-2023 Functional Status N/A [facility] 01-21-2023 Functional Status N/A [facility] 08-24-2022 Functional Status N/A [facility] 07-26-2022 Functional Status N/A [facility] 02-13-2022 N/A [facility] 11-14-2021 Functional Status N/A [facility] Clinical Notes 05-23-2021 to 08-19-2023 Telephone Encounter - Aarti Bergeron RN - 08/08/2023 11:00 AM ESTTelephone Encounter - Aarti Bergeron RN - 08/08/2023 11:00 AM ALLEN Gaspar - 07/16/2023 7:45 AM ESTPatient Instructions Note Date & Type Note Facility 08-19-2023 Note [place] [facility] Andre Perez is a 68 y.o. year old female patient being seen for follow up [facility] ED visit on 08/02/2023 for rapid heart rate. She was being prepped for spinal injections with pain management and anesthesiology team noted possible afib due to rapid heart rate. She was started on metoprolol and Eliquis. Says her intermittent chest squeezing and lightheadedness are occurring more often. She is scheduled for a colonoscopy on 08/29/2023 and is requesting clearance for that. Patient Active Problem List Diagnosis Chest pain [...] RLS (restless legs syndrome) Vitamin D deficiency Chronic left shoulder pain Paroxysmal atrial fibrillation (CMS/HCC) Postmenopausal Family History Problem Relation Name Age of Onset Hypertension Mother Diabetes Father Social History Tobacco Use Smoking status: Never Passive exposure: Current Smokeless tobacco: Never HPI Ceferino is seen [...] mg daily, midodrine 10 mg twice daily. In addition she takes metoprolol succinate 50 mg daily. Previously she has been complaining of intermittent dizziness. She was evaluated on 05/07/2023 in the emergency room because of that as well as other symptoms such as sweating and chest discomfort. She was discharged from the emergency room. On 08/02/2023 she was evaluated in the emergency room after being at the pain management clinic for spinal injections and was noted to have elevated heart rate with a suspicion of possible atrial fibrillation. She was started on heparin and Cardizem. She was started on Toprol and Eliquis. She reports that at the time of the diagnosis of atrial fibrillation she felt severe palpitations. She also reports having episodes of chest pain that happen on and off during the day feels like squeezing sensation in the left side of the chest. No radiation. Happen spontaneously and is relieved spontaneously. In addition she reports bilateral lower extremity swelling. Review of Systems Cardiovascular: Positive for chest pain (intermittent squeezing ), dyspnea on exertion, leg swelling and palpitations ( sometimes ). Respiratory: Positive for cough, shortness of breath and wheezing. Musculoskeletal: Positive for arthritis, back pain and joint pain. Neurological: Positive for light-headedness and vertigo. All other systems reviewed and are negative. Objective Visit Vitals BP 128/80 (BP Location: Left arm, Patient Position: Sitting) Pulse 56 Ht 1.499 m (4' 11 ) Wt 96.2 kg (212 lb) SpO2 95% BMI 42.82 kg/m??? Smoking Status Never BSA 2 m??? Physical Exam Constitutional: Appearance: She is well-developed. She is obese. She is not ill-appearing. HE (more content not included)... [facility] 08-08-2023 Miscellaneous Notes Last Office Visit: 07/16/2023 Next Office Visit: Visit date not found Last Urine Drug Screen: Lab Results Component Value Date BENZOSCRN Negative 09/13/2022 OAR[facility] appropriate documented in this encounter [facility] 08-08-2023 Telephone encounter Note Last Office Visit: 07/16/2023 Next Office Visit: Visit date not found Last Urine Drug Screen: Lab Results Component Value Date BENZOSCRN Negative 09/13/2022 OARRS appropriate [facility] 07-16-2023 History of Present illness Narrative [facility] [address] [place] [address] Patient: Ceferino Perez Sex: female : 1955 Age: 68 y.o. PCP: SERGE HILTON MD 07/16/2023 Ceferino Perez is here for a(n) follow up. Chief Complaint Patient presents with Back Pain HPI: 06/20/18 Left L4/5, 5/1 RFA w/ 70% relief. valentina SI joint w/80%. 09/23/20 Right L4/5,5/1 RFA's w/ sig relief for 2 1/2 yrs 01/29/2020 Left L4/5, 5/1 RFA 01/29/20 w/75% relief. Right T 10.11 NRI 11/20/19 w/ 65% relief 05/18/2022 Right T10,11 NRI with 75% relief that continues 07/21/2021 bilat SIJ injectin with 75% relief. 09/23/20 Right L4/5, 5/1 RFA w/65% relief. 11/24/21 Bilateral SIJ with 60% relief which continues 06/29/22 Bilateral SI joint injection with 80% relief and 50% continued relief 12/28/22 Bilateral SI injection with 70% relief Back Pain This is a chronic problem. The current episode started more than 1 year ago (2009). The problem occurs constantly. The problem has been gradually worsening since onset. The pain is present in the thoracic spine, lumbar spine, sacro-iliac and gluteal (right thoracic). The quality of the pain is described as aching, shooting and cramping. Radiates to: down buttocks and up back. The pain is at a severity of 5/10. The pain is moderate. The pain is The same all the time. Exacerbated by: walking, stairs, leaning on cart, pushing/pulling, bending, prolonged standing and sitting, washing dishes, pulling weeds Stiffness is present All day and in the morning. Associated symptoms include numbness (intermittent to anterior Left thigh). Pertinent negatives include no bladder incontinence, bowel incontinence, chest pain, fever, leg pain, tingling or weakness. Risk factors include sedentary lifestyle and lack of exercise. Treatments tried: PT/HEP (02/2022) w/no relief, weight loss, past SI inj w/ mod relief. [place] w/ mod relief, OTC analgesics. NSAID x2 (naproxen, ibuprofen) w/ slight relief. The treatment provided moderate relief. The effect of pain on patient's ADLS: Moderate Impairment. Past Medical History: Diagnosis Date Anxiety Arrhythmia Arthritis Asthma Back pain Bronchitis CAD (coronary artery disease) Chronic kidney disease cyst x2 on right kidney, kidney stone left Chronic pain disorder COPD (chronic obstructive pulmonary disease) ([facility]) Cyst of right kidney Depression Esophageal dilatation Esophageal spasm GERD (gastroesophageal reflux disease) Glaucoma Head injury concussion 1 yr ago Hemorrhoids IBS (irritable bowel syndrome) Injury of back Low back pain Lumbar disc disease Neuropathy Osteoporosis Urine abnormality Deviation of urine stream Visual impairment glasses Past Surgical History: Procedure Laterality Date ABLATION RADIOFREQUENCY SPINAL: right L 09/05 10/01 Right 09/23/2020 Performed by Vic Keene MD at [facility] BARIATRIC SURGERY CARDIAC CATHETERIZATION CATARACT EXTRACTION SECTION CHOLECYSTECTOMY COLON SURGERY CYSTOSCOPY DILATATION URETHRAL UM SOLUTION N/A 05/12/2018 Performed by Rachel Dey MD at [facility] ESOPHAGOGASTRODUODENOSCOPY ESWL left Left 09/05/2015 Performed by Rachel Dey MD at [facility] EXTERNAL EAR SURGERY Right FEMORAL ARTERY STENT Left leg 2012 HERNIA REPAIR x12 HYSTERECTOMY INJECTION BLOCK SACROILIAC JOINT Bilateral 12/28/2022 Performed by iVc Keene MD at [facility] INJECTION BLOCK SACROILIAC JOINT Bilateral 06/29/2022 Performed by Vic Keene MD at [facility] INJECTION BLOCK SACROILIAC JOINT Bilateral 11/24/2021 Performed by Vic Keene MD at [facility] INJECTION BLOCK SACROILIAC JOINT Bilateral 07/21/2021 Performed by Vic Keene MD at [facility] SACROILIAC NERVE Bilateral 06/01/2019 Performed by Vic Keene MD at [facility] SPINE TRANSFORAMINAL: right T 10,11 Nroot Right 05/18/2022 Performed by Vic Keene MD at [facility] INJECTION STEROID EPI 2 WITH SEDATION: right T10, 11 nroot Right 11/20/2019 Performed by Vic Keene MD at [facility] INJECTION STEROID EPI 2 WITH SEDATION: right T10,11 nroot Right 04/17/2019 Performed by Vic Keene MD at [facility] LOWER LEG Left vein angioplasty RADIO FREQUENCY ABLATION L4/5 5/1 Right 06/06/2018 Performed by Vic Keene MD at [facility] RADIO FREQUENCY ABLATION L4/5 L5/S1 Left 06/20/2018 Performed by Vic Keene MD at [facility] RADIO FREQUENCY ABLATION LEFT L4/5,5/S1 Left 06/07/2017 Performed by Vic Keene MD at [facility] RADIO FREQUENCY ABLATION: left L45 51rfa Left 01/29/2020 Performed by Vic Keene MD at [facility] RADIOFREQUENCY ABLATION SPINAL: right L45 51 rfa Right 05/17/2017 Performed by Vic Keene MD at [facility] URETHRAL DILATION 12/2014 Allergies Allergen Reactions Penicillin Guaifenesin Dizziness Latex Rash Penicillins Hives Pseudoephedrine Hives Family History Problem Relation Age of Onset Heart disease Mother Cancer Mother Heart disease Father Diabetes Father Stroke Brother Heart disease Brother Social History Socioeconomic History Marital status: Spouse name: Not on file Number of children: Not on file Years of education: Not on file Highest education level: Not on file Occupational History Not on file Tobacco Use Smoking status: Never Smokeless tobacco: Never Vaping Use Vaping Use: Never used Substance and Sexual Activity Alcohol use: No Drug use: No Sexual activity: Defer Partners: Male control/protection: Surgical Other Topics Concern Not on file Social History Narrative Not on file Social Determinants of Health Financial Resource Strain: Not on file Food Insecurity: No Food Insecurity (07/16/2023) Hunger Screening Food Insecurity - Worry: Never True Food Insecurity - Inability: Never True Transportation Needs: Not on file Physical Activity: Not on file Stress: Not on file Social Connections: Not on file Interpersonal Safety: Not on file Housing Instability: Not on file Review of Systems Constitutional: Positive for fatigue. Negative for chills and fever. HENT: Negative. Eyes: Negative. Respiratory: Positive for cough (x few days). Negative for shortness of breath. Cardiovascular: Positive for leg swelling (BLE). Negative for chest pain. Gastrointestinal: Positive for constipation. Negative for bowel incontinence and diarrhea. Endocrine: Negative. Genitourinary: Negative. Negative for bladder incontinence, difficulty urinating and frequency. Musculoskeletal: Positive for back pain. Skin: Negative. Allergic/Immunologic: Negative. Neurological: Positive for numbness (intermittent to anterior Left thigh). Negative for tingling and weakness. Hematological: Negative. Psychiatric/Behavioral: Negative. Vital Signs: BP 131/86 (BP Site: Right Arm, BP Postition: Sitting) Pulse 84 Resp 20 Physical Exam: GENERAL - Healthy patient that appears stated age. HEENT - Normocephalic / Atraumatic, Extraoccular movements intact, trachea midline, thyroid within normal limits. CV - pulse regular, Warm extremities with appropriate color of nailbeds. RESP - No obvious wheezing, No Shortness of Breath, No overexertion response to exam maneuvers. COORDINATION - remains intact. PSYCH - Alert and Oriented x4, Attentive and appropriate, constitutionally normal, displays normal mood and affect per situation, answered questions appropriately during examination, demonstrated appropriate attention during discussion, demonstrated appropriate cognitive reasoning and understanding of the medical condition by asking appropriate questions regarding the diagnosis and risks/benefits/alternatives of treatment modalities. No obvious deficits in memory, reasoning, or intellect. Tenderness to palpation noted over the Bilateral Shoulder Joint. Pain is noted with palpation of the acromion and clavical as well as the acromioclavicular junction. No significant pain at the sternoclavicular junction. Some pain is noted at the bicipital groove and the subacromial bursa. Pain is elicited with flexion, abduction, internal rotation, and external rotation of the shoulder with active and passive motion which is consistent with some of the patient s normal pain. Some grinding is noted with these motions. No obvious ligamental laxity is noted. Empty Can Test is negative. Neers Sign is negative. Lumbar: SKIN - No rashes or bruising in the area of the patient s pain. LYMPH NODES - demonstrate no obvious enlargement. EXTREMITIES - Lower extremities are warm, with minimal edema and palpable pulses. No significant tenderness to palpation noted in the lumbar spine and paraspinal musculature. Mild pain is elicited with flexion, extension, and lateral rotation of the lumbar spine. Range of motion is not diminished with these motions. Facet palpation is negative for significant pain and facet loading maneuvers elicit only mild pain that is not concordant with the patient s normal pain complaints. STRENGTH - noted to be 5 out of 5 all muscle groups bilateral lower extremities including muscles involving hip flexion and abduction, knee flexion and extension, as well as foot dorsiflexion and plantarflexion. No notable atrophy, fasciculations or spasm. SENSORY - No notable sensory deficits in the bilateral lower extremities to touch or pinprick in all dermatomal distributions. Straight Leg Raise is negative bilaterally. Tenderness to palpation is noted over the Bilateral SacroIliac Joint: Fabere sign (Yomi's Test) is significantly positive, as is compression and distraction of the sacroiliac joints, which is consistent with some of the patient's normal pain. Gait is normal. Assessment/Treatment Plan: Ceferino was seen today for back pain. Diagnoses and all orders for this visit: Disorder of sacrum - Case request operating room: INJECTION BLOCK SACROILIAC JOINT Lumbosacral spondylosis without myelopathy - HYDROcodone-acetaminophen (NORCO) 5-325 mg per tablet; Take 1/2 to 1 tablet by mouth three times per day as needed for pain. Acute pain of left shoulder - Ambulatory referral to Physical Therapy; Future Refill [place] 2/325 mg 1/2-1 tablet TID PRN Ice, OTC Voltaren gel to Left Shoulder With Regard to medication management, it is felt that the patient would benefit from the changes mentioned above. This should provide symptomatic pain relief as part of the comprehensive pain management strategy outlined. Risks, Benefits, Side effects, and possible interactions of these medications were reviewed and the medication agreement has been discussed, agreed upon, and signed. The patient understands compliance concerns and the requirement of pill counts and drug screens while taking medications prescribed by this clinic. The patient is advised to apply ice or cold packs intermittently as needed to relieve pain. Physical/Aquatic Therapy - Left Shoulder Pain It is felt that the patient will benefit from a course of physical therapy focusing on the above mentioned diagnosis. We will recommend that the physical therapist fully evaluate and treat at their discretion considering the modalities that are most useful for the condition being treated. This may include modalities of comfort including moist heat, ultrasound, and TENS therapy. It may also utilize manual therapy and myofascial release for the myofascial component of the patient s pain. It will likely advance to modalities aimed at stabilizing and strengthing the target area while improving range of motion as well. We are also requesting that the physical therapist send notes that will keep our clinic updated to the patient s progress. Bilateral Sacroiliac Joint Injection - under fluoroscopy with the use of contrast dye (unless contraindicated) It is hopeful that the described procedure will provide symptomatic pain relief. It is felt to be medically necessary noting that the patient has tried and failed more conservative modalities of therapy and this is the next most appropriate step. The procedure was described in detail to the patient as well as the potential benefits of pain reduction alongside risks of the procedure and alternatives. Risks were described as including, but not limited to bleeding, infection, nerve damage, spinal cord injury, paralysis, stroke, dural puncture headache, and medication reaction. The patient expressed understanding regarding the risks and benefits and wishes to proceed. Diagnostic SI injections should provide information to confirm that the noted SI Joint arthropathy is the patient s most significant pain generator. If this provides significant but only temporary pain relief, the patient may in the future be a candidate for radiofrequency denervation of the SI joint to provide pain relief for approximately 1 year. Follow up 2 weeks after procedure The medications I have prescribed have been reviewed for medication interactions/contraindications and/or for upcoming procedures: continue current medication regimen without any changes. DISCUSSION: Treatment options discussed with patient and all questions answered to patient's satisfaction. Discussed the rules and regulations surrounding prescription of opioids and compliance at length. Failure to follow the rules and regulation will result in tapering and discontinuation of medications if applicable. The patient has been instructed as to the type of medication prescribed along with directions for use. Potential side effects have been discussed, along with risks and benefits of taking this medication. (S)he was instructed as to what to do if (s)he experiences side effects, including when to discontinue the medication. (S)he was advised to call this office in this event. Also discussed at length safety and security of RX and medications. Due to the high risk nature of this patient's pain medication regimen, frequent office visit refill appointments (every 1-3 months) are medically necessary to monitor for an addiction disorder. Prescribed medication that requires intensive monitoring for toxicity: [place] and was refilled at today's office visit. OARRS and most recent UDS were reviewed, discussed and appropriate for medications prescribed. [place] pill count completed at today's office visit. Dose: 5/325 mg Quantity Dispensed 70 Quantity Remaining 10 Fill date on prescription bottle 06/17/2023 appropriate Patient educated to bring medication to every office visit. It is noted that the patient did have good response from the previously performed procedure. It is felt that the patient would benefit from an additional procedure of the same nature in that the same symptoms have returned. It is hopeful that this additional injection will provide additional benefit and duration when combined with the previous injection. The spine model was demonstrated and MRI was reviewed and used to explain the condition. Chronic conditions not treated during this visit that affected my overall medical decision making: Comorbidity- Obesity The patient does have a comorbid condition of obesity. This will be taken into account in that obesity will contribute to certain pain conditions. It can contribute to pain from degenerative disc disease as well as osteoarthritis of the joints. Many neuropathic symptoms are also amplified due to axial spine loading. Special benefits will also need to be given to procedures. Many procedures are technically more difficult in the light of severe obesity. I will also consider the possibility of undiagnosed obstructive sleep apnea (which often accompanies obesity) when prescribing any narcotic medications. I will weigh the risks and benefits and fully discuss them with the patient for these reasons. Comorbidity- Diabetes The patient has a history of diabetes mellitus currently managed with medications. This will need to be considered prior to any procedure that would require the injection of steroid in that the patient may experience a transient increase in glucose as a result. Additional consideration will need to be given to timing the procedure early in the morning in that the patient will need to be fasting prior to the administration of anesthesia. Every effort will be made to perform the procedure as a 1st case due to this condition. And the patient will be instructed to hold their diabetic medications on that morning. If necessary, a blood glucose test can also be performed that morning. The risks/ benefits/ and alternatives will be weighed and explained to the patient prior to any procedure. OARRS: Reviewed. Scribe Statement: Scribed for and in the presence of ALLEN JOLLY by Lisy Gonsalves CNA. Provider Statement: I, ALLEN JOLLY, personally performed the services described in the documentation, as scribed by Lisy Gonsalves CNA in my presence, and it is both accurate and complete. Lisy Gonsalves CNA 07/16/23 0830 ALLEN Jolly 07/16/23 1509 documented in this encounter [facility] 07-16-2023 Instructions Lisy Gonsalves CNA - 07/16/2023 7:45 AM EST Facet Injection / Medial Branch Block (MBB) / Sacroiliac (SI) Joint Injection A facet injection and sacroiliac joint injection are injections of local anesthetic and steroid into a joint in the spine. A medial branch block is similar, but the medication is placed outside the joint space near the nerve that supplies the joint called the medial branch (steroid may or may not be used). You may require multiple injections depending upon how many joints are involved. How Long Will This Procedure Last? The extent and duration of pain relief may depend on the amount of inflammation and how many areas are involved. Other coexisting factors may be responsible for your pain. If your pain goes away for a short time, but then returns, you may be a candidate for radiofrequency ablation (RFA). Activity Be active. Attempt activities and movements that typically cause pain to see if it feels better while doing them. We will give you a pain diary. Please fill this out as directed by your nurse in pre-op. This will help your doctor determine the effectiveness of the injection, and how to proceed. Bring the pain diary with you to your follow-up appointment. Medications You should not take your pain medications for 4-6 hours before or after the injection in order to properly diagnose if the injection provides adequate relief. Resume your routine medications after your procedure. You may resume blood thinners per your regular schedule after the procedure. If you received sedation: If you received sedation for your procedure, you may feel sleepy or not yourself for several hours today. For the next 24 hours avoid activities that requires alertness or coordination. This includes: Driving or operating heavy machinery Using power tools Consuming alcohol Do not make important or complex decisions or sign legal documents in the next 24 hours. Other Instructions: If you feel severe pain at the injection site with swelling and redness, increased leg weakness, a fever of 101 or higher, headache (or worsening headache), changes in vision or urinary retention: Please call the office at , or have someone take you to the nearest emergency room. Tell the emergency room staff that you recently had a spine injection. A doctor must evaluate you for bleeding and injection complications. If you lose control over bowel, bladder, or legs: Go to the nearest emergency room. documented in this encounter [facility] 07-12-2023 Miscellaneous Notes Last OV: 04/11/23 Next OV: not scheduled. LM for patient to call for an appointment OARRS appropriate: Yes Last UDS: 09/13/2022 Pharmacy: [facility] Pt called back and appt was made and pending order removed. Patient will get prescription at OV Patient was seen in office today. [place] refill signed today. documented in this encounter [facility] 07-12-2023 Telephone encounter Note Last OV: 04/11/23 Next OV: not scheduled. LM for patient to call for an appointment OARRS appropriate: Yes Last UDS: 09/13/2022 Pharmacy: [facility], [facility] 07-12-2023 Telephone encounter Note Pt called back and appt was made and pending order removed. Patient will get prescription at OV [facility] 07-12-2023 Telephone encounter Note Patient was seen in office today. [place] refill signed today. [facility] 07-08-2023 Miscellaneous Notes Patient called to inform office that she was seen by her PCP for left shoulder pain. Her PCP prescribed cyclobenzaprine 10mg And prednisone documented in this encounter [facility] 07-08-2023 Telephone encounter Note Patient called to inform office that she was seen by her PCP for left shoulder pain. Her PCP prescribed cyclobenzaprine 10mg And prednisone [facility] 06-11-2023 Miscellaneous Notes Last OV: 04/21/2023 Next OV: --- OARRS appropriate: yes Last UDS: 09/13/2022 Pharmacy: [facility] documented in this encounter [facility] 06-11-2023 Telephone encounter Note Last OV: 04/21/2023 Next OV: --- OARRS appropriate: yes Last UDS: 09/13/2022 Pharmacy: [facility] 05-22-2023 Note [place] [facility] - [facility] Andre Perez is a 67 y.o. year old female patient being seen for 1 year follow up diastolic heart failure and hyperlipidemia. She had routine labs in Feb 2023. Was diagnosed with vertigo about 2 weeks ago while in the ED at [facility]. Says she does get intermittent chest squeezing , lasting sometimes minutes at a time. Patient Active Problem List Diagnosis Chest pain Allergic rhinitis Anxiety Asthma Bilateral impacted cerumen BPPV (benign paroxysmal positional vertigo) COPD (chronic obstructive pulmonary disease) ([facility]) Coronary atherosclerosis Diaphragmatic hernia Diastolic heart failure ([facility]) Difficulty urinating Disc displacement, thoracic Disorder of [...] calculi Primary insomnia PVD (peripheral vascular disease) ([facility]) RLQ abdominal pain RLS (restless legs syndrome) [...] oriented to pe (more content not included)... [facility] 03-25-2023 Hospital Discharge instructions Patient Education [...] grapefruit, pineapple, and arabella. Vegetables Deep-fried vegetables. Austrian fries. Any vegetables prepared with added fat. [...] provider. Document Revised: 11/28/2020 Document Reviewed: 11/28/2020 [email or web address] Patient Education 2022 [employer]. Follow Up Care 02/25/2023 14:16:08 With:Julee Ruiz CNP Address: When:1 month [facility] 02-18-2023 Note [id number] [facility] 02-15-2023 Note Endoscopy Care After Procedure [...] Document Re-Released: 11/11/2006 ExitCare? Patient Information ?2009 [employer]. Gastroenterology Esophageal Dilatation Esophageal dilatation, also called [...] including vitamins, herbs, eye drops, creams, and dmqu-wdv-poegtsl medicines. ? Any problems you or family [...] tells you to take them. ? Taking abps-vck-fykzacv medicines, vitamins, herbs, and supplements. ? Follow [...] heart rate, b (more content not included)... [facility] 02-15-2023 Hospital Discharge instructions Patient Education 02/15/2023 10:45:43 Endoscopy, Care After Procedure [facility] ([facility]) Endoscopy Care After Procedure Please read [...] blood. Document Released: 01/01/2005 Document Re-Released: 11/11/2006 [employer] Patient Information [employer]. 02/15/2023 10:45:42 Esophageal Dilatation Esophageal Dilatation Esophageal [...] including vitamins, herbs, eye drops, creams, and aiof-mvp-qvlbsnr medicines. Any problems you or family members [...] provider tells you to take them. ?Taking bibq-der-yyfdmrw medicines, vitamins, herbs, and supplements. Follow instructions [...] home. Follow these instructions at home: Take dncr-hem-inooghr and prescription medicines only as told by [...] provider. Document Revised: 10/05/2020 Document Reviewed: 10/05/2020 [email or web address] Patient Education 2022 [employer]. Follow Up Care 01/21/2023 10:23:37 With:Jacki CORRALES, CONCEPCION Lopez, [facility] Address: [address], [address] [address] [phone] When: only if needed Comments:Call for any problems. [facility] 01-21-2023 Hospital Discharge instructions Patient Education [...] grapefruit, pineapple, and arabella. Vegetables Deep-fried vegetables. Austrian fries. Any vegetables prepared with added fat. [...] provider. Document Revised: 11/28/2020 Document Reviewed: 11/28/2020 [email or web address] Patient Education 2022 [employer]. Follow Up Care 08/24/2022 14:16:34 With:Julee Ruiz CNP Address: When:1 to 2 weeks Comments:Following EGD. [facility] 08-24-2022 Hospital Discharge instructions Patient [...] 02/13/2005 Document Revised: 09/04/2018 Document Reviewed: 09/04/2018 [email or web address] Patient Education 2020 [employer]. Follow Up Care 08/02/2022 15:09:59 With:Julee Ruiz CNP Address: When:6 months [facility] 07-27-2022 Note [id number] [facility] 07-26-2022 Evaluation + Plan note Extrac dora from: Title:CSB post op Author:Blayne Ingram MD Date:07/26/22 Plan Transfer/Discharge: Transfer/Discharge Discharge when meets criteria ( To home ). Extracted from: Title:CSB GA Author:Blayne Ingram MD Date:07/26/22 Plan [place] [employer] (ASA) physical status classification: Class II. Anesthetic Preoperative Plan: Anesthesia General. [facility]02-23-2023 Hospital Discharge instructions Patient Education 07/26/2022 10:33:46 Colonoscopy, Care After Surgery [facility] (CUSTOM) Colonoscopy Care After Surgery Please read the instructions outlined below and refer to this sheet in the next few weeks. These discharge instructions provide you with general information on caring for [facility] Your doctor may also give you specific [...] PAULINO Address: [address] [place] [address] Business (1) When: Unknown Comments:Office will call date and time of follow-up appt. [facility]09-13-2022 Hospital Discharge instructions Patient Education 02/13/2022 [...] powder, vinegar, hot sauces, and barbecue sauce. ?Ariton fruit juices and citrus fruits, such as oranges, arabella, and limes. ?Tomato-based foods, such as red sauce, chili, salsa, and pizza with red sauce. ?Fried and fatty foods, such as donuts, lithuanian fries, potato chips, and high-fat dressings. ?High-fat [...] to any changes in your symptoms. Take yfmt-iwh-ajzqlzn and prescription medicines only as told by [...] you have new or worsening symptoms. Take tgre-llg-lcczita and prescription medicines only as told by [...] 02/27/2006 Document Revised: 11/26/2018 Document Reviewed: 11/26/2018 [email or web address] Patient Education 2020 [employer]. Follow Up Care 11/14/2021 14:21:01 With:Julee Ruiz CNP Address: When:3 months [facility] 06-14-2022 Hospital Discharge instructions Patient [...] Follow these instructions at home: Medicines Take pbsj-uik-uhtavzi and prescription medicines only as told by your health care provider. If you were prescribed an antibiotic medicine, take it as told by your health care provider. Do notstop taking the antibiotic even if you start to feel better. Eating and drinking Follow any diet changes as told by your health care provider. Work with a diet and nutrition internship (dietitian) to create an eating plan that [...] 05/17/2001 Document Revised: 10/14/2019 Document Reviewed: 10/14/2019 [email or web address] Patient Education 2019 [employer]. Follow Up Care 10/25/2021 13:30:14 With:Julee Ruiz CNP Address: When:3 months [facility] 05-18-2022 Hospital Discharge instructions Patient Education 10/18/2021 14:47:43 Endoscopy, Care After Procedure [facility] (CUSTOM) Endoscopy Care After Procedure Please read the instructions outlined below and refer to this sheet in the next few weeks. These discharge instructions provide you with general information on caring for [facility] Your doctor may also give you specific [...] blood. Document Released: 01/01/2005 Document Re-Released: 11/11/2006 [employer] Patient Information 2009 [employer]. Follow Up Care 08/14/2021 11:01:25 With:Haritha PAULINO Address: [address] [place] [address] [place] [phone] [employer] ([employer] When:1 to 2 weeks Comments:Call for any problems. [facility]05-18-2022 Evaluation + Plan noteExtracted from: Title:VIVI POSTOP MAC/GEN NOTE Author:Wes Cullen JR Date:10/18/21 Plan Transfer/ Discharge: Patient can be discharged from PACU when criteria met. Condition good. Extracted from: Title:VIVI PREOP ENDO NOTE Author:Jose Remy JR, DO Date:10/18/21 Plan [place] [employer]hes[employer] (ASA) physical status classification: Class III. Anesthetic Preoperative Plan Anesthesia: Monitored anesthesia care and general anesthesia if required.. Anesthetic plan, risks, benefits, and alternatives discussed with the patient and/or family. Pt. and/or family present and agree to proceed as planned.. Discussed the importance of abstaining from tobacco products, and offered counseling if desired.. [facility]12-21-2021 NoteHISTORY: Lower abdominal pain, possible hernia PROCEDURE: [employer] (formerly [employer]T 64. Without intravenous or oral contrast administration, [...] and signed by Kolton Downing on 05/23/2021 [id number] SpecialistEvaluation + Plan note Future Appointments Appointment Date:02/13/2022 12:20:00 PM Scheduled Provider:Julee Ruiz CNP Location:[facility] App[facility]ment Type:[facility] Follow Up [facility] Evaluation + Plan note Future Appointments Appointment Date:05/14/2022 01:40:00 PM Scheduled Provider:Julee Ruiz CNP Location:[facility] Appointment Type:[facility] Follow Up Future Scheduled Tests Radiology* XR Adult Swallowing Function w/ Video: Evaluate Pt, Develop a Plan of Care & Implement Plan 02/13/22 [facility] Evaluation + Plan note Future Appointments Appointment Date:05/14/2022 01:40:00 PM Scheduled Provider:Julee Ruiz CNP Location:[facility] Appointment Type:[facility] Future Appointments Appointment Date:01/21/2023 09:20:00 AM Scheduled Provider:Julee Ruiz CNP Location:[facility] Appointment Type:[facility] Follow Up [facility] Evaluation + Plan note Future Appointments Appointment Date:02/15/2023 10:55:00 AM Scheduled Provider: Location:[facility] Appointment Type:Surgery FT [facility] Evaluation + Plan note Future Appointments Appointment Date:06/21/2023 10:30:00 AM Scheduled Provider: Location:[facility] Appointment Type:Surgery FT [facility] Evaluation note* Diagnosis Lumbosacral spondylosis without myelopathy [facility] Diagnosis Lumbosacral spondylosis without myelopathy Disorder of sacrum- Primary Disorders of sacrum Disorder of sacrum Disorders of sacrum [facility] Diagnosis Disorder of sacrum- Primary Disorders of sacrum Lumbosacral spondylosis without myelopathy Acute pain of left shoulder Disorder of sacrum- Primary Disorders of sacrum Disorder of sacrum Disorders of sacrum [facility] Narrative No data available for this section [facility] No data available for this section [facility] HospitalInstructionsNot on filedocumented in this encounter [facility]Not on filedocumented in this encounter [facility]ructionsNot on filedocumented in this encounter [facility]ructionsNot on filedocumented in this encounter [facility] No data available for this section [facility] Summary Purpose Family History No Family History Records FoundNo Family History Records FoundNo Family History Records FoundNo Family History Records FoundNo Family History Records Found No data available for this section No Family History Records FoundNo Family History Records FoundNo Family History Records Found No data available for this section No Family History Records Found Advance Directives No Advanced Directives Records FoundNo Advanced Directives Records FoundNo Advanced Directives Records FoundNo Advanced Directives Records FoundNo Advanced Directives Records FoundNo Advanced Directives Records FoundNo Advanced Directives Records FoundNo Advanced Directives Records FoundNo Advanced Directives Records Found Reason for Referral Specialty Diagnoses / Procedures Referred By Sabino todd Referred To Contact Diagnoses Disorder of sacrum Procedures Case request operating room: INJECTION BLOCK SACROILIAC JOINT Ruth Palma PA [address], [address] [place] [id number] Referral ID Status Reason Start Date Expiration Date V isits Requested Visits Authorized [id number] Pending Review 07/16/2023 07/15/2024 1 1 Specialty Diagnoses / Procedures Referred By Sabino todd Referred To Contact Rehabilitation Diagnoses Acute pain of left shoulder Ruth Palma PA [address], [address] [place] [phone] Referral ID Status Reason Start Date Expiration Date Visits Requested Visits Authorized [id number] Pending Review Specialty Services Required 07/16/2023 07/15/2024 1 1 Additional Source Comments INFORMATION SOURCE (unrecogn ized section and content) DATE CREATED AUTHOR 11/22/2017 [facility] DATE CREATED AUTHOR AUTHOR'S ORGANIZ ATION 01/01/2019 [facility] DATE CREATED AUTHOR AUTHOR'S ORGANIZ ATION 05/24/[address] [facility] dical Specialist DATE CREATED AUTHOR AUTHOR'S ORGANIZ ATION 07/19/2021 [facility] DATE CREATED AUTHOR AUTHOR'S ORGANIZ ATION 05/03/2022 [facility] DATE CREATED AUTHOR AUTHOR'S ORGANIZ ATION 06/08/2023 [facility] DATE CREATED AUTHOR AUTHOR'S ORGANIZ ATION 08/15/[address] [facility] dical Specialists EPIC DATE CREATED AUTHOR AUTHOR'S ORGANIZ ATION 08/30/2023 [facility] DATE CREATED AUTHOR AUTHOR'S ORGANIZ ATION 09/11/2023 [facility] Care Team (unrecognized sect ion and content) [employer] Lead Relationship Specialty Start Date End Date Serge Hilton MD [address] [place] [place] [address] PCP - General 05/07/23 [employer] Lead Relationship Specialty Start Date End Date Serge Hilton MD [address] [place] [facility] [place] [address] PCP - General 05/07/23 [employer] Bever[employer] Lead Relationship Specialty Start Date End Date Serge Hilton MD [address] [place] [address] PCP - General 05/07/23 [employer] And Bever[employer] Lead Relationship Specialty Start Date End Date Serge Hilton MD [address] [place] [facility] [place] [address] PCP - General 05/07/23 Food And Beverage Lead Relationship Specialty Start Date End Date Serge Hilton MD [address] [place] [address] PCP - General 05/07/23 Reason for Visit (unrecogniz ed section and content) Reason Onset Date Comments Med Refill 06/11/2023 Reason Onset Date Comments Med Refill 07/12/2023 Reason Comments Back Pain Reason Onset Date Comments Med Refill 08/08/2023 FOR RECORDS PERTAINING TO PATIENTS WHO ARE [...] BE BASED ON THE PRIMARY CLINICAL RECORDS. [facility]. provides no warranty or guarantee of the accuracy or completeness of information in this document.
[2023-09-17] MEDS: REGADENOSON 0.4 MG/5 ML SYRINGE 0.400000000000000022 MG IV (10:20)
== END 2023-09-17 08:24 | disposition home or self-care (01) ==
LOC: NM 08:23
PROVIDERS: PCP Family Medicine; Visit Provider Internal Medicine Interventional Cardiology
DX: R07.89 Other chest pain (principal)
CPT/HCPCS: 78452; 93017; A9500; J2785

== ENCOUNTER 2023-10-11 10:28 | Outpatient (OUT) | payer MEDICARE, MEDICAID, SELFPAY ==
--- NOTE | 2023-10-11 10:38 | MM_ITS ---
Patient Name: CEFERINO PEREZ MR#: [id number] : 1955 Exam Date: 10/11/2023 Ordering Doctor: DR Serge Alvarenga . RADIOLOGY REPORT PROCEDURE: MM TOMOSYNTHESIS SCREENING BI COMPARISON: MG MAMM SCREEN 3D YOLA CAD, 04/27/2022. MG MAMM SCREEN 3D YOLA CAD, 04/17/2021. MG MAMM SCREEN YOLA W CAD, 04/12/2020. MG MAMM YOLA SCRN W CAD DIG, 10/06/2013. INDICATIONS: Screening Calculator Name NCI Breast Cancer Risk Assessment Tool 5 Year Breast Cancer Risk 2.30% Lifetime Breast Cancer Risk 8.20% Personal Breast Cancer No Personal Ovarian Cancer No Treatments None Family Cancers Mother with lung cancer at age 76; Grandfather-maternal with stomach cancer at age 87. LOCATION: [facility] BREAST COMPOSITION: There are scattered areas of fibroglandular density. FINDINGS: DIAGNOSTIC CATEGORY 2--BENIGN FINDING: RIGHT BREAST: No significant suspicious finding. Scattered benign-appearing calcifications are present. No significant change has occurred. LEFT BREAST: No significant suspicious finding. No significant change has occurred. RECOMMENDATIONS: ROUTINE MAMMOGRAM AND CLINICAL EVALUATION IN 12 MONTHS. PLEASE NOTE: A NORMAL MAMMOGRAM DOES NOT EXCLUDE THE POSSIBILITY OF BREAST CANCER. A CLINICALLY SUSPICIOUS PALPABLE LUMP SHOULD BE BIOPSIED. Dictated by: Hemant Cross M.D. on 10/11/2023 at 15:33 Approved by: Hemant Cross M.D. on 10/11/2023 at 15:35
--- NOTE | 2023-10-11 10:38 | XR_ITS ---
[address] [address] Patient Name: CEFERINO PEREZ MRN: [facility]:[id number] date: 1955 Sex: F Assigned Patient Location: MRI Current Patient Location: MRI Accession/Order Number: [id number] Exam Date: 10/11/2023 11:10 Report Date: 10/11/2023 11:32 At the request of: OLGA HILTON Procedure: XR DEXA axial skeleton EXAMINATION: XR DEXA axial skeleton HISTORY: Post Menopausal Z78.0 COMPARISON: DEXA bone densitometry 01/25/2022 TECHNIQUE: Dual-energy X-ray absorptiometry (DXA) was performed. FINDINGS: SPINE ANALYSIS: Average bone mineral density is 1.288 g/cm2. T-score (standard deviation relative to young adult mean): 0.9 . +2.7% change since prior study. HIP ANALYSIS: Lowest bone mineral density is within the right femoral neck, 0.746 g/cm2. T-score (standard deviation relative to young adult mean): -2.1 . +0.1% change since prior study. XR/XR DEXA axial skeleton IMPRESSION: World Yosef Organization Classification: Osteopenia - Moderate Fracture Risk Electronically authenticated by: BOB CAMERON Date: 10/11/2023 11:32
--- NOTE | 2023-10-11 10:38 | MR_ITS ---
The [address] [address] Patient Name: CEFERINO PEREZ MRN: [id number] date: 1955 Sex: F Assigned Patient Location: MRI Current Patient Location: MRI Accession/Order Number: [id number] Exam Date: 10/11/2023 11:10 Report Date: 10/11/2023 14:53 At the request of: OLGA HILTON Procedure: MR shoulder LT wo con MR shoulder LT wo con, 10/11/2023 11:10 AM EDT INDICATION: Rotator Cuff Injury Left S46.002A, Internal Derangement COMPARISON: There is no appropriate prior study for comparison. TECHNIQUE: Multiplanar and multisequential MR images of the left shoulder were obtained without contrast. FINDINGS: There are moderate hypertrophic degenerative changes of AC joint. There is no os acromiale. No Hill-Sachs is noted. No acute fracture or dislocation is noted. The quadrilateral space and supraspinous notch are unremarkable. The T2 prolongation within the insertional portions of supraspinatus infraspinatus and subscapularis may suggest tendinosis. The long head of biceps shows intra-articular tendinosis The teres minor is unremarkable. No fatty muscle atrophy is noted. The labrum shows mild degenerative changes in particular superiorly. There is trace intra articular joint effusion. Mild subcoracoid bursitis is noted. MR/MR shoulder LT wo con IMPRESSION: Insertional tendinosis of supraspinatus, infraspinatus and subscapularis. No high-grade tear. Intra-articular tendinosis of long head of biceps. Electronically authenticated by: DANIELLA BEAUCHAMP Date: 10/11/2023 14:53
--- OUTSIDE RECORDS SUMMARY | 2023-10-11 10:48 | XMS_ITS | CCD ---
Author Organization [facility] Care Team Providers Care A And P Mechanic Name Role Phone PHYSICIAN, DEFAULT Unavailable Unavailable PHYSICIAN, DEFAULT Unavailable Unavailable NADERESantiago, SERGE Unavailable Unavailable NADERER, SERGE Unavailable Unavailable NADERER, SERGE Unavailable Unavailable NADERER, SERGE Unavailable Unavailable NADERER, SERGE Unavailable Unavailable PHYSICIAN, DEFAULT Unavailable Unavailable PHYSICIAN, DEFAULT Unavailable Unavailable NADERER, SERGE Unavailable Unavailable YOSHI MASON Referring Unavailable NADERER, SERGE SIMMONS Primary Care Unavailabl e NADAPRIL, SERGE Primary Care Physician DAVID, DR LUEVANO Admitting Unavailable AHMED, DR LUEVANO Attending Unavailable NADERER, DR SERGE Snell Primary Care Unavailable ZIEBER, DR BOB Henderson Consulting Unavailable AHMED, DR LUEVANO Consulting Unavailable NADERESantiago, DR SERGE Snell Admitting Unavailable NADERER, DR SERGE Snell Attending Unavailable NADERER, DR SERGE Snell Primary Care Unavailable NADERER, DR SERGE Snell Consulting Unavailable AHMED, DR LUEVANO Admitting Unavailable AHMED, DR LUEVANO Attending Unavailable NADERER, DR SERGE Snell Primary Care Unavailable ZIEBER, DR BOB Henderson Consulting Unavailable AHMED, DR LUEVANO Consulting Unavailable Julee Ruiz Attending Unavailable Joseph, Julee Snell Attending Unavailable Julee Ruiz Attending Unavailable Jin Echeverria Attending Unavaila ble Sarmini, Jin Rivera Referring Unavaila quirino Sarminjone, Jin Rivera Admitting Unavaila ble SALAMHaritha Admitting Unavailable SALAM, Haritha Attending Unavailable ANELAMHaritha Referring Unavailable Serge Hilton MD Primary Care Provider [phone] DYLAN YOUNGER Attending Unavailable DYLAN YOUNGER Attending Unavailable VIC KEENE Attending Unavailable VIC KEENE Referring Unavailable NADERER, SERGE Primary Care Unavailable VIC KEENE Admitting Unavailable VIC KEENE Attending Unavailable NADERER, SERGE Referring Unavailable NADERER, SERGE Primary Care Unavailable NADERER, SERGE Primary Care Unavailable NEVERAUSKALb, RACHEL Butler Attending Unavailab JOSE Vail Attending Unavailable NADERER, SERGE Primary Care Unavailable NEVERAUSKAS, RACHEL Butler Attending Unavailab le NEVERAUSKAS, RACHEL Butler Referring Unavailab le NADERER, SERGE Primary Care Unavailable NEVERAUSKAS, RACHEL Butler Attending Unavailab le NEVERAUSKAS, RACHEL Butler Referring Unavailab le NADERER, SERGE Primary Care Unavailable NIENBERG, RUTH S Referring Unavailable NADERER, SERGE Primary Care Unavailable NIENBERG, RUTH S Attending Unavailable NADERER, SERGE Referring Unavailable NADERER, SERGE Primary Care Unavailable NADERER, SERGE Referring Unavailable NADERER, SERGE Primary Care Unavailable NIDIVYA, RUTH S Attending Unavailable NADERER, SERGE Referring Unavailable NADERER, SERGE Primary Care Unavailable NIENBERG, RUTH S Referring Unavailable NADERER, SERGE Primary Care Unavailable NADERER, SERGE Attending Unavailable NADERER, SERGE Attending Unavailable NADERER, SERGE Attending Unavailable NADERER, SERGE Attending Unavailable Allergies Allergy Classification Reported Allergen(s) Allergy Type Date of Onset Reaction(s) Facility (4 sources) Penicillins; Translations: [PENICILLINS] Drug allergy (disorder) 1 [facility] (20 sources) guaiFENesin; Translations: [guaifenesin] Drug Allergy 7 [facility] (18 sources) Penicillin; Translations: [Penicillin -class of antibiotic- (product)] Drug Allergy 1 [facility] (19 sources) Pseudoephedrine; Translations: [pseudoephedrine ] Drug Allergy 7 [facility] (11 sources) Nystatin; Translations: [nystatin] [facility] sources[facility] Latex; Translations: [LATEX] Propensity to adverse reactions to drug 3 Rash [facility] [employer] (6 sources) Penicillins Propensity to adverse reactions to drug 6 Hives [facility] Medications Current Medications Medication Drug Class(es) [...] 1 tablet by pooja th twice daily [place] 5/325 Tab 1 tab(s), Oral, BID, Refill(s) 0, Pain Start Date: 01/16/17 Status: Ordered Start: 01-16-2017 take 1 tablet by pooja th twice daily [place] 5/325 Tab 1 tab(s), Oral, BID, Refill(s) [...] oral tablet (1 source) Muscle Relaxant Start: take 1 tablet by mouth three times [...] Ordered Start: 08-07-2016 take 1 capsule by [facility] in the morning, then [...] day(s), # 90 tab(s), Refills(s) 2, [id number], 150, cm, 03/25/23 12:36:00 EDT, Height/Length Dosing, [...] day(s), # 90 cap(s), Refills(s) 2, Pharmacy: [facility] #[id number], 150, cm, 03/25/23 12:36:00 EDT, Height/Length Dosing, 90, kg, 03/25/23 12:36:00 EDT, Weight Dosing Start Date: 03/25/23 Stop Date: 12/20/23 Status: Ordered omeprazole 40 mg Cap-DR (1 source) Start: 08-14-2021 End: 08-09-2022 take 1 capsule by mouth once daily omeprazole 40 mg Cap-DR 40 mg = 1 cap(s), Oral, Daily, X 90 day(s), # 90 cap(s), Refills(s) 3, Pharmacy: [id number], 150, cm, 08/14/21 10:09:00 EDT, Height/Length Dosing, 90.8, kg, 08/14/21 10:09:00 EDT, Weight Dosing Start Date: 08/14/21 Stop Date: 08/09/22 Status: Ordered polyethylene glycol 3350 74850 mg powder for oral solution (11 sources) Osmotic Laxative Start: 05-14-2022 End: 08-12-2022 take 17 g by mouth once daily as needed for constipation Miralax 3350 17 gram packet 17 gm, Oral, Daily, PRN constipation, X 90 day(s), # 90 EA, Refills(s) 0, Pharmacy: [facility] #[id number], 150, cm, 05/14/22 13:55:00 EST, Height/Length Dosing, 92, kg, 05/14/22 13:55:00 EST, Weight Dosing Start Date: 05/14/22 Stop Date: 08/12/22 Status: Ordered Start: 11-18-2017 MiraLax 17 gra m, Oral, Daily, Refill(s) 0, Constipation Start Date: 11/18/17 Status: Ordered polyethylene glycol 3350 849921 mg / potassium chloride 1480 mg / sodium bicarbonate 5720 mg / sodium chloride 33294 mg powder for oral solution (2 sources) Osmotic Laxative Start: 03-25-2023 NuLYTELY Floyd oral powder for reconstitution See Instructions, 1 EA, Refill(s) 0, Prior to colonoscopy., [facility] #[id number], 150, cm, 03/25/23 12:36:00 EDT, Height/Length Dosing, [...] # 90 cap(s), Refills(s) 0, [facility]acy: [facility] #[id number], 150, cm, 03/25/23 12:36:00 EDT, Height/Length Dosing, 90, kg, 03/25/23 12:36:00 EDT, Weight Dosing Start Date: 03/25/23 Stop Date: 06/23/23 Status: Ordered Start: 05-14-2022 End: 08-12-2022 take 1 capsule by mouth once daily Metamucil 525 mg oral capsule 1 capsule, Oral, Daily, X 90 day(s), # 90 cap(s), Refills(s) 0, [facility]: [facility] #[id number], 150, cm, 05/14/22 13:55:00 EST, Height/Length Dosing, [...] VOL-PLUS 27-1 mg tablet (5 sources) Start: 04-27-2017 VOL-PLUS 27-1 mg tablet Zinc (10 sources) [...] disease (2 sources) Atherosclerotic heart disease of [place] coronary artery without angina pectoris; Translations: [Atherosclerotic heart disease of [place] coronary artery without angina pectoris] Onset: 4 [...] Onset: 2 Chronic Other aftercare (1 source) 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 Telephoneon 08-27-2023 Telephone [id number] Yang Perez cia 1955 F Date Provider Department Center 08/27/2023 RADHA ALEXANDRA CARD [facility] Family History Problem Relation Age of Onset Hypertension Mother Diabetes Father Family Status - Relation Status Age at Mother Father Normal [facility] Office Visiton 08-19-2023 Follow-up visit [id number] AnaYang Snell 1955 F Date Provider Department Center 08/19/2023 FabiolaREXELISADYLAN OXANA Osbornealex Penny Family History Problem Relation Age of Onset Hypertension Mother Diabetes Father Family Status - Relation Status Age at Mother Father Level of Service:92180 ID OFFICE/OUTPATIENT ESTABLISHED MOD MDM 30 MIN Normal [facility] CBC AND AUTO DIFFon 08-02-19 24 ABSOLUTE BASOPHIL 0.0 X10E9/L Normal 0.0-0.2 [facility] Comment on above: Performed By: #### C BCA, 20312-0, PINR, 89564-4, 93291-8, 93288-3, 90032-6, CMP, 18228-1, THYR #### [facility] ([id number]) [address] [place] [address] 29770 ABSOLUTE NEUTROPHIL 4.6 X10E9/L Normal 1.5-6.6 [facility] Comment on above: Performed By: #### C BCA, 98081-6, PINR, 90822-3, 18892-9, 33916-9, 84388-2, CMP, 42397-7, THYR #### [facility] ([id number]) [address] [place] [address] 79106 Basophils/100 WBC (Bld) 0.4 % Normal [facility] Comment on above: Performed By: #### C BCA, 12032-5, PINR, 80964-0, 79733-8, 66798-4, 69253-5, CMP, 08792-6, THYR #### [facility] ([id number]) [address] [place] [address] 66842 Eosinophils (Bld) [#/Vol] 0.2 10*3/uL Normal 0.0-0.4 [facility] Comment on above: Performed By: #### C BCA, 87604-0, PINR, 70249-7, 88117-7, 12442-7, 38661-6, CMP, 31817-9, THYR #### [facility] ([id number]) [address] [place] [address] 30606 Eosinophils/100 WBC (Bld) 2.0 % Normal [facility] Comment on above: Performed By: #### C BCA, 48708-3, PINR, 76959-1, 65277-4, 26602-3, 77722-1, CMP, 28601-1, THYR #### [facility] ([id number]) [address] [place] [address] 75650 Erythrocyte distribution width (RBC) [Ratio] 14.2 % Normal 11.5-15.0 [facility] Comment on above: Performed By: #### C BCA, 20141-7, PINR, 58571-7, 24347-9, 91505-1, 72231-4, CMP, 07104-8, THYR #### [facility] ([id number]) [address] [place] [address] 80122 Hematocrit (Bld) [Volume fraction] 39.2 % Normal 35-47 [facility] Comment on above: Performed By: #### C BCA, 39871-1, PINR, 31272-9, 27750-3, 73618-7, 13118-0, CMP, 95026-8, THYR #### [facility] ([id number]) [address] [place] [address] 13472 Hemoglobin (Bld) [Mass/Vol] 13.2 g/dL Normal 11.7-15.5 [facility] Comment on above: Performed By: #### C BCA, 68051-4, PINR, 24647-7, 89121-9, 80624-7, 70460-7, CMP, 16630-0, THYR #### [facility] ([id number]) [address] [place] [address] 97327 Lymphocytes (Bld) [#/Vol] 2.7 10*3/uL Normal 1.0-3.5 [facility] Comment on above: Performed By: #### C BCA, 32636-7, PINR, 47958-6, 46504-4, 51625-4, 48352-1, CMP, 98997-4, THYR #### [facility] ([id number]) [address] [place] [address] 88008 Lymphocytes/100 WBC (Bld) 32.8 % Normal [facility] Comment on above: Performed By: #### C BCA, 07380-4, PINR, 06765-3, 01453-5, 19900-3, 33319-3, CMP, 05702-1, THYR #### [facility] ([id number]) [address] [place] [address] 62616 MCH (RBC) [Entitic mass] 31.6 pg Normal 27-34 [facility] Comment on above: Performed By: #### C BCA, 48811-5, PINR, 54676-6, 31023-0, 55050-4, 86427-5, CMP, 53755-9, THYR #### [facility] ([id number]) [address] [place] [address] 50359 MCHC (RBC) [Mass/Vol] 33.5 g/dL Normal 32-36 [facility] Comment on above: Performed By: #### C BCA, 42101-4, PINR, 38338-2, 89473-6, 42708-8, 34265-6, CMP, 44075-8, THYR #### [facility] ([id number]) [address] [place] [address] 67622 MCV (RBC) [Entitic vol] 94 fL Normal 80-100 [facility] Comment on above: Performed By: #### C BCA, 16950-0, PINR, 55119-2, 30661-6, 39529-4, 19671-3, CMP, 08280-9, THYR #### [facility] ([id number]) [address] [place] [address] 72459 Monocytes (Bld) [#/Vol] 0.7 10*3/uL Normal 0-0.9 [facility] Comment on above: Performed By: #### C BCA, 76189-0, PINR, 44233-7, 40475-0, 90441-3, 07229-8, CMP, 21338-8, THYR #### [facility] ([id number]) [address] [place] [address] 23796 Monocytes/100 WBC (Bld) 9.0 % Normal [facility] Comment on above: Performed By: #### C BCA, 74131-8, PINR, 76705-7, 48555-8, 43803-4, 39974-4, CMP, 18011-3, THYR #### [facility] ([id number]) [address] [place] [address] 46376 Neutrophils/100 WBC (Bld) 55.8 % Normal [facility] Comment on above: Performed By: #### C BCA, 36062-9, PINR, 87801-0, 23151-4, 32574-4, 61561-5, CMP, 93130-9, THYR #### [facility] ([id number]) [address] [place] [address] 77366 Platelet mean volume (Bld) [Entitic vol] 7.1 fL Normal 7-12 [facility] Comment on above: Performed By: #### C BCA, 84838-8, PINR, 71327-5, 60163-2, 31521-4, 14654-1, CMP, 29250-6, THYR #### [facility] ([id number]) [address], [place] [address] Platelets (Bld) [#/Vol] 188 10*3/uL Normal 150-450 [facility] Comment on above: Performed By: #### C BCA, 12985-9, PINR, 48264-9, 45120-9, 41233-9, 02623-7, CMP, 10912-5, THYR #### [facility] ([id number]) [address] [place] [address] 48197 RBC COUNT 4.16 X10E12/L Normal 3.80-5.20 [facility] Comment on above: Performed By: #### C BCA, 05847-7, PINR, 26854-7, 67349-6, 52803-9, 33668-1, CMP, 51532-7, THYR #### [facility] ([id number]) [address] [place] [address] 98334 WBC (Bld) [#/Vol] 8.2 10*3/uL Normal 4.0-11.0 [facility] Comment on above: Performed By: #### C BCA, 72786-8, PINR, 96252-1, 95755-3, 13216-4, 44006-2, CMP, 09630-1, THYR #### [facility] ([id number]) [address] [place] [address] 76403 COMPREHENSIVE METABOLIC PANE Blair 08-02-2023 Albumin [Mass/Vol] 3.7 g/dL Normal 3.2-5.3 [facility] Comment on above: Performed By: #### C BCA, 83153-9, PINR, 63370-5, 58193-8, 57063-2, 09234-8, CMP, 17962-8, THYR #### [facility] ([id number]) [address] [place] [address] 96232 ALP [Catalytic activity/Vol] 81 U/L Normal 39-130 [facility] Comment on above: Performed By: #### C BCA, 57688-0, PINR, 82550-6, 36488-1, 37157-8, 95862-4, CMP, 22821-8, THYR #### [facility] ([id number]) [address] [place] [address] 69881 ALT [Catalytic activity/Vol] 16 U/L Normal 0-31 [facility] Comment on above: Performed By: #### C BCA, 59027-6, PINR, 63495-8, 09904-2, 61270-4, 65764-6, CMP, 06793-6, THYR #### [facility] ([id number]) [address] [place] [address] 02730 Anion gap [Moles/Vol] 2 mmol/L Low 5-15 [facility] Comment on above: Performed By: #### C BCA, 55768-7, PINR, 60933-3, 78756-0, 71954-8, 49912-6, CMP, 76382-3, THYR #### [facility] ([id number]) [address] [place] [address] 58090 AST [Catalytic activity/Vol] 20 U/L Normal 0-41 [facility] Comment on above: Performed By: #### C BCA, 11328-2, PINR, 20224-4, 47279-0, 51225-6, 44892-0, CMP, 01428-5, THYR #### [facility] ([id number]) [address] [place] [address] 64889 Bilirubin [Mass/Vol] 0.9 mg/dL Normal 0.3-1.2 [facility] Comment on above: Performed By: #### C BCA, 25044-1, PINR, 72687-6, 78075-6, 62200-5, 83767-4, CMP, 18381-8, THYR #### [facility] ([id number]) [address] [place] [address] 38812 Calcium [Mass/Vol] 8.3 mg/dL Low 8.5-10.5 [facility] Comment on above: Performed By: #### C BCA, 07417-6, PINR, 87047-4, 50839-2, 29573-8, 79253-4, CMP, 52501-8, THYR #### [facility] ([id number]) [address] [place] [address] 77236 Chloride [Moles/Vol] 105 mmol/L Normal 98-109 [facility] Comment on above: Performed By: #### C BCA, 85170-1, PINR, 64341-9, 67685-4, 54248-5, 23941-1, CMP, 22744-3, THYR #### [facility] ([id number]) [address] [place] [address] 32157 CO2 [Moles/Vol] 28 mmol/L Normal 22-32 [facility] Comment on above: Performed By: #### C BCA, 18900-9, PINR, 74949-8, 32662-6, 42716-3, 01732-9, CMP, 82941-4, THYR #### [facility] ([id number]) [address] [place] [address] 21182 Creatinine [Mass/Vol] 0.72 mg/dL Normal 0.40-1.00 [facility] Comment on above: Result Comment: METH OD TRACEABLE TO IDMS STANDARD Performed By: #### C BCA, 57845-0, PINR, 77384-3, 65940-8, 64499-8, 39877-6, CMP, 66982-9, THYR #### [facility] ([id number]) [address] [place] [address] 36636 eGFR (CKD-EPI) NON-RACE DEPENDENT >90 Normal >59 [facility] Comment on above: Result Comment: Reported eGFR is based on the CKD-EPI 2020 equation that does not use a race coefficient. Performed By: #### C BCA, 09619-1, PINR, 49554-4, 59250-1, 56062-3, 19502-3, CMP, 15069-9, THYR #### [facility] ([id number]) [address] [place] [address] [place] [address] Glucose [Mass/Vol] 93 mg/dL Normal 65-99 [facility] Comment on above: Performed By: #### C BCA, 61033-6, PINR, 49213-8, 96639-5, 93646-7, 66208-5, CMP, 44117-9, THYR #### [facility] ([id number]) [address] [place] [address] 80069 Potassium [Moles/Vol] 4.1 mmol/L Normal 3.5-5.0 [facility] Comment on above: Performed By: #### C BCA, 25042-4, PINR, 82777-2, 89975-8, 51857-0, 09108-8, CMP, 23564-2, THYR #### [facility] ([id number]) [address] [place] [address] [place] [address] Protein [Mass/Vol] 6.6 g/dL Normal 6.0-8.0 [facility] Comment on above: Performed By: #### C BCA, 69337-9, PINR, 63584-4, 00005-0, 15771-1, 10790-1, CMP, 09599-9, THYR #### [facility] ([id number]) [address] [place] [address] [place] [address] Sodium [Moles/Vol] 135 mmol/L Normal 134-146 [facility] Comment on above: Performed By: #### C BCA, 76981-9, PINR, 09486-9, 60047-8, 96429-2, 94545-7, CMP, 49920-9, THYR #### [facility] ([id number]) [address] [place] [address] [place] [address] Urea nitrogen [Mass/Vol] 20 mg/dL Normal 5-27 [facility] Comment on above: Performed By: #### C BCA, 86446-7, PINR, 07279-7, 20689-4, 43860-8, 29467-7, CMP, 09311-7, THYR #### [facility] ([id number]) [address] [place] [address], [place] [address] CT CTA CHESTon 08-02-2023 CT CTA CHEST [...] Gates DO on 08/02/2023 11:58 AM Normal [facility] Fibrin D-dimer DDU (PPP) [Ma ss/Vol]on 08-02-2023 D DIMER 1098 ng/mL DDU High <255 [facility] Comment on above: Result Comment: Results [...] D-Dimer level. Performed By: #### C BCA, 47145-9, PINR, 16006-7, 09485-1, 06502-7, 44445-4, CMP, 71424-2, THYR #### [facility] ([id number]) [address] [place] [address] 10808 Lactate (P quique) [Moles/Vol]o n 08-02-2023 LACTATE W/REFLEX 1.1 mmol/L Normal 0.4-2.0 [facility] Comment on above: Result Comment: Result did not trigger repeat Lactate, re-order if needed. Performed By: #### C BCA, 23784-0, PINR, 63709-4, 14533-6, 62513-4, 73961-6, CMP, 58376-1, THYR #### [facility] ([id number]) [address] [place] [address] 68089 MAGNESIUMon 08-02-2023 Magnesium [Mass/Vol] 2.1 mg/dL Normal 1.8-2.6 [facility] Comment on above: Performed By: #### C BCA, 21059-4, PINR, 09823-2, 04920-8, 22609-8, 45387-7, CMP, 00833-9, THYR #### [facility] ([id number]) [address] [place] [address] 82938 Natriuretic peptide B [Mass/ Vol]on 08-02-2023 Natriuretic peptide B (Bld) [Mass/Vol] 252 pg/mL High <100.0 [facility] Comment on above: Performed By: #### C BCA, 58866-7, PINR, 39219-6, 10187-5, 18236-3, 43829-7, CMP, 78104-4, THYR #### [facility] ([id number]) [address] [place] [address] 94879 PROTIME AND INRon 08-02-2023 INR Coag (PPP) [Relative time] 1.0 {INR} Normal 0.8-1.1 [facility] Comment on above: Performed By: #### C BCA, 34354-7, PINR, 80010-6, 44276-7, 80682-4, 46973-0, CMP, 86514-4, THYR #### [facility] ([id number]) [address] [facility] [place], [place] [address] PT Coag (PPP) [Time] 11.3 s Normal 9.8-13.2 [facility] Comment on above: Result Comment: NEW REFERENCE RANGE Performed By: #### C BCA, 11198-0, PINR, 96587-1, 37637-9, 14656-1, 01206-6, CMP, 03025-5, THYR #### [facility] ([id number]) [address] [facility] [place], [place] [address] SARS/FLU A+B/RSV by NAAT/Mol ecularon 08-02-2023 SARS/FLU [...] operators who are performing tests using either Gene[employer] KOOL DX or GeneinTarvo systems and is limited to laboratories that [...] https://www.fda.gov/media/2161/download Fact Sheet for Patients: https://www.fda.gov/media/2165/download Normal [facility] Comment on above: Performed By: #### C BCA, 54628-2, PINR, 32669-3, 25729-0, 24991-5, 79305-2, CMP, 71926-3, THYR #### [facility] ([id number]) [address] [place] [address] 17092 THYROID PROFILEon 08-02-2023 Free T4 [Mass/Vol] 1.01 ng/dL Normal 0.61-1.60 [facility] Comment on above: Performed By: #### C BCA, 43201-6, PINR, 87667-3, 39769-9, 42687-5, 17837-5, CMP, 69345-1, THYR #### [facility] ([id number]) [address] [place] [address] 83348 TSH 2.24 uIU/mL Normal 0.49-4.67 [facility] Comment on above: Performed By: #### C BCA, 19979-9, PINR, 07757-5, 40049-1, 63202-7, 28312-8, CMP, 34448-9, THYR #### [facility] ([id number]) [address] [place] [address] 61630 TROPONIN Ion 08-02-2023 Troponin I.cardiac [Mass/Vol] 0.02 ng/mL Normal 0.00-0.04 [facility] Comment on above: Performed By: #### C BCA, 49711-6, PINR, 26729-7, 89009-1, 55074-5, 05623-8, CMP, 28164-9, THYR #### [facility] ([id number]) [address] [place] [address] [place] [address] URN MACROSCOPIC NURon 2023 BILIRUBIN CRYSTAL Negative Normal NEG [facility] Comment on above: Performed By: #### C BCA, 70157-1, PINR, 56992-9, 75912-5, 70287-7, 38791-0, CMP, 69144-3, THYR #### [facility] ([id number]) [address] [place] [address], [place] [address] BLOOD/HGB CRYSTAL Small Abnormal NEG [facility] Comment on above: Performed By: #### C BCA, 73926-1, PINR, 20911-6, 90941-5, 48339-1, 57044-7, CMP, 70318-0, THYR #### [facility] ([id number]) [address] [place] [address], [place] [address] GLUCOSE CRYSTAL Negative Normal [facility] Comment on above: Performed By: #### C BCA, 31242-5, PINR, 97056-7, 28823-7, 63881-8, 91249-9, CMP, 74858-9, THYR #### [facility] ([id number]) [address] [place] [address], [place] [address] KETONES CRYSTAL Negative Normal NEG [facility] Comment on above: Performed By: #### C BCA, 02070-9, PINR, 79249-2, 86326-8, 93651-2, 64332-9, CMP, 40872-9, THYR #### [facility] ([id number]) [address] [place] [address], [place] [address] LEUKOCYTE ESTERASE CRYSTAL Trace Abnormal NEG [facility] Comment on above: Performed By: #### C BCA, 53117-9, PINR, 09452-9, 20652-4, 15258-6, 88824-3, CMP, 06417-0, THYR #### [facility] ([id number]) [address] [place] [id number] NITRITE CRYSTAL Negative Normal NEG [facility] Comment on above: Performed By: #### C BCA, 47252-4, PINR, 60172-8, 45360-8, 88998-4, 51604-0, CMP, 63752-3, THYR #### [facility] ([id number]) [address] [place] [id number] PH CRYSTAL 7.5 Normal 5.0-8.5 [facility] Comment on above: Performed By: #### C BCA, 31731-3, PINR, 75753-8, 06568-1, 16832-6, 92916-1, CMP, 15766-1, THYR #### [facility] ([id number]) [address] [place] [address] PROTEIN CRYSTAL Negative Normal NEG [facility] Comment on above: Performed By: #### C BCA, 11465-7, PINR, 55878-4, 24356-8, 40980-2, 04336-0, CMP, 48092-9, THYR #### [facility] ([id number]) [address] [place] [address] [place] [address] SPECIFIC GRAVITY CRYSTAL 1.015 Normal 1.003-1.035 [facility] Comment on above: Performed By: #### C BCA, 70025-8, PINR, 25641-0, 75185-9, 60257-6, 68949-7, CMP, 73703-3, THYR #### [facility] ([id number]) [address] [place] [address] UROBILINOGEN CRYSTAL 0.2 eu/dL Normal <1.1 [facility] Comment on above: Performed By: #### C BCA, 73948-7, PINR, 71686-0, 16134-1, 67685-1, 22991-1, CMP, 37027-8, THYR #### [facility] ([id number]) [address] [place] [address] XR CHEST 2 VWSon 08-02-2023 XR CHEST [...] Ocasio MD on 08/02/2023 10:38 AM Normal [facility] aPTT Coag (PPP) [Time]on aPTT Coag (Bld) [Time] 30 s Normal 26-37 [facility] Comment on above: Result Comment: NEW REFERENCE RANGE Performed By: #### C BCA, 17211-6, PINR, 41763-9, 70110-8, 65802-2, 30148-7, CMP, 71857-1, THYR #### [facility] ([id number]) [address] [place] [address] XR SHOULDER LT MIN 2 VWSon 0 [...] Joseph MD on 07/05/2023 10:46 AM Normal [facility] Reminderson 06-07-2023 Reminders - From: Julee Ruiz CNP To: Iesha Naqvi; Sent: 08/24/2022 13:56:00 EDT Show up: 08/24/2022 13:56:00 EDT Subject: Ambulatory Reminder Reminder/Recall Repeat colonoscopy 07/2023. 07/2023 dr paulino From: Iesha Naqvi To: [facility] - Reminders/Recalls; Sent: 08/27/2022 12:40:12 EDT ! Show up: 06/03/2023 12:40:00 EST Due Date/Time: 2023 12:40:00 EST Patient is scheduled for Saturday Normal [facility] Office Visiton 05-22-2023 Follow-up visit [id number] Yang Perez cia 1955 F Date Provider Department Center 05/22/2023 [facility] Family History Problem Relation Age of Onset Hypertension Mother Diabetes Father Family Status - Relation Status Age at Mother Father Level of Service:88296 ID OFFICE/OUTPATIENT ESTABLISHED LOW MDM 20 MIN Normal [facility] Consent for Procedure/Surger yon 03-26-2023 Consent for Procedure/Surgery [id number]#[id number] Normal [facility] Ambulatory Visit Summaryon 1 Ambulatory Visit Summary [...] prescribing physician if questions or concerns acetaminophen-hydrocodone (Milford 5/325 Tab) albuterol (Proventil HFA) aspirin atorvastatin [...] See instructions Prior to colonoscopy. Pickup at [facility] #[id number] New psyllium (Metamucil 525 mg oral capsule) 1 capsule By Mouth Every day Hard stool Duration: 90 Days with at least 8 ounces of water Pickup at [facility] #64540 Changed famotidine (famotidine 20 mg Tab) 1 Tablets By Mouth Once a day (at bedtime) Acid reflux Duration: 90 Days Pickup at [facility] #47215 Changed omeprazole (omeprazole 40 mg Cap-DR) 1 Capsules By Mouth Every day Acid reflux Duration: 90 Days Pickup at [facility] #[id number] Unchanged acetaminophen-hydrocodone (Milford 5/ 325 Tab) 1 Tablets By Mouth [...] physician if questions or concerns Pharmacy Information [facility] #[id number]: [address] [place] (more content not included)... Normal [facility] Gastroenterology Office/Clin ic Noteon 03-25-2023 Gastroenterology Office/Clinic [...] day(s), # 90 cap(s), Refills(s) 0, Pharmacy: [facility] #[id number], (more content not included)... Normal [facility] Comment on above: Result Comment: Elec tronically Signed By: Julee Ruiz CNP\.br\Date and Time Signed: 03/25/23 13:07 EDT Patient [...] grapefruit, pineapple, and arabella. Vegetables Deep-fried vegetables. Canadian fries. Any vegetables prepared with added fat. [...] gastroesophageal reflux di (more content not included)... [facility] IntraOperative Documentson 0 02-27-2023 IntraOperative Documents [id number]#1.00CD:127 [facility] Consenton 02-18-2023 Consent [id number]#1.00CD:127 [facility] Discharge Instructionson Discharge Instructions [id number]#1.00CD:127 [facility] Insurance Correspondenceon 0 02-18-2023 Insurance Correspondence [id number]#1.00CD:127 [facility] Main OR Intraoperative Recor don 02-18-2023 Main OR Intraoperative Record IntraOp Document Type FT Summary Primary Physician: Jin Echeverria MD Finalized Date/Time: 02/18/23 10:36:30 Pt. Name: CEFERINO PEREZ Channing De La GarzaB./Sex: 1955 Female Med Rec #: [id number] Physician: Jin Echeverria MD Financial #: [id number] Pt. Type: O Room/Bed: Endo 08/01 Admit/Disch: [...] RN, Xiomara Hogue Role Performed Anesthesiologist of River Expedition Guide - Primary Record Time In 02/15/23 10:10:00 [...] and tissue Entry 1 Skin Integrity Intact, [place], Warm, and Skin Abnormality No Dry Outcomes [...] Side Righ (more content not included)... Normal [facility] Postoperative Documentson Postoperative Documents [id number]#1.00CD:127 Normal [facility] Progress Note-Physicianon Progress Note-Physician Patient: CEFERINO PEREZ [...] All Problems Acute gastritis / SNOMED CT 68168009 / Confirmed Arthritis / SNOMED CT 4932861 / Confirmed Acute colitis / SNOMED CT 240028939 / Confirmed Dysphagia / SNOMED CT 94009453 / Confirmed Family history of colon cancer / SNOMED CT 123779108 / Confirmed Family history of colonic polyps / SNOMED CT 0047571658 / Confirmed Acid reflux / SNOMED CT 043415984 / Confirmed GERD without esophagitis / SNOMED CT 0221178462 / Confirmed History of esophageal spasm / SNOMED CT 203396229 / Confirmed Hiatal hernia / SNOMED CT 812524551 / Confirmed History of colon polyps / SNOMED CT 1561613620 / Confirmed IBS (irritable bowel syndrome) / SNOMED CT 34962161 / Confirmed Migraines / SNOMED CT 14782694 / Confirmed Obesity / SNOMED CT 9268035288 / Confirmed Colon polyp / SNOMED CT 603686545 / Confirmed RLQ abdominal pain / SNOMED CT 874176999 / Confirmed Vertigo / SNOMED CT 7331988651 / Confirmed Resolved: Heart / SNOMED CT 624376508 Resolved: Hernia / SNOMED CT 330852344 Histories Procedure history: Colonoscopic polypectomy (007623133) on 07/26/2022 at 67 Years. EGD - Esophagogastroduodenoscopy (3414127767) on 07/26/2022 at 67 Years. EGD - Esophagogastroduodenoscopy (7190557484) on 12/16/2020 at 65 Years. section (87394564). Hysterectomy (603246394). Cholecystectomy (53897624). Hernia repair (69168106). Bariatric surgery service ([id number]). Social History Social & Psychosocial Habits Alcohol [...] adequate air exchange. Cardiovascular: Regular rhythm. Plan [place] [employer] Anesthesiologists (ASA) physical status classification: Class III. Anesthetic Preoperative Plan: Anesthesia General. Normal [facility] Comment on above: Result Comment: Elec tronically Signed By: Armond Bey Jr, DO\.br\Date and Time Signed: 02/16/23 09:16 EDT Progress Note-Physician Patient: CEFERINO PEREZ Age: 67 years Sex: Female : 1955 Associated Diagnoses: None Author: Armond Bey Jr, DO Postoperative Information Postoperative disposition: Postoperative disposition: To PACU. Optimetrix number: Optimetrix number [phone]. Anesthetic utilized: General. Health Status Allergies: Allergic [...] meets criteria ( To home ). Normal [facility] Comment on above: Result Comment: Elec tronically Signed By: Armond Bey Jr, DO\.sorin\Date and Time Signed: 02/16/23 09:16 EDT Consent for Treatmenton 02-01 Consent for Treatment [id number]#1.00CD:127 Normal [facility] Discharge Instructionson Discharge Instructions CEFERINO PEREZ :1955 Visit Date:02/15/2023 Inpatient Discharge Instructions Your Care Team Admitting Physician - Jin Echeverria MD Referring Physician - Jin Echeverria MD Reason for Your Visit DYSPHAGIA Your Diagnosis Dysphagia This Is Your Medications List acetaminophen-hydrocodone ([place] 5/325 Tab) albuterol (Proventil HFA) aspirin atorvastatin biotin busPIRone (busPIRone 7.5 mg oral tablet) calcium-vitamin D (calcium (as citrate)-vitamin D 315 mg-200 intl units oral tablet) cyanocobalamin (Vitamin B12) docusate (Colace) doxapram famotidine (famotidine 20 mg Tab) meclizine midodrine montelukast (Singulair) multivitamin with minerals (Vol-Plus) omeprazole (omeprazole 40 mg Leonid-DR) promethazine travoprost ophthalmic (Travatan Z 0.004% ophthalmic [...] Discharge Follow Up with Jacki CORRALES, CONCEPCION Lopez, [facility] When: Only if needed Comments: Call for any problems. Where: [address] [place] [address], [address] [address] [phone] Medications What How Much When Instructions Next Dose Changed acetaminophen-hydrocodone (Milford 5/ 325 Tab) 1 Tablets By Mouth [...] documents or (more content not included)... Normal [facility] Comment on above: Result Comment: [...] Normal duodenum. Images Procedure images: Rec1_hd_video_2022__15T09_ 37_24_014.jpg Rec1_hd_video__15T09_ 36_11_108.jpg Rec1_hd_video__T09_ 33_56_706.jpg Rec1_hd_video__15T09_ 32_41_775.jpg Rec1_hd_video__15T09_ 32_37_328.jpg Rec1_hd_video_2022__15T09_ 32_24_505.jpg Rec1_hd_video__T09_ 30_14_991.jpg Rec1_hd_video_2022__15T09_ 29_24_860.jpg Rec1_hd_video_2022__15T09_ 29_06_770.jpg Rec1_hd_video_2022__T09_ 28_37_335.jpg Rec1_hd_video_2022__09_ 28_13_999.jpg . Post-Procedure Complications: none. Estimated blood [...] medications -Return to clinic as needed Normal [facility] Comment on above: Result Comment: Elec tronically Signed By: Jacki CORRALES, Jin Rivera\.br\Date and Time Signed: 02/15/23 10:36 EDT Other Comment: Yajaira morillo Attachment - attachment storage system not supported [id number] Can be viewed in source systemMissing Attachment - attachment storage system not supported [id number] Can be viewed in source systemMissing Attachment - attachment storage system not supported [id number] Can be viewed in source systemMissing Attachment - attachment storage system not supported 8760204 Can be viewed in source systemMissing Attachment - attachment storage system not supported 2190433 Can be viewed in source systemMissing Attachment - attachment storage system not supported 1004962 Can be viewed in source systemMissing Attachment - attachment storage system not supported [id number] Can be viewed in source systemMissing Attachment - attachment storage system not supported 1003191 Can be viewed in source systemMissing Attachment - attachment storage system not supported 0660790 Can be viewed in source systemMissbeth [facility] Attachment - attachment storage system not supported 7444170 Can be viewed in source systemMissing Attachment - attachment storage system not supported [id number] Can be viewed in source system Inpatient Patient Summaryon 02-15-2023 Inpatient Patient Summary [place] [id number] [facility] Clinical Discharge Instructions PERSON INFORMATION Name: CEFERINO PEREZ [facility]#:[id number] PHYSICIANS Admitting Physician: Jin Echeverria MD Attending Physician: Jin Echeverria MD PCP: SERGE HILTON MD Discharge Diagnosis: Dysphagia Comment: PATIENT EDUCATION INFORMATION Instructions: Medication Leaflets: Follow up: MEDICATION LIST Medications to Continue Taking That Have Changed Other Medications START: acetaminophen-hydrocodone (Milford 5/325 Tab) 1 Tablets By Mouth 2 [...] sulfate (Zinc) By Mouth every day. Comment: Normal [facility] Main OR PACU I Recordon 02-01 Main OR PACU I Record PACU Phase I Document Type FT Summary Primary Physician: Jin Echeverria MD Finalized Date/Time: 02/15/23 11:17:20 Pt. Name: CEFERINO PEREZ Channing Nam./Sex: 1955 Female Med Rec #: [id number] Physician: Jin Echeverria MD Financial #: [id number] Pt. Type: O Room/Bed: [facility] 08/01 Admit/Disch: 02/15/23 09:29:26 - Institution: Case [...] By: Saige Perry I 02/15/23 11:17 Normal [facility] Main OR Preoperative Recordo n 02-15-2023 Main OR Preoperative Record Holding Area Document Type FT Summary Primary Physician: Jin Echeverria MD Finalized Date/Time: 02/15/23 09:39:39 Pt. Name: ANACEFERINO D.O.B./Sex: 1955 Female Med Rec #: [id number] Physician: Jin Echeverria MD Financial #: [id number] Pt. Type: O Room/Bed: [facility] 08/01 Admit/Disch: 02/15/23 09:29:26 - Institution: Case [...] By: Marcio Mak RN 02/15/23 09:39 Normal [facility] Monitor Recordon 02-15-2023 Monitor Record [id number]#1.00CD:127 Normal [facility] Monitor Record [id number]#1.00CD:127 Normal [facility] Outpatient Surgery Discharge Instructionon 02-15-2023 Outpatient Surgery Discharge Instruction [place] [id number] Patient Discharge Instructions PERSON INFORMATION Name: CEFERINO [...] NEAREST EMERGENCY ROOM OR CALL 911 I EARLENE PEREZMANISHA Snell, have received the attached patient education materials/instructions and have verbalized understanding: May we do a follow up call? Yes No I was present when discharge instructions were given __ Patient Signature Date Clinican/Nurse Signature Date Follow up: Pharmacy Information: Other: [facility] You may receive a survey from [employer] asking you to rate your care experience. Your feedback is important and will help us understand what we do well and how we can improve the quality of care we provide to you, your loved ones and our community. It?s an honor to serve you. Thank you for choosing [facility] HERE ARE THE MEDICATION CHANGES THAT OCCURRED DURING YOUR HOSPITAL STAY Medications to Continue Taking That Have Changed Other Medications START: acetaminophen-hydrocodone (Milford 5/325 Tab) 1 Tablets By Mouth 2 [...] PATIENT EDUCATION INFORMATION Instructions: Medication Leaflets: Laura [facility] Gastroenterology Office/Clin ic Noteon 01-24-2023 [...] CT or MRI with general surgeon in [place], [place]- no record to review during today's encounter. Has RLQ pain over the last 6-7 months that occurs when she has to have a BM at times. Is taking Milford that is prescribed by another provider. Is [...] CT or MRI with general surgeon in [place], [place]- no record to review during today's [...] EGD with (more content not included)... Normal [facility] Comment on above: Result Comment: Elec tronically Signed By: Julee Ruiz CNP\.br\Date and Time Signed: 01/24/23 12:49 EDT RAD - CT Reporton 01-24-2023 RAD - CT Report [id number]#1.00CD:127 Normal [facility] Consent for Procedure/Surger yon 01-22-2023 Consent for Procedure/Surgery [id number]#[id number]:127 Normal [facility] Ambulatory Visit Summaryon 0 01-21-2023 Ambulatory Visit [...] prescribing physician if questions or concerns acetaminophen-hydrocodone (Mil[place] 5/325 Tab) acetaminophen-hydrocodone (acetaminophen-hydrocodone 325 mg-5 mg [...] the Following Appointments Follow Up with Julee uRiz CNP When: Within 1 to 2 weeks Comments: Following EGD. Where: Medications What How Much When Instructions Unchanged acetaminophen-hydrocodone (acetaminophen-hydrocodone 325 mg-5 mg oral tablet) Contact prescribing physician if questions or concerns Unchanged acetaminophen-hydrocodone (Milford 5/ 325 Tab) 1 Tablets By Mouth [...] Migraines Obesity (more content not included)... Normal [facility] Patient Educationon 01-22-20 Patient Education Gastroenterology Food [...] grapefruit, pineapple, and arabella. Vegetables Deep-fried vegetables. Canadian fries. Any vegetables prepared with added fat. [...] reflux di (more content not included)... Normal [facility] Gastroenterology Office/Clin ic Noteon 08-24-2022 [...] (at (more content not included)... Normal [facility] Comment on above: Result Comment: Elec tronically [...] Reviewed: 09/04/2018 Elsevier Patient Education ? 2019 [employer] [facility] Postoperative Documentson Postoperative Documents [id number]#[id number]:127 [facility] Coding Summary.on 07-31-2022 Coding Summary. CD:[id number] Gh0bWw+P GhlYWQ+ZJ5FWMOhY78oxVOcnM1AH 5hIKI8GWVVGKSAOGO8OJO9jlOX4V TujT1KzdjGi JhcbjPTqDG86QQv7UFP8vRmvXSju iT2aqLAqK2r9BlCwZB94pO60BYlc ZCRnNbK6BnFhdierhRPe R9rbOdYrcXCzDin+PHRhYmxlIHdp GOIfBInmFMHhDdJunUynVI9wIe8j ZGVyLWNvbGxhcHNlOiBj t8cqEASeFHcuTG8tmNhsK1OfsMR9 JOTvy6d1Fq96hRF+ROCkSSO1vNnn JAtme976XxZct7zgJXO6 yFBnWKbhGVF1P81gx7O0TGGxZWFc FYX4cIR4vK1egCgvfozwR2VnhZFa IyS6EBX3pZZaqY6gxRxt ffsfjC0kBoa+J92XBP0BCCWTVE3K Eyt1A5LsJhwsaZO+QZ48RZHtXQ81 vHNivOGro4rfcBi4IcGb BHHtRHA9kMcdAYywt6XkUDThF86e rWVdb4J2IWHosPmajCLvJbUjzCB0 xH3wSOtbilsat7ymnbqv Vbzcl9wjar88jZ24D42yGPopYHHn DYH3KIJwHCLtsGtavg0zpZ2qJv2+ NEyom5fjd0vpbNl8FnMx FTSjniSpqXdyXDI8b8AaDq90P5Co mGxnt3WsUkm3ak92aSJvq2U8uOL8 IYdxSZWjfZ7nZOmaEyO8 RXDjZoMkdM93qJUjKEgbYf0kkLez wPpwUC9sLWCqbnupJOAezY1rXKKo jSIqbNmbPG1aEVKfxjuk p860HuGhGTA9GWUogRUlA8MroT6b KaIpFLPzXMHiT6UebHBrKQavB642 CInzEtX3JMKzeiUzI0Aq PFJenGcvPzT9a3K7Vm7Ib1Uecqfc DAM4VRoaRXHtItU6EnTxToL4F1Ng Rur0VJZzyQcgIP4eD2Dr DKEaflnqwtkuvAP5VSNfANXkaC01 vFJsCOxdJi3ez1N1o918EKRcXMNy uA57Wi0vkLlsLJKxxNLN vP5dxofvj3gtogktXnEjZAToYOn8 LZa3NPRsxJchHlVlCDU7YlD4VHR7 rZVktB0srTiqsyrzyC6j Oyc+A74vyT5oRDI0EPT5songOFRm ziTmQL82HS79X1ExFguocHBsdJF+ FARdjbMleWtcGB9mLlYl v0yqd4LuVQmiA3VvQBWmTQhxCxv2 FZFnJQO2uUP7yZ5lNUSaQPlmn4L7 pSX7X8XxlfXenl5wz2lo RFNqKHrkV99ffRZoe7B6WSNiiMX0 BSWowKehCtSdzF35Mgj+PGNvbGdy u3VmGmpjg5glq9gbqQu1 IzGySMMfewKwsIxzAYF7a0OnZf21 G92wOTzsYWYrUBHsVKLzHAMeuPet up4xkI6bEz1+PGNvbCB3 sZH8oG2sBUZfErM0CNaqI182SpRf uHImIlfxr8ogt9dncUk2HnZgAKDp yzFsrWdkAKG8q3QuUq97 D80eLOphBHTyNOUkSYQrSBBzzWtj qf5jzG7lFd1+JZ3ty5ymdo71hW03 dHI+CFTlILI5zHgpDMpu BNLzfC7lNCadZcB6HCUaHqJriP56 wJOkPYaaMs7eoFjlkChyHC8pRYBq sknuu540JhXur8zkBJIi iPScZAzqAOG6J64ki9E1BZRlRJDg ZEC4kFT9fV1mjFgjogcgnZPuwWju xdIhiMrdZJeyNRevW400 IHRvcDsnPlBhdGllbnQgTmFtZTo8 I4QlEhd9ZKKgnFmuOZ5okHPcMOcn Nb7zcCyeaXpcDN5gEINr hntnu539OyYzx8wuGPExzFMuFSmn OPW4J96og0H4HXRuGCLfEPP8iSQ1 yT3kbBkoxgnvgZKfuUtv wsGrtTrwSWppFDemO478NLWboGxw BmUgpdIzGEEhgLM1LY06TW59bXZn t5L8gRS0F3FeUQVfpoke skqkhLS5DNKyVNEuvV72Nd8hdImb Kw0qXUFjKPH8DUPrqGJwZ0ZgsL4o XqGhUJDwBUJiZ9PsyUCp FNdiI378CPsiRuI6ETLjfhPfB1Qp XXCgyRwgIgE2l8K4Fq2BS8Z4KO72 DU62nDRhj0Y4kCL9Q3Zb UUUsvlzgwuhujQN9CZMjMKEqnN99 Pv1usKfrLj7zSRYtHVC4YIFfqEAt S4BdqD5jYrJdJLTwAKMl J9HvhTRhVEinF724RXdtYdC2UAOw pcDlI3AnMDDctXtqDuV0v1G6Wr3Q HPn2NL68IG85eUAip5E8 nSR5F4EbRLDzwbrsdgjzaRI2VAHy MCPlgK25Fq5hmRjcZq7dDNMpKXC1 FVXhlJMgI6VbvA7jZgTc VQQaZXJkC3SazYNzAKhfX088QVre DuN8LXDipcIjK4YsSDIdnXamIxI4 l6W2Py6OEFAaMH95NDJ6 bGR0OY52KJ55I5MjIhmnoOUiiUA+ PHRhYmxlIHdpZHRoPScxMDAlJyBz vCbuTK8zGj6kOVQxVVTx rLrycYEuEbMli8ilJPNgWHphMV3o rAvjW3FrvHF7GKHme9q2Cw13Z50m L4XuyKW+VRSapES5uTQ4 vC5bDkIcPrY6ZNldE805QeKikWWq Qxikb1fkh3lzmFl4YpU6KUNcifWo sFtyLSY8j0OaLj22R34p CMwbCDOhGKFpHTYaOVTziXgrhp1h dF7lUj0+GSYqzNJ2nBL6vB3mBcGk QzP6OTfnH954BqCciQWw Rsnsu4rkk1wwxIo3MlYbCRMvjnLa wEpjSYJ5i4XeFe60K4KkdYpln4St Ued1wv57yPOvq0N7hFU1 Z9ZlEJJjwilmsDDnzFckLV4fVLKh kzegFHAttX5tHSFvL1h4FzQpGqW2 RLflJ6CgaaH9UPLifUDv XZkbNEQ5K09gh8C0VXRxUQXgZNY8 wBG0oE8hcVdaiyrchOLigEyfduZt kAobTOhxTYsjZ158IHXq yFgfRHRplG8uSSUyzXLfuIxjFS0b TJIecmpeHo6TD2ENKERAIASPINJC DJZPGP87YL26jVNby5K4 dOU9N4FjIAAzijkasjsbrJB0CVVi OJOulF08zGHyHQxqJb9oh0P3h896 QGTtRWPmaW70Rb0fuOtd HOTfsIACwD9lrymdm5eklgywMbIh FGPuOSi7DPq2UZWgsDclTwLyUPG8 QrX9QVD1tCYgoM7maAlj ucuwqM7pHuk+JEUfPJMhFQg5KNzx dGQ+LHCmIXX6wIhwLUglDMYacN1a XJLvE4q0SuWpPqW8DMsh G9QbOODthlkfLm20uG6hWhDhScN5 DNpuK7LhhcN9JDEyoMYdDVvmOJM1 H87ud3W7HAGyDUWrHSO3 zGK5hQ5uaQjekgcjlJZzoKhpnzJj wGfbOXrcSFjjH735RLXgpFcpEqK4 QAppMFFaGA09NO71dNQu b9I0tCW2Q2YoEOYsdubhhnswmEG2 WLPyUXJnbI05xNLpKWggSo0vw9R8 z726YAGtWKRydG70Mi6i nFosENEblEXUaM6iweopw4sqamog OxSbZXDzUAr9JPm1QZTaxMpvCfGd NSP7RlP8TIK7cGMkxH1v pLthtuegbA7fPuq+ZoZkHAwwUG26 PF50rVDlz8M1pJH6C5ZeIDGbinci xvhpfHV8IYFtMUQriW15 tXVfNEjnFq5jr1E3e396CZYgZELv yR19Ke8rdZahBRErhKYWoQ5ycsbq j4ortrkqYfUxPGQgGYw7 UDg0WDXtqZvdJfThRQJ7MgM1EPM1 nKLjqB7zpQtufzcojC8cTtq+T3V0 pWG3hNSuzKphyTC+PC90 kx74A4TqVjgmYpm0YRHhYII9cMP3 oO7hHEGwFXzct2W1dER0G6CwjbSr oo3ls1lzXNPgUFwqH22m tCQkc5M9FJRsqAJ6HAMksRyuCjQy uW05Vcq+YUNslLytl7OuMyrdd4yf s3xozIq9MzTgCUCswcMn sFodAGD0b8VpOi29U12pKCurUMIt QQCrSQIjHZFjbKtptm3rfJ4dJi3+ OMBlxLQ0iZQ0yF1oNkZt OmI4AGdgQ019TpZgsFQoQusgj3lk a0pxrGu6QfBxMXGxclLluMmaKDE1 h4OyEg02K0JkaSyge1Gs Tnq5ol00lYMnt7V5cKV1B4OvPYSt pkxrsFPjaOvhEP9oCGAncjkcWFKq lZ9xAASeR8k8JlPdEsT7 FGkrD8DlanA1BQIkfUDmFPWabLMS jT1izxgmt7ysmcnhIsHnDYBvGNn8 IDq3ETWcoFykPjQaXYV5 BoZ1GNQ6vLFvaC5ewHdrguwixV5j Oyc+YNs1c2tvvJRnJT4taTQ1YQ60 BS54qFThs7J3gGV3Z8Up VCUjeqzzvkofxXW6MHToCZBwuI98 Nv7tdYlvDc4tPCAxTLK5CMFfjVFx C6FzrH8nClWpLOWjFFRn V0JflBDyDGxtK122TXhpOyV2DRNv crKfK4AmNIAazNgvZrC9r5M1Il3K AA96SO40RT40vQQah7L1 cWV7J9NoZKYiinzmhhvhmWC2MIDg XYQtpH97Lj1ikKgzJj3jYZKfEUO7 YHUukTZuU8SzsQ8oDbKt FSNsEWRmZ6BslQAtYGgjI701HIlp IhC8USXhqxFcK5QqENIipHgzGhX4 z4X5Il4RPr71WN49YU19 xXDul0D0uRA5U3QqSJDweecmyund yGA7PXUeBXIuaI36Wr2enTcqEo2f PSSbJUU5VZZzuIDtB2Jt sM4xJmArRHOuYMDcD9RfgTLrXYqd S672MZiiXuQ7EXGlgzMbX7YaKDAj iMtrWiB0g9B3Zt7CULhp nmm0A9XyHxpykNM+PR71MYMcLG96 uQZdcQHbe2zrzRl1GiEbJHIbZVR1 nSawDUkmc8HsDVRwF83w bGFw (more content not included)... Normal [facility] IntraOperative Documentson 0 07-30-2022 IntraOperative Documents [id number]#1.00CD:127 Normal [facility] Consenton 07-27-2022 Consent [id number]#1.00CD:127 [facility] Discharge Instructionson Discharge Instructions [id number]#1.00CD:127 [facility] Main OR Intraoperative Recor don 07-27-2022 Main OR Intraoperative Record IntraOp Document Type FT Summary Primary Physician: Haritha PAULINO MD Finalized Date/Time: 07/27/22 07:57:35 Pt. Name: CEFERINO PEREZ/Sex: 1955 Female Med Rec #: [id number] Physician: Haritha PAULINO MD Financial #: [id number] Pt. 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 Normal [facility] PACU Recordon 07-27-2022 PACU Record [id number]#1.00CD:127 Normal [facility] Consent for Treatmenton 07-05 Consent for Treatment [id number]#1.00CD:127 Normal [facility] Endoscopic Procedure Report - Otheron 07-26-2022 Endoscopic [...] hemorrhoids Images Procedure images: Rec1_hd_video_2022__T10_ 09_08_720.jpg Rec1_hd_video_2022__T10_ _46_707.jpg Rec1_hd_video_2022__T10_ 05_46_132.jpg Rec1_hd_video_2022__T10_ 08_40_923.jpg . Post-Procedure Complications: [...] Return to activities:: After 24 hours. Normal [facility] Comment on above: Result Comment: Elec tronically Signed By: Haritha PAULINO MD\.br\Date and Time Signed: 07/26/22 10:17 EST Other Comment: Yajaira morillo Attachment - attachment storage system not supported [id number] Can be viewed in source systemMissing Attachment - attachment storage system not supported [id number] Can be viewed in source systemMissing Attachment - attachment storage system not supported [id number] Can be viewed in source systemMissing Attachment - attachment storage system not supported [id number] Can be viewed in source system Endoscopic [...] the distal esophagus, then dilated using 60 [place] Serra dilator 2. Normal gastric mucosa 3. Normal duodenal mucosa Post-Procedure Complications: none. Estimated blood loss: none. Specimens: None. Devices/ implants: none left in place. Impression and Plan Normal distal esophageal mucosa, Botox 25 units injected in each corner of the distal esophagus, then dilated using 60 [place] Serra dilator Recommendations: Follow-up in GI clinic in 2 weeks [facility] Comment on above: Result Comment: Elec tronically Signed By: Haritha PAULINO MD\.br\Date and Time Signed: 07/26/22 09:57 EST Main OR PACU I Recordon 07-05 Main OR PACU I Record PACU Phase I Document Type FT Summary Primary Physician: Haritha PAULINO MD Finalized Date/Time: 07/26/22 11:43:54 Pt. Name: CEFERINO PEREZ/Sex: 1955 Female Med Rec #: [id number] Physician: Haritha PAULINO MD Financial #: [id number] Pt. Type: O Room/Bed: / Admit/Disch: 07/26/22 [...] By: Ludy La RN 07/26/22 11:43 Normal [facility] Main OR Preoperative Recordo n 07-26-2022 Main OR Preoperative Record Holding Area Document Type FT Summary Primary Physician: Haritha PAULINO MD Finalized Date/Time: 07/26/22 08:19:58 Pt. Name: CEFERINO PEREZ /Sex: 1955 Female Med Rec #: [id number] Physician: Haritha PAULINO MD Financial #: [id number] Pt. Type: O Room/Bed: / Admit/Disch: 07/26/22 [...] 08:04 Yoana Cassidy RN 07/26/22 08:19 Normal [facility] Monitor Recordon 07-26-2022 Monitor Record [id number]#1.00CD:127 [facility] Monitor Record [id number]#1.00CD:127 [facility] Monitor Record [id number]#1.00CD:127 [facility] Monitor Record [id number]#1.00CD:127 [facility] Monitor Record [id number]#[id number]:127 [facility] Progress Note-Physicianon Progress Note-Physician Patient: CEFERINO PEREZ Age: 67 years Sex: Female : 1955 Associated Diagnoses: None Author: Blayne Ingram MD Postoperative Information Postoperative disposition: Postoperative disposition: To PACU. Optimetrix number: Optimetrix number [id number]. Anesthetic utilized: General. Physical Examination Vital Signs [...] when meets criteria ( To home ). [facility] Comment on above: Result Comment: Elec [...] gram packet 17 gm, PRN, Oral, Daily [place] 5/325 Tab 1 tab(s), Oral, BID omeprazole [...] All Problems Acid reflux / SNOMED CT 295624007 / Confirmed Acute colitis / SNOMED CT 093186586 / Confirmed Acute gastritis / SNOMED CT 08872187 / Confirmed Arthritis / SNOMED CT 0525833 / Confirmed Dysphagia / SNOMED CT 11324511 / Confirmed Family history of colon cancer / SNOMED CT 029725585 / Confirmed Family history of colonic polyps / SNOMED CT 9460003248 / Confirmed GERD without esophagitis / SNOMED CT 3992147663 / Confirmed Hiatal hernia / SNOMED CT 678434456 / Confirmed History of esophageal spasm / SNOMED CT 989810298 / Confirmed IBS (irritable bowel syndrome) / SNOMED CT 22220334 / Confirmed Migraines / SNOMED CT 07808573 / Confirmed Obesity / SNOMED CT 6834686668 / Confirmed Vertigo / SNOMED CT 9082401700 / Confirmed, Active Problems (14) Acid reflux [...] in all extremities. Gastrointestinal: Soft, Non-tender. Plan [place] [employer]esthesiologists (ASA) physical status classification: Class II. Anesthetic Preoperative Plan: Anesthesia General. [facility] Comment on above: Result Comment: Elec tronically Signed By: Juan Jose CORRALES, Blayne Jacobs.br\Date and Time Signed: 07/26/22 08:08 EST MG MAMM SCREEN 3D VALENTINA CADon 04-27-2022 MG MAMM SCREEN 3D VALENTINA CAD Patient: CEFERINO PEREZ Exam Date: 04/27/2022 : 1955 Gender:F Ordering : DR BASSEM HERNANDEZ Admission #: [id number] Family : Order #: [id number] CLICK HERE TO VIEW EXAM RADIOLOGY REPORT [...] stomach cancer at age 89. LOCATION: [facility] BREAST COMPOSITION: Scattered areas fibroglandular density. [...] M.D. on 05/01/2022 at 12:[address] [facility] CBC AUTO DIFFon 02-19-2022 BASO # 0.0 103/ul Normal 0.0-0.1 [facility] Comment on above: Performed By: #### L IVER, TSH, BMP, LIPID #### [facility] [address] [place] [address] Dr. Lisa Marcano Basophils/100 WBC (Bld) 0.5 % Normal 0.2-2.0 [facility] Comment on above: Performed By: #### L IVER, TSH, BMP, LIPID #### [facility] [address] [place] [address] Dr. Lisa Marcano EO # 0.1 103/ul Normal 0.0-0.7 [facility] Comment on above: Performed By: #### L IVER, TSH, BMP, LIPID #### [facility] [address] [place] [address] Dr. Lisa Marcano Eosinophils/100 WBC (Bld) 1.5 % Normal 0.9-7.[address] [facility] Comment on above: Performed By: #### L IVER, TSH, BMP, LIPID #### [facility] [address] [place] [address] Dr. Lisa Marcano Erythrocyte distribution width (RBC) [Ratio] 13.3 % Normal 11.0-15.0 [facility] Comment on above: Performed By: #### L IVER, TSH, BMP, LIPID #### [facility] [address] [place] [address] Dr. Lisa Marcano Hematocrit (Bld) [Volume fraction] 40.2 % Normal 36.0-48.0 [facility] Comment on above: Performed By: #### L IVER, TSH, BMP, LIPID #### [facility] [address] [place] [address] Dr. Lisa Marcano Hemoglobin (Bld) [Mass/Vol] 12.8 g/dL Normal 12.0-16.0 [facility] Comment on above: Performed By: #### L IVER, TSH, BMP, LIPID #### [facility] [address] [place] [address] Dr. Lisa Marcano IG # 0.03 10e3/ul Normal 0.00-0.[address] [facility] Comment on above: Performed By: #### L IVER, TSH, BMP, LIPID #### [facility] [address] [place] [address] Dr. Lisa Marcano IG % 0.4 % Normal 0.0-0.5 [facility] Comment on above: Performed By: #### L IVER, TSH, BMP, LIPID #### [facility] [address] [place] [address] Dr. Lisa Marcano LYMPH # 3.9 103/ul Critically high 1.2-3.8 [facility] Comment on above: Performed By: #### L IVER, TSH, BMP, LIPID #### [facility] [address] [address] [address] Lisa Marcano Lymphocytes/100 WBC (Bld) 48.9 % Normal 20.5-60.[address] [facility] Comment on above: Performed By: #### L IVER, TSH, BMP, LIPID #### [facility] [address] [place] [address] Dr. Lisa Marcano MANUAL DIFF REQ NO Normal [facility] Comment on above: Performed By: #### L IVER, TSH, BMP, LIPID #### [facility] [address] [place] [address] Dr. Lisa Marcano MCH (RBC) [Entitic mass] 31.2 pg Normal 26.7-34.[address] [facility] Comment on above: Performed By: #### L IVER, TSH, BMP, LIPID #### [facility] [address] [place] [address] Dr. Lisa Marcano MCHC (RBC) [Mass/Vol] 31.8 g/dL Normal 29.9-35.[address] [facility] Comment on above: Performed By: #### L IVER, TSH, BMP, LIPID #### [facility] [address] [place] [address] Dr. Lisa Marcano MCV (RBC) [Entitic vol] 98.0 fL Normal 81.0-99.[address] [facility] Comment on above: Performed By: #### L IVER, TSH, BMP, LIPID #### [facility] [address] [place] [address] Dr. Lisa Marcano MONO # 0.7 103/ul Normal 0.3-0.[address] [facility] Comment on above: Performed By: #### L IVER, TSH, BMP, LIPID #### [facility] [address] [place] [address] Dr. Lisa Marcano Monocytes/100 WBC (Bld) 8.6 % Normal 1.7-12.0 [facility] Comment on above: Performed By: #### L IVER, TSH, BMP, LIPID #### [facility] [address] [place] [address] Dr. Lisa Marcano NEUT # 3.2 103/ul Normal 1.4-6.5 [facility] Comment on above: Performed By: #### L IVER, TSH, BMP, LIPID #### [facility] [address] [place] [address] Dr. Lisa Marcano Neutrophils/100 WBC (Bld) 40.1 % Critically low 43.0-75.[address] [facility] Comment on above: Performed By: #### L IVER, TSH, BMP, LIPID #### [facility] [address] [place] [address] Dr. Lisa Marcano Platelet mean volume (Bld) [Entitic vol] 9.5 fL Normal 9.5-13.5 [facility] Comment on above: Performed By: #### L IVER, TSH, BMP, LIPID #### [facility] [address] [place] [address] Dr. Lisa Marcano PLT 194 103/ul Normal 150-[address] [facility] Comment on above: Performed By: #### L IVER, TSH, BMP, LIPID #### [facility] [address] [place] [address] Dr. Lisa Marcano RBC 4.10 106/ul Critically low 4.20-5.40 [facility] Comment on above: Performed By: #### L IVER, TSH, BMP, LIPID #### [facility] [address] [place] [address] Dr. Lisa Marcano WBC 7.9 103/ul Normal 4.0-11.[address] [facility] Comment on above: Performed By: #### L IVER, TSH, BMP, LIPID #### [facility] [address] [place] [address] Dr. Lisa Marcano FERRITINon 02-19-2022 Ferritin [Mass/Vol] 74.0 ng/mL Normal 8.0-252.0 [facility] Comment on above: Performed By: #### F ERR, IRON, VITB12, VITAD #### [facility] [address] [address] [address] Lisa Marcano GLYCOHEMOGLOBIN A1Con 2021 ADA RECOMMENDATION SEE BELOW Normal [facility] Comment on above: Result Comment: ADA RECOMMENDED LIMIT 4.0 - 6.0 ADA THERAPEUTIC TARGET < 7.0 ACTION SUGGESTED > 7.0 Performed By: #### L IVER, TSH, BMP, LIPID #### [facility] [address] [address] [address] Lisa Marcano Glucose [Mass/Vol] 111 mg/dL Normal [facility] Comment on above: Performed By: #### L IVER, TSH, BMP, LIPID #### [facility] [address] [address] [address] Lisa Marcano HbA1c (Bld) [Mass fraction] 5.5 % Normal 4.5-6.2 [facility] Comment on above: Performed By: #### L IVER, TSH, BMP, LIPID #### [facility] [address] [place] [address] Dr. Lisa Marcano IRONon 02-19-2022 Iron [Mass/Vol] 91.0 ug/dL Normal 50.0-170.0 [facility] Comment on above: Performed By: #### F ERR, IRON, VITB12, VITAD #### [facility] [address] [place] [address] Dr. Lisa Marcano LIPID PROFILEon 02-19-2022 CHOL-HDL RATIO NORM SEE BELOW Normal [facility] Comment on above: Result Comment: 3.3 - 4.4 LOW RISK 4.4 - 7.1 AVERAGE RISK 7.1 - 11.0 MODERATE RISK >11.0 HIGH RISK Performed By: #### L IVER, TSH, BMP, LIPID #### [facility] [address] [address] [address] Lisa Marcano Cholesterol [Mass/Vol] 140 mg/dL Normal <=[address] [facility] Comment on above: Performed By: #### L IVER, TSH, BMP, LIPID #### [facility] [address] [address] [address] Lisa Marcano Cholesterol in HDL [Mass/Vol] 74 mg/dL Critically high 40-60 [facility] Comment on above: Performed By: #### L IVER, TSH, BMP, LIPID #### [facility] [address] [address] [address] Lisa Marcano Cholesterol in LDL [Mass/Vol] 45.8 mg/dL Normal [facility] Comment on above: Performed By: #### L IVER, TSH, BMP, LIPID #### [facility] [address] [address] [address] Lisa Marcano Cholesterol.total/ Cholesterol in HDL [Mass ratio] 1.9 {ratio} Normal [facility] Comment on above: Performed By: #### L IVER, TSH, BMP, LIPID #### [facility] [address] [address] [address] Lisa Marcano HDL NORMAL > or = 60 mg/dl - LO W CARDIOVASCULAR RISK <40 mg/dl - HIGH CARDIOVASCULAR RISK Normal [facility] Comment on above: Performed By: #### L IVER, TSH, BMP, LIPID #### [facility] [address] [address] [address] Lisa Marcano LDL CALC NORMAL SEE BELOW Normal [facility] Comment on above: Result Comment: <100 mg/dl OPTIMAL 100 - 129 mg/dl NEAR OR ABOVE OPTIMAL 130 - 159 mg/dl BORDERLINE HIGH 160 - 189 mg/dl HIGH >190 mg/dl VERY HIGH Performed By: #### L IVER, TSH, BMP, LIPID #### [facility] [address] [address] [address] Lisa Marcano Triglyceride [Mass/Vol] 101 mg/dL Normal <=[address] [facility] Comment on above: Performed By: #### L IVER, TSH, BMP, LIPID #### [facility] [address] [address] [address] Lisa Marcano VLDL CALC 20.2 mg/dL Normal [facility] Comment on above: Performed By: #### L IVER, TSH, BMP, LIPID #### [facility] [address] [address] [address] Lisa Marcano LIVER PROFILEon 02-19-2022 Albumin [Mass/Vol] 3.7 g/dL Normal 3.4-5.0 [facility] Comment on above: Performed By: #### L IVER, TSH, BMP, LIPID #### [facility] [address] [place] [address] Dr. Lisa Marcano Albumin/Globulin [Mass ratio] 1.2 {ratio} Normal [facility] Comment on above: Performed By: #### L IVER, TSH, BMP, LIPID #### [facility] [address] [place] [address] Dr. Lisa Marcano ALP [Catalytic activity/Vol] 75 U/L Normal 46-116 [facility] Comment on above: Performed By: #### L IVER, TSH, BMP, LIPID #### [facility] [address] [place] [address] Dr. Lisa Marcano ALT [Catalytic activity/Vol] 24 U/L Normal 14-59 [facility] Comment on above: Performed By: #### L IVER, TSH, BMP, LIPID #### [facility] [address] [place] [address] Dr. Lisa aMrcano AST [Catalytic activity/Vol] 17 U/L Normal 15-37 [facility] Comment on above: Performed By: #### L IVER, TSH, BMP, LIPID #### [facility] [address] [place] [address] Dr. Lisa Marcano BILI, CONJUGATED 0.1 mg/dL Normal 0.0-0.2 [facility] Comment on above: Performed By: #### L IVER, TSH, BMP, LIPID #### [facility] [address] [place] [address] Dr. Lisa Marcano Bilirubin [Mass/Vol] 0.5 mg/dL Normal 0.2-1.0 [facility] Comment on above: Performed By: #### L IVER, TSH, BMP, LIPID #### [facility] [address] [place] [address] Dr. Lisa Marcano Globulin (S) [Mass/Vol] 3.1 g/dL Normal [facility] Comment on above: Performed By: #### L IVER, TSH, BMP, LIPID #### [facility] [address] [address] [address] Lisa Marcano Protein [Mass/Vol] 6.8 g/dL Normal 6.4-8.2 [facility] Comment on above: Performed By: #### L IVER, TSH, BMP, LIPID #### [facility] [address] [place] [address] Dr. Lisa Marcano PROF CHEM 8 (BAS METB)on Anion gap [Moles/Vol] 9.0 mmol/L Normal [facility] Comment on above: Performed By: #### L IVER, TSH, BMP, LIPID #### [facility] [address] [place] [address] Dr. Lisa Marcano Calcium [Mass/Vol] 8.9 mg/dL Normal 8.5-10.1 [facility] Comment on above: Performed By: #### L IVER, TSH, BMP, LIPID #### [facility] [address] [place] [address] Dr. Lisa Marcano Chloride [Moles/Vol] 109 mmol/L Critically high 98-[address] [facility] Comment on above: Performed By: #### L IVER, TSH, BMP, LIPID #### [facility] [address] [place] [address] Dr. Lisa Marcano CO2 [Moles/Vol] 29.1 mmol/L Normal 21.0-32.0 [facility] Comment on above: Performed By: #### L IVER, TSH, BMP, LIPID #### [facility] [address] [place] [address] Dr. Lisa Marcano Creatinine [Mass/Vol] 0.70 mg/dL Normal 0.55-1.[address] [facility] Comment on above: Performed By: #### L IVER, TSH, BMP, LIPID #### [facility] [address] [place] [address] Dr. Lisa Marcano EGFR-AF IVORIAN >60 Normal >=60 [facility] Comment on above: Performed By: #### L IVER, TSH, BMP, LIPID #### [facility] [address] [address] [address] Lisa Marcano EGFR-NON AF IVORIAN >60 Normal >=60 [facility] Comment on above: Performed By: #### L IVER, TSH, BMP, LIPID #### [facility] [address] [place] [address] Dr. Lisa Marcano Glucose [Mass/Vol] 114 mg/dL Critically high 74-106 [facility] Comment on above: Performed By: #### L IVER, TSH, BMP, LIPID #### [facility] [address] [place] [address] Dr. Lisa Marcano Potassium [Moles/Vol] 4.1 mmol/L Normal 3.5-5.1 [facility] Comment on above: Performed By: #### L IVER, TSH, BMP, LIPID #### [facility] [address] [place] [address] Dr. Lisa Marcano Sodium [Moles/Vol] 143 mmol/L Normal 136-145 [facility] Comment on above: Performed By: #### L IVER, TSH, BMP, LIPID #### [facility] [address] [place] [address] Dr. Lisa Marcano Urea nitrogen [Mass/Vol] 24.0 mg/dL Critically high 7.0-18.0 [facility] Comment on above: Performed By: #### L IVER, TSH, BMP, LIPID #### [facility] [address] [place] [address] Dr. Lisa Marcano Urea nitrogen/Creatinin e [Mass ratio] 34.3 mg/mg Normal [facility] Comment on above: Performed By: #### L IVER, TSH, BMP, LIPID #### [facility] [address] [place] [address] Dr. Lisa Marcano TSHon 02-19-2022 TSH 1.706 uIU/mL Normal 0.358-3.740 [facility] Comment on above: Performed By: #### L IVER, TSH, BMP, LIPID #### [facility] [address] [address] [address] Lisa Marcano VITAMIN B12on 02-19-2022 Cobalamin (Vitamin B12) [Mass/Vol] 1064.0 pg/mL Critically high 193.0-986.0 [facility] Comment on above: Performed By: #### F ERR, IRON, VITB12, VITAD #### [facility] [address] [address] [address] Lisa Marcano VITAMIN D 25 OHon 02-19-2022 VIT D 25-OH 43.9 ng/mL Normal [facility] Comment on above: Performed By: #### F ERR, IRON, VITB12, VITAD #### [facility] [address] [place] [address] Dr. Lisa Marcano VIT D RANGES SEE BELOW Normal [facility] Comment on above: Result Comment: <20 ng/mL Vit D deficient 20 - <30 ng/mL Vit D insufficient 30 - 100 ng/mL Vit D sufficient >100 ng/mL Potential Toxicity Performed By: #### F ERR, IRON, VITB12, VITAD #### [facility] [address] [address] [address] Lisa Marcano XR DEXA BONE DENSITYon [...] by: BOB CAMERON Date: 2022-01-25 16:49 Normal [facility] CNPNon 04-04-2021 CNPN Telephone [facility] CEFERINO PEREZ ([id number]) 1955 F Date Time Provider Department 04/04/21 CIRILO BEDOYA ([facility]) [facility] During your visit today, we recorded the following information about you: Cirilo Bedoya [employer]ION[employer] BAB[employer] 04/04/2021 3:40 PM Signed ----- Message from Olya Dizkon sent at 04/03/2021 11:41 AM EDT ----- [...] (FLONASE) 50 mcg/actuation nasal spray Use 1 [place] in each nostril once daily. - promethazine [...] by CIRILO BEDOYA LPN on 04/04/21 Normal [facility] Vital Signs Date Time Vital Sign Value Performing Clinician Facility 07-16-2023 07:52-0500 Diastolic blood pressure 86 mm[Hg] Ruth VILLA Work Phone: [facility] [employer] [facility] 07-16-2023 07:52-0500 Heart rate 84 /min Ruth VILLA Work Phone: [facility] 07-16-2023 07:52-0500 Respiratory rate 20 /min Ruth VILLA Work Phone: [facility] 07-16-2023 07:52-0500 Systolic blood pressure 131 mm[Hg] Ruth VILLA Work Phone: [facility] 03-25-2023 12:32-0400 Blood Pressure Location [facility] 03-25-2023 12:32-0400 Body temperature 97.7 [degF] [facility] 03-25-2023 12:32-0400 Diastolic blood pressure 82 mm[Hg] [facility] 03-25-2023 12:32-0400 Heart rate 68 /min [facility] 03-25-2023 12:32-0400 Systolic blood pressure 120 mm[Hg] [facility] 02-15-2023 11:03-0400 Diastolic blood pressure 81 mm[Hg] Abdi Sarmini [facility] 02-15-2023 11:03-0400 Heart rate 79 /min Abdi Sarmini [facility] 02-15-2023 11:03-0400 Mean blood pressure 90 mm[Hg] Abdi Sarmini [facility] 02-15-2023 11:03-0400 Respiratory rate 19 /min Abdi Sarmini [facility] 02-15-2023 11:03-0400 SaO2% (BldA) [Mass fraction] 93 % Abdi Sarmini [facility] 02-15-2023 11:03-0400 Systolic blood pressure 108 mm[Hg] Abdi Sarmini [facility] 02-15-2023 10:50-0400 Diastolic blood pressure 54 mm[Hg] Abdi Sarmini [facility] 02-15-2023 10:50-0400 Heart rate 80 /min Abdi Sarmini [facility] 02-15-2023 10:50-0400 Mean blood pressure 62 mm[Hg] Abdi Sarmini [facility] 02-15-2023 10:50-0400 Respiratory rate 18 /min Abdi Sarmini [facility] 02-15-2023 10:50-0400 SaO2% (BldA) [Mass fraction] 98 % Abdi Sarmini [facility] 02-15-2023 10:50-0400 Systolic blood pressure 78 mm[Hg] Abdi Sarmini [facility] 02-15-2023 10:45-0400 Diastolic blood pressure 43 mm[Hg] Abdi Sarmini [facility] 02-15-2023 10:45-0400 Heart rate 81 /min Abdi Sarmini [facility] 02-15-2023 10:45-0400 Mean blood pressure 58 mm[Hg] Abdi Sarmini [facility] 02-15-2023 10:45-0400 Respiratory rate 16 /min Abdi Sarmini [facility] 02-15-2023 10:45-0400 SaO2% (BldA) [Mass fraction] 99 % Abdi Sarmini [facility] 02-15-2023 10:45-0400 Systolic blood pressure 89 mm[Hg] Abdi Sarmini [facility] 02-15-2023 10:38-0400 Body temperature 97.16 [degF] Abdi Sarmini [facility] 02-15-2023 10:30-0400 Respiratory rate 20 /min Abdi Sarmini [facility] 02-15-2023 10:25-0400 Respiratory rate 20 /min Abdi Sarmini [facility] 02-15-2023 10:15-0400 Respiratory rate 20 /min Abdi Sarmini [facility] 02-15-2023 09:42-0400 Blood Pressure Location Abdi Sarmini [facility] 02-15-2023 09:42-0400 Body temperature 96.8 [degF] Abdi Sarmini [facility] 01-21-2023 09:43-0400 Blood Pressure Location [facility] 01-21-2023 09:43-0400 Body temperature 96.8 [degF] [facility] 01-21-2023 09:43-0400 Diastolic blood pressure 74 mm[Hg] [facility] 01-21-2023 09:43-0400 Heart rate 53 /min [facility] 01-21-2023 09:43-0400 Systolic blood pressure 112 mm[Hg] [facility] 08-24-2022 13:36-0400 Blood Pressure Location [facility] 08-24-2022 13:36-0400 Body temperature 97.34 [degF] [facility] 08-24-2022 13:36-0400 Diastolic blood pressure 76 mm[Hg] [facility] 08-24-2022 13:36-0400 Heart rate 66 /min [facility] 08-24-2022 13:36-0400 Systolic blood pressure 110 mm[Hg] [facility] 07-26-2022 10:40-0500 Diastolic blood pressure 75 mm[Hg] Mg SALAM [facility] 07-26-2022 10:40-0500 Heart rate 62 /min Mg SALAM [facility] 07-26-2022 10:40-0500 Mean blood pressure 82 mm[Hg] Mg SALAM [facility] 07-26-2022 10:40-0500 Respiratory rate 12 /min Mg SAL[facility] 07-26-2022 10:40-0500 SaO2% (BldA) [Mass fraction] 97 % Mg SALAM [facility] 07-26-2022 10:40-0500 Systolic blood pressure 95 mm[Hg] Mg SALAM [facility] 07-26-2022 10:30-0500 Diastolic blood pressure 56 mm[Hg] Mg SALAM [facility] 07-26-2022 10:30-0500 Heart rate 76 /min Mg SALAM [facility] 07-26-2022 10:30-0500 Respiratory rate 10 /min Mg SALAM [facility] 07-26-2022 10:30-0500 SaO2% (BldA) [Mass fraction] 100 % Mg SALAM [facility] 07-26-2022 10:30-0500 Systolic blood pressure 97 mm[Hg] Mg SALAM [facility] 07-26-2022 10:25-0500 Diastolic blood pressure 71 mm[Hg] Mg SALAM [facility] 07-26-2022 10:25-0500 Heart rate 63 /min Mg SALAM [facility] 07-26-2022 10:25-0500 Mean blood pressure 88 mm[Hg] Mg SALAM [facility] 07-26-2022 10:25-0500 Respiratory rate 10 /min Mg SALAM [facility] 07-26-2022 10:25-0500 SaO2% (BldA) [Mass fraction] 100 % Mg SALAM [facility] 07-26-2022 10:25-0500 Systolic blood pressure 121 mm[Hg] Mg SALAM [facility] 07-26-2022 10:20-0500 Mean blood pressure 86 mm[Hg] Mg SALAM [facility] 07-26-2022 10:19-0500 Blood Pressure Location Mg SALAM [facility] 07-26-2022 10:19-0500 Body temperature 98.96 [degF] Mg SALAM [facility] 07-26-2022 08:18-0500 Blood Pressure Location Mg SALAM [facility] 07-26-2022 08:18-0500 Body temperature 98.6 [degF] Haritha TAMAM [facility] 02-13-2022 12:31-0400 [facility]13[facility] 12:31-0400 Body temperature 97.16 [degF] Julee [facility] 02-13-2022 12:31-0400 Diastolic blood pressure 73 mm[Hg] Julee [facility] 02-13-2022 12:31-0400 Heart rate 48 /min Julee [facility] 02-13-2022 12:31-0400 Systolic blood pressure 108 mm[Hg] Julee [facility] 11-14-2021 13:48-0400 Diastolic blood pressure 78 mm[Hg] Julee [facility] 11-14-2021 13:48-0400 Mean blood pressure 93 mm[Hg] Julee [facility] 11-14-2021 13:48-0400 Systolic blood pressure 124 mm[Hg] Julee [facility] 11-14-2021 13:44-0400 Blood Pressure Location Julee [facility] 11-14-2021 13:44-0400 Body temperature 97.16 [degF] Julee [facility] 11-14-2021 13:44-0400 Diastolic blood pressure 90 mm[Hg] [facility]aribel L[facility] 11-14-2021 13:44-0400 Heart rate 61 /min [facility]ibel [facility] 11-14-2021 13:44-0400 SaO2% (BldA) [Mass fraction] 100 % [facility]aribel L[facility] 11-14-2021 13:44-0400 Systolic blood pressure 130 mm[Hg] [facility]ibel [facility] 10-18-2021 15:08-0400 Diastolic blood pressure 73 mm[Hg] Mg SALAM [facility] 10-18-2021 15:08-0400 Heart rate 60 /min Mg SALAM [facility] 10-18-2021 15:08-0400 Respiratory rate 22 /min Mg SALAM [facility] 10-18-2021 15:08-0400 SaO2% (BldA) [Mass fraction] 100 % Mg SALAM [facility] 10-18-2021 15:08-0400 Systolic blood pressure 103 mm[Hg] Mg SALAM [facility] 10-18-2021 14:55-0400 Diastolic blood pressure 62 mm[Hg] Mg SALAM [facility] 10-18-2021 14:55-0400 Heart rate 60 /min Mg SALAM [facility] 10-18-2021 14:55-0400 Respiratory rate 19 /min Mg SALAM [facility] 10-18-2021 14:55-0400 SaO2% (BldA) [Mass fraction] 100 % Mg SALAM [facility] 10-18-2021 14:55-0400 Systolic blood pressure 103 mm[Hg] Mg SALAM [facility] 10-18-2021 14:50-0400 Diastolic blood pressure 62 mm[Hg] Mg SALAM [facility] 10-18-2021 14:50-0400 Heart rate 74 /min Mg SALAM [facility] 10-18-2021 14:50-0400 Respiratory rate 17 /min Mg SALAM [facility] 10-18-2021 14:50-0400 SaO2% (BldA) [Mass fraction] 100 % Mg SALAM [facility] 10-18-2021 14:50-0400 Systolic blood pressure 103 mm[Hg] Mg SALAM [facility] 10-18-2021 14:43-0400 Body temperature 98.24 [degF] Mg SALAM [facility] 10-18-2021 14:40-0400 Respiratory rate 17 /min Mg SALAM [facility] 10-18-2021 14:35-0400 Respiratory rate 19 /min Mg SALAM [facility] 10-18-2021 14:30-0400 Respiratory rate 1 /min Mg SALAM [facility] 10-18-2021 13:53-0400 Blood Pressure Location Haritha PAULINO [facility] 10-18-2021 13:53-0400 Body temperature 97.34 [degF] Haritha PAULINO [facility] Encounters Encounter Date Encounter Type Care Provider Facility Start: 10-02-2023 End: 10-02-2023 ambulatory SERGE MCKENNASantiago Not Available Start: 09-10-2023 End: 09-10-2023 ambulatory RUTH S [facility] Start: 08-19-2023 End: 08-19-2023 ambulatory [facility] Start: 08-14-2023 End: 08-14-2023 ambulatory SERGE HILTON Not Available Start: 08-08-2023 Temo Bergeron RN [facility] Comment on above: Lumbosacral spondylo sis without myelopathy Start: 08-05-2023 End: 09-02-2023 ambulatory RUTH S [facility] Start: 08-03-2023 End: 08-03-2023 ambulatory JOSE FRAZIER [facility] Start: 08-02-2023 End: 08-03-2023 [facility] Start: 08-02-2023 End: 08-03-2023 [facility] Start: 08-02-2023 End: 08-02-2023 ambulatory VIC KEENE [facility] Start: 07-18-2023 End: 08-02-2023 ambulatory RUTH S [facility] Start: 07-16-2023 End: 07-16-2023 ambulatory [facility] Start: 07-16-2023 End: 07-16-2023 Office outpatient visit 25 minutes Ruth VILLA Work Phone: [facility] Comment on above: Disorder of sacrum ( Primary Dx); Lumbosacral spondylosis without myelopathy; Acute pain of left shoulder Start: 07-12-2023 Refill Tressa Tolliver RN [facility] Comment on above: Lumbosacral spondylo sis without myelopathy Start: 07-08-2023 Telephone encounter Vic Keene MD Work Phone: [facility] Start: 07-05-2023 End: 07-06-2023 ambulatory SERGE AVELARAPRIL [facility] Start: 2023 End: 2023 ambulatory SERGE HILTON Not Available Start: 06-17-2023 Orders Only Ruth VILLA Work Phone: [facility] Start: 06-11-2023 Refill Radha Jacob RN [facility] Comment on above: Lumbosacral spondylo sis without myelopathy Start: 05-22-2023 End: 05-22-2023 ambulatory [facility] Start: 05-15-2023 End: 05-15-2023 ambulatory SERGE HILTON Not Available Start: 03-25-2023 End: 03-26-2023 ambulatory Julee Ruiz Facility:[facility] Start: 03-25-2023 End: 08-30-2023 Pre-admission assessment Jin Sinhamini [facility] Start: 03-25-2023 End: 03-25-2023 Patient encounter [facility] Start: 02-15-2023 End: 02-15-2023 ambulatory Jin Sinhamini [facility] Start: 02-15-2023 End: 02-15-2023 Patient encounter procedure Abdi Talal Sarmini [facility] Start: 01-21-2023 End: 01-22-2023 ambulatory Juleemaribel Liaometz Facility:[facility] Start: 01-21-2023 End: 01-21-2023 Patient encounter procedure Julee Ruiz [facility] Start: 08-24-2022 End: 08-25-2022 [facility] Start: 08-24-2022 End: 08-24-2022 Patient encounter procedure Julee Ruiz [facility] Start: 07-26-2022 End: 07-27-2022 ambulatory Haritha PAULINO Facility:[facility] Start: 07-26-2022 End: 07-26-2022 Patient encounter procedure Haritha PAULINO [facility] Start: 04-27-2022 End: 04-28-[address] BASSEM HERNANDEZ Facility:[facility] Start: 03-22-2022 End: 03-22-2022 Patient encounter procedure Juleemaribel Maysz [facility] Start: 02-21-2022 Encounter for genera l adult medical examination without abnormal findings DR SERGE HILTON [facility] Start: 02-19-2022 End: 02-20-[address] SERGE HILTON Facility:[facility] Start: 02-19-2022 End: 02-20-2022 Encounter for general adult medical examination without abnormal findings DR SERGE HILTON Facility:[facility] Start: 02-13-2022 End: 02-13-2022 Patient encounter procedure Julee Channing [facility] Start: 01-25-2022 End: 01-26-[address] BASSEM HERNANDEZ Facility: Start: 11-14-2021 End: 11-14-2021 Patient encounter procedure Julee Ruiz [facility] Start: 10-18-2021 End: 10-18-2021 Patient encounter procedure Haritha PAULINO [facility] Start: 12-29-2018 End: 01-01-2019 Patient encounter procedure YOSHI BURNS [facility] Start: 11-21-2017 End: 11-22-2017 Ambulatory DEFAULT PHYSICIAN Facility:[facility] Start: 10-08-2017 End: 10-09-2017 Ambulatory SERGE HILTON Facility:[facility] Start: 03-13-2017 End: 03-14-2017 Ambulatory DEFAULT PHYSICIAN Facility:[facility] Procedures Date Procedure Procedure Detail Performing Clinician Start: 02-15-2023 Esophagogastroduodenoscopy Jin chaidez Start: 07-26-2022 Colonoscopic polypectomy Mg SALAM Start: 07-26-2022 Esophagogastroduodenoscopy Mg SALAM Start: 12-16-2020 Esophagogastroduodenoscopy Mg SALAM Start: 12-29-2018 Dup-scan xtr veins complete bilateral study YOSHIBJ SHUKLAS Bariatric surgery se rvice (qualifier value) Mg SALAM section Mg SALAM Hernia repair Mg SALAM Hysterectomy Mg SALAM Plan of Treatment Date Care Activity Detail Author Start: 08-01-2024 Tobacco Screening Tobacco Screening [facility] Start: 07-16-2024 Tobacco Screening Tobacco Screening [facility] Start: 05-07-2024 Tobacco Screening Tobacco Screening [facility] Start: 04-11-2024 Adult BMI Screening Adult BMI Screen ing [facility] Start: 08-13-2023 End: 08-13-2023 Patient encounter procedure 08/13/2023 1:45 PM EDT Office Visit [facility] [address] [place] [id number] Ruth Hussein, PA [address], [address] [place], [place] [id number] [facility] Start: 08-02-2023 End: 08-02-2023 Admission to same day surgery center 08/02/2023 9:23 AM EST - 08/02/2023 9:30 AM EST Surgery [facility] [address] [place] [id number] Vic Keene MD [address] [place], [place] [id number] INJECTION BLOCK SACROILIAC JOINT [05531 (CPT )] [facility] Comment on above: INJECTION BLOCK SACR OILIAC JOINT [85855 (CPT )] Start: 08-02-2023 End: 08-02-2023 Inject si joint arthrgrphy&/anes/steroid w/geetha INJECTION BLOCK SACROILIAC JOINT Disorder of sacrum 08/02/2023 9:23 AM EST [facility] Start: 08-02-2023 Subsequent hospital visit by physician 08/02/2023 9:23 AM EST Hospital Encounter [facility] [address] [place] [phone] Vic Keene MD [address] [facility] [place] [id number] [facility] Start: 2022 Fall Risk Screening Fall Risk Screen ing [facility] Start: 2007 Administration of varicella zoster vaccine [facility] (Shingles) [facility] Start: 1976 DTaP,Tdap and Td Vac cines (1 - Tdap) DTaP,Tdap and Td Vaccines (1 - Tdap) [facility] Start: 1975 Adult BMI Follow Up Plan Adult BMI Follow Up Plan [facility] Start: 1969 Depression Screening [facility] Start: 1957 Medicare Annual Well ness Visit Medicare Annual Wellness Visit [facility] Immunizations Immunization Date Immunization Notes Care Provider [facility] 03-13-2023 influenza virus vaccine, unspecified formulation Julee Ru[facility] 03-10-2022 influenza virus vaccine, unspecified formulation Mg SALAM [facility] 03-10-2022 SARS-CoV-2 (COVID-19 ) [id number] Mg SALAM [facility] 03-30-2021 SARS-CoV-2 (COVID-19 ) Ad26 vaccine, recombinant [facility] Comment on above: Result Comment: 2021: [id number] 02-15-2021 influenza virus vaccine, unspecified formulation Mg SALAM [facility] 02-01-2021 influenza virus vaccine, unspecified formulation Mg SALAM [facility] 08-10-2020 SARS-CoV-2 (COVID-19 ) Ad26 vaccine, recombinant Mg [facility] Comment on above: Result Comment: 2021: [id number] 02-11-2018 influenza virus vaccine, unspecified formulation Mg SALAM [facility] 02-19-2015 influenza virus vaccine, unspecified formulation Haritha PAULINO [facility] NEGATED: Highlighted row has not occurred!02-13-2022 influenza virus vaccine, unspecified formulation Julee Ruiz [facility] Payers Date Payer Category Payer Medicare [id number] 2022 Medicare [id number] 2022 Private Health Insurance [id number] 2015 Medicaid [id number] 1959 Unknown [id number] 1957 Unknown [id number] 2.16.8 40.1.158768.3.579.2.173 1957 Unknown [id number] 2.16.84 0.1.806616.3.579.2.593 1957 Unknown [id number] 2.16.84 0.1.563299.3.579.2.593 1957 Unknown [id number] 2.16.84 0.1.571228.3.579.2.593 1957 Unknown [id number] 2.16.8 40.1.268495.3.579.2.727 1957 Unknown [id number] 2.16.8 40.1.028216.3.579.2.727 1957 Unknown [id number] 2.16.8 40.1.484618.3.579.2.727 1957 Unknown [id number] 2.16.8 40.1.746955.3.579.2.727 1957 Unknown [id number] 2.16.8 40.1.053709.3.579.2.727 1957 Unknown [id number] 2.16.8 40.1.733478.3.579.2.128 1957 Unknown [id number] 2.16.8 40.1.926711.3.579.2.1285 1957 Unknown [id number] 2.16.8 40.1.415179.3.579.2.1285 1957 Unknown [id number] 2.16.8 40.1.246496.3.579.2.1285 1957 Unknown [id number] 2.16.8 40.1.166272.3.579.2.1285 1957 Unknown [id number] 2.16.8 40.1.567541.3.579.2.1285 1957 Unknown [id number] 2.16.8 40.1.742473.3.579.2.1285 1957 Unknown [id number] 2.16.8 40.1.500399.3.579.2.1285 1957 Unknown [id number] 2.16.8 40.1.088408.3.579.2.1285 1957 Unknown [id number] 2.16.8 40.1.119811.3.579.2.1285 1957 Unknown [id number] 2.16.8 40.1.217040.3.579.2.1285 1957 Unknown [id number] 2.16.8 40.1.163881.3.579.2.1285 1957 Unknown [id number] 2.16.84 0.1.636545.3.579.2.1258 1957 Unknown [id number] 2.16.84 0.1.252674.3.579.2.1258 1957 Unknown [id number] 2.16.84 0.1.271171.3.579.2.1258 1957 Unknown [id number] 2.16.840 .1.000179.3.579.2.1259 Unknown Social History Date Type Detail Facility Start: 08-14-2021 End: 03-25-2023 Tobacco smoking status Never smoked tobacco (finding) [facility] Tobacco smoking status Never [facility] Start: 06-17-2020 End: 05-07-2023 Sex Assigned At Female [facility] Start: 05-31-2022 Tobacco use and exposure Smokeless tobacco non-user [facility] Start: 05-07-2023 End: 08-02-2023 Alcohol intake Current non-drinker of alcohol (finding) [facility] Start: 06-17-2020 End: 05-07-2023 History of Social function [facility] Start: 1955 Sex Assigned At Not on file [place] [facility] Medical Equipment Procedure Code Equipment Code Equipment [...] Assessment Result Facility 03-25-2023 Functional Status N/A [facility] 02-15-2023 Functional Status N/A [facility] 01-21-2023 Functional Status N/A [facility] 08-24-2022 Functional Status N/A [facility] 07-26-2022 Functional Status N/A [facility] 02-13-2022 N/A [facility] 11-14-2021 Functional Status N/A [facility] Clinical Notes 05-23-2021 to 08-19-2023 Telephone Encounter - Aarti Bergeron RN - 08/08/2023 11:00 AM ESTTelephone Encounter - Aarti Bergeron RN - 08/08/2023 11:00 AM ALLEN Gaspar - 07/16/2023 7:45 AM ESTPatient Instructions Note Date & Type Note Facility 08-19-2023 Note [facility] Subjective Ceferino Perez is a 68 y.o. year old [...] not ill-appearing. HE (more content not included)... [facility] 08-08-2023 Miscellaneous Notes Last Office Visit: 07/16/2023 Next Office Visit: Visit date not found Last Urine Drug Screen: Lab Results Component Value Date BENZOSCRN Negative 09/13/2022 OARRS appropriate [facility] Telephone encounter Note Last Office Visit: 07/16/2023 Next Office Visit: Visit date not found Last Urine Drug Screen: Lab Results Component Value Date BENZOSCRN Negative 09/13/2022 O[facility] appropriate [facility]23 History of Present illness Narrative [facility] [address] [place] [address] Patient: Ceferino Perez Sex: female : 1955 [...] injectin with 75% relief. 09/23/20 Right L4/5, 10/01 RFA w/65% relief. 11/24/21 Bilateral SIJ with [...] loss, past SI inj w/ mod relief. Milford w/ mod relief, OTC analgesics. NSAID x2 (naproxen, ibuprofen) w/ slight relief. The treatment provided moderate relief. The effect of pain on patient's ADLS: Moderate Impairment. Past Medical History: Diagnosis Date Anxiety Arrhythmia Arthritis Asthma Back pain Bronchitis CAD (coronary artery disease) Chronic kidney disease cyst x2 on right kidney, kidney stone left Chronic pain disorder COPD (chronic obstructive pulmonary disease) ([facility]) Cyst of right kidney Depression Esophageal dilatation [...] 09/23/2020 Performed by Vic Keene MD at [facility] BARIATRIC SURGERY CARDIAC CATHETERIZATION CATARACT EXTRACTION SECTION CHOLECYSTECTOMY COLON SURGERY CYSTOSCOPY DILATATION URETHRAL UM SOLUTION N/A 05/12/2018 Performed by Rachel Dey MD at [facility] ESOPHAGOGASTRODUODENOSCOPY ESWL left Left 09/05/2015 Performed by Rachel Dey MD at [facility] EXTERNAL EAR SURGERY Right FEMORAL ARTERY STENT Left leg 2011 HERNIA REPAIR x12 HYSTERECTOMY INJECTION BLOCK SACROILIAC JOINT Bilateral 12/28/2022 Performed by Vic Keene MD at [facility] INJECTION BLOCK SACROILIAC JOINT Bilateral 06/29/2022 Performed by Vic Keene MD at [facility] INJECTION BLOCK SACROILIAC JOINT Bilateral 11/24/2021 Performed by Vic Keene MD at [facility] INJECTION BLOCK SACROILIAC JOINT Bilateral 07/21/2021 Performed by Vic Keene MD at [facility] SACROILIAC NERVE Bilateral 06/01/2019 Performed by Vic Keene MD at [facility] SPINE TRANSFORAMINAL: right T 10,11 Nroot Right 05/18/2022 Performed by Vic Keene MD at [facility] INJECTION STEROID EPI 2 WITH SEDATION: right T10, 11 nroot Right 11/20/2019 Performed by Vic Keene MD at [facility] INJECTION STEROID EPI 2 WITH SEDATION: right T10,11 nroot Right 04/17/2019 Performed by Vic Keene MD at [facility] LOWER LEG Left vein angioplasty RADIO FREQUENCY ABLATION L4/5 5/1 Right 06/06/2018 Performed by Vic Keene MD at [facility] RADIO FREQUENCY ABLATION L4/5 L5/S1 Left 06/20/2018 Performed by Vic Keene MD at [facility] RADIO FREQUENCY ABLATION LEFT L4/5,5/S1 Left 06/07/2017 Performed by Vic Keene MD at [facility] RADIO FREQUENCY ABLATION: left L45 51rfa Left 01/29/2020 Performed by Vic Keene MD at [facility] RADIOFREQUENCY ABLATION SPINAL: right L45 51 rfa Right 05/17/2017 Performed by Vic Keene MD at [facility] URETHRAL DILATION 12/2014 Allergies Allergen Reactions Penicillin [...] Ambulatory referral to Physical Therapy; Future Refill Milford 2/325 mg 1/2-1 tablet TID PRN Ice, [...] medication that requires intensive monitoring for toxicity: Milford and was refilled at today's office visit. OARRS and most recent UDS were reviewed, discussed and appropriate for medications prescribed. Milford pill count completed at today's office visit. [...] Jolly 07/16/23 [id number] documented in this encounter [facility] 07-16-2023 Instructions Lisy Gonsalves CNA - 07/16/2023 [...] nearest emergency room. [facility] 07-12-2023 Miscellaneous Notes Last OV: 04/11/23 Next OV: not scheduled. LM for patient to call for an appointment OARRS appropriate: Yes Last UDS: 09/13/2022 Pharmacy: [facility] Pt called back and appt was made and pending order removed. Patient will get prescription at OV Patient was seen in office today. [place] refill signed today. documented in this encounter [facility] 07-12-2023 Telephone encounter Note Last OV: 04/11/23 Next OV: not scheduled. LM for patient to call for an appointment OARRS appropriate: Yes Last UDS: 09/13/2022 Pharmacy: [facility] 07-12-2023 Telephone encounter Note Pt called back and appt was made and pending order removed. Patient will get prescription at OV [facility] 07-12-2023 Telephone encounter Note Patient was seen in office today. [place] refill signed today. [facility] 07-08-2023 Miscellaneous Notes Patient called to inform office that she was seen by her PCP for left shoulder pain. Her PCP prescribed cyclobenzaprine 10mg And prednisone documented in this encounter [facility] 07-08-2023 Telephone encounter Note Patient called to inform office that she was seen by her PCP for left shoulder pain. Her PCP prescribed cyclobenzaprine 10mg And prednisone [facility] 06-11-2023 Miscellaneous Notes Last OV: 04/21/2023 Next OV: --- OARRS appropriate: yes Last UDS: 09/13/2022 Pharmacy: [facility]ya[facility] Stout documented in this encounter [facility] 06-11-2023 Telephone encounter Note Last OV: 04/21/2023 Next OV: --- OARRS appropriate: yes Last UDS: 09/13/2022 Pharmacy: Ayaan Stout [facility] 05-22-2023 Note [place] [facility] Andre Perez is a 67 y.o. year old female patient being seen for 1 year follow up diastolic heart failure and hyperlipidemia. She had routine labs in Feb 2023. Was diagnosed with vertigo about 2 weeks ago while in the ED at [facility]. Says she does get intermittent chest [...] oriented to pe (more content not included)... [facility] 03-25-2023 Hospital Discharge instructions Patient Education 03/25/2023 [...] grapefruit, pineapple, and arabella. Vegetables Deep-fried vegetables. Canadian fries. Any vegetables prepared with added fat. [...] provider. Document Revised: 11/28/2020 Document Reviewed: 11/28/2020 [employer] Patient Education 2022 ConsiderC. Follow Up Care 02/25/2023 14:16:08 With:Julee Ruiz CNP Address: When:1 month [facility] 02-18-2023 Note [id number]:[id number] [facility] 02-15-2023 Note Endoscopy Care After Procedure Please [...] Document Re-Released: 11/11/2006 ExitCare? Patient Information ?2009 [employer] Records. Gastroenterology Esophageal Dilatation Esophageal dilatation, also called [...] including vitamins, herbs, eye drops, creams, and dbov-pfv-nbrubdx medicines. ? Any problems you or family [...] tells you to take them. ? Taking lliq-hvc-nrkxmvq medicines, vitamins, herbs, and supplements. ? Follow [...] heart rate, b (more content not included)... [facility] 02-15-2023 Hospital Discharge instructions Patient Education 02/15/2023 10:45:43 Endoscopy, Care After Procedure [facility] Endoscopy Care After Procedure Please read [...] blood. Document Released: 01/01/2005 Document Re-Released: 11/11/2006 [place] Patient Information [facility] ([facility] 02/15/2023 10:45:42 Esophageal Dilatation Esophageal Dilatation Esophageal [...] including vitamins, herbs, eye drops, creams, and wtmx-zbo-tcpqudb medicines. Any problems you or family members [...] provider tells you to take them. ?Taking rtgw-erm-apzaybp medicines, vitamins, herbs, and supplements. Follow instructions [...] home. Follow these instructions at home: Take homi-bad-umyidnx and prescription medicines only as told by [...] provider. Document Revised: 10/05/2020 Document Reviewed: 10/05/2020 [employer] Patient Education 2022 ConsiderC. Follow Up Care 01/21/2023 10:23:37 With:Jacki CORRALES, CONCEPCION Lopez, [facility] Address: [address], [address] [facility] [address] [place] [address]- [phone] When: only if needed Comments:Call for any problems. [facility] 01-21-2023 Hospital Discharge instructions Patient Education [...] grapefruit, pineapple, and arabella. Vegetables Deep-fried vegetables. Canadian fries. Any vegetables prepared with added fat. [...] provider. Document Revised: 11/28/2020 Document Reviewed: 11/28/2020 [employer] Patient Education 2022 ConsiderC. Follow Up Care 08/24/2022 14:16:34 With:Julee Ruiz CNP Address: When:1 to 2 weeks Comments:Following EGD. [facility] 08-24-2022 Hospital Discharge instructions [...] 02/13/2005 Document Revised: 09/04/2018 Document Reviewed: 09/04/2018 [employer] Patient Education 2020 ConsiderC. Follow Up Care 08/02/2022 15:09:59 With:Julee Ruiz CNP Address: When:6 months [facility] 07-27-2022 Note [id number]:[id number] [facility] 07-26-2022 Evaluation + Plan note Extrac dora from: Title:CSB post op Author:Blayne Ingram MD Date:07/26/22 Plan Transfer/Discharge: Transfer/Discharge Discharge when meets criteria ( To home ). Extracted from: Title:HUMZA GA Author:Blayne Ingram MD Date:07/26/22 Plan [employer] Anesthesiologists (ASA) physical status classification: Class II. Anesthetic Preoperative Plan: Anesthesia General. [facility]02-23-2023 Hospital Discharge instructions Patient Education 07/26/2022 10:33:46 Colonoscopy, Care After Surgery [facility] (CUSTOM) Colonoscopy Care After Surgery Please read the instructions outlined below and refer to this sheet in the next few weeks. These discharge instructions provide you with general information on caring [facility] Your doctor may also give you [...] Up Care 05/14/2022 14:45:14 With:Haritha PAULINO Address: [address] [place] [address]. [address] [place] [address] Business (1) When: Unknown Comments:Office will call date and time of follow-up appt. [facility]09-13-2022 Hospital Discharge instructions Patient Education 02/13/2022 [...] powder, vinegar, hot sauces, and barbecue sauce. ?[place] fruit juices and citrus fruits, such as oranges, arabella, and limes. ?Tomato-based foods, such as red sauce, chili, salsa, and pizza with red sauce. ?Fried and fatty foods, such as donuts, east timore[place] fries, potato chips, and high-fat dressings. ?High-fat [...] to any changes in your symptoms. Take jyyf-nye-ebxnsix and prescription medicines only as told by [...] you have new or worsening symptoms. Take ifga-qjq-kznatrm and prescription medicines only as told by [...] 02/27/2006 Document Revised: 11/26/2018 Document Reviewed: 11/26/2018 [employer] Patient Education 2020 [employer]) Follow Up Care 11/14/2021 14:21:01 With:Julee Ruiz CNP Address: When:3 months [facility] 06-14-2022 Hospital Discharge instructions [...] Follow these instructions at home: Medicines Take ytoq-skv-jfhsghz and prescription medicines only as told by your health care provider. If you were prescribed an antibiotic medicine, take it as told by your health care provider. Do notstop taking the antibiotic even if you start to feel better. Eating and drinking Follow any diet changes as told by your health care provider. Work with a diet and air defense specialist (dietitian) to create an eating plan [...] 05/17/2001 Document Revised: 10/14/2019 Document Reviewed: 10/14/2019 [employer] Patient Education 2020 ConsiderC. Follow Up Care 10/25/2021 13:30:14 With:Julee Ruiz CNP Address: When:3 months [facility] 05-18-2022 Hospital Discharge instructions Patient Education 10/18/2021 14:47:43 Endoscopy, Care After Procedure [facility] [place] Endoscopy Care After Procedure Please read the instructions outlined below and refer to this sheet in the next few weeks. These discharge instructions provide you with general information on caring for [facility] Your doctor may also give you specific [...] Document Re-Released: 11/11/2006 [employer] Patient Information 2009 [employer]. Follow Up Care 08/14/2021 11:01:25 With:Haritha PAULINO Address: [address] [place] [address]. [address] [place] [address] Business (1) When:1 to 2 weeks Comments:Call for any problems. [facility]05-18-2022 Evaluation + Plan noteExtracted from: Title:VIVI POSTOP MAC/GEN NOTE Author:Wes Cullen JR Date:10/18/21 Plan Transfer/ Discharge: Patient can be discharged from PACU when criteria met. Condition good. Extracted from: Title:VIVI PREOP ENDO NOTE Author:Mykel Remy JR, DO Date:10/18/21 Plan [employer] of Anesthesiologists (ASA) physical status classification: Class III. Anesthetic Preoperative Plan Anesthesia: Monitored anesthesia care and general anesthesia if required.. Anesthetic plan, risks, benefits, and alternatives discussed with the patient and/or family. Pt. and/or family present and agree to proceed as planned.. Discussed the importance of abstaining from tobacco products, and offered counseling if desired.. [facility]12-21-2021 NoteHISTORY: Lower abdominal pain, possible hernia PROCEDURE: [employer] VCT 64. Without intravenous or oral contrast administration, [...] and signed by Kolton Downing on 05/23/2021 [id number] [facility] Plan note Future Appointments Appointment Date:02/13/2022 12:20:00 PM Scheduled Provider:Julee Ruiz CNP [facility] Type:[facility] Follow Up [facility] Evaluation + Plan note Future Appointments Appointment Date:05/14/2022 01:40:00 PM Scheduled Provider:Julee Ruiz CNP [facility] App[facility]ment Type:[facility] Follow Up Future Scheduled Tests Radiology* XR Adult Swallowing Function w/ Video: Evaluate Pt, Develop a Plan of Care & Implement Plan 02/13/22 [facility] Evaluation + Plan note Future Appointments Appointment Date:05/14/2022 01:40:00 PM Scheduled Provider:Julee Ruiz CNP [facility] App[facility]ment Type[facility]BAD [facility] Future Appointments Appointment Date:01/21/2023 09:20:00 AM Scheduled Provider:Julee Ruiz CNP Location:[facility] Appointment Type:BAD Follow Up [facility] Evaluation + Plan note Future Appointments Appointment Date:02/15/2023 10:55:00 AM Scheduled Provider: Location:[facility] Appointment Type:Surgery FT [facility] Tellybeanaluation + Plan note Future Appointments Appointment Date:06/21/2023 10:30:00 AM Scheduled Provider: Location:[facility] Appointment Type:Surgery FT [facility] evaluation note* Diagnosis Lumbosacral spondylosis without myelopathy [facility] Diagnosis Lumbosacral spondylosis without myelopathy Disorder of sacrum- Primary Disorders of sacrum Disorder of sacrum Disorders of sacrum documented in [facility]* Diagnosis Disorder of sacrum- Primary Disorders of sacrum Lumbosacral spondylosis without myelopathy Acute pain of left shoulder Disorder of sacrum- Primary Disorders of sacrum Disorder of sacrum Disorders of sacrum documented in this [facility] Narrative No data available for this section [facility] No data available for this section [facility]ructionsNot on filedocumented in this encounter [facility] SystemInstructionsNot on filedocumented in this encounter [facility]ructionsNot on filedocumented in this encounter [facility] SystemInstructionsNot on filedocumented in this encounter [facility] No data available for this section [facility] Summary Purpose Family History [...] operating room: INJECTION BLOCK SACROILIAC JOINT Ruth Hussein PA [address] [place] [address] Referral ID Status Reason Start Date Expiration Date V isits Requested Visits Authorized [id number] Pending Review 07/16/2023 07/15/2024 1 1 Specialty Diagnoses / Procedures Referred By Sabino todd Referred To Contact Rehabilitation Diagnoses Acute pain of left shoulder Ruth Hussein PA [address] [place] [address] Referral ID Status Reason Start Date Expiration Date Visits Requested Visits Authorized [id number] Pending Review Specialty Services Required 07/16/2023 07/15/2024 1 1 Additional Source Comments INFORMATION SOURCE (unrecogn ized section and content) DATE CREATED AUTHOR 11/22/2017 [facility] DATE CREATED AUTHOR AUTHOR'S ORGANIZ ATION 01/01/[address] [facility] DATE CREATED AUTHOR AUTHOR'S ORGANIZ ATION 05/24/2021 [facility] Special[facility] DATE CREATED AUTHOR AUTHOR'S ORGANIZ ATION 07/19/2021 [facility] DATE CREATED AUTHOR AUTHOR'S ORGANIZ ATION 05/03/2022 [facility] DATE CREATED AUTHOR AUTHOR'S ORGANIZ ATION 06/08/2023 Javier Park [facility] DATE CREATED AUTHOR AUTHOR'S ORGANIZ ATION 08/30/2023 [facility] DATE CREATED AUTHOR AUTHOR'S ORGANIZ ATION 09/11/2023 [facility] DATE CREATED AUTHOR AUTHOR'S ORGANIZ ATION 10/03/2023 [facility] d[facility] Specialists [facility] Care Team (unrecognized sect ion and content) A And P Mechanic Relationship Specialty Start Date End Date Serge Hilton MD [address] [place] [address] PCP - General 05/07/23 A And P Mechanic Relationship Specialty Start Date End Date Serge Hilton MD [address] [place] [address] PCP - General 05/07/23 A And P Mechanic Relationship Specialty Start Date End Date Serge Hilton MD [address] [place] [address] PCP - General 05/07/23 A And P Mechanic Relationship Specialty Start Date End Date Serge Hilton MD [address] [place] [address] PCP - General 05/07/23 A And P Mechanic Relationship Specialty Start Date End Date Serge Hilton MD [address] [place] [address] PCP - General 05/07/23 Reason for Visit [...] BE BASED ON THE PRIMARY CLINICAL RECORDS. [facility] [employer] [facility]. provides no warranty or guarantee of the accuracy or completeness of information in this document.
== END 2023-10-11 10:29 | disposition home or self-care (01) ==
LOC: MRI 10:28
PROVIDERS: PCP Family Medicine; Visit Provider Family Medicine
DX: Z12.31 Encounter for screening mammogram for malignant neoplasm of breast (principal); S46.002A Unspecified injury of muscle(s) and tendon(s) of the rotator cuff of left shoulder, initial encounter; M24.812 Other specific joint derangements of left shoulder, not elsewhere classified; Z78.0 Asymptomatic menopausal state; Z80.0 Family history of malignant neoplasm of digestive organs; Z80.1 Family history of malignant neoplasm of trachea, bronchus and lung; M85.80 Other specified disorders of bone density and structure, unspecified site
CPT/HCPCS: 73221; 77063; 77067; 77080

== ENCOUNTER 2024-02-13 08:45 | Outpatient (OUT) | payer MEDICARE, MEDICAID, SELFPAY ==
--- NOTE | 2024-02-13 09:07 | CT_ITS ---
[address] [address] Patient Name: CEFERINO PEREZ MRN: [id number] date: 1955 Sex: F Assigned Patient Location: CT Current Patient Location: Accession/Order Number: [id number] Exam Date: 02/13/2024 10:00 Report Date: 02/14/2024 05:57 At the request of: OLGA HILTON Procedure: CT chest w con EXAMINATION: CT chest w con HISTORY: Lung Nodule , cough, nodules COMPARISON: No relevant comparison available. TECHNIQUE: Multi-planar CT images were obtained without and/or with IV contrast as indicated by examination type. Axial, Coronal, and Sagittal images. Dose reduction techniques were achieved by using automated exposure control and/or adjustment of mA and/or kV according to patient size and/or use of iterative reconstruction technique. FINDINGS: LUNGS: 2 adjacent pleural-based 4 mm nodules near posterior right costophrenic angle. Trace amount of stranding favoring atelectasis within left lung base. PLEURA: No mass, effusion, or pneumothorax. VASCULATURE: No abnormality. TIMBO: No mass or adenopathy. MEDIASTINUM: No mass or adenopathy. CARDIAC: No enlargement or pericardial thickening.. Coronary artery calcifications: AORTA: No aneurysm or dissection. CHEST WALL: No mass or axillary adenopathy. BONES: No bone lesion or fracture. LIMITED ABDOMEN: Benign-appearing left renal cyst. Gastric bypass surgery. Cholecystectomy. Limited images of the upper abdomen. OTHER: Negative. CT/CT chest w con IMPRESSION: 1. Within posterior right lung base are 2 adjacent 4 mm nonspecific nodules, but no overtly suspicious characteristics. Consider follow-up CT chest in one year to document stability. 2. Trace amount of atelectasis within left lung base. No convincing infiltrates. Electronically authenticated by: BOB CAMERON Date: 02/14/2024 05:57
[2024-02-13 09:27] LABS: Alanine Aminotransferase 30 U/L (14-59); Albumin Globulin Ratio 0.9; Alkaline Phosphatase 149 U/L (46-116); Aspartate Amino Transferase 19 U/L (15-37); BUN Creatinine Ratio 30.1; Bilirubin Total 0.5 mg/dL (0.2-1.0); Calcium 8.8 mg/dL (8.5-10.1); Chloride 105 mmol/L (98-107); Estimated GFR (African America >60 (>=60); Estimated GFR (Non-African Ame >60 (>=60); Globulin 3.4 g/dL; Glucose 91 mg/dL (74-106); Potassium 4.1 mmol/L (3.5-5.1); Sodium 142 mmol/L (136-145); Total Protein 6.4 g/dL (6.4-8.2)
[2024-02-13 09:38] LABS: Anion Gap 11.3; Carbon Dioxide 29.8 mmol/L (21.0-32.0)
== END 2024-02-13 08:46 | disposition home or self-care (01) ==
LOC: CT 08:48
PROVIDERS: PCP Family Medicine; Visit Provider Family Medicine
DX: R91.1 Solitary pulmonary nodule (principal)
CPT/HCPCS: 36415; 71260; 80053; Q9967